=== PATIENT | female | born 1965 | race Caucasian/White ===

== ENCOUNTER 2017-07-09 09:57 | Emergency (ER) | payer OTHER, SELFPAY ==
[2017-07-09 10:35] VITALS: BP 149/95; PULSE 85; RESP 20; TEMP 37.2; O2SAT 95; BMI 38.4
--- NOTE | 2017-07-09 11:20 | HMH.EDUTC ---
[facility] [place] Disposition Clinical Impression: Dental caries Knee pain, left Qualifiers: Chronicity: acute Qualified Code(s): M25.562 - Pain in left knee Disposition: Home, Self-Care Condition on Discharge: Good Instructions: DI for Tooth Decay, Muscle Strain Additional Instructions: Tylenol or ibuprofen as needed for pain or fever Follow-up with dentist this week Antibiotics as ordered Follow up with PCP this week regarding knee Symptoms worsen or do not improve return or be seen in the ER Prescriptions: Amoxicillin [Amoxicillin 500mg Cap] 500 mg PO BID 10 Days #20 cap Referrals: Rakesh Broderick MD [Primary Care Provider] - Medical Decision Making Vital Signs: 07/09/17 10:35 Temperature 98.9 F Temperature Source Temporal Artery Scan Pulse Rate [Brachial] 85 Respiratory Rate 20 Blood Pressure [Right Arm] 149/95 Blood Pressure Mean [Right Arm] 113 Blood Pressure Source [Right Arm] Automatic Cuff Blood Pressure Position [Right Arm] Sitting 02 Sat by Pulse Oximetry 95 - Jerrell Inquiry Pt receiving controlled substance: No [facility] [place] HPI - General Chief complaint: Urgent Treatment Center Stated complaint: sore throat Time Seen by Provider: 07/09/17 11:21 Mode of Arrival: Ambulatory Source of Information: Patient Limitations: No Limitations Description of Symptoms (Recalled from Triage Doc. by RN): LEFT SIDED THROAT PAIN, NO FEVER HEENT Symptoms (Recalled from RN notes): Yes Resp Symptoms (Recalled from RN notes): No Skin Symptoms (Recalled from RN notes): No MS Symptoms (Recalled from RN notes): No Functional Status (Recalled from RN notes): NA - History of Present Illness Provider Complaint: 51 year female presents for left neck pain. Patient states she has 2 teeth in the lower jaw that she has been having worked up at the dentist but insurance will pay to have them pulled. She thinks pain is related to the teeth. Patient also complained of left knee pain states she has a meniscus tear but she is unable to have surgery at this time and stepped off the sidewalk and since then he has been bothering her a little. - Related Data Home Medications Medication Instructions Recorded Confirmed Glimepiride [Glimepiride] 1 mg PO DAILY 07/09/17 07/09/17 Lisinopril/Hydrochlorothiazide 1 mg PO DAILY 01/29/18 01/29/18 [Lisinopril-Hctz 20-12.5 mg Tab] Metformin HCl [Metformin 500mg 0 mg PO BID 07/09/17 07/09/17 Tablet] Verapamil HCl 120 mg PO DAILY 07/09/17 07/09/17 Previous Rx's Medication Instructions Recorded Amoxicillin [Amoxicillin 500mg 500 mg PO BID 10 Days #20 cap 07/09/17 Cap] Allergies Allergy/AdvReac Type Severity Reaction Status Date / Time propoxyphene [PROPOXYPHENE] Allergy Unknown Verified 07/09/17 10:38 - Worker's Comp Is this a Worker's Comp case?: No [facility] History I have reviewed the patient's past medical history: Yes Medical History: Reports:: Diabetes Mellitus Type 2 - *Social History Alcohol Intake: never - Psychiatric History Expresses thoughts of harming self/others: None Suicide Plan Description: No Plan ROS Obtained: Yes All systems reviewed & no additional complaints - Constitutional Constitutional: Reports system reviewed and no additional complaints, except as docu - Eyes Eyes: Reports system reviewed and no additional complaints, except as docu - ENT Ears, Nose, Mouth, and Throat: Reports system reviewed and no additional complaints, except as docu, Reports as per HPI, Reports neck pain, Reports other - Cardiovascular Cardiovascular: Reports system reviewed and no additional complaints, except as docu - Respiratory Respiratory: Yes system reviewed and no additional complaints, except as docu - Gastrointestinal Gastrointestingal: Reports: system reviewed and no additional complaints, except as docu - Musculoskeletal Musculoskeletal: Reports system reviewed and no additional complaints, except as docu, Reports as per HPI
--- NOTE | 2017-07-09 11:25 | ED_ITS ---
[facility] [place] Disposition Clinical Impression: Dental caries Knee pain, left Qualifiers: Chronicity: acute Qualified Code(s): M25.562 - Pain in left knee Disposition: Home, Self-Care Condition on Discharge: Good Instructions: DI for Tooth Decay, Muscle Strain Additional Instructions: Tylenol or ibuprofen as needed for pain or fever Follow-up with dentist this week Antibiotics as ordered Follow up with PCP this week regarding knee Symptoms worsen or do not improve return or be seen in the ER Prescriptions: Amoxicillin [Amoxicillin 500mg Cap] 500 mg PO BID 10 Days #20 cap Referrals: Rakesh Broderick MD [Primary Care Provider] - Medical Decision Making Vital Signs: 07/09/17 10:35 Temperature 98.9 F Temperature Source Temporal Artery Scan Pulse Rate [Brachial] 85 Respiratory Rate 20 Blood Pressure [Right Arm] 149/95 Blood Pressure Mean [Right Arm] 113 Blood Pressure Source [Right Arm] Automatic Cuff Blood Pressure Position [Right Arm] Sitting 02 Sat by Pulse Oximetry 95 - Jerrell Inquiry Pt receiving controlled substance: No [facility] [place] HPI - General Chief complaint: Urgent Treatment Center Stated complaint: sore throat Time Seen by Provider: 07/09/17 11:21 Mode of Arrival: Ambulatory Source of Information: Patient Limitations: No Limitations Description of Symptoms (Recalled from Triage Doc. by RN): LEFT SIDED THROAT PAIN, NO FEVER HEENT Symptoms (Recalled from RN notes): Yes Resp Symptoms (Recalled from RN notes): No Skin Symptoms (Recalled from RN notes): No MS Symptoms (Recalled from RN notes): No Functional Status (Recalled from RN notes): NA - History of Present Illness Provider Complaint: 51 year female presents for left neck pain. Patient states she has 2 teeth in the lower jaw that she has been having worked up at the dentist but insurance will pay to have them pulled. She thinks pain is related to the teeth. Patient also complained of left knee pain states she has a meniscus tear but she is unable to have surgery at this time and stepped off the sidewalk and since then he has been bothering her a little. - Related Data Home Medications Medication Instructions Recorded Confirmed Glimepiride [Glimepiride] 1 mg PO DAILY 07/09/17 07/09/17 Lisinopril/Hydrochlorothiazide 1 mg PO DAILY 01/29/18 01/29/18 [Lisinopril-Hctz 20-12.5 mg Tab] Metformin HCl [Metformin 500mg 0 mg PO BID 07/09/17 07/09/17 Tablet] Verapamil HCl 120 mg PO DAILY 07/09/17 07/09/17 Previous Rx's Medication Instructions Recorded Amoxicillin [Amoxicillin 500mg 500 mg PO BID 10 Days #20 cap 07/09/17 Cap] Allergies Allergy/AdvReac Type Severity Reaction Status Date / Time propoxyphene [PROPOXYPHENE] Allergy Unknown Verified 07/09/17 10:38 - Worker's Comp Is this a Worker's Comp case?: No [facility] History I have reviewed the patient's past medical history: Yes Medical History: Reports:: Diabetes Mellitus Type 2 - *Social History Alcohol Intake: never - Psychiatric History Expresses thoughts of harming self/others: None Suicide Plan Description: No Plan ROS Obtained: Yes All systems reviewed & no additional complaints - Constitutional Constitutional: Reports system reviewed and no additional complaints, except as docu - Eyes Eyes: Reports syste
== END 2017-07-09 11:33 | disposition home or self-care (01) ==
PROVIDERS: Emergency Provider Nurse Practitioner Family; Family Provider Pediatrics; PCP Family Medicine
DX: K02.9 Dental caries, unspecified (principal); M25.562 Pain in left knee; I10 Essential (primary) hypertension; Z79.84 Long term (current) use of oral hypoglycemic drugs; E11.9 Type 2 diabetes mellitus without complications
CPT/HCPCS: 99201

== ENCOUNTER → 2017-09-28 08:37 | Outpatient (CLI) | payer OTHER, SELFPAY ==
[2017-09-28 10:12] LABS: Hemoglobin A1C 11.7 % (0.0-7.0)
[2017-09-28 10:28] LABS: Alanine Aminotransferase 22 U/L (12-78); Albumin Level 3.7 gm/dL (3.4-5.0); Albumin/Globulin Ratio 1.1 (1.1-1.8); Alkaline Phosphatase 77 U/L (46-116); Anion Gap 12.5 mEq/L (5-15); Aspartate Amino Transferase 13 U/L (15-37); Bilirubin,Total 0.4 mg/dL (0.2-1.0); Blood Urea Nitrogen 11 mg/dL (7-18); Calcium 9.5 mg/dL (8.5-10.1); Carbon Dioxide 35 mmol/L (21.0-32.0); Chloride 95 mmol/L (98-107); Chol/HDL Ratio 3.9 (1-3.5); Cholesterol 174 mg/dL (140-200); Creatinine,Serum 0.49 mg/dL (0.55-1.02); Estimated Glomerular Filt Rate 134 ml/min (>60); GFR (African American) 162 ML/MIN (>60); Globulin 3.3 gm/dl (1.3-3.2); Glucose 293 mg/dL (74-106); HDL Cholesterol 45 mg/dL (29-89); LDL Cholesterol 92 mg/dL (0-130); Potassium 3.5 mmoL/L (3.5-5.1); Sodium 139 mmol/L (136-145); Triglycerides 185 mg/dL (30-200); VLDL Cholesterol 37 mg/dL (0-40)
== END ==
PROVIDERS: Visit Provider Family Medicine
DX: E11.9 Type 2 diabetes mellitus without complications (principal); I10 Essential (primary) hypertension; E78.5 Hyperlipidemia, unspecified
CPT/HCPCS: 36415; 80053; 80061; 83036

== ENCOUNTER 2017-12-29 10:50 | Observation (INO) ==
--- NOTE | 2017-12-29 11:04 | Emergency Department Note ---
ED Disposition Clinical Impression: Enteritis, Hypokalemia Disposition: Still a Patient Condition on Discharge: Fair - Critical Care Critical Care Time: No Attestation: On , the high probability of a clinically significant, sudden or life threatening deterioration of the following system(s) required my full and direct attention, intervention and personal management. The time I documented below is in addition to time spent performing reported procedures but includes the following listed in this critical care notation. Medical Decision Making - Jerrell Inquiry Pt receiving controlled substance: No Vital Signs: 12/29/17 10:54 12/29/17 11:34 12/29/17 12:46 Temperature 97.6 F Temperature Source Oral Pulse Rate [Right Brachial] 129 H 117 H 106 H Respiratory Rate 18 18 18 Blood Pressure [Right Arm] 125/94 151/90 141/83 Blood Pressure Mean [Right Arm] 104 110 102 Blood Pressure Source [Right Arm] Automatic Cuff Automatic Cuff Automatic Cuff Blood Pressure Position [Right Arm] Sitting Sitting Sitting 02 Sat by Pulse Oximetry 96 97 95 Oxygen Delivery Method Room Air Room Air Room Air 12/29/17 12:55 12/29/17 13:00 12/29/17 14:30 Temperature Temperature Source Pulse Rate [Right Brachial] 105 H 106 H 106 H Respiratory Rate 18 18 Blood Pressure [Right Arm] 135/85 135/85 154/99 Blood Pressure Mean [Right Arm] 101 101 117 Blood Pressure Source [Right Arm] Automatic Cuff Automatic Cuff Automatic Cuff Blood Pressure Position [Right Arm] Sitting Sitting Sitting 02 Sat by Pulse Oximetry 97 97 96 Oxygen Delivery Method Room Air Room Air Room Air - Lab Data Lab Results 12/29/17 11:05: WBC 19.3 H, RBC 5.34, Hgb 15.7, Hct 48.6 H, MCV 91.0, MCH 29.4, MCHC 32.4, RDW 12.9, Plt Count 559 H, MPV 7.4, Neut % (Auto) 76.2, Lymph % (Auto ) 15.6, [place] % (Auto) 7.0, Eos % (Auto) 0.9, Baso % (Auto) 0.3, Neut # (Auto) 14.7 H, Lymph # (Auto) 3.0, [place] # (Auto) 1.4 H, Eos # (Auto) 0.2, Baso # (Auto ) 0.1, Total Counted 100, Neutrophils % (Manual) 79 H, Band Neutrophils % 2.0, Lymphocytes % (Manual) 12, Atypical Lymphs % 2.0, Monocytes % (Manual) 5, Platelet Estimate Slight increase, RBC Morphology Normal 12/29/17 11:05: Sodium 140, Potassium 2.8 L*, Chloride 102, Carbon Dioxide 29, Anion Gap 11.8, BUN 14, Creatinine 0.71, Estimated Creat Clear 143, Estimated GFR 87, Est GFR ( Amer) 105, Glucose 221 H, Calcium 9.7, Total Bilirubin 0.5, AST 10 L, ALT 26, Alkaline Phosphatase 84, Total Protein 8.3 H, Albumin 4.0 , Globulin 4.3 H, Albumin/Globulin Ratio 0.9 L 12/29/17 11:05: Lipase 1932 H 12/29/17 11:35: Stl Aeromonas (PCR) Not detected, Stl C. cayetanensis PCR Not detected, Stool Rotavirus (PCR) Not detected, Stl Adenov F 40/41 PCR Not detected, Stool Astrovirus (PCR) Not detected, Stool Campylobacter PCR Not detected, Stl C.difficile Tox PCR Not detected, Stool Cryptosporidium PCR Not detected, Stl E.coli Shiga Tox PCR Not detected, Stool E coli O157 PCR Not detected, Stl Enterotoxigenic E PCR Not detected, Stool EPEC (PCR) Not detected , Stool EAEC (PCR) Not detected, Stl E. histolytica PCR Not detected, Stool Giardia Lamblia PCR Not detected, Stool Salmonella PCR Not detected, Stool Sapovirus (PCR) Not detected, Stl P. shigelloides PCR Not detected, Stl Shigella /EIEC PCR Not detected, St Y.enterocolitica PCR Not detected, Stool Vibrio (PCR ) Not detected, Stl Vibrio cholerae PCR Not detected, Stl Norovirus GI/GII PCR Not detected Result diagrams: 12/29/17 11:05 12/29/17 11:05 Orders (Tests/Meds): ED MEDICATIONS Generic Name Dose Route Start Last Admin Trade Name Freq PRN Reason Stop Dose Admin Famotidine 20 mg 12/30/17 09:00 Pepcid 20mg Tablet PO 01/29/18 08:59 DAILY SHARON Potassium Chloride/Sodium Chloride 1,000 mls @ 100 mls/hr 12/29/17 14:46 Kcl 40 Meq-Ns 1,000ml Iv Soln IV 01/28/18 14:45 .Q10H SHARON Insulin Human Lispro 0 unit 12/29/17 16:30 Humalog 100 Units/Ml 3ml Vial (Ssi) SQ 01/28/18 16:29 ACHS SHARON Protocol Morphine Sulfate 4 mg 12/29/17 14:46 Morphine 4mg/Ml Syringe IV 01/28/18 14:45 Q4HP PRN Moderate to Severe Pain Ondansetron HCl 4 mg 12/29/17 14:46 Zofran 4mg/2ml Vial IV 01/28/18 14:45 Q8HP PRN Nausea Sodium Chloride 10 ml 12/29/17 15:00 Saline Flush 10ml Syringe IV 01/28/18 14:59 NEEDED PRN Maintain IV Site Verapamil HCl 160 mg 12/29/17 21:00 Calan Ir 80mg Tablet PO 01/28/18 20:59 BID SHARON Discontinued Medications Generic Name Dose Route Start Last Admin Trade Name Freq PRN Reason Stop Dose Admin Sodium Chloride 1,000 mls @ 999 mls/hr 12/29/17 11:15 12/29/17 11:05 Sod Chlor 0.9% 1000ml Bag IV 12/29/17 12:15 999 mls/hr .Q1H1M SHARON Administration Potassium Chloride/Water 100 mls @ 50 mls/hr 12/29/17 11:54 12/29/17 12:55 Potassium Chloride 20meq/100ml Ivpb IV 12/29/17 13:53 50 mls/hr ONCE ONE Administration Iopamidol 75 ml 12/29/17 12:24 12/29/17 12:25 [id number]; 75ml Vial IV 12/29/17 12:25 75 ml ONCE ONE Administration Ondansetron HCl 4 mg 12/29/17 11:03 12/29/17 11:04 Zofran 4mg/2ml Vial IV 12/29/17 11:04 4 mg ONCE ONE Administration Potassium Chloride/Water 20 meq 12/29/17 11:39 Potassium Chloride 20meq/100ml Ivpb IV 12/29/17 11:40 ONCE ONE Sodium Chloride 10 ml 12/29/17 12:24 12/29/17 12:25 Rad-Saline Flush 10ml Syringe IV 12/29/17 12:25 10 ml ONCE ONE Administration ORDERS Category Date Time Status Basic Metabolic Panel [facility] Lab 12/30/17 06:00 Ordered Complete Blood Count Auto Diff AMLAB Lab 12/30/17 06:00 Ordered - CT Data CT Scan: Abdomen, Pelvis Time Received: 14:[address] Reviewed: Yes: I have viewed the radiologist's interpretation Findings Narrative: IMPRESSION: ...... 1. Findings suggest Acute Enteritis: Liquid stool with air-fluid levels throughout nondilated right and transverse colon. Increased fluid throughout generous generous caliber small bowel, with scattered small air-fluid levels.. Overall picture Likely reflect enteritis. 2. 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 But requires correlation This splenosis pattern basically stable since since [address] study . The Most evident collection of splenules at the splenic bed but with scattered peripheral nodular densities throughout abdomen and pelvis discussed in text. Stable since prior studies 3. Fairly stable left Periaortic Adenopathy... Generous Elongated collection of nodes here unchanged since 2004 CT 4. However there has been significant progression of now numerous Prominent Mesenteric Lymph Nodes most evident towards RLQ... Significant Increased number & size of these mesenteric lymph nodes since 2013. These mesenteric nodes or more prominent and extensive been I would anticipate merely from typical inflammatory enteritis The latter findings warrants follow-up & further investigation..With the combination mesenteric and left para-aortic adenopathy cannot exclude a rather indolent but underlying lymphoproliferative abnormality. 5. Enlarged left ovary measuring up to 4.7 cm and containing a 3.2 cm cyst Patient may benefit from follow-up pelvic ultrasound in context of other findings 6. No free fluid. No free air no focal inflammatory changes. 7. Stable benign nonfunctioning left adrenal adenoma Dictated By: Parveen Angeles Signed By: <Electronically signed by Parveen Angeles in OV> 12/29/17 1358 - Physician Consults Physician Consulted: Davie Time: 14:32 Reason -: Admission Comment/Response: Agrees to admit the patient to the hospital. We discussed the patient's clinical information, including history, exam, laboratory and radiology results and ED course. Per hospital procedure, I will write temporary bridge inpatient orders on the patient. Specific orders requested by the admitting physician: IVF with 40 mEq potassium per liter. No antibiotics. Recheck CBC and chemistry profile in the morning. - Reevaluation(s) Time: 14:19 Reevaluation #1: Improved. No further diarrhea since she provided the diarrhea sample. Nausea is improved. Pain is 3/10. General Adult HPI - General Chief complaint: Nausea/Vomiting/Diarrhea Stated complaint: Abd pain,diarrhea,vomiting Time Seen by Provider: 12/29/17 11:03 Mode of Arrival: Ambulatory Limitations: No Limitations Description of Symptoms (Recalled from ER Triage Doc. by RN): Pt reports diarrhea that began lastnight, pt reports vomitting x1 this morning. Pt c/o pain "all over" her abd that began lastnight. - History of Present Illness HPI narrative: Profuse diarrhea, watery, without blood, 12-15 episodes since last night. Vomiting 1 this morning. No fever noted. No recent travel, exposures, or antibiotics. 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 - Related Data Home Medications Medication Instructions Recorded Confirmed Glimepiride 1 mg PO BID 07/09/17 12/29/17 Metformin HCl [Metformin 500mg 500 mg PO BID 07/09/17 12/29/17 Tablet] Verapamil HCl 180 mg PO BID 07/09/17 12/29/17 Famotidine [Acid Controller] 20 mg PO DAILY 12/29/17 12/29/17 Allergies Allergy/AdvReac Type Severity Reaction Status Date / Time propoxyphene [PROPOXYPHENE] Allergy Unknown Verified 07/09/17 10:[address] [facility] History I have reviewed the patient's past medical history: Yes Medical History: Reports:: Diabetes Mellitus Type 2 - Social History Alcohol Intake: never - Psychiatric History Expresses thoughts of harming self/others: None Suicide Plan Description: No Plan ROS Obtained: Yes All systems reviewed & no additional complaints - Constitutional Constitutional: Denies fever(s) - Gastrointestinal Gastrointestingal: Reports: abdominal pain, diarrhea, nausea, vomiting Physical Exam - General General appearance: alert, in no apparent distress - Head Head exam: atraumatic, normocephalic, normal inspection - Eye Eye exam: Present: normal appearance, PERRL, EOMI - ENT ENT exam: Present: normal exam, normal oropharynx, mucous membranes moist, TM's normal bilaterally, normal external ear exam - Neck Neck exam: Present: normal inspection, full ROM, trachea midline. Absent: meningismus, lymphadenopathy - Chest Chest inspection: Present: normal inspection, symmetric chest wall rise. Absent : tenderness - Respiratory Respiratory exam: Present: normal lung sounds bilaterally. Absent: respiratory distress - Cardiovascular Cardiovascular exam: Present: normal rhythm, tachycardia. Absent: JVD - Abdominal Exam Abdominal exam: Present: soft, tenderness, normal bowel sounds. Absent: distention, guarding Abdominal tenderness: Present: diffuse - Extremities Exam Extremities exam: Present: normal inspection, full ROM, normal capillary refill. Absent: calf tenderness - Back Exam Back exam: Present: normal inspection. Absent: tenderness - Neurological Exam Neurological exam: Present: alert, oriented X3 - Psychiatric Psychiatric exam: Present: normal affect, normal mood - Skin Skin exam: Present: warm, dry, intact, normal color
[2017-12-29 11:25] LABS: Basophils # 0.1 K/mm3 (0-0.2); Basophils % 0.3 % (0.1-2.0); Eosinophils # 0.2 K/mm3 (0.0-0.4); Eosinophils % 0.9 % (0.1-12.0); Hematocrit 48.6 % (37.0-47.0); Hemoglobin 15.7 g/dL (12.2-16.2); Lymphocytes % 15.6 K/mm3 (10-50); Mean Corpuscular HGB Conc 32.4 g/dL (31.8-35.4); Mean Corpuscular Hemoglobin 29.4 pg (27.0-31.2); Mean Platelet Volume 7.4 fl (7.4-10.4); Monocytes # 1.4 K/mm3 (0.1-1.0); Neutrophils # 14.7 K/mm3 (1.8-7.8); Neutrophils % 76.2 % (37.0-80.0); Platelet Count 559 K/mm3 (142-424); Red Blood Count 5.34 M/mm3 (4.20-5.40); Red Cell Distribution Width 12.9 % (11.5-17.5); White Blood Count 19.3 K/mm3 (4.8-10.8)
[2017-12-29 11:34] LABS: Albumin/Globulin Ratio 0.9 (1.1-1.8); Anion Gap 11.8 mEq/L (5-15); Bilirubin,Total 0.5 mg/dL (0.2-1.0); Calcium 9.7 mg/dL (8.5-10.1); Globulin 4.3 gm/dl (1.3-3.2); Total Protein,Serum 8.3 gm/dL (6.4-8.2)
[2017-12-29 11:38] LABS: Potassium 2.8 mmoL/L (3.5-5.1)
[2017-12-29 11:44] LABS: Lymphocytes % 12 % (10-50); Monocytes % 5 % (2-9); Neutrophils % 79 % (42-76); Total Cells Counted 100
[2017-12-29 11:45] LABS: RBC Morphology Normal
[2017-12-30 06:49] LABS: Basophils % 0.4 % (0.1-2.0); Eosinophils # 0.2 K/mm3 (0.0-0.4); Eosinophils % 2.4 % (0.1-12.0); Hematocrit 38.2 % (37.0-47.0); Lymphocytes # 2.9 K/mm3 (0.7-4.5); Lymphocytes % 31.3 K/mm3 (10-50); Mean Corpuscular HGB Conc 32.7 g/dL (31.8-35.4); Mean Corpuscular Hemoglobin 29.9 pg (27.0-31.2); Mean Corpuscular Volume 91.7 fl (81-99); Mean Platelet Volume 7.4 fl (7.4-10.4); Monocytes # 0.7 K/mm3 (0.1-1.0); Monocytes % 7.3 % (1.7-9.3); Neutrophils # 5.3 K/mm3 (1.8-7.8); Neutrophils % 58.5 % (37.0-80.0); Platelet Count 476 K/mm3 (142-424); Red Blood Count 4.17 M/mm3 (4.20-5.40); Red Cell Distribution Width 13.1 % (11.5-17.5); White Blood Count 9.1 K/mm3 (4.8-10.8)
[2017-12-30 06:50] LABS: Hemoglobin 12.5 g/dL (12.2-16.2)
[2017-12-30 06:57] LABS: Anion Gap 12.9 mEq/L (5-15)
[2017-12-30 06:59] LABS: Calcium 7.9 mg/dL (8.5-10.1); Potassium 2.9 mmoL/L (3.5-5.1)
--- NOTE | 2017-12-30 08:20 | History & Physical Report ---
*Admission Date: 12/29/17 *Chief complaint: vomting and diarrhea *History of present illness: Hollie is a 52-year-old white female with a history of hypertension and diabetes who started with abdominal cramping and diarrhea late Sunday night. This persisted throughout the night and then yesterday morning she began having nausea and vomiting. She presented to the emergency room yesterday afternoon with these complaints. On evaluation in the emergency room she was found to have an elevated white count of 19,000 and an elevated lipase. CT scan of the abdomen showed nothing acute with the pancreas. She did have some lymphadenopathy which had been present on prior CAT scan several years ago but bit more prominent in the right lower quadrant with this scan. Also of note, her potassium was low at 2.8. A diarrhea panel was negative. She was admitted yesterday for treatment with IV fluids, GI rest, and replacement of her potassium She rested fairly well through the night. She has had no further vomiting or diarrhea since admission to the floor. Her abdominal pain has eased. She does not feel hungry. She is tolerating liquids. [facility] History Medical History: Reports:: Diabetes Mellitus Type 2, Hypertension Denies:: Cancer, MRSA Other Medical History: Reports: Arthritis, Other (Congenital hearing loss) Other Surgeries: Yes: Hysterectomy-Partial, Splenectomy, Other (Pilonidal cyst) Amputation: No Fractures: No - *Social History Educational Level: Attended College Smoking Status: Never smoker Alcohol Intake: never Occupational Status: employed Household Members: family - Psychiatric History Expresses thoughts of harming self/others: None Pschychiatric History:: Reports:: Depression *Family Hx:: Cancer, Coronary Artery Disease Review of Systems - Constitutional Denies fever(s) - Eyes Reports requires corrective lenses, Denies blurry vision, Denies double vision - ENT Reports dry mouth, Reports hearing loss, Denies pain with swallowing - *Cardiovascular Denies chest pain, Denies shortness of breath, Denies leg swelling, Denies fast heart rate - *Respiratory Denies chest congestion, Denies cough - *Gastrointestinal Reports abdominal pain, Reports bloating, Reports cramping, Reports loose stools , Reports nausea, Reports vomiting - *Genitourinary Reports absent period, Denies difficulty urinating, Denies vaginal discharge - *Musculoskeletal Reports joint pain, Denies muscle weakness - Integumentary/Breasts Denies itching, Denies rash - *Neurologic Reports abnormal hearing, Denies dizziness - Psychiatric Denies anxiety, Denies mood swings - Endocrine Denies excessive sweating, Denies rapid, pounding, or irregular heartbeat - Hematologic/Lymphatic Denies easy bleeding - Allergic/Immunologic Reports seasonal runny nose, Denies itchy eyes Meds Home Medications Medication Instructions Recorded Confirmed Type Glimepiride 1 tab PO BID 07/09/17 12/29/17 History Verapamil HCl 180 mg PO BID 07/09/17 12/29/17 History Benazepril/Hydrochlorothiazide 1 each PO BID 12/29/17 12/29/17 History [Benazepril-Hctz 20-25 mg Tab] Dapagliflozin Propanediol [Farxiga] 10 mg PO DAILY 12/29/17 12/29/17 History Famotidine [Acid Controller] 40 mg PO DAILY 12/29/17 12/29/17 History Sitagliptin Phos/Metformin HCl 1 each PO BID 12/29/17 12/29/17 History [Janumet Xr 50-1,000 mg Tablet] Allergies Allergy/AdvReac Type Severity Reaction Status Date / Time propoxyphene [PROPOXYPHENE] Allergy Unknown Verified 07/09/17 10:38 Exam Vital signs and Labs for Last 24 Hours: Temp Pulse Resp BP Pulse Ox 98.4 F 76 20 129/80 96 12/30/17 07:52 12/30/17 07:52 12/30/17 07:52 12/30/17 07:52 12/30/17 07:52 Laboratory Results - last 24 hr 12/29/17 11:05: WBC 19.3 H, RBC 5.34, Hgb 15.7, Hct 48.6 H, MCV 91.0, MCH 29.4, MCHC 32.4, RDW 12.9, Plt Count 559 H, MPV 7.4, Neut % (Auto) 76.2, Lymph % (Auto ) 15.6, [place] % (Auto) 7.0, Eos % (Auto) 0.9, Baso % (Auto) 0.3, Neut # (Auto) 14.7 H, Lymph # (Auto) 3.0, [place] # (Auto) 1.4 H, Eos # (Auto) 0.2, Baso # (Auto ) 0.1, Total Counted 100, Neutrophils % (Manual) 79 H, Band Neutrophils % 2.0, Lymphocytes % (Manual) 12, Atypical Lymphs % 2.0, Monocytes % (Manual) 5, Platelet Estimate Slight increase, RBC Morphology Normal 12/29/17 11:05: Sodium 140, Potassium 2.8 L*, Chloride 102, Carbon Dioxide 29, Anion Gap 11.8, BUN 14, Creatinine 0.71, Estimated Creat Clear 143, Estimated GFR 87, Est GFR ( Amer) 105, Glucose 221 H, Calcium 9.7, Total Bilirubin 0.5, AST 10 L, ALT 26, Alkaline Phosphatase 84, Total Protein 8.3 H, Albumin 4.0 , Globulin 4.3 H, Albumin/Globulin Ratio 0.9 L 12/29/17 11:05: Lipase 1932 H 12/29/17 11:35: Stl Aeromonas (PCR) Not detected, Stl C. cayetanensis PCR Not detected, Stool Rotavirus (PCR) Not detected, Stl Adenov F 40/41 PCR Not detected, Stool Astrovirus (PCR) Not detected, Stool Campylobacter PCR Not detected, Stl C.difficile Tox PCR Not detected, Stool Cryptosporidium PCR Not detected, Stl E.coli Shiga Tox PCR Not detected, Stool E coli O157 PCR Not detected, Stl Enterotoxigenic E PCR Not detected, Stool EPEC (PCR) Not detected , Stool EAEC (PCR) Not detected, Stl E. histolytica PCR Not detected, Stool Giardia Lamblia PCR Not detected, Stool Salmonella PCR Not detected, Stool Sapovirus (PCR) Not detected, Stl P. shigelloides PCR Not detected, Stl Shigella /EIEC PCR Not detected, St Y.enterocolitica PCR Not detected, Stool Vibrio (PCR ) Not detected, Stl Vibrio cholerae PCR Not detected, Stl Norovirus GI/GII PCR Not detected 12/29/17 15:55: POC Glucose 217 H 12/29/17 20:35: POC Glucose 161 H 12/30/17 06:14: WBC 9.1 D, RBC 4.17 L, Hgb 12.5 D, Hct 38.2, MCV 91.7, MCH 29.9, MCHC 32.7, RDW 13.1, Plt Count 476 H, MPV 7.4, Neut % (Auto) 58.5, Lymph % (Auto) 31.3, [place] % (Auto) 7.3, Eos % (Auto) 2.4, Baso % (Auto) 0.4, Neut # ( Auto) 5.3, Lymph # (Auto) 2.9, [place] # (Auto) 0.7, Eos # (Auto) 0.2, Baso # (Auto ) 0.0 12/30/17 06:14: Sodium 143, Potassium 2.9 L*, Chloride 105, Carbon Dioxide 28, Anion Gap 12.9, BUN 10 D, Creatinine 0.48 L D, Estimated Creat Clear 203, Estimated GFR 137, Est GFR ( Amer) 166 D, Glucose 174 H D, Calcium 7.9 L D, Amylase 130 H, Lipase 1340 H 12/30/17 06:31: POC Glucose 166 H I & O for Last 24 hours: Intake & Output 12/27/17 12/28/17 12/29/17 12/30/17 11:59 11:59 11:59 11:59 Intake Total 2885 / 2885 Balance 2885 / 2885 Weight 210 lb 202 lb 1 oz Narrative: She is lying comfortably in bed. She appears in no acute distress. She is hard of hearing. HEENT shows cranium to be atraumatic and normocephalic. Sclerae and conjunctive are clear. Nares patent. Oropharynx shows slightly dry mucous membranes otherwise unremarkable. Neck is supple with no adenopathy , thyromegaly, or bruits. Lungs are clear to auscultation. Heart is regular with no murmurs. Abdomen is soft and nondistended with no unusual masses. There is some mild diffuse tenderness. Bowel sounds are diminished. Lower extremities no edema. H&P: Result - Labs Labs: Short CBC 12/29/17 12/30/17 Range/Units 11:05 06:14 WBC 19.3 H 9.1 D (4.8-10.8) K/mm3 Hgb 15.7 12.5 D (12.2-16.2) g/dL Hct 48.6 H 38.2 (37.0-47.0) % Plt Count 559 H 476 H (142-424) K/mm3 BMP 12/29/17 12/30/17 11:05 06:14 Sodium 140 143 Potassium 2.8 L* 2.9 L* Chloride 102 105 Carbon Dioxide 29 28 BUN 14 10 D Creatinine 0.71 0.48 L D Glucose 221 H 174 H D Calcium 9.7 7.9 L D Liver Function 12/29/17 Range/Units 11:05 Total Bilirubin 0.5 (0.2-1.0) mg/dL AST 10 L (15-37) U/L ALT 26 (12-78) U/L Alkaline Phosphatase 84 (46-116) U/L Albumin 4.0 (3.4-5.0) gm/dL Assessment and Plan (1) AGE (acute gastroenteritis) Current visit: Yes Status: Acute Category: Medical Code(s): K52.9 - Noninfective gastroenteritis and colitis, unspecified (2) Hypokalemia Current visit: Yes Status: Acute Category: Medical Code(s): E87.6 - Hypokalemia (3) Leukocytosis Current visit: Yes Status: Acute Category: Medical Code(s): D72.829 - Elevated white blood cell count, unspecified (4) Type 2 diabetes mellitus Current visit: Yes Status: Acute Category: Medical Code(s): E11.9 - Type 2 diabetes mellitus without complications (5) HBP (high blood pressure) Current visit: Yes Status: Acute Category: Medical Code(s): I10 - Essential (primary) hypertension (6) Osteoarthritis Current visit: Yes Status: Acute Category: Medical Code(s): M19.90 - Unspecified osteoarthritis, unspecified site (7) Elevated lipase Current visit: Yes Status: Acute Category: Medical Code(s): R74.8 - Abnormal levels of other serum enzymes (8) Intra-abdominal lymphadenopathy Current visit: Yes Status: Acute Category: Medical Code(s): R59.0 - Localized enlarged lymph nodes - Assessment and plan all Dx Assessment and Plan for all problems:: Clinically, she is improved but still weak. Repeat potassium remains low. Her leukocytosis has resolved. Lipase is improved. Plan is to advance her diet today and continue to replace her potassium. If she is able to tolerate her diet, may consider discharge home later today. We will need to repeat her CT scan as an outpatient to follow-up on the lymphadenopathy.
--- NOTE | 2017-12-30 08:21 | Pharmacy Consult Notes ---
[facility] Pharmacy VTE Monitoring - Patient Demographics Admission date: 10/29/17 Report Date: 12/30/17 Time: 08:21 Allergies/Adverse Reactions: Patient Allergies propoxyphene [PROPOXYPHENE] Allergy (Unknown, Verified 07/09/17 10:38) Height: 1.57 m Weight: 91.654 kg Patient Problems: Current Active Problems Enteritis (Acute) Hypokalemia (Acute) - VTE Risk Labs: VTE Related Lab Results Hgb 12.5 g/dL (12.2-16.2) D 12/30/17 06:14 Hct 38.2 % (37.0-47.0) 12/30/17 06:14 Plt Count 476 K/mm3 (142-424) H 12/30/17 06:14 BUN 10 mg/dL (7-18) D 12/30/17 06:14 Creatinine 0.48 mg/dL (0.55-1.02) L D 12/30/17 06:14 Estimated Creat Clear 203 mL/min (0-300) 12/30/17 06:14 Was VTE Risk Assessment Performed: Yes VTE Score: 2 VTE Risk Level: Low Risk - Prophylaxis VTE Prophylaxis Ordered?: Yes Types of VTE Prophylaxis: TEDS Knee High Location of Applied Device: Bilateral Lower Extremeties
--- NOTE | 2017-12-30 12:25 | Progress Note ---
Internal Medicine - PN: Subj *Date: 12/30/17 *Time: 12:23 Interval history: No further nausea or vomiting. She had some trouble swallowing the potassium tablet which apparently briefly became lodged in her esophagus but is now resolved. She is feeling some discomfort when trying to eat now. No regurgitation. Exam Vital signs and Labs for Last 24 Hours: Temp Pulse Resp BP Pulse Ox 98.4 F 76 20 129/80 96 12/30/17 07:52 12/30/17 07:52 12/30/17 07:52 12/30/17 07:52 12/30/17 07:52 Laboratory Results - last 24 hr 12/29/17 11:35: Stl Aeromonas (PCR) Not detected, Stl C. cayetanensis PCR Not detected, Stool Rotavirus (PCR) Not detected, Stl Adenov F 40/41 PCR Not detected, Stool Astrovirus (PCR) Not detected, Stool Campylobacter PCR Not detected, Stl C.difficile Tox PCR Not detected, Stool Cryptosporidium PCR Not detected, Stl E.coli Shiga Tox PCR Not detected, Stool E coli O157 PCR Not detected, Stl Enterotoxigenic E PCR Not detected, Stool EPEC (PCR) Not detected , Stool EAEC (PCR) Not detected, Stl E. histolytica PCR Not detected, Stool Giardia Lamblia PCR Not detected, Stool Salmonella PCR Not detected, Stool Sapovirus (PCR) Not detected, Stl P. shigelloides PCR Not detected, Stl Shigella /EIEC PCR Not detected, St Y.enterocolitica PCR Not detected, Stool Vibrio (PCR ) Not detected, Stl Vibrio cholerae PCR Not detected, Stl Norovirus GI/GII PCR Not detected 12/29/17 15:55: POC Glucose 217 H 12/29/17 20:35: POC Glucose 161 H 12/30/17 06:14: WBC 9.1 D, RBC 4.17 L, Hgb 12.5 D, Hct 38.2, MCV 91.7, MCH 29.9, MCHC 32.7, RDW 13.1, Plt Count 476 H, MPV 7.4, Neut % (Auto) 58.5, Lymph % (Auto) 31.3, [place] % (Auto) 7.3, Eos % (Auto) 2.4, Baso % (Auto) 0.4, Neut # ( Auto) 5.3, Lymph # (Auto) 2.9, [place] # (Auto) 0.7, Eos # (Auto) 0.2, Baso # (Auto ) 0.0 12/30/17 06:14: Sodium 143, Potassium 2.9 L*, Chloride 105, Carbon Dioxide 28, Anion Gap 12.9, BUN 10 D, Creatinine 0.48 L D, Estimated Creat Clear 203, Estimated GFR 137, Est GFR ( Amer) 166 D, Glucose 174 H D, Calcium 7.9 L D, Amylase 130 H, Lipase 1340 H 12/30/17 06:31: POC Glucose 166 H 12/30/17 11:35: POC Glucose 163 H I & O for Last 24 hours: Intake & Output 12/28/17 12/29/17 12/30/17 12/31/17 11:59 11:59 11:59 11:59 Intake Total 2885 / 2885 Balance 2885 / 2885 Weight 210 lb 202 lb 1 oz Assessment and Plan (1) AGE (acute gastroenteritis) Current visit: Yes Status: Acute Category: Medical Code(s): K52.9 - Noninfective gastroenteritis and colitis, unspecified (2) Hypokalemia Current visit: Yes Status: Acute Category: Medical Code(s): E87.6 - Hypokalemia (3) Leukocytosis Current visit: Yes Status: Acute Category: Medical Code(s): D72.829 - Elevated white blood cell count, unspecified (4) Type 2 diabetes mellitus Current visit: Yes Status: Acute Category: Medical Code(s): E11.9 - Type 2 diabetes mellitus without complications (5) HBP (high blood pressure) Current visit: Yes Status: Acute Category: Medical Code(s): I10 - Essential (primary) hypertension (6) Osteoarthritis Current visit: Yes Status: Acute Category: Medical Code(s): M19.90 - Unspecified osteoarthritis, unspecified site (7) Elevated lipase Current visit: Yes Status: Acute Category: Medical Code(s): R74.8 - Abnormal levels of other serum enzymes (8) Intra-abdominal lymphadenopathy Current visit: Yes Status: Acute Category: Medical Code(s): R59.0 - Localized enlarged lymph nodes
--- NOTE | 2017-12-31 14:26 | Discharge Summary ---
General - General Admission date:: 12/29/17 <Rakesh Broderick - 01/10/18 14:00> 12/29/17 <Faiza Linton - 12/31/17 14:29> Discharge date: 12/30/17 <RoyerFaiza - 12/31/17 14:29> HPI HPI: Hollie is a 52-year-old white female with a history of hypertension and diabetes who started with abdominal cramping and diarrhea late Sunday night. This persisted throughout the night and she then began having nausea and vomiting. She presented to the emergency room with these complaints. On evaluation in the emergency room she was found to have an elevated white count of 19,000 and an elevated lipase. CT scan of the abdomen showed nothing acute with the pancreas. She did have some lymphadenopathy which had been present on prior CAT scan several years ago but was a bit more prominent in the right lower quadrant with this scan. Also of note, her potassium was low at 2.8. A diarrhea panel was negative. She was admitted for treatment with IV fluids, GI rest, and replacement of her potassium She had rested fairly well through the night after admission. She had no further vomiting or diarrhea since admission to the floor. Her abdominal pain did eased. She did not feel hungry. She was tolerating liquids. <RoyerFaiza - 12/31/17 14:29> Hospital Course Hospital Course: Patient was given additional p.o. and IV potassium after admission. She received morphine for pain and Zofran for her nausea. She was also placed on Pepcid and sliding scale insulin. Her diet was advanced which she tolerated well. She had no further nausea or vomiting. White count did decrease to 9.1. In the p.m. of 12/30/2017 gastroenteritis seem to have resolved and she was discharged to home. Patient discharged home in stable and satisfactory condition she was to follow- up in the office the week of discharge for recheck of electrolytes. Also she was noted to need a repeat CT scan in the next 2-3 weeks to evaluate lymphadenopathy. <LintonNicolFaiza - 12/31/17 14:33> Objective Vital signs: Temp Pulse Resp BP Pulse Ox 98.4 F 76 20 129/80 96 12/30/17 07:52 12/30/17 07:52 12/30/17 07:52 12/30/17 07:52 12/30/17 07:52 <Rakesh Broderick - 01/10/18 14:00> Temp Pulse Resp BP Pulse Ox 98.4 F 76 20 129/80 96 12/30/17 07:52 12/30/17 07:52 12/30/17 07:52 12/30/17 07:52 12/30/17 07:52 <Faiza Linton - 12/31/17 14:29> Narrative: She was lying comfortably in bed. She appeared in no acute distress. She was hard of hearing. HEENT showed cranium to be atraumatic and normocephalic. Sclerae and conjunctive were clear. Nares patent. Oropharynx showed slightly dry mucous membranes and otherwise unremarkable. Neck was supple with no adenopathy, thyromegaly, or bruits. Lungs were clear to auscultation. Heart was regular with no murmurs. Abdomen was soft and nondistended with no unusual masses. There was some mild diffuse tenderness. Bowel sounds were diminished. Lower extremities without edema. <RoyerFaiza - 12/31/17 14:37> Results Completed studies during hospitalization [Text1]: 12/29/2017 CT of abdomenpelvis IMPRESSION: ...... 1. Findings suggest Acute Enteritis: Liquid stool with air-fluid levels throughout nondilated right and transverse colon. Increased fluid throughout generous generous caliber small bowel, with scattered small air-fluid levels.. Overall picture Likely reflect enteritis. 2. 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 But requires correlation This splenosis pattern basically stable since since [address] . The Most evident collection of splenules at the splenic bed but with scattered peripheral nodular densities throughout abdomen and pelvis discussed in text. Stable since prior studies 3. Fairly stable left Periaortic Adenopathy... Generous Elongated collection of nodes here unchanged since 2004 CT 4. However there has been significant progression of now numerous Prominent Mesenteric Lymph Nodes most evident towards RLQ... Significant Increased number & size of these mesenteric lymph nodes since 2012. These mesenteric nodes or more prominent and extensive been I would anticipate merely from typical inflammatory enteritis The latter findings warrants follow-up & further investigation..With the combination mesenteric and left para-aortic adenopathy cannot exclude a rather indolent but underlying lymphoproliferative abnormality. 5. Enlarged left ovary measuring up to 4.7 cm and containing a 3.2 cm cyst Patient may benefit from follow-up pelvic ultrasound in context of other findings 6. No free fluid. No free air no focal inflammatory changes. 7. Stable benign nonfunctioning left adrenal adenoma <Faiza Linton - 12/31/17 14:37> Labs on day of discharge: 12/29/17 11:35: Stl Aeromonas (PCR) Not detected, Stl C. cayetanensis PCR Not detected, Stool Rotavirus (PCR) Not detected, Stl Adenov F 40/41 PCR Not detected, Stool Astrovirus (PCR) Not detected, Stool Campylobacter PCR Not detected, Stl C.difficile Tox PCR Not detected, Stool Cryptosporidium PCR Not detected, Stl E.coli Shiga Tox PCR Not detected, Stool E coli O157 PCR Not detected, Stl Enterotoxigenic E PCR Not detected, Stool EPEC (PCR) Not detected , Stool EAEC (PCR) Not detected, Stl E. histolytica PCR Not detected, Stool Giardia Lamblia PCR Not detected, Stool Salmonella PCR Not detected, Stool Sapovirus (PCR) Not detected, Stl P. shigelloides PCR Not detected, Stl Shigella /EIEC PCR Not detected, St Y.enterocolitica PCR Not detected, Stool Vibrio (PCR ) Not detected, Stl Vibrio cholerae PCR Not detected, Stl Norovirus GI/GII PCR Not detected 12/29/17 15:55: POC Glucose 217 H 12/29/17 20:35: POC Glucose 161 H 12/30/17 06:14: WBC 9.1 D, RBC 4.17 L, Hgb 12.5 D, Hct 38.2, MCV 91.7, MCH 29.9, MCHC 32.7, RDW 13.1, Plt Count 476 H, MPV 7.4, Neut % (Auto) 58.5, Lymph % (Auto) 31.3, [place] % (Auto) 7.3, Eos % (Auto) 2.4, Baso % (Auto) 0.4, Neut # ( Auto) 5.3, Lymph # (Auto) 2.9, [place] # (Auto) 0.7, Eos # (Auto) 0.2, Baso # (Auto ) 0.0 12/30/17 06:14: Sodium 143, Potassium 2.9 L*, Chloride 105, Carbon Dioxide 28, Anion Gap 12.9, BUN 10 D, Creatinine 0.48 L D, Estimated Creat Clear 203, Estimated GFR 137, Est GFR ( Amer) 166 D, Glucose 174 H D, Calcium 7.9 L D, Amylase 130 H, Lipase 1340 H 12/30/17 06:31: POC Glucose 166 H 12/30/17 11:35: POC Glucose 163 H <Faiza Linton - 12/31/17 14:38> DS: Diagnosis - Discharge Diagnosis (1) AGE (acute gastroenteritis) Status: Acute (2) Hypokalemia Status: Acute (3) Leukocytosis Status: Acute (4) Type 2 diabetes mellitus Status: Acute (5) HBP (high blood pressure) Status: Acute (6) Osteoarthritis Status: Acute (7) Elevated lipase Status: Acute (8) Intra-abdominal lymphadenopathy Status: Acute <Rakesh Broderick - 01/10/18 14:00> (1) AGE (acute gastroenteritis) Status: Acute (2) Hypokalemia Status: Acute (3) Leukocytosis Status: Acute (4) Type 2 diabetes mellitus Status: Acute (5) HBP (high blood pressure) Status: Acute (6) Osteoarthritis Status: Acute (7) Elevated lipase Status: Acute (8) Intra-abdominal lymphadenopathy Status: Acute <Faiza Linton 12/31/17 14:38> Discharge Plan - Patient Discharge Instructions ACTIVITY: Continue current activity, Other (She is to remain off work tonight) <Faiza Linton 12/31/17 14:29> DIET: diabetic diet <Faiza Linton 12/31/17 14:29> Patient Instructions: DI for Hypokalemia <Rakesh Broderick - 01/10/18 14:00> Forms: [facility] Work Release <Rakesh Broderick - 01/10/18 14:00> - Follow up Plan Follow up with: <Rakesh Broderick 01/10/18 14:00> Disposition: Home, Self-Care <Rakesh Broderick 01/10/18 14:00> Home Medications: Home Medications Medication Instructions Recorded Confirmed Type Glimepiride 4 mg PO BID 07/09/17 12/30/17 History Verapamil HCl 180 mg PO BID 07/09/17 12/29/17 History Benazepril/Hydrochlorothiazide 1 tab PO BID 12/29/17 12/30/17 History [Benazepril-Hctz 20-25 mg Tab] Dapagliflozin Propanediol [Farxiga] 10 mg PO DAILY 12/29/17 12/29/17 History Famotidine [Acid Controller] 40 mg PO HS 12/29/17 12/30/17 History Sitagliptin Phos/Metformin HCl 1 tab PO BID 12/29/17 12/30/17 History [Janumet Xr 50-1,000 mg Tablet] <Rakesh Broderick - 01/10/18 14:00> Prescriptions/Medication Reconciliation: New Ondansetron HCl [Zofran 4mg Tab] 4 mg PO Q6HP PRN #15 tab PRN Reason: Nausea Continue Verapamil HCl 180 mg PO BID Glimepiride 4 mg PO BID Sitagliptin Phos/Metformin HCl [Janumet Xr 50-1,000 mg Tablet] 1 tab PO BID Famotidine [Acid Controller] 40 mg PO HS Benazepril/Hydrochlorothiazide [Benazepril-Hctz 20-25 mg Tab] 1 tab PO BID Dapagliflozin Propanediol [Farxiga] 10 mg PO DAILY <Rakesh Broderick - 01/10/18 14:00> - Additional Information Additional Information: Concur with assessment and plan for discharge. <Rakesh Broderick - 01/10/18 14:00>
== END 2017-12-30 14:45 | disposition home or self-care (01) ==
LOC: 2ND 10:50 → ER 10:50 → OBSVTOIN 15:05 → INTOOBSV 15:05 → 2ND 15:08
PROVIDERS: ADMIT Family Medicine; ATTEND Family Medicine

== ENCOUNTER → 2019-05-07 17:01 | Outpatient (CLI) | payer OTHER, SELFPAY ==
[2019-05-07 17:22] LABS: Basophils % 0.6 % (0.1-2.0); Eosinophils # 0.2 K/mm3 (0.0-0.4); Eosinophils % 2.5 % (0.1-12.0); Hematocrit 47.5 % (37.0-47.0); Lymphocytes # 2.6 K/mm3 (0.7-4.5); Lymphocytes % 40.3 % (10-50); Mean Corpuscular HGB Conc 31.6 g/dL (31.8-35.4); Mean Corpuscular Hemoglobin 29.8 pg (27.0-31.2); Mean Corpuscular Volume 94.3 fl (81-99); Mean Platelet Volume 8.7 fl (7.4-10.4); Monocytes # 0.4 K/mm3 (0.1-1.0); Monocytes % 6.5 % (1.7-9.3); Neutrophils # 3.3 K/mm3 (1.8-7.8); Neutrophils % 50.2 % (37.0-80.0); Platelet Count 520 K/mm3 (142-424); Red Blood Count 5.04 M/mm3 (4.20-5.40); Red Cell Distribution Width 12.7 % (11.5-17.5); White Blood Count 6.5 K/mm3 (4.8-10.8)
[2019-05-07 19:51] LABS: Alanine Aminotransferase 17 U/L (12-78); Albumin Level 3.8 gm/dL (3.4-5.0); Albumin/Globulin Ratio 1.1 (1.1-1.8); Alkaline Phosphatase 105 U/L (46-116); Anion Gap 18.8 mEq/L (5-15); Aspartate Amino Transferase 13 U/L (15-37); Bilirubin,Total 0.3 mg/dL (0.2-1.0); Blood Urea Nitrogen 11 mg/dL (7-18); Calcium 9.9 mg/dL (8.5-10.1); Carbon Dioxide 30 mmol/L (21.0-32.0); Chloride 90 mmol/L (98-107); Chol/HDL Ratio 4.4 (1-3.5); Cholesterol 235 mg/dL (140-200); Creatinine,Serum 0.92 mg/dL (0.55-1.02); Estimated Glomerular Filt Rate 64 ml/min (>60); GFR (African American) 78 ML/MIN (>60); Globulin 3.6 gm/dl (1.3-3.2); HDL Cholesterol 54 mg/dL (29-89); LDL Cholesterol 116 mg/dL (0-130); Sodium 136 mmol/L (136-145); T4 (Thyroxine) 12.1 ug/dl (4.7-13.3); Thyroid Stimulating Hormone 1.05 uIU/ml (0.358-3.740); Total Protein,Serum 7.4 gm/dL (6.4-8.2); Triglycerides 323 mg/dL (30-200); VLDL Cholesterol 65 mg/dL (0-40)
[2019-05-07 20:23] LABS: Glucose 615 mg/dL (74-106); Potassium 2.8 mmoL/L (3.5-5.1)
[2019-05-10 07:02] LABS: Creatinine, Urine 12.2 mg/dL (Not Estab.); Microalbumin, Urine <3.0 ug/mL (Not Estab.)
[2019-05-10 19:24] LABS: Vitamin D 25 Hydroxy 32.2 ng/mL (30.0-100.0)
== END ==
PROVIDERS: Visit Provider Emergency Medicine
DX: E11.9 Type 2 diabetes mellitus without complications (principal); Z79.84 Long term (current) use of oral hypoglycemic drugs
CPT/HCPCS: 80053; 80061; 82043; 82570; 82652; 83036; 84436; 84443; 85025

== ENCOUNTER → 2019-07-18 09:04 | Outpatient (CLI) | payer OTHER, SELFPAY ==
--- NOTE | 2019-07-18 09:11 | MM_ITS ---
PROCEDURE: MM DIG SCREENING MAMM BI W/CAD CLINICAL INDICATION: screening There is no personal or family history of breast cancer. There has been a previous biopsy left breast for benign disease. COMPARISON: [facility] DIGITAL MAMM-SCREEN BILATERAL from 10/05/2011 [facility] DIG MAMM-DX UNILATERAL-RT from 03/28/2012 [facility] DIG MAMM-SCREEN GALI from 07/13/2015 TECHNIQUE: Standard CC and MLO images and 3D Tomosynthesis was obtained. R2 CAD reviewed. FINDINGS: There is a markedly dense and heterogenic parenchymal pattern bilaterally. In addition there is rather prominent skin thickening of both breasts which is uniform and symmetrical bilaterally. In retrospect there was some skin thickening seen on the previous mammograms but not as prominent on today's exam. Suggest clinical correlation for possible abnormalities such as congestive heart failure and/or generalized anasarca. Possibly dermatology evaluation should be considered unusual or rare causes of skin thickening. Alex images are most helpful in this type of dense breast parenchymal pattern there is no definite suspicious lesion in either breast. There are no suspicious microcalcifications. There are few borderline size nodes in both axilla. IMPRESSION: Basically stable heterogenic dense parenchymal pattern with no suspicious lesions seen. Prominent rather uniform skin thickening as described of unknown significance however recommend clinical correlation for conditions causing edema such as congestive failure and/or renal failure and possibly dermatology conditions. BI-RAD Category: 2 Benign Finding(s) FOLLOW-UP: 1YR 1 Year Follow-up (A letter has been sent to the patient regarding results of the study.) Dictated by: Dr. Beau Coronel MD 07/21/2019 19:[address] Beau Coronel MD in [place] 07/21/2019 19:12
== END ==
PROVIDERS: PCP Emergency Medicine; Visit Provider Emergency Medicine
DX: Z12.31 Encounter for screening mammogram for malignant neoplasm of breast (principal)
CPT/HCPCS: 77063; 77067

== ENCOUNTER → 2019-07-23 14:15 | Outpatient (CLI) | payer OTHER, SELFPAY ==
[2019-07-23 14:25] LABS: Basophils # 0.1 K/mm3 (0-0.2); Basophils % 0.9 % (0.1-2.0); Eosinophils # 0.2 K/mm3 (0.0-0.4); Hematocrit 46.4 % (37.0-47.0); Lymphocytes # 2.5 K/mm3 (0.7-4.5); Lymphocytes % 45.4 % (10-50); Mean Corpuscular HGB Conc 32.4 g/dL (31.8-35.4); Mean Corpuscular Hemoglobin 29.6 pg (27.0-31.2); Mean Corpuscular Volume 91.4 fl (81-99); Mean Platelet Volume 8.7 fl (7.4-10.4); Monocytes # 0.4 K/mm3 (0.1-1.0); Monocytes % 6.5 % (1.7-9.3); Neutrophils # 2.4 K/mm3 (1.8-7.8); Neutrophils % 43.3 % (37.0-80.0); Platelet Count 514 K/mm3 (142-424); Red Blood Count 5.07 M/mm3 (4.20-5.40); Red Cell Distribution Width 12.9 % (11.5-17.5); White Blood Count 5.5 K/mm3 (4.8-10.8)
[2019-07-23 14:56] LABS: Hemoglobin A1C 11.3 % (0.0-7.0)
[2019-07-23 15:17] LABS: Alanine Aminotransferase 18 U/L (9-52); Albumin Level 3.9 g/dL (3.4-5.0); Albumin/Globulin Ratio 1.2 (1.1-1.8); Alkaline Phosphatase 78 U/L (46-116); Anion Gap 11.5 mEq/L (5-15); Aspartate Amino Transferase 12 U/L (15-37); Bilirubin,Total 0.6 mg/dL (0.2-1.0); Blood Urea Nitrogen 10 mg/dL (7-18); Calcium 9.3 mg/dL (8.5-10.1); Carbon Dioxide 36 mmol/L (21.0-32.0); Chloride 98 mmol/L (98-107); Creatinine,Serum 0.58 mg/dL (0.55-1.02); Estimated Glomerular Filt Rate 110 ml/min (>60); GFR (African American) 133 ML/MIN (>60); Globulin 3.2 gm/dl (1.3-3.2); Glucose 386 mg/dL (74-106); Sodium 143 mmol/L (137-145); Total Protein,Serum 7.1 g/dL (6.4-8.2)
[2019-07-23 16:07] LABS: Potassium 2.5 mmoL/L (3.5-5.1)
[2019-07-25 11:01] LABS: Creatinine, Urine 39.2 mg/dL (Not Estab.); Microalbumin, Urine 18.7 ug/mL (Not Estab.)
== END ==
PROVIDERS: Visit Provider Emergency Medicine
DX: E11.9 Type 2 diabetes mellitus without complications (principal); Z79.84 Long term (current) use of oral hypoglycemic drugs
CPT/HCPCS: 80053; 82043; 82570; 83036; 85025

== ENCOUNTER → 2019-08-13 14:13 | Outpatient (CLI) | payer OTHER, SELFPAY ==
[2019-08-13 17:02] LABS: Chloride 91 mmol/L (98-107); Potassium 3.6 mmoL/L (3.5-5.1); Sodium 137 mmol/L (136-145)
[2019-08-13 17:05] LABS: Anion Gap 12.6 mEq/L (5-15); Blood Urea Nitrogen 13 mg/dl (7-17); Calcium 9.9 mg/dl (8.4-10.2); Carbon Dioxide 37 mmol/L (22.0-30.0); Estimated Glomerular Filt Rate 168 ml/min (>60); GFR (African American) 203 ML/MIN (>60); Glucose 303 mg/dl (74-100)
== END ==
PROVIDERS: Visit Provider Emergency Medicine
DX: E87.6 Hypokalemia (principal)
CPT/HCPCS: 36415; 80048

== ENCOUNTER → 2019-10-13 14:51 | Outpatient (CLI) | payer OTHER, SELFPAY ==
[2019-10-13 15:41] LABS: Chloride 93 mmol/L (98-107); Potassium 3.2 mmoL/L (3.5-5.1); Sodium 139 mmol/L (136-145)
[2019-10-13 15:44] LABS: Alanine Aminotransferase 32 U/L (12-78); Albumin Level 4.2 g/dl (3.5-5.0); Albumin/Globulin Ratio 1.8 (1.1-1.8); Alkaline Phosphatase 77 U/L (38-126); Anion Gap 18.2 mEq/L (5-15); Aspartate Amino Transferase 30 U/L (14-36); Bilirubin,Total 0.4 mg/dl (0.2-1.3); Blood Urea Nitrogen 11 mg/dl (7-17); Calcium 10.1 mg/dl (8.4-10.2); Carbon Dioxide 31 mmol/L (22.0-30.0); Estimated Glomerular Filt Rate 130 ml/min (>60); GFR (African American) 157 ML/MIN (>60); Globulin 2.4 g/dL (1.3-3.2); Total Protein,Serum 6.6 g/dl (6.3-8.2)
[2019-10-13 15:52] LABS: Basophils # 0.1 K/mm3 (0-0.2); Basophils % 0.9 % (0.1-2.0); Eosinophils # 0.4 K/mm3 (0.0-0.4); Hematocrit 45.3 % (37.0-47.0); Hemoglobin 14.8 g/dL (12.2-16.2); Lymphocytes # 2.3 K/mm3 (0.7-4.5); Lymphocytes % 29.5 % (10-50); Mean Corpuscular HGB Conc 32.7 g/dL (31.8-35.4); Mean Corpuscular Hemoglobin 29.7 pg (27.0-31.2); Mean Corpuscular Volume 90.8 fl (81-99); Mean Platelet Volume 8.7 fl (7.4-10.4); Monocytes # 0.6 K/mm3 (0.1-1.0); Monocytes % 7.5 % (1.7-9.3); Neutrophils # 4.4 K/mm3 (1.8-7.8); Platelet Count 453 K/mm3 (142-424); Red Blood Count 4.99 M/mm3 (4.20-5.40); White Blood Count 7.7 K/mm3 (4.8-10.8)
[2019-10-13 15:59] LABS: Glucose 401 mg/dl (74-100)
== END ==
PROVIDERS: Visit Provider Emergency Medicine
DX: E11.9 Type 2 diabetes mellitus without complications (principal); Z79.4 Long term (current) use of insulin
CPT/HCPCS: 80053; 83036; 85025

== ENCOUNTER → 2019-11-26 09:07 | Outpatient (CLI) | payer OTHER, SELFPAY ==
[2019-11-26 11:24] LABS: Coronavirus 19 IgG Antibody Negative (Negative); Coronavirus 19 IgM Antibody Negative (Negative)
== END ==
PROVIDERS: Visit Provider Surgery
DX: Z01.818 Encounter for other preprocedural examination (principal)
CPT/HCPCS: 36415; 86328

== ENCOUNTER 2019-11-27 07:24 | Day surgery (SDC) | payer OTHER, SELFPAY ==
--- NOTE | 2019-11-25 09:46 | SUR.PREOP ---
11/25/2019 @ 5958--PHONE CALL MADE TO PATIENT. PATIENT UNDERSTANDS THAT LAB WORK AND COVID TESTING NEEDS TO BE COMPLETED @ 0900 ON 11/26/2019. PATIENT UNDERSTANDS IF LAB WORK AND COVID-19 TESTS ARE NOT COMPLETED BY 12PM ON THAT DATE, THE SURGERY SCHEDULED WILL BE CANCELLED AND RESCHEDULED FOR ANOTHER TIME.
[2019-11-25 11:17] VITALS: BMI 32.9
[2019-11-27 07:39] VITALS: BP 156/86; PULSE 86; RESP 16; TEMP 36.9; O2SAT 98
[2019-11-27 07:53] LABS: POC Glucose,Bedside 178 (70-110)
--- NOTE | 2019-11-27 08:43 | HMH.ANESCL ---
[facility] Anesthesia Checklist - Patient Identification Patient Identification: Arm Band, Verbal (Name & ) - Structural Data Admitted From: Home Planned Operative Procedure/s: Colonoscopy Consent for Planned Operative Procedure(s) Verified: Yes Verified Documents: Surgical Consent, History and Physical - NPO Status Verified Time NPO: 00:00 - Chart Verification Results Verified: None - Additional verifications Fingerstick Blood Glucose: 168 Patient : No Anesthesia Reactions: No - Airway Assessment C-Spine Mobility Assessed: Yes TMJ Mobility Assessed: Yes Dentition: Poor Dentition (missing teeth) - Neurological Assessment Level of Consciousness: Awake, Alert, Appropriate, Follows Commands Hx Seizures: No Numbness or tingling in extremities: Yes - Anesthesia Plan Anesthesia Risk discussed: Yes Anesthesia Plan: Verified ASA Class: III Anesthesia Type: [facility] History I have reviewed the patient's past medical history: Yes Medical History: Reports:: Diabetes Mellitus Type 2, Gastroesophageal Reflux Disease(GERD), Heart Murmur, Hyperlipidemia, Hypertension Denies:: Cancer, Carotid Stenosis, Diabetes Mellitus Type 1, Internal Pacemaker, MRSA, Seizures *Have you ever received a pneumonia vaccine?: No *Have you received a flu vaccine this season?: No Other Medical History: Reports: Arthritis, Other Comment:: obesity, peripheral neuropathy, Anesthesia experience/problems:: None Laterality Cases: Left: Breast Biopsy, Bilateral: Carpal Tunnel Release Other Surgeries: Yes: Hysterectomy-Partial, Splenectomy, Other. No: Pacemaker Amputation: No Fractures: No - *Social History Educational Level: Attended College Smoking Status: Never smoker Alcohol Intake: never Substance Use Type: denies use *Occupational Status:: unemployed Housing: house Household Members: children *Travel in the last 8 weeks: None - Psychiatric History Pschychiatric History:: Reports:: Depression Family Hx:: Anemia, Cancer, Diabetes, Hyperlipidemia, Hypertension, Thyroid Disorder
[2019-11-27 09:03] VITALS: O2SAT 98
[2019-11-27 09:46] VITALS: BP 113/71; PULSE 85; RESP 18; TEMP 36.6; O2SAT 94
--- NOTE | 2019-11-27 09:48 | HMH.SCOPE ---
- Procedure: Date: 11/27/19 Procedure Performed:: Colonoscopy with polypectomy Indications:: Positive Cologuard Performing Provider:: Matthieu Jeffrey MD Referring Provider:: . Sedation:: Monitored anesthesia care Procedure:: After informed consent was obtained the patient was taken to the endoscopy suite. Sedation ensued after the patient was transferred to the left lateral decubitus position. Pulse, blood pressure, and oxygen saturation were monitored throughout the procedure. Digital rectal exam revealed no significant abnormality. The colonoscope was placed in position. The entire colon was evaluated. The colonoscope was carefully removed and the patient was transferred to recovery in stable condition. Please see findings and specimens below for detail. Findings:: Bowel preparation moderate to poor Circumferential hemorrhoidal tags Fairly severe lack of relaxation Polyps (see specimens) Specimens:: Periappendiceal polyp Lobulated sessile 8 mm polyp at 65 cm (snare) Large partially-pedunculated lobulated polyp at 30 cm (snare) Recommendations:: Barium enema in the relatively near future secondary to limitations in visualization and positive Cologuard study Timing of repeat colonoscopy is pending pathology and results of barium enema but will likely be around 1-2 years Complications:: No immediate Estimated blood obtained (mL): 1
[2019-11-27 09:56] VITALS: BP 121/67; PULSE 86; RESP 18; TEMP 36.6; O2SAT 94
[2019-11-27 10:06] VITALS: BP 148/61; PULSE 81; RESP 18; TEMP 36.6; O2SAT 96
[2019-11-27 10:20] VITALS: BP 145/75; PULSE 75; RESP 18; TEMP 36.6; O2SAT 96
== END 2019-11-27 10:20 | disposition home or self-care (01) ==
LOC: OUTP 07:25
PROVIDERS: PCP Emergency Medicine; Visit Provider Surgery
PROC: 0DJD8ZZ Inspection of Lower Intestinal Tract, Via Natural or Artificial Opening Endoscopic (ICD-10-PCS; CPT 45380; principal; 2019-11-27 08:30)
DX: K63.5 Polyp of colon (principal); Z91.19 Patient's noncompliance with other medical treatment and regimen; K64.9 Unspecified hemorrhoids; E78.5 Hyperlipidemia, unspecified; I10 Essential (primary) hypertension; Z79.899 Other long term (current) drug therapy; Z79.84 Long term (current) use of oral hypoglycemic drugs; Z79.4 Long term (current) use of insulin; K59.09 Other constipation; F32.9 Major depressive disorder, single episode, unspecified; M19.90 Unspecified osteoarthritis, unspecified site
CPT/HCPCS: 45380; 82962; J2704

== ENCOUNTER → 2019-12-02 10:32 | Outpatient (CLI) | payer OTHER, SELFPAY ==
[2019-12-02 10:34] LABS: Adenovirus F 40/41, stool Not Detected (NotDetected); Astrovirus Not Detected (NotDetected); Campylobacter Not Detected (NotDetected); Clostridium Difficile A/B, PCR Not Detected (NotDetected); Cryptosporidium Not Detected (NotDetected); Cyclospora Cayetanesis Not Detected (NotDetected); Entamoeba histolytica Not Detected (NotDetected); Enteroaggregative E coli Not Detected (NotDetected); Enteropathogenic E coli Not Detected (NotDetected); Enterotoxigenic E coli Not Detected (NotDetected); Giardia lamblia Not Detected (NotDetected); Norovirus Not Detected (NotDetected); Plesimonas Shigalloides, PCR Not Detected (NotDetected); Rotavirus A Not Detected (NotDetected); Salmonella, PCR Not Detected (NotDetected); Sapovirus Not Detected (NotDetected); Shiga-like toxin E coli Not Detected (NotDetected); Shigella Enterovasive E coli Not Detected (NotDetected); Vibrio Cholerae Not Detected (NotDetected); Vibrio, PCR Not Detected (NotDetected); Yersinia Entercolitica, PCR Not Detected (NotDetected)
== END ==
PROVIDERS: Visit Provider Surgery
DX: R19.7 Diarrhea, unspecified (principal)
CPT/HCPCS: 87506

== ENCOUNTER → 2020-01-02 13:41 | Outpatient (CLI) | payer OTHER, SELFPAY ==
[2020-01-02 20:05] LABS: Creatinine,Urine Random 39 mg/dL (Not Estab.); Microalbumin/Creatinine Ratio 137.6
[2020-01-02 21:00] LABS: Hemoglobin A1C 12.1 % (4.0-6.0)
== END ==
PROVIDERS: Visit Provider Emergency Medicine
DX: E11.8 Type 2 diabetes mellitus with unspecified complications (principal); Z79.4 Long term (current) use of insulin
CPT/HCPCS: 82043; 82570; 83036

== ENCOUNTER → 2020-01-12 09:04 | Outpatient (CLI) | payer OTHER, SELFPAY ==
[2020-01-12 09:11] LABS: Microscopic, Urine URINE MICROSCOPIC (MICROSCOPIC)
[2020-01-12 09:48] LABS: Basophils % 0.5 % (0.1-2.0); Eosinophils # 0.3 K/mm3 (0.0-0.4); Eosinophils % 3.8 % (0.1-12.0); Hematocrit 43.9 % (37.0-47.0); Hemoglobin 14.7 g/dL (12.2-16.2); Lymphocytes # 2.6 K/mm3 (0.7-4.5); Lymphocytes % 34.5 % (10-50); Mean Corpuscular HGB Conc 33.4 g/dL (31.8-35.4); Mean Corpuscular Hemoglobin 30.7 pg (27.0-31.2); Mean Corpuscular Volume 91.9 fl (81-99); Mean Platelet Volume 7.7 fl (7.4-10.4); Monocytes # 0.5 K/mm3 (0.1-1.0); Neutrophils # 4.1 K/mm3 (1.8-7.8); Neutrophils % 55.1 % (37.0-80.0); Platelet Count 465 K/mm3 (142-424); Red Blood Count 4.78 M/mm3 (4.20-5.40); Red Cell Distribution Width 13.3 % (11.5-17.5); White Blood Count 7.4 K/mm3 (4.8-10.8)
[2020-01-12 09:51] LABS: Appearance,Urine CLEAR (Clear); Bilirubin,Urine Negative (Negative); Blood, Urine Negative (Negative); Color,Urine YELLOW (Yellow); Glucose,Urine (UA) 3+ (Negative); Ketones,Urine Negative (Negative); Leukocyte Esterase,Urine Negative (Negative); Nitrate,Urine Negative (Negative); Protein,Urine Negative (Negative); Urobilinogen,Urine 0.2 EU/dl (0.2)
[2020-01-12 12:21] LABS: Albumin Level 4.1 g/dl (3.5-5.0); Anion Gap 14.5 mEq/L (5-15); Blood Urea Nitrogen 14 mg/dl (7-17); Carbon Dioxide 37 mmol/L (22.0-30.0); Chloride 91 mmol/L (98-107); Estimated Glomerular Filt Rate 234 ml/min (>60); GFR (African American) 283 ML/MIN (>60); Glucose 298 mg/dl (74-100); Phosphorous 4.1 mg/dl (2.5-4.5); Potassium 3.5 mmoL/L (3.5-5.1); Sodium 139 mmol/L (136-145)
[2020-01-12 12:32] LABS: Intact Parathyroid Hormone 36.3 pg/mL (7.5-53.5)
[2020-01-12 12:36] LABS: 25-OH Vitamin D, Total 25.3 ng/mL (30-100)
[2020-01-12 13:06] LABS: Creatinine,Urine Random 50 mg/dL (Not Estab.)
== END ==
PROVIDERS: Visit Provider Internal Medicine Nephrology
DX: R80.9 Proteinuria, unspecified (principal); E55.9 Vitamin D deficiency, unspecified
CPT/HCPCS: 36415; 80069; 81001; 82306; 82570; 83970; 84155; 85025

== ENCOUNTER → 2020-01-13 08:36 | Outpatient (CLI) | payer OTHER, SELFPAY ==
--- NOTE | 2020-01-13 09:36 | XR_ITS ---
PROCEDURE: XR KUB CLINICAL INDICATION: ABD PAIN..NOT CLEANED FOR BE.................COLON SPASMS COMPARISON: No exams were available for comparison FINDINGS: Patient was scheduled for barium enema however, there is a moderate amount of feces in the right colon precluding performance of a barium enema. Otherwise negative. Calcific density overlies the ilium on the right and in the lower ileal region on the right. IMPRESSION: Mild amount of feces in the right colon. Dictated b Yayo Pizarro MD 01/13/2020 15:50 Yayo Pizarro MD in [place] 01/13/2020 15:50
== END ==
PROVIDERS: PCP Emergency Medicine; Visit Provider Surgery
DX: R10.9 Unspecified abdominal pain (principal)
CPT/HCPCS: 74018

== ENCOUNTER → 2020-01-14 10:56 | Outpatient (CLI) | payer OTHER, SELFPAY ==
--- NOTE | 2020-01-14 10:56 | FL_ITS ---
PROCEDURE: FL BARIUM ENEMA CLINICAL INDICATION: colon spasms Polyps COMPARISON: No exams were available for comparison FINDINGS: Fluoroscopy time: 3 minutes and 7 seconds The colon was visualized from rectum to cecum. The appendix was filled with contrast. No annular constricting lesions or polypoid filling defects are apparent. No diverticula. IMPRESSION: Unremarkable air-contrast barium enema Dictated b Yayo Pizarro MD 01/14/2020 14:42 Yayo Pizarro MD in [place] 01/14/2020 14:42
== END ==
PROVIDERS: PCP Emergency Medicine; Visit Provider Surgery
DX: R10.9 Unspecified abdominal pain (principal)
CPT/HCPCS: 74270

== ENCOUNTER → 2020-04-21 08:19 | Outpatient (CLI) | payer OTHER, SELFPAY ==
--- NOTE | 2020-04-21 08:31 | XR_ITS ---
PROCEDURE: XR HIP RT 2-3V W/PELVIS CLINICAL INDICATION: right hip pain COMPARISON: No exams were available for comparison FINDINGS: There are mild osteoarthritic changes of the right hip with decrease in the joint space osteosclerosis and osteophyte formation. No fracture or dislocation. No lytic or blastic change. 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
== END ==
PROVIDERS: PCP Emergency Medicine; Visit Provider Orthopaedic Surgery
DX: M25.551 Pain in right hip (principal)
CPT/HCPCS: 73502

== ENCOUNTER → 2020-04-26 16:18 | Outpatient (CLI) | payer OTHER, SELFPAY ==
[2020-04-26 16:39] LABS: Basophils % 0.5 % (0.1-2.0); Eosinophils # 0.2 K/mm3 (0.0-0.4); Eosinophils % 2.9 % (0.1-12.0); Hematocrit 46.8 % (37.0-47.0); Hemoglobin 15.1 g/dL (12.2-16.2); Lymphocytes # 2.4 K/mm3 (0.7-4.5); Lymphocytes % 32.7 % (10-50); Mean Corpuscular HGB Conc 32.2 g/dL (31.8-35.4); Mean Corpuscular Hemoglobin 29.5 pg (27.0-31.2); Mean Corpuscular Volume 91.7 fl (81-99); Mean Platelet Volume 8.6 fl (7.4-10.4); Monocytes # 0.5 K/mm3 (0.1-1.0); Monocytes % 6.2 % (1.7-9.3); Neutrophils # 4.3 K/mm3 (1.8-7.8); Neutrophils % 57.6 % (37.0-80.0); Platelet Count 479 K/mm3 (142-424); Red Blood Count 5.11 M/mm3 (4.20-5.40); White Blood Count 7.4 K/mm3 (4.8-10.8)
[2020-04-26 16:56] LABS: Alanine Aminotransferase 16 U/L (12-78); Albumin Level 4.3 g/dl (3.5-5.0); Albumin/Globulin Ratio 1.7 (1.1-1.8); Alkaline Phosphatase 78 U/L (38-126); Anion Gap 12.6 mEq/L (5-15); Aspartate Amino Transferase 20 U/L (14-36); Bilirubin,Total 0.5 mg/dl (0.2-1.3); Blood Urea Nitrogen 16 mg/dl (7-17); Calcium 10.2 mg/dl (8.4-10.2); Carbon Dioxide 36 mmol/L (22.0-30.0); Chloride 94 mmol/L (98-107); Chol/HDL Ratio 1.9 (1-3.5); Cholesterol 127 mg/dl (140-200); Estimated Glomerular Filt Rate 130 ml/min (>60); GFR (African American) 157 ML/MIN (>60); Globulin 2.6 g/dL (1.3-3.2); Glucose 261 mg/dl (74-100); HDL Cholesterol 66 mg/dl (40-60); Potassium 3.6 mmoL/L (3.5-5.1); Sodium 139 mmol/L (136-145); Total Protein,Serum 6.9 g/dl (6.3-8.2); Triglycerides 69 mg/dl (30-150); VLDL Cholesterol 14 mg/dL (0-40)
[2020-04-26 17:13] LABS: Free T4 (Free Thyroxine) 1.67 ng/dl (0.78-2.19)
[2020-04-26 17:22] LABS: Hemoglobin A1C 11.7 % (4.0-6.0)
[2020-04-26 17:27] LABS: Thyroid Stimulating Hormone 1.58 uIU/mL (0.465-4.68)
== END ==
PROVIDERS: Visit Provider Emergency Medicine
DX: E11.40 Type 2 diabetes mellitus with diabetic neuropathy, unspecified (principal); E55.9 Vitamin D deficiency, unspecified; Z79.4 Long term (current) use of insulin
CPT/HCPCS: 80053; 80061; 82306; 83036; 84439; 84443; 85025

== ENCOUNTER → 2020-05-12 19:47 | Outpatient (CLI) | payer OTHER, SELFPAY ==
[2020-05-15 07:34] LABS: Anti-Cyclic Citrullinated Pept 4 units (0-19)
== END ==
PROVIDERS: Visit Provider Nurse Practitioner Family
DX: E11.40 Type 2 diabetes mellitus with diabetic neuropathy, unspecified (principal); Z79.4 Long term (current) use of insulin
CPT/HCPCS: 86200

== ENCOUNTER 2020-05-31 08:00 | Outpatient (RCR) | payer OTHER, SELFPAY ==
--- NOTE | 2020-05-04 08:35 | HMH.PTOPEV ---
PT Outpatient Evaluation Rehab PT Outpatient Evaluation Start: 05/04/20 08:25 Freq: Status: Active Protocol: Document 05/04/20 08:25 LUIS (Rec: 05/04/20 08:34 LUIS [id number]) Electronically Signed By Jacobo Garcia, PT 05/04/20 08:25 Outpatient Therapy Subjective History Subjective History Pt reports h/o chronic R hip pain for ~2 yrs. Pt reports exacerbation of R LE s/s over the last 2 months with pain from R lumbar region to R foot . Pt reports no weakness in RLE, however has experienced N &T, pain, and loss of function (prolonged standing/walking). Chief Complaint Pain,Stiff,Paresthesia Symptom Type Ache,Dull,Numbness,Tingling Symptoms Relieved By Rest/Positioning,Heat Symptoms Aggravated By Standing,Walking Prior Functional Limitations Lifting,Housework,Standing, Walking Current Functional Limitations Lifting,Housework,Standing, Walking Symptom Description Constant but Variable Level of pain today (0-10) 4 Pain scale - at its best (0-10) 3 Pain scale - at its worst (0-10) 8 Lumbopelvic Eval Posture Thoracic Spine Posture Standing Position Neutral Lumbar Spine Posture Standing Position Neutral Assistive device Assistive Devices None / NA Palapation tenderness right lumbar spinal tenderness Yes: 3/4 paraspinal tenderness Yes: 3/4 buttock tenderness Yes: 3/4 Lumbar/Sacral Palpation Findings Tenderness,Trigger Point, Muscle Guarding Accessory Movement L-spine Vertebrae Accessory Movements [facility] [employer] [place] that Elicit Symptoms L2 right L3 right L4 right L5 right Range of Motion Lumbar Spine Active Flexion Range of 0-80 Motion (degrees) Lumbar Spine Active Extension Range of 0-20 Motion (degrees) Left Lumbar Spine Lateral Flexion Active 0-30 Range of Motion (degrees) Right Lumbar Spine Lateral Flexion 0-20 Active Range of Motion (degrees) Lumbar Spine ROM Limitations Pain Manual Muscle Test Bilateral Knee Extension Strength Grade 5 Normal Knee Flexion Strength Grade 5 Normal Hip Flexion Strength Grade 4- Good- Hip Abduction Strength Grade 4 Good Hip Adduction Strength Grade 4- Good- Hip External Rotation Strength Grade 4 Good Hip Internal Rotation Strength Grade 4 Good Hip Extension Strength Grade 4 Good Extens
== END 2020-05-31 08:05 | disposition home or self-care (01) ==
LOC: PT 08:00
PROVIDERS: PCP Emergency Medicine; Visit Provider Orthopaedic Surgery
DX: M25.551 Pain in right hip (principal)
CPT/HCPCS: 97010; 97012; 97014; 97035; 97110; 97163; G0283

== ENCOUNTER → 2020-07-12 07:49 | Outpatient (CLI) | payer OTHER, SELFPAY ==
[2020-07-12 07:51] LABS: Microscopic, Urine URINE MICROSCOPIC (MICROSCOPIC)
[2020-07-12 08:07] LABS: Appearance,Urine CLEAR (Clear); Bilirubin,Urine Negative (Negative); Blood, Urine Negative (Negative); Color,Urine YELLOW (Yellow); Glucose,Urine (UA) Negative (Negative); Ketones,Urine Negative (Negative); Leukocyte Esterase,Urine Negative (Negative); Nitrate,Urine Negative (Negative); PH,Urine 6.5 (5.0-8.5); Protein,Urine Negative (Negative); Specific Gravity, Urine 1.015 (1.005-1.030); Urobilinogen,Urine 0.2 EU/dl (0.2)
[2020-07-12 08:09] LABS: Basophils # 0.1 K/mm3 (0-0.2); Basophils % 0.6 % (0.1-2.0); Eosinophils # 0.4 K/mm3 (0.0-0.4); Eosinophils % 4.5 % (0.1-12.0); Hemoglobin 14.9 g/dL (12.2-16.2); Lymphocytes # 3.1 K/mm3 (0.7-4.5); Lymphocytes % 37.3 % (10-50); Mean Corpuscular HGB Conc 33.2 g/dL (31.8-35.4); Mean Corpuscular Hemoglobin 30.7 pg (27.0-31.2); Mean Corpuscular Volume 92.4 fl (81-99); Monocytes # 0.5 K/mm3 (0.1-1.0); Monocytes % 6.2 % (1.7-9.3); Neutrophils # 4.2 K/mm3 (1.8-7.8); Neutrophils % 51.3 % (37.0-80.0); Platelet Count 462 K/mm3 (142-424); Red Blood Count 4.88 M/mm3 (4.20-5.40); Red Cell Distribution Width 13.5 % (11.5-17.5); White Blood Count 8.2 K/mm3 (4.8-10.8)
[2020-07-12 08:39] LABS: Creatinine,Urine Random 45 mg/dL (Not Estab.)
[2020-07-12 08:46] LABS: Albumin Level 4.1 g/dl (3.5-5.0); Blood Urea Nitrogen 16 mg/dl (7-17); Calcium 9.7 mg/dl (8.4-10.2); Chloride 93 mmol/L (98-107); Estimated Glomerular Filt Rate 130 ml/min (>60); GFR (African American) 157 ML/MIN (>60); Glucose 220 mg/dl (74-100); Phosphorous 4.7 mg/dl (2.5-4.5); Potassium 3.1 mmoL/L (3.5-5.1); Sodium 141 mmol/L (136-145)
[2020-07-12 08:53] LABS: Anion Gap 12.1 mEq/L (5-15); Carbon Dioxide 39 mmol/L (22.0-30.0)
== END ==
PROVIDERS: Visit Provider Internal Medicine Nephrology
DX: R80.9 Proteinuria, unspecified (principal)
CPT/HCPCS: 36415; 80069; 81001; 82570; 84155; 85025

== ENCOUNTER → 2020-07-13 09:37 | Outpatient (CLI) | payer OTHER, SELFPAY ==
--- NOTE | 2020-07-13 09:37 | MR_ITS ---
PROCEDURE: MR LUMBAR SPINE WO CON CLINICAL INDICATION: back pain Rt sided lbp when sitting or standing for long periods of time. Pt denies injury or trauma. COMPARISON: No exams were available for comparison TECHNIQUE: Standard multiplanar multiecho sequences are performed without contrast. 3-D MIP and myelographic images are also rendered and reviewed FINDINGS: There is normal alignment. Spinal cord ends at the L2 level. T11-T12: Facet hypertrophic changes present on the right causing right lateral recess narrowing. The spur from the facet is projecting medially toward the spinal cord but is not causing any cord impingement or displacement.. T12-L1: Mild facet hypertrophic change with mild bilateral lateral recess narrowing. L1-L2: Mild bulging disc along with facet and ligamentum hypertrophy with bilateral lateral recess narrowing. L2-L3: Mild facet ligamentum hypertrophy with mild right lateral recess narrowing. L3-L4: Facet and ligamentum hypertrophy with mild bilateral lateral recess narrowing. L 4 5: Moderate facet and ligamentum hypertrophy with [id number] bilateral lateral recess narrowing and moderate bilateral foraminal narrowing. Sagittal images suggest some impingement upon the exiting L4 nerve root on both sides greater on the left.. L5-S1: Facet hypertrophic change IMPRESSION: Multilevel facet and ligamentum hypertrophy with resultant foraminal and lateral recess narrowing. Please see above for detailed description at each level There is mild bulging disc at L1-L2 No extruded herniated disc is evident. Dictated by: Yayo Pizarro MD 07/14/2020 14:06 Yayo Pizarro MD in [place] 07/14/2020 14:06
== END ==
PROVIDERS: PCP Emergency Medicine; Visit Provider Emergency Medicine
DX: M54.5 Low back pain (principal); M54.9 Dorsalgia, unspecified
CPT/HCPCS: 72148; 76376

== ENCOUNTER → 2020-07-19 13:37 | Outpatient (POV) | payer OTHER, SELFPAY | PROVIDERS: Visit Provider Internal Medicine Nephrology | DX: Z00.00 Encounter for general adult medical examination without abnormal findings (principal) ==

== ENCOUNTER → 2020-07-28 13:59 | Outpatient (CLI) | payer OTHER, SELFPAY ==
[2020-07-28 14:26] LABS: Basophils % 0.6 % (0.1-2.0); Eosinophils # 0.4 K/mm3 (0.0-0.4); Eosinophils % 6.6 % (0.1-12.0); Hematocrit 44.7 % (37.0-47.0); Hemoglobin 14.2 g/dL (12.2-16.2); Lymphocytes # 2.3 K/mm3 (0.7-4.5); Lymphocytes % 34.4 % (10-50); Mean Corpuscular HGB Conc 31.8 g/dL (31.8-35.4); Mean Corpuscular Hemoglobin 29.6 pg (27.0-31.2); Mean Platelet Volume 8.2 fl (7.4-10.4); Monocytes # 0.4 K/mm3 (0.1-1.0); Monocytes % 6.2 % (1.7-9.3); Neutrophils # 3.5 K/mm3 (1.8-7.8); Neutrophils % 52.1 % (37.0-80.0); Platelet Count 462 K/mm3 (142-424); Red Cell Distribution Width 13.5 % (11.5-17.5); White Blood Count 6.7 K/mm3 (4.8-10.8)
[2020-07-28 14:39] LABS: Chloride 96 mmol/L (98-107)
[2020-07-28 14:40] LABS: Potassium 3.1 mmoL/L (3.5-5.1); Sodium 139 mmol/L (136-145)
[2020-07-28 14:42] LABS: Alanine Aminotransferase 21 U/L (12-78); Albumin Level 3.9 g/dl (3.5-5.0); Albumin/Globulin Ratio 1.4 (1.1-1.8); Alkaline Phosphatase 79 U/L (38-126); Anion Gap 10.1 mEq/L (5-15); Aspartate Amino Transferase 23 U/L (14-36); Bilirubin,Total 0.5 mg/dl (0.2-1.3); Blood Urea Nitrogen 14 mg/dl (7-17); Carbon Dioxide 36 mmol/L (22.0-30.0); Estimated Glomerular Filt Rate 129 ml/min (>60); GFR (African American) 156 ML/MIN (>60); Globulin 2.8 g/dL (1.3-3.2); Total Protein,Serum 6.7 g/dl (6.3-8.2); Triglycerides 123 mg/dl (30-150); VLDL Cholesterol 25 mg/dL (0-40)
[2020-07-28 14:43] LABS: Chol/HDL Ratio 2.2 (1-3.5); Cholesterol 126 mg/dl (140-200); Glucose 336 mg/dl (74-100); HDL Cholesterol 57 mg/dl (40-60)
[2020-07-28 14:54] LABS: Direct LDL Cholesterol 52.33 mg/dL (100-129)
[2020-07-28 15:02] LABS: T4 (Thyroxine) 13.7 ug/dl (5.53-11.0)
[2020-07-28 15:14] LABS: Thyroid Stimulating Hormone 1.26 uIU/mL (0.465-4.68)
[2020-07-28 15:53] LABS: 25-OH Vitamin D, Total 23.5 ng/mL (30-100)
[2020-07-28 16:07] LABS: Hemoglobin A1C 8.8 % (4.0-6.0)
== END ==
PROVIDERS: Visit Provider Nurse Practitioner Family
DX: E11.9 Type 2 diabetes mellitus without complications (principal); I10 Essential (primary) hypertension; E55.9 Vitamin D deficiency, unspecified; Z79.84 Long term (current) use of oral hypoglycemic drugs
CPT/HCPCS: 80053; 80061; 82306; 83036; 84436; 84443; 85025

== ENCOUNTER → 2020-08-09 09:37 | Outpatient (POV) | payer OTHER, SELFPAY ==
[2020-08-09 10:03] VITALS: BP 125/74; PULSE 75; RESP 18; O2SAT 98; BMI 37.5
--- NOTE | 2020-08-09 10:33 | HMH.PMCON ---
Assessment and Plan (1) Sacroiliitis Status: Chronic Category: Medical Code(s): M46.1 - Sacroiliitis, not elsewhere classified (2) Spinal stenosis Status: Chronic Category: Medical Code(s): M48.00 - Spinal stenosis, site unspecified (3) Ligamentum flavum hypertrophy Status: Chronic Category: Medical Code(s): M46.00 - Spinal enthesopathy, site unspecified - Assessment and plan all Dx Assessment and Plan for all problems:: I Do believe the patient's most acute pain at this time and most debilitating pain is her right SI joint pain. We will set her up for right SI joint injection. We will see if this is beneficial for her. If it is we will move forward with treating her for her spinal stenosis. She has been instructed to call the office if she has any issues prior to her next appointment. I will follow-up with her after her injection reassess her symptoms at that time. Dr. Adams has reviewed this note and agrees with this plan of care. This note was dictated using voice recognition software and may contain errors or omissions HPI - Data of Consult Consult date: 08/09/20 Requesting Physician: Grisel Prescott APRN Primary Care Provider: Rashid Aranda MD - Consult Narrative Reason for consult: Back pain History of present illness: Ms. Olson is a 55 year old female in today for chronic low back pain. Patient states that her pain is worse with activity. She rates her pain a 3 out of 10 right now. She states that she has low back pain with radiation into her bilateral lower extremities at times she also has pain across her lower back. Patient has pain with bending, lifting, walking. Her pain is decreased with rest, heat, ibuprofen. Patient has tried and completed physical therapy with no relief she is also tried anti-inflammatories and gabapentin with no relief. She is failed 6 months of conservative treatment recently. CC: Grisel Prescott APRN [facility] History I have reviewed the patient's past medical history: Yes Medical History: Reports:: Depression, Diabetes Mellitus Type 2, Gastroesophageal Reflux Disease(GERD), Heart Murmur, Hyperlipidemia, Hypertension Denies:: Cancer, Carotid Stenosis, Diabetes Mellitus Type 1, Internal Pacemaker, MRSA, Seizures *Have you ever received a pneumonia vaccine?: Yes *Have you received a flu vaccine this season?: Yes Other Medical History: Reports: Arthritis, Other Laterality Cases: Left: Breast Biopsy, Bilateral: Carpal Tunnel Release Other Surgeries: Yes: Colonoscopy, Hysterectomy-Partial, Splenectomy, Other. No: Pacemaker Amputation: No Fractures: No - *Social History Smoking Status: Never smoker Alcohol Intake: never Substance Use Type: denies use *Occupational Status:: disabled Housing: house Household Members: other *Travel in the last 8 weeks: None - Psychiatric History Pschychiatric History:: Reports:: Depression Family Hx:: Unable to obtain Review of Systems - Review of Systems ROS General: no recent weight change, no fever, no sleep disturbances Respiratory: no cough, no shortness of air, no recurring pulmonary infections Cardiovascular/Peripheral Vascular: No chest pain, No palpitations, no edema, no shortness of breath. Gastrointestinal: no new onset incontinence, normal bowel movements reported Genitourinary: no new onset incontinence Musculoskeletal: [Leg pain, SI joint pain Psychiatric: normal mood/ affect Neurological: [denies new onset weakness in extremities], [denies new onset balance issues] Meds Home Medications Medication Instructions Recorded Confirmed Type Pen Needle, Diabetic [Techlite Pen See Rx Instructions .ROUTE 11/25/19 07/28/20 History Needle] .MEDSUPPLY blood-glucose meter See Rx Instructions .ROUTE 03/31/20 07/28/20 Rx .MEDSUPPLY #1 each benazepril 20 See Rx Instructions .ROUTE 06/14/20 07/28/20 Rx mg-hydrochlorothiazide 25 mg tablet .COMPLEX #180 tab metformin 1,000 mg tablet See
--- NOTE | 2020-08-09 10:38 | XR_ITS ---
PROCEDURE: XR WRIST LT MIN 3V CLINICAL INDICATION: left wrist pain; CTS COMPARISON: No exams were available for comparison FINDINGS: No fracture or dislocation. No lytic or blastic change. There is normal mineralization. The joint spaces are well-preserved. No significant degenerative/arthritic changes. No erosive changes evident. Other findings:None. IMPRESSION: No acute findings. Dictated by: Yayo Pizarro MD 08/09/2020 13:02 Yayo Pizarro MD in [place] 08/09/2020 13:02
--- NOTE | 2020-08-09 10:38 | XR_ITS ---
PROCEDURE: XR WRIST RT MIN 3V CLINICAL INDICATION: rt wrist pain; CTS COMPARISON: No exams were available for comparison FINDINGS: No fracture or dislocation. No lytic or blastic change. There is normal mineralization. Mild osteoarthritic changes are present at the 1st metacarpal-carpal joint Other findings:None. IMPRESSION: Mild osteoarthritic change 1st metacarpal-carpal joint otherwise negative Dictated by: Yayo Pizarro MD 08/09/2020 13:03 Yayo Pizarro MD in [place] 08/09/2020 13:04
== END ==
PROVIDERS: PCP Emergency Medicine; Visit Provider Orthopaedic Surgery
DX: M46.1 Sacroiliitis, not elsewhere classified (principal); M48.00 Spinal stenosis, site unspecified; M46.00 Spinal enthesopathy, site unspecified; M79.642 Pain in left hand; M79.641 Pain in right hand
CPT/HCPCS: 73110; 99202; G0463

== ENCOUNTER → 2020-08-11 09:40 | Outpatient (CLI) | payer OTHER, SELFPAY ==
--- NOTE | 2020-08-11 09:45 | XR_ITS ---
PROCEDURE: XR HAND LT MIN 3V CLINICAL INDICATION: left hand pain COMPARISON: No exams were available for comparison FINDINGS: No fracture or dislocation. No lytic or blastic change. There is normal mineralization. Mild osteoarthritic changes are present at the 1st metacarpal-carpal joint and at the DIP of digits 234 and. Other findings:None. IMPRESSION: Osteoarthritic change, no acute finding Dictated by: Yayo Pizarro MD 08/11/2020 16:47 Yayo Pizarro MD in [place] 08/11/2020 16:47
--- NOTE | 2020-08-11 09:45 | XR_ITS ---
PROCEDURE: XR HAND RT MIN 3V CLINICAL INDICATION: right hand pain COMPARISON: No exams were available for comparison FINDINGS: No fracture or dislocation. No lytic or blastic change. There is normal mineralization. Osteoarthritic changes of the 2nd and 3rd DIP joint Other findings:None. IMPRESSION: Osteoarthritic change otherwise negative Dictated by: Yayo Pizarro MD 08/11/2020 16:47 Yayo Pizarro MD in [place] 08/11/2020 16:47
== END ==
PROVIDERS: PCP Emergency Medicine; Visit Provider Orthopaedic Surgery
DX: M79.641 Pain in right hand (principal); M79.642 Pain in left hand
CPT/HCPCS: 73130

== ENCOUNTER 2020-08-13 10:00 | Day surgery (SDC) | payer OTHER, SELFPAY ==
[2020-08-13 10:51] VITALS: BP 194/109; PULSE 92; RESP 20; TEMP 36.6; O2SAT 98; BMI 37.5
[2020-08-13 10:52] LABS: POC Glucose,Bedside 177 (70-110)
[2020-08-13 12:01] VITALS: BP 132/74; PULSE 74; RESP 18; O2SAT 98
[2020-08-13 12:02] VITALS: BP 125/74; PULSE 74; RESP 18; O2SAT 98
--- NOTE | 2020-08-13 12:07 | P.PCN_ITS ---
- Procedure Date: 08/13/20 Time: 12:07 Anesthesiologist:: Oh Adams MD Complications:: None Pre-procedure Diagnosis:: Sacroiliitis Post-procedure Diagnosis:: Same Indications for Procedure:: Patient is a pleasant 55-year-old white female who we are treating for right- sided hip pain. She is tender over her right SI joint. She does have a positive Brandt's test on the right side. She has a positive Gretchen test on the right side. She has positive SI joint compression test on the right side. She has a positive distraction test on the right side. We will do a right SI joint injection under fluoroscopy today to help with pain symptoms. Procedure Details:: Right SI joint injection under fluoroscopy Informed consent was obtained and the risks and benefits of the procedure was going to the patient. Patient was taken to the procedure room. Patient was placed prone on the procedure table. The right hip was prepped using ChloraPrep. The skin and subcutaneous tissues were anesthetized using lidocaine. I placed a 22-gauge spinal needle into the inferior aspect of the right SI joint. Needle placement was confirmed with dye. After this we inje cted 5 mL bupivacaine 0.25% and Depo-Medrol 40 mg into the right SI joint. The patient tolerated the procedure well with no complication. Plan and Disposition:: We will follow-up with her in 2 weeks. Will reevaluate symptoms at that time.
[2020-08-13 12:11] VITALS: BP 194/107; PULSE 92; RESP 20; TEMP 36.6; O2SAT 98
== END 2020-08-13 12:10 | disposition home or self-care (01) ==
LOC: SC.PAINP 10:01
PROVIDERS: PCP Emergency Medicine; Visit Provider Anesthesiology
DX: M46.1 Sacroiliitis, not elsewhere classified (principal); E78.5 Hyperlipidemia, unspecified; I10 Essential (primary) hypertension; E11.9 Type 2 diabetes mellitus without complications; K21.9 Gastro-esophageal reflux disease without esophagitis; R01.1 Cardiac murmur, unspecified; Z88.8 Allergy status to other drugs, medicaments and biological substances; I25.10 Atherosclerotic heart disease of native coronary artery without angina pectoris; F41.9 Anxiety disorder, unspecified; Z79.4 Long term (current) use of insulin; Z79.899 Other long term (current) drug therapy; Z79.84 Long term (current) use of oral hypoglycemic drugs
CPT/HCPCS: 27096; 82962; G0260; J1040; Q9966

== ENCOUNTER → 2020-09-02 10:02 | Outpatient (POV) | payer OTHER, SELFPAY ==
[2020-09-02 10:19] VITALS: BP 170/87; PULSE 86; RESP 20; TEMP 36.4; O2SAT 96; BMI 38.4
--- NOTE | 2020-09-02 10:57 | HMH.PAINSOAP ---
[facility] Pain Management SOAP Note Subjective:: Patient is a pleasant 55-year-old white female who presents today for follow-up after right SI joint injection. Patient got some relief initially however she is now having more pain. She rates her pain a 3 out of 10. We did discuss epidural steroid injections in the past I do believe given her symptomology it would be beneficial. Patient has low back pain radiating into her legs and hips. Patient does have degeneration in her lower back. Patient has difficulty with activities of daily living due to the pain. ROS General: no recent weight change, no fever, no sleep disturbances Respiratory: no cough, no shortness of air, no recurring pulmonary infections Cardiovascular/Peripheral Vascular: No chest pain, No palpitations, no edema, no shortness of breath. Gastrointestinal: no new onset incontinence, normal bowel movements reported Genitourinary: no new onset incontinence Musculoskeletal: Back pain, leg pain Psychiatric: normal mood/ affect Neurological: [denies new onset weakness in extremities], [denies new onset balance issues] Objective:: Physical Exam General: Alert and oriented x3, no acute distress, pleasant and cooperative, [on room air] Lungs: Resps E/U, Symmetrical chest expansion, Eyes: PERRL Musculoskeletal: Flexion and extension of lumbar spine somewhat guarded secondary to pain, deep tendon reflexes normal, strength in upper and lower extremities [5/5], [abnormal gait noted] Neurological: speech clear, 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 Given her symptomology I do believe this would benefit her. She is failed over 6 months of conservative therapy including medication management. I will follow-up with her after her injection reassess her symptoms at that time she is not on any anticoagulation therapy. Dr. Adams has reviewed this note and agrees with this plan of care. This note was dictated using voice recognition software and may contain errors or omissions [facility] History I have reviewed the patient's past medical history: Yes Medical History: Reports:: Cancer, Coronary Artery Disease, Depression, Diabetes Mellitus Type 2, Gastroesophageal Reflux Disease(GERD), Heart Murmur, Hyperlipidemia, Hypertension Denies:: Carotid Stenosis, Diabetes Mellitus Type 1, Internal Pacemaker, MRSA, Seizures *Have you ever received a pneumonia vaccine?: No *Have you received a flu vaccine this season?: Yes Other Medical History: Reports: Arthritis, Other. Denies: Blood Transfusion Reaction Laterality Cases: Left: Breast Biopsy, Bilateral: Carpal Tunnel Release Other Surgeries: Yes: Colonoscopy, Hysterectomy-Partial, Splenectomy, Other (CYST REMOVAL TAILBONE). No: Pacemaker Amputation: No Fractures: No - *Social History Smoking Status: Never smoker Alcohol Intake: never Substance Use Type: denies use *Occupational Status:: other Housing: house Household Members: other *Travel in the last 8 weeks: None - Psychiatric History Pschychiatric History:: Reports:: Depression Family Hx:: Unable to obtain
== END ==
PROVIDERS: PCP Emergency Medicine; Visit Provider Clinical Nurse Specialist Family Health
DX: M51.16 Intervertebral disc disorders with radiculopathy, lumbar region (principal)
CPT/HCPCS: 99212; G0463

== ENCOUNTER 2020-09-10 09:07 | Day surgery (SDC) | payer OTHER, SELFPAY ==
[2020-09-10 09:39] VITALS: BP 171/103; PULSE 96; RESP 18; TEMP 36.6; O2SAT 96; BMI 37.5
[2020-09-10 11:22] VITALS: BP 132/74; PULSE 65; RESP 18
[2020-09-10 11:23] VITALS: BP 133/79; PULSE 85; RESP 18; O2SAT 99
--- NOTE | 2020-09-10 11:29 | P.PCN_ITS ---
- Procedure Date: 09/10/20 Time: 11:29 Anesthesiologist:: Oh Adams MD Complications:: None Pre-procedure Diagnosis:: Degenerative disc disease of lumbar spine with lumbar radiculopathy symptoms Post-procedure Diagnosis:: Same Indications for Procedure:: The patient is a pleasant 55-year-old white female who we are treating for low back pain with lumbar radiculopathy symptoms. She did have a right SI joint injection which did not give her significant relief of her pain symptoms. She presents for a lumbar epidural steroid injection today to see if this will give her better pain relief. Procedure Details:: Lumbar epidural steroid injection under fluoroscopy Informed consent was obtained and the risk and benefits of the procedure was explained to the patient. The patient was taken to the procedure room. The patient was placed prone on the procedure table. The patient was prepped and draped in sterile fashion. C-arm fluoroscopy was used to view the lumbar spine. Skin and subcutaneous tissues were anesthetized using lidocaine. I placed an 18-gauge epidural needle and advanced into the L4-L5 interspace using fluoroscopic guidance and [id number] to air. After confirmation of needle placement in the epidural space with dye I injected 2 mL of lidocaine 1.5% with Depo-Medrol 80 mg. Patient tolerated the procedure well with no com plications. Plan and Disposition:: We will follow-up with her in 2 weeks. Will reevaluate symptoms at that time.
[2020-09-10 11:34] VITALS: BP 178/91; PULSE 95; RESP 20; O2SAT 96
== END 2020-09-10 11:34 | disposition home or self-care (01) ==
LOC: SC.PAINP 09:08
PROVIDERS: PCP Emergency Medicine; Visit Provider Anesthesiology
DX: M51.16 Intervertebral disc disorders with radiculopathy, lumbar region (principal); I25.10 Atherosclerotic heart disease of native coronary artery without angina pectoris; E11.9 Type 2 diabetes mellitus without complications; K21.9 Gastro-esophageal reflux disease without esophagitis; E78.5 Hyperlipidemia, unspecified; I10 Essential (primary) hypertension; Z82.49 Family history of ischemic heart disease and other diseases of the circulatory system; Z88.8 Allergy status to other drugs, medicaments and biological substances; Z85.038 Personal history of other malignant neoplasm of large intestine; Z90.81 Acquired absence of spleen; Z90.711 Acquired absence of uterus with remaining cervical stump
CPT/HCPCS: 62323; J1040; Q9966

== ENCOUNTER → 2020-10-04 10:02 | Outpatient (POV) | payer OTHER, SELFPAY ==
[2020-10-04 10:14] VITALS: BP 122/71; PULSE 68; RESP 18; O2SAT 98; BMI 37.5
--- NOTE | 2020-10-04 10:47 | P.CONS_ITS ---
[facility] Pain Management SOAP Note Subjective:: Patient is a pleasant 55-year-old white female who presents today for follow-up after lumbar epidural steroid injection. Patient got over 90% relief of her symptomology after her injection however pain is beginning to return. She rates her pain a 5 out of 10. Patient and I had a discussion in regards to ultimate goal of functionality versus fixing . Patient is not on any anticoagulation therapy. She would like to finish her epidural series given the efficacy of the last 1. I do believe it would benefit her. ROS General: no recent weight change, no fever, no sleep disturbances Respiratory: no cough, no shortness of air, no recurring pulmonary infections Cardiovascular/Peripheral Vascular: No chest pain, No palpitations, no edema, no shortness of breath. Gastrointestinal: no new onset incontinence, normal bowel movements reported Genitourinary: no new onset incontinence Musculoskeletal: Back pain, leg pain Psychiatric: normal mood/ affect Neurological: [denies new onset weakness in extremities], [denies new onset balance issues] Objective:: Physical Exam General: Alert and oriented x3, no acute distress, pleasant and cooperative, [on room air] Lungs: Resps E/U, Symmetrical chest expansion, Eyes: PERRL Musculoskeletal: Flexion and extension of lumbar spine somewhat guarded secondary to pain, deep tendon reflexes normal, strength in upper and lower extremities [5/5], antalgic gait noted Neurological: speech clear, social organization professor equal, no gross sensory deficits Assessment:: Degenerative disc disease lumbar spine lumbar radiculopathy, back pain Plan:: We will schedule the patient for repeat L4-L5 lumbar epidural steroid injection. Patient has been instructed to call the office if she has any issues prior to her next appointment. I will follow-up with her after her injection reassess her symptoms at that time. Dr. Adams has reviewed this note and agrees with this plan of care. This note was dictated using voice recognition software and may contain errors or omissions [facility] History I have reviewed the patient's past medical history: Yes Medical History: Reports:: Cancer (+ colon cancer sample), Coronary Artery Disease, Depression, Diabetes Mellitus Type 2, Gastroesophageal Reflux Disease(GERD), Heart Murmur, Hyperlipidemia, Hypertension Denies:: Carotid Stenosis, Diabetes Mellitus Type 1, Internal Pacemaker, MRSA, Seizures *Have you ever received a pneumonia vaccine?: Yes *Have you received a flu vaccine this season?: Yes Other Medical History: Reports: Arthritis, Other. Denies: Blood Transfusion Reaction Laterality Cases: Left: Breast Biopsy, Bilateral: Carpal Tunnel Release Other Surgeries: Yes: Colonoscopy, Hysterectomy-Partial, Splenectomy, Other (CYST REMOVAL TAILBONE). No: Pacemaker Amputation: No Fractures: No - *Social History Smoking Status: Never smoker Alcohol Intake: never Substance Use Type: denies use *Occupational Status:: other Housing: house Household Members: spouse *Travel in the last 8 weeks: None - Psychiatric History Pschychiatric History:: Reports:: Depression Family Hx:: Unable to obtain
== END ==
PROVIDERS: PCP Emergency Medicine; Visit Provider Clinical Nurse Specialist Family Health
DX: M51.16 Intervertebral disc disorders with radiculopathy, lumbar region (principal)
CPT/HCPCS: 99212; G0463

== ENCOUNTER 2020-10-15 10:32 | Day surgery (SDC) | payer OTHER, SELFPAY ==
[2020-10-15 10:46] VITALS: BP 156/93; PULSE 86; RESP 18; TEMP 36.6; O2SAT 98; BMI 38.4
--- NOTE | 2020-10-15 11:16 | HMH.PMPROC ---
- Procedure Date: 10/15/20 Time: 11:16 Anesthesiologist:: Oh Adams MD Complications:: None Pre-procedure Diagnosis:: Degenerative disc disease of lumbar spine with lumbar radiculopathy symptoms Post-procedure Diagnosis:: Same Indications for Procedure:: Patient is a pleasant 55-year-old white female who we are treating for low back pain with lumbar radiculopathy symptoms. She did well after her last lumbar epidural steroid injection she was over 90% better. His pain is starting to return now. We will do repeat lumbar epidural steroid injection under fluoroscopy today. Procedure Details:: Informed consent was obtained and the risk and benefits of the procedure was explained to the patient. The patient was taken to the procedure room. The patient was placed prone on the procedure table. The patient was prepped and draped in sterile fashion. C-arm fluoroscopy was used to view the lumbar spine. Skin and subcutaneous tissues were anesthetized using lidocaine. I placed an 18-gauge epidural needle and advanced into the L4-L5 interspace using fluoroscopic guidance and [id number] to air. After confirmation of needle placement in the epidural space with dye I injected 2 mL of lidocaine 1.5% with Depo-Medrol 80 mg. Patient tolerated the procedure well with no complications. Plan and Disposition:: We will follow-up with her in 2 weeks. Will reevaluate her symptoms at that time.
[2020-10-15 11:22] VITALS: BP 110/74; BP 111/87; PULSE 74; PULSE 85; RESP 18; O2SAT 98
[2020-10-15 11:40] VITALS: BP 148/82; PULSE 83; RESP 18; O2SAT 98
== END 2020-10-15 11:40 | disposition home or self-care (01) ==
LOC: SC.PAINP 10:33
PROVIDERS: PCP Emergency Medicine; Visit Provider Anesthesiology
DX: M51.16 Intervertebral disc disorders with radiculopathy, lumbar region (principal); I25.10 Atherosclerotic heart disease of native coronary artery without angina pectoris; I10 Essential (primary) hypertension; E78.5 Hyperlipidemia, unspecified; E11.9 Type 2 diabetes mellitus without complications; K21.9 Gastro-esophageal reflux disease without esophagitis; Z88.8 Allergy status to other drugs, medicaments and biological substances; F41.9 Anxiety disorder, unspecified
CPT/HCPCS: 62323; J1040; Q9966

== ENCOUNTER → 2020-11-04 10:34 | Outpatient (POV) | payer OTHER, SELFPAY ==
[2020-11-04 10:55] VITALS: BP 153/80; PULSE 95; O2SAT 98; BMI 38.4
--- NOTE | 2020-11-04 11:07 | HMH.PAINSOAP ---
[facility] Pain Management SOAP Note Subjective:: Is a 55-year-old white female who presents today for follow-up after a lumbar epidural steroid injection. She has been treated for degenerative disc disease lumbar spine with lumbar radiculopathy symptoms. Patient says that her pain is a 0 out of 10 today. She says that her last injection did give her some pain initially after the injection, however, she is doing much better since the injection. She was also given samples of Duexis while in the clinic at her last visit. She says this is given her excellent relief for her low back and neck pain. She would to begin taking Duexis daily to see if this helps with her consistent pain in her neck and low back. She does not want to proceed with further injective therapy at this time. Review of Systems General: No recent weight changes, no fever, no sleep disturbances Respiratory: No cough, no shortness of air, no recurring pulmonary infections Cardiovascular/peripheral vascular: No chest pain, no palpitations, no edema, no shortness of breath Gastrointestinal: No new onset incontinence, normal bowel movements reported Genitourinary: No new onset incontinence Musculoskeletal: Remittent low back pain, intermittent neck pain Psychiatric: Normal mood/affect Neurological: [Denies weakness in extremities], [denies balance issues] Objective:: Physical exam General: Alert and oriented x3, no acute distress, pleasant and cooperative, [on room air] Lungs: Respirations even and unlabored, symmetrical chest expansion Eyes: PERRL Musculoskeletal: Flexion and extension of cervical and lumbar spine somewhat guarded secondary to pain, deep tendon reflexes normal, strength in upper and lower extremities [5/5], [abnormal gait noted] Neurological: Speech clear, shopping inspector equal, no gross sensory deficit Assessment:: Degenerative disc disease lumbar spine with lumbar radiculopathy symptoms, neck pain Plan:: We will schedule the patient for a 1 month follow-up. We will give her Duexis for a month to see if this gives her relief. If her insurance does not approve Duexis, she is currently taking Pepcid and we can order her ibuprofen 800 mg 1 tablet p.o. 3 times daily as needed for pain. We will see her back in the clinic to see if the medication is continuing to give her relief. And benefits of the medication were explained to the patient and she would like to continue with medication at this time. Dr. Adams has reviewed this note and agrees with this plan of care. This note was dictated using voice recognition software and make contain errors or omissions. [facility] History I have reviewed the patient's past medical history: Yes Medical History: Reports:: Coronary Artery Disease, Depression, Diabetes Mellitus Type 1, Gastroesophageal Reflux Disease(GERD), Heart Murmur, Hyperlipidemia, Hypertension Denies:: Cancer, Carotid Stenosis, Diabetes Mellitus Type 2, Internal Pacemaker, MRSA, Seizures *Have you ever received a pneumonia vaccine?: Yes *Have you received a flu vaccine this season?: Yes Other Medical History: Reports: Arthritis, Other. Denies: Blood Transfusion Reaction Laterality Cases: Left: Breast Biopsy, Bilateral: Carpal Tunnel Release Other Surgeries: Yes: Colonoscopy, Hysterectomy-Partial, Splenectomy, Other (CYST REMOVAL TAILBONE). No: Pacemaker Amputation: No Fractures: No - *Social History Smoking Status: Never smoker Alcohol Intake: never Substance Use Type: denies use *Occupational Status:: unemployed Housing: house Household Members: spouse *Travel in the last 8 weeks: None - Psychiatric History Pschychiatric History:: Reports:: Depression Family Hx:: Unable to obtain
== END ==
PROVIDERS: PCP Emergency Medicine; Visit Provider Clinical Nurse Specialist Family Health
DX: M51.16 Intervertebral disc disorders with radiculopathy, lumbar region (principal); M54.2 Cervicalgia
CPT/HCPCS: 99212; G0463

== ENCOUNTER → 2020-11-10 14:51 | Outpatient (CLI) | payer OTHER, SELFPAY ==
[2020-11-10 15:40] LABS: Basophils % 0.4 % (0.1-2.0); Eosinophils # 0.4 K/mm3 (0.0-0.4); Eosinophils % 4.5 % (0.1-12.0); Hematocrit 41.1 % (37.0-47.0); Hemoglobin 13.5 g/dL (12.2-16.2); Lymphocytes # 2.4 K/mm3 (0.7-4.5); Lymphocytes % 26.5 % (10-50); Mean Corpuscular HGB Conc 32.9 g/dL (31.8-35.4); Mean Corpuscular Hemoglobin 29.3 pg (27.0-31.2); Mean Corpuscular Volume 88.9 fl (81-99); Mean Platelet Volume 8.3 fl (7.4-10.4); Monocytes # 0.5 K/mm3 (0.1-1.0); Monocytes % 6.1 % (1.7-9.3); Neutrophils # 5.6 K/mm3 (1.8-7.8); Neutrophils % 62.6 % (37.0-80.0); Platelet Count 513 K/mm3 (142-424); Red Blood Count 4.63 M/mm3 (4.20-5.40); Red Cell Distribution Width 13.8 % (11.5-17.5); White Blood Count 8.9 K/mm3 (4.8-10.8)
[2020-11-10 15:41] LABS: Alanine Aminotransferase 25 U/L (12-78); Albumin Level 3.5 g/dl (3.5-5.0); Albumin/Globulin Ratio 1.5 (1.1-1.8); Alkaline Phosphatase 71 U/L (38-126); Anion Gap 9.9 mEq/L (5-15); Aspartate Amino Transferase 27 U/L (14-36); Bilirubin,Total 0.3 mg/dl (0.2-1.3); Blood Urea Nitrogen 13 mg/dl (7-17); Calcium 9.3 mg/dl (8.4-10.2); Carbon Dioxide 33 mmol/L (22.0-30.0); Chloride 100 mmol/L (98-107); Chol/HDL Ratio 2.1 (1-3.5); Cholesterol 113 mg/dl (140-200); Estimated Glomerular Filt Rate 167 ml/min (>60); GFR (African American) 202 ML/MIN (>60); Globulin 2.4 g/dL (1.3-3.2); Glucose 196 mg/dl (74-100); HDL Cholesterol 53 mg/dl (40-60); Sodium 140 mmol/L (136-145); Total Protein,Serum 5.9 g/dl (6.3-8.2); Triglycerides 75 mg/dl (30-150); VLDL Cholesterol 15 mg/dL (0-40)
[2020-11-10 15:53] LABS: Direct LDL Cholesterol 48.38 mg/dL (100-129)
[2020-11-10 16:00] LABS: T4 (Thyroxine) 12.4 ug/dl (5.53-11.0)
[2020-11-10 16:01] LABS: 25-OH Vitamin D, Total 23.7 ng/mL (30-100)
[2020-11-10 16:13] LABS: Thyroid Stimulating Hormone 1.24 uIU/mL (0.465-4.68)
[2020-11-10 16:53] LABS: Hemoglobin A1C 7.9 % (4.0-6.0)
[2020-11-10 20:50] LABS: Potassium 2.9 mmoL/L (3.5-5.1)
== END ==
PROVIDERS: Visit Provider Nurse Practitioner Family
DX: E11.9 Type 2 diabetes mellitus without complications (principal); E66.9 Obesity, unspecified; I10 Essential (primary) hypertension; E55.9 Vitamin D deficiency, unspecified; Z79.4 Long term (current) use of insulin; Z68.38 Body mass index [BMI] 38.0-38.9, adult
CPT/HCPCS: 80053; 80061; 82306; 83036; 84436; 84443; 84681; 85025

== ENCOUNTER → 2020-11-15 15:26 | Outpatient (CLI) | payer OTHER, SELFPAY ==
[2020-11-15 17:21] LABS: Blood Urea Nitrogen 14 mg/dl (7-17); Calcium 9.2 mg/dl (8.4-10.2); Carbon Dioxide 35 mmol/L (22.0-30.0); Chloride 98 mmol/L (98-107); Estimated Glomerular Filt Rate 167 ml/min (>60); GFR (African American) 202 ML/MIN (>60); Glucose 113 mg/dl (74-100); Sodium 138 mmol/L (136-145)
== END ==
PROVIDERS: Visit Provider Nurse Practitioner Family
DX: E87.6 Hypokalemia (principal)
CPT/HCPCS: 80048

== ENCOUNTER → 2020-11-25 15:11 | Outpatient (CLI) | payer OTHER, SELFPAY ==
[2020-11-25 15:33] LABS: Blood Urea Nitrogen 14 mg/dl (7-17); Calcium 9.4 mg/dl (8.4-10.2); Carbon Dioxide 34 mmol/L (22.0-30.0); Chloride 99 mmol/L (98-107); Estimated Glomerular Filt Rate 129 ml/min (>60); GFR (African American) 156 ML/MIN (>60); Glucose 182 mg/dl (74-100); Sodium 141 mmol/L (136-145)
== END ==
PROVIDERS: Visit Provider Nurse Practitioner Family
DX: E87.6 Hypokalemia (principal)
CPT/HCPCS: 80048

== ENCOUNTER → 2020-11-30 09:11 | Outpatient (CLI) | payer OTHER, SELFPAY ==
[2020-11-30 10:23] LABS: Chloride 97 mmol/L (98-107); Potassium 3.3 mmoL/L (3.5-5.1); Sodium 140 mmol/L (136-145)
[2020-11-30 10:26] LABS: Anion Gap 12.3 mEq/L (5-15); Blood Urea Nitrogen 13 mg/dl (7-17); Calcium 9.1 mg/dl (8.4-10.2); Carbon Dioxide 34 mmol/L (22.0-30.0); Estimated Glomerular Filt Rate 167 ml/min (>60); GFR (African American) 202 ML/MIN (>60); Glucose 214 mg/dl (74-100)
== END ==
PROVIDERS: Visit Provider Nurse Practitioner Family
DX: E87.5 Hyperkalemia (principal)
CPT/HCPCS: 36415; 80048

== ENCOUNTER → 2020-11-30 09:26 | Outpatient (CLI) | payer OTHER, SELFPAY ==
--- NOTE | 2020-11-30 09:27 | MM_ITS ---
PROCEDURE INFORMATION: Exam: MG Screening 3D Mammography Exam date and time: 11/30/2020 9:27 AM Age: 55 years old Clinical indication: Encounter for screening mammogram for malignant neoplasm of breast TECHNIQUE: Imaging protocol: Screening tomosynthesis and 2D mammography including computer-aided detection (CAD) when performed. COMPARISON: 1. MG MM DIG SCREENING MAMM BI W/CAD 07/18/2019 9:24 AM 2. MG DMSB DIG MAMM-SCREEN GALI 07/13/2015 9:18 AM FINDINGS: MAMMOGRAPHY: Breast composition: The breast tissue is composed of scattered areas of fibroglandular density. Mass: None. Architectural distortion: None. Calcifications: No suspicious calcifications. Asymmetric density: None. Skin thickening: Marked and diffuse but without significant interval change. Axillary adenopathy: None. IMPRESSION: No mammographic evidence of malignancy. Annual screening is recommended unless otherwise clinically indicated. Stable diffuse marked skin thickening bilaterally. No axillary adenopathy. No stromal edema. Dermatologic consultation may prove useful. ASSESSMENT: BI-RADS Category 2: Benign
== END ==
PROVIDERS: PCP Nurse Practitioner Family; Visit Provider Nurse Practitioner Family
DX: Z12.31 Encounter for screening mammogram for malignant neoplasm of breast (principal)
CPT/HCPCS: 77063; 77067

== ENCOUNTER → 2020-12-09 09:29 | Outpatient (POV) | payer OTHER, SELFPAY ==
[2020-12-09 09:54] VITALS: BP 144/96; PULSE 100; RESP 18; O2SAT 97; BMI 38.5
--- NOTE | 2020-12-09 12:37 | HMH.PAINSOAP ---
[facility] Pain Management SOAP Note Subjective:: Patient is a 55-year-old white female who presents today for follow-up. The patient has had injective therapy in our clinic for chronic low back pain with lumbar radicular symptoms. Patient last injection was a lumbar epidural steroid injection for which she says she got approximately 90% relief, however, for only a short period of time. Her pain did return. She also takes Duexis which has not given her much relief. She continues to have pain in her neck and low back pain. She says that her pain is in her low back radiating into her left leg causing numbness and tingling into the left foot. The pain in her low back radiates across her back from side to side. Patient has not had a recent MRI. Her pain has changed since her last injection. She says that her pain did not radiate into the left foot prior to her last injection. She has not had any imaging since a change in her pain. She has undergone physical therapy for more than 6 weeks and continues with home stretching and oral medications. We will seek approval for an MRI of her lumbar spine to determine pathology of her pain since it has changed recently. Review of Systems General: No recent weight changes, no fever, no sleep disturbances Respiratory: No cough, no shortness of air, no recurring pulmonary infections Cardiovascular/peripheral vascular: No chest pain, no palpitations, no edema, no shortness of breath Gastrointestinal: No new onset incontinence, normal bowel movements reported Genitourinary: No new onset incontinence Musculoskeletal: Low back pain with radiation into left leg with numbness and tingling into left leg and foot Psychiatric: Normal mood/affect Neurological: Weakness lower extremity Objective:: Physical exam General: Alert and oriented x3, no acute distress, pleasant and cooperative, [on room air] Lungs: Respirations even and unlabored, symmetrical chest expansion Eyes: PERRL Musculoskeletal: Flexion and extension of lumbar spine somewhat guarded secondary to pain, deep tendon reflexes normal, strength in upper and lower extremities [5/5], [abnormal gait noted] Neurological: 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 Following the MRI, the patient would like a neurosurgical consult. She understands we cannot refer her to neurosurgery due to no recent updated imaging. Following her neurosurgical evaluation, if she is not considered a neurosurgical candidate. She and I did discuss possible spinal cord stimulation in the future for pain relief. Unfortunately, the patient has tried and failed conservative therapies of physical therapy for more than 6 weeks, home stretching, ice and heat therapies and anti-inflammatories. Nothing has given her long-term or significant relief. She has tried lumbar epidural steroid injections as well as medial branch blocks and facet injections in the past. We will plan to see the patient back after her imaging to discuss a further plan of care. At that time we will refer her to neurosurgery. She has been instructed to contact clinic if she has any concerns for next morning. Patient has been instructed to contact the clinic with any concerns before the next appointment. Dr. Adams has reviewed this note and agrees with this plan of care. This note was dictated using voice recognition software and make contain errors or omissions. [facility] History I have reviewed the patient's past medical history: Yes Medical History: Reports:: Coronary Artery Disease, Depression, Diabetes Mellitus Type 1, Gastroesophageal Reflux Disease(GERD), Heart Murmur, Hyperlipidemia, Hypertension Denies:: Cancer, Carotid Stenosis, Diabetes Mellitus Type 2, Internal Pacemaker, MRSA, Seizures *Have you ever received a pneumonia vaccine?
== END ==
PROVIDERS: PCP Emergency Medicine; Visit Provider Clinical Nurse Specialist Family Health
DX: M51.16 Intervertebral disc disorders with radiculopathy, lumbar region (principal); M45.2 Ankylosing spondylitis of cervical region
CPT/HCPCS: 99212; G0463

== ENCOUNTER → 2020-12-16 14:07 | Outpatient (CLI) | payer OTHER, SELFPAY ==
--- NOTE | 2020-12-16 14:10 | MR_ITS ---
PROCEDURE: MR LUMBAR SPINE WO CON CLINICAL INDICATION: BACK PAIN Bilateral LBP. Worse when standing or sitting for long periods. Bilateral leg numbness. Symptoms xyrs. No injury or trauma. Prior MR 07/13/20. COMPARISON: MR MR LUMBAR SPINE WO CON from 07/13/2020 TECHNIQUE: Standard multiplanar multiecho sequences are performed without contrast. 3-D MIP and myelographic images are also rendered and reviewed FINDINGS: There is normal alignment. The spinal cord ends at the L2 level. Axial images are obtained from L1-S1. At T11-T12 there is a small posterior osteophyte projecting medially from the facets. This is not imaged in the axial plane as before and not adequately assessed on this exam. Consider MRI of the T-spine for better evaluation if clinically desired. L1-L2: Minimal bulging disc with facet and ligamentum hypertrophic change with mild bilateral lateral recess narrowing. Unchanged. L2-L3: Mild facet ligamentum hypertrophy with mild bilateral lateral recess narrowing slightly greater on the right unchanged L3-L4: Facet and ligamentum hypertrophy with mild bulging of the discs at the foraminal region bilaterally and with mild bilateral lateral recess and foraminal narrowing unchanged L4-5: 2 mm anterolisthesis of L4 with mild concentric bulging disc with moderate to severe facet and ligamentum hypertrophic change and with moderate to severe bilateral lateral recess narrowing and mild bilateral foraminal narrowing. There is borderline canal stenosis. Not significantly changed. L5-S1: Facet hypertrophic change with mild left-sided foraminal narrowing not significantly changed. No extruded herniated disc evident. IMPRESSION: Multilevel lumbar spondylosis which is worse at the L4-5 level. Please see above for detailed description at each level. Overall not significantly changed. There is some minimal anterolisthesis of L4-5 present on today's study not present previously. The previously noted osteophyte from the facet on the right at T11-T12 is not imaged in the axial plane on today's exam and may be better evaluated with thoracic spine MRI if clinically desired. No extruded herniated disc. Dictated by: Yayo Pizarro MD 12/17/2020 06:04 Yayo Pizarro MD in [place] 12/17/2020 06:04
== END ==
PROVIDERS: PCP Emergency Medicine; Visit Provider Clinical Nurse Specialist Family Health
DX: M54.5 Low back pain (principal)
CPT/HCPCS: 72148; 76376

== ENCOUNTER → 2021-01-03 09:45 | Outpatient (POV) | payer OTHER, SELFPAY ==
[2021-01-03 09:57] VITALS: BP 144/94; PULSE 98; RESP 18; O2SAT 97; BMI 38.4
--- NOTE | 2021-01-03 11:15 | HMH.PAINSOAP ---
[facility] Pain Management SOAP Note Subjective:: Patient is a 55-year-old white female who presents today for follow-up. She recently had an MRI of her lumbar spine. She is being treated for low back pain with lumbar radiculopathy type symptoms as well as neck pain. Patient has had injective therapy in the clinic for chronic low back pain and for lumbar radicular symptoms. She is not getting long-term relief with the injections. She has taken Duexis as well as continued home stretching, and ice and heat therapies. She has not gotten any significant relief. Patient has pain in her neck with radiation into her left arm. She is also having low back pain with radiation into the left leg which is also causing numbness and tingling into the left foot. The pain does radiate across her back bilaterally. She is here to review her MRI today. She did undergo physical therapy for greater than 6 weeks with minimal relief. Patient rates her pain a 7 out of 10 today. Patient is diabetic and does have a Dexcom for diabetes management. Review of Systems General: No recent weight changes, no fever, no sleep disturbances Respiratory: No cough, [no shortness of air], no recurring pulmonary infections Cardiovascular/peripheral vascular: No chest pain, no palpitations, [no edema], no shortness of breath Gastrointestinal: No new onset incontinence, normal bowel movements reported Genitourinary: No new onset incontinence Musculoskeletal: [] Neck pain with radiation into left arm with occasional numbness, low back pain with radiation into lower extremities, worse to left leg with numbness and tingling into left foot Psychiatric: [Normal mood/affect] Neurological: [Denies weakness in extremities], [denies balance issues] Objective:: Physical exam General: Alert and oriented x3, no acute distress, pleasant and cooperative, [on room air] Lungs: Respirations even and unlabored, symmetrical chest expansion Eyes: PERRL Musculoskeletal: Flexion and extension of [] cervical and lumbar [spine] somewhat guarded secondary to pain, strength in upper and lower extremities [5/5], [antalgic gait noted] Neurological: Speech clear, [management professionals equal], no gross sensory deficit Assessment:: Degenerative disc disease lumbar spine with lumbar radiculopathy symptoms, neck pain Plan:: Patient's pain is worse when she is standing and walking and does not improve much with sitting. She has tried conservative therapies with minimal relief. She did have an MRI for which we did discuss today. Patient has requested a neurosurgical consult. We will refer her to neurosurgery. She is having continued neck pain with radiation into her left arm which is now causing numbness and tingling to her hand. She is having difficulty holding objects due to numbness and tingling. We will schedule the patient for an MRI of her cervical spine. She will discuss her symptoms of both her cervical and lumbar spine with neurosurgery. We will follow up with the patient after her consult to reevaluate her symptoms and discuss a further plan of care. If patient is not considered a neurosurgical candidate. She may be a candidate for possible spinal cord stimulation versus intrathecal therapy. We did discuss her options today and she was given educational information. Patient has been instructed to contact the clinic with any concerns before the next appointment. Dr. Adams has reviewed this note and agrees with this plan of care. This note was dictated using voice recognition software and make contain errors or omissions. [facility] History I have reviewed the patient's past medical history: Yes Medical History: Reports:: Coronary Artery Disease, Depression, Diabetes Mellitus Type 1, Gastroesophageal Reflux Disease(GERD), Heart Murmur, Hyperlipidemia, Hypertension Denies:: Cancer, Carotid Stenosis, Diabetes Mellitus Type 2, Internal Pacemaker, MRSA, Seizures *Have you ever received a pneumonia vaccine?: No
== END ==
PROVIDERS: PCP Emergency Medicine; Visit Provider Clinical Nurse Specialist Family Health
DX: M51.16 Intervertebral disc disorders with radiculopathy, lumbar region (principal); M45.2 Ankylosing spondylitis of cervical region
CPT/HCPCS: 99212; G0463

== ENCOUNTER → 2021-01-11 09:49 | Outpatient (CLI) | payer OTHER, SELFPAY ==
--- NOTE | 2021-01-11 09:52 | MR_ITS ---
PROCEDURE: MR CERVICAL SPINE WO CON CLINICAL INDICATION: NECK PAIN Bilateral shoulder pain COMPARISON: No exams were available for comparison TECHNIQUE: Standard multiplanar multiecho sequences are performed without contrast. 3-D MIP and myelographic images are also rendered and reviewed FINDINGS: The craniocervical junction has an unremarkable appearance. There is normal alignment. C2-C3: Unremarkable. C3-C4: There is congenital narrowing of the canal at 9 mm. C4-C5: Narrowing of the canal at 9 mm. C5-C6: Congenital narrowing of the canal. Mild facet hypertrophic change. Canal measures 9 mm. C6-C7: Degenerative disc disease with mild bulging disc, mild endplate hypertrophic change, and prominence of the posterior longitudinal ligament with moderate to severe narrowing of the canal at 7 mm with impingement upon the cord anteriorly with flattening of the cord. Anterior osteophytes are present C7-T1: There is prominence of the posterior longitudinal ligament extending from C7 to the T2 level causing canal stenosis at 8 mm at C7-T1 and 9 mm at T1-T2 without cord flattening. IMPRESSION: 1. 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 Please see above for detailed description 2. C6-C7: Degenerative disc disease with mild bulging disc, mild endplate hypertrophic change, and prominence of the posterior longitudinal ligament with moderate to severe narrowing of the canal at 7 mm with impingement upon the cord anteriorly with flattening of the cord. Anterior osteophytes are present 3. C7-T1: There is prominence of the posterior longitudinal ligament extending from C7 to the T2 level causing canal stenosis at 8 mm at C7-T1 and 9 mm at T1-T2 without cord flattening Dictated by: Yayo Pizarro MD 01/11/2021 18:27 Yayo Pizarro MD in [place] 01/11/2021 18:27
== END ==
PROVIDERS: PCP Emergency Medicine; Visit Provider Clinical Nurse Specialist Family Health
DX: M54.2 Cervicalgia (principal)
CPT/HCPCS: 72141; 76376

== ENCOUNTER → 2021-03-08 11:12 | Outpatient (POV) | payer OTHER, SELFPAY ==
[2021-03-08 11:21] VITALS: BP 171/98; PULSE 92; RESP 18; O2SAT 98; BMI 39.1
--- NOTE | 2021-03-08 11:35 | HMH.PAINSOAP ---
[facility] Pain Management SOAP Note Subjective:: She is a pleasant 55-year-old white female who presents today for follow-up. She is being treated in the clinic for degenerative disc disease cervical and lumbar spine with cervical and lumbar radicular symptoms. The patient did follow-up with neurosurgery. Though considered a surgical candidate, they have advised the patient that she should postpone surgical intervention for as long as possible. She is having bilateral low back pain all along with her neck pain with radiation into upper and lower extremities causing numbness and tingling. She has pain in the neck with radiation into left arm. The pain is present regardless of movement, but does worsen with movement. She is also having low back pain with radiation into left leg which is causing numbness and tingling into the leg. The pain does radiate across the patient's back bilaterally. She has had imaging of her cervical and lumbar spine which is significant. She did undergo physical therapy for more than 6 weeks and continues with home stretching. Patient is diabetic and does have a Dexcom device in place for diabetes management. 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 She does rate her pain a 2 out of 10 with sitting, however, patient says the pain is worse when walking stairs and with sitting. She does take gabapentin. She is currently on gabapentin 300 g 1 tablet p.o. 3 times daily. Review of Systems General: No recent weight changes, no fever, no sleep disturbances Respiratory: No cough, no shortness of air, no recurring pulmonary infections Cardiovascular/peripheral vascular: No chest pain, no palpitations, no edema, no shortness of breath Gastrointestinal: No new onset incontinence, normal bowel movements reported Genitourinary: No new onset incontinence Musculoskeletal: Neck pain with radiation into left arm with numbness and tingling, low back pain with radiation into left leg with numbness and tingling into left foot Psychiatric: [Normal mood/affect] Neurological: Weakness in left upper and left lower extremity Objective:: Physical exam General: Alert and oriented x3, no acute distress, pleasant and cooperative, [on room air] Lungs: Respirations even and unlabored, symmetrical chest expansion Eyes: PERRL Musculoskeletal: Flexion and extension of cervical and lumbar [spine] somewhat guarded secondary to pain, strength in upper and lower extremities [5/5], [antalgic gait noted] Neurological: Speech clear, [field reporter equal], no gross sensory deficit Assessment:: Degenerative disc disease cervical and lumbar spine with cervical and lumbar radiculopathy symptoms Plan:: Patient has tried injective therapy with epidural steroid injections with no significant relief. She has tried and failed conservative therapies of physical therapy for more than 6 weeks and continues with home stretching. The patient is diabetic with Dexcom device for diabetes management. She does have complications with blood glucose following injections due to to corticosteroids. Patient's MRI does report flattening of the cord, along with severe foraminal narrowing and bulging disks. Given the patient's symptoms and minimal relief with injective therapy, we did discuss intrathecal therapy as a long-term option for the patient for pain relief. She is not considered a neurosurgical candidate at this time. She is taking high doses of ibuprofen. We discussed a low-dose of tramadol until the patient can undergo the psychological evaluation. She understands she will need to be off tramadol for the intrathecal trial. She is in agreement. We will order her tramadol 50 mg 1 tablet p.o. 3 times daily. We will schedule her for psychological evaluation for intrathecal therapy. She will continue with home stretching. She has been advised to use caution with high doses of anti-inflammatories. She is interested in intrathecal therapy. We will see the patient back after her psychological e
== END ==
PROVIDERS: PCP Emergency Medicine; Visit Provider Clinical Nurse Specialist Family Health
DX: M51.16 Intervertebral disc disorders with radiculopathy, lumbar region (principal); M50.10 Cervical disc disorder with radiculopathy, unspecified cervical region
CPT/HCPCS: 99212; G0463

== ENCOUNTER → 2021-04-01 13:36 | Outpatient (CLI) | payer OTHER, SELFPAY ==
[2021-04-01 13:52] LABS: Basophils # 0.1 K/mm3 (0-0.2); Basophils % 0.9 % (0.1-2.0); Eosinophils # 0.4 K/mm3 (0.0-0.4); Eosinophils % 4.6 % (0.1-12.0); Hematocrit 42.5 % (37.0-47.0); Hemoglobin 13.2 g/dL (12.2-16.2); Lymphocytes # 3.1 K/mm3 (0.7-4.5); Lymphocytes % 39.2 % (10-50); Mean Corpuscular HGB Conc 31.1 g/dL (31.8-35.4); Mean Corpuscular Hemoglobin 29.2 pg (27.0-31.2); Mean Corpuscular Volume 93.9 fl (81-99); Mean Platelet Volume 8.7 fl (7.4-10.4); Monocytes # 0.5 K/mm3 (0.1-1.0); Monocytes % 6.6 % (1.7-9.3); Neutrophils # 3.8 K/mm3 (1.8-7.8); Neutrophils % 48.7 % (37.0-80.0); Platelet Count 517 K/mm3 (142-424); Red Blood Count 4.53 M/mm3 (4.20-5.40); Red Cell Distribution Width 13.9 % (11.5-17.5); White Blood Count 7.9 K/mm3 (4.8-10.8)
[2021-04-01 13:53] LABS: Alanine Aminotransferase 18 U/L (12-78); Albumin Level 3.7 g/dl (3.5-5.0); Albumin/Globulin Ratio 1.3 (1.1-1.8); Alkaline Phosphatase 80 U/L (38-126); Anion Gap 11.4 mEq/L (5-15); Aspartate Amino Transferase 26 U/L (14-36); Bilirubin,Total 0.3 mg/dl (0.2-1.3); Blood Urea Nitrogen 12 mg/dl (7-17); Calcium 9.7 mg/dl (8.4-10.2); Carbon Dioxide 38 mmol/L (22.0-30.0); Chloride 95 mmol/L (98-107); Chol/HDL Ratio 2.3 (1-3.5); Cholesterol 130 mg/dl (140-200); Estimated Glomerular Filt Rate 167 ml/min (>60); GFR (African American) 202 ML/MIN (>60); Globulin 2.9 g/dL (1.3-3.2); Glucose 186 mg/dl (74-100); HDL Cholesterol 56 mg/dl (40-60); Potassium 3.4 mmoL/L (3.5-5.1); Sodium 141 mmol/L (136-145); Total Protein,Serum 6.6 g/dl (6.3-8.2); Triglycerides 74 mg/dl (30-150); VLDL Cholesterol 15 mg/dL (0-40)
[2021-04-01 14:04] LABS: Direct LDL Cholesterol 58.13 mg/dL (100-129)
[2021-04-01 14:08] LABS: Hemoglobin A1C 8.5 % (4.0-6.0)
[2021-04-01 14:11] LABS: 25-OH Vitamin D, Total 35.6 ng/mL (30-100)
[2021-04-01 14:24] LABS: Thyroid Stimulating Hormone 0.86 uIU/mL (0.465-4.68)
[2021-04-02 13:13] LABS: C-Peptide 5.1 ng/mL (1.1-4.4)
== END ==
PROVIDERS: Visit Provider Nurse Practitioner Family
DX: E11.40 Type 2 diabetes mellitus with diabetic neuropathy, unspecified (principal); E66.3 Overweight; Z68.38 Body mass index [BMI] 38.0-38.9, adult; Z79.899 Other long term (current) drug therapy; Z79.4 Long term (current) use of insulin
CPT/HCPCS: 80053; 80061; 82043; 82306; 83036; 84436; 84443; 84681; 85025

== ENCOUNTER 2021-05-20 07:46 | Day surgery (SDC) | payer OTHER, SELFPAY ==
[2021-05-20] VITALS (9 sets, daily range): BP systolic 148–189; BP diastolic 79–106; PULSE 79–93; RESP 18–20; TEMP 37; O2SAT 94–98; BMI 49.4
--- NOTE | 2021-05-20 09:43 | P.PCN_ITS ---
- Procedure Date: 05/20/21 Time: 09:43 Anesthesiologist:: Oh Adams MD Complications:: None Pre-procedure Diagnosis:: Degenerative disc disease of lumbar spine with lumbar radiculopathy symptoms Post-procedure Diagnosis:: Same Indications for Procedure:: This patient is a pleasant 55-year-old white female who we are treating for low back pain with lumbar radiculopathy symptoms. She also has some neck pain with cervical radicular symptoms. She has failed all previous conservative therapy including injections, physical therapy and she was told by neurosurgeons to hold off on surgery as long as possible. So she is not a Surgical candidate at this time. She does have an insulin pump so she is limited on injections with steroid. She has had a successful psychological evaluation. She presents for intrathecal pump trial today. Procedure Details:: Pain pump trial Informed consent was obtained and the risk and benefits of the procedure was explained to the patient. The patient was taken to the procedure room and placed prone on the procedure table. Patient was prepped and draped in sterile fashion. C-arm fluoroscopy was used to view the lumbar spine. The skin and subcutaneous tissues were anesthetized using lidocaine. I placed a 18-gauge spinal needle into the L4-5 interspace and advanced until clear CSF was obtained. After this intrathecal catheter was inserted and advanced very easily to the L1 vertebral body. The needle was withdrawn. We were able to freely withdraw clear CSF through the catheter. We then injected intrathecal fentanyl single shot bolus of 25 mcg followed by saline and followed by the previous CSF that was withdrawn. The needle and catheter were then removed and a Band-Aid was placed. Patient tolerated the procedure well with no complications. We reevaluated the patient after 30 minutes to 1 hour. She was also reassessed by physical therapy. Patient was 80 to 90% better. She was much more functional and ambulatory with significant decrease in her pain symptoms. This was a successful intrathecal pump trial. She wants to proceed with permanent placement. We will plan on permanent placement with intrathecal morphine 5 mg/mL to start at 0.25 mg/day. Catheter tip will be at the L1 vertebral body. Plan and Disposition:: We will plan on permanent placement of intrathecal pain pump. Catheter tip will be at the L1 vertebral body. We will plan on intrathecal morphine 5 mg per ml to start at 0.25 mg/day. We will have her evaluated by Dr. Holloway for p ermanent pump placement.
[2021-05-20 10:49] LABS: POC Glucose,Bedside 157 (70-110)
--- NOTE | 2021-05-20 11:57 | PC.NURSE ---
0920-pt ambulated from procedure room accompanied by nursing staff. gait steady, no c/o pain. VSS, dressing to low back c/d/i. pt offered PO fluids and was agreeable. 0935-pt sitting in chair. VSS, no c/o pain. tolerating PO fluids. without needs or concerns at this time. 0950-pt sleeping in chair, wakes easily. VSS, no c/o pain. without needs or concerns at this time 0952-MD at bedside. 0957-Physical therapy at bedside for re-evaluation 1005-pt resting in chair with eyes closed. VSS, no c/o pain. 1008-pt vomited large amount of bile colored liquid. reported that nausea came on suddenly. states she feels hot and request blood glucose be checked. pt given cool washcloth. denied offer for sprite. 1011-FSBS 157. states she feels somewhat better. 1016-pt sitting up in chair. states nausea has resolved. 1020-pt sitting up in chair. VSS, no c/o pain. dressing to low back c/d/i 1025-pt states nausea has returned. denied offer for PRN antiemetic or sprite. VSS. 1046-pt reports feeling better. requests to be discharged.
== END 2021-05-20 10:46 | disposition home or self-care (01) ==
LOC: SC.PAINP 07:47
PROVIDERS: PCP Nurse Practitioner Family; Visit Provider Anesthesiology
DX: M51.16 Intervertebral disc disorders with radiculopathy, lumbar region (principal); I25.10 Atherosclerotic heart disease of native coronary artery without angina pectoris; E78.5 Hyperlipidemia, unspecified; I10 Essential (primary) hypertension; K21.9 Gastro-esophageal reflux disease without esophagitis; E11.9 Type 2 diabetes mellitus without complications; F32.A Depression, unspecified; Z88.5 Allergy status to narcotic agent; Z79.4 Long term (current) use of insulin; Z79.899 Other long term (current) drug therapy
CPT/HCPCS: 62323; 82962; 96365

== ENCOUNTER 2021-05-23 08:35 | Emergency (ER) | payer OTHER, SELFPAY ==
[2021-05-23] VITALS (14 sets, daily range): BP systolic 146–171; BP diastolic 89–104; PULSE 73–90; RESP 12–17; TEMP 36.9; O2SAT 95–98; BMI 38.4
--- NOTE | 2021-05-23 08:43 | ECG_ITS ---
APPROVED REPORT Exam: Resting ECG HR:88 bpm ECG Measurements Heart Rate 88 AXES AZ 170 P -10 QRSd 110 QRS -5 QT 388 T 74 QTc 469 Conclusion Normal sinus rhythm Normal ECG Electronically signed by : Geovanni Montes MD 05/23/2021 20:16:52
--- NOTE | 2021-05-23 08:52 | CT_ITS ---
PROCEDURE: CT HEAD/BRAIN WO CON CLINICAL INDICATION: left facial droop COMPARISON: No exams were available for comparison TECHNIQUE: Axial images obtained. All CT scans at the facility use one or more dose reduction, viz: automated exposure control, ma/kV adjustment per patient size (including targeted exams where dose is matched to indication, i.e. head), or iterative reconstruction technique. FINDINGS: No midline shift, mass effect, intracranial hemorrhage, hydrocephalus, or extra-axial fluid collection is evident. The calvarium has an unremarkable appearance. 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 Hyperostosis frontalis interna. 14 mm retention cyst in the right sphenoid sinus. There are 2 retention cyst in the left ethmoid sinus posteriorly 5 mm each. IMPRESSION: No acute intracranial finding Dictated by: Yayo Pizarro MD 05/23/2021 10:50 Yayo Pizarro MD in [facility] 05/23/2021 10:50
--- NOTE | 2021-05-23 08:55 | CT_ITS ---
Procedure: CT ANGIO NECK CT angio head CLINICAL HISTORY: left facial droop COMPARISON: CT CT ANGIO HEAD from 05/23/2021 TECHNIQUE: IV Contrast: 100ml Isovue 370 Axial images obtained with sagittal and coronal reformats. All CT scans at the facility use one or more dose reduction, viz: automated exposure control, ma/kV adjustment per patient size (including targeted exams where dose is matched to indication, i.e. head), or iterative reconstruction technique. FINDINGS: CTA neck: Unremarkable great vessels. Right common carotid has an unremarkable appearance. There is tortuosity of the right ICA but no significant stenosis Left common carotid and internal carotid artery have an unremarkable appearance. The vertebrals are somewhat obscured proximally by artifact from venous structures. The mid distal aspect of the vertebrals have an unremarkable appearance. CTA head: No aneurysm, AVM, or major intracranial occlusive process evident. There is a moderate amount of venous enhancement somewhat obscuring fine. There is persistent origin of the left posterior cerebral artery as a normal variant. There is some luminal irregularity of the M1 segment of the right middle cerebral artery. The thyroid gland is enlarged left lobe greater than right. There is prominent increased soft tissue density around the head of the clavicle on the right and to lesser degree on the left suggesting pannus formation. There are scattered small cervical lymph nodes. There is asymmetric soft tissue density noted in the right aspect the sella measuring approximately 12 by 11 mm. Pituitary macroadenoma is considered. Nonemergent MRI of the pituitary without and with gadolinium enhancement suggested. There are degenerative changes in the cervical spine and upper thoracic spine with prominent posterior longitudinal ligament calcification at C7 and T1 and T2 with canal stenosis. IMPRESSION: 1. No significant stenotic lesions apparent. No aneurysm or AVM. No dissection evident. Fine arterial detail is somewhat limited secondary to venous contamination. 2. Mild luminal irregularity of the right middle cerebral artery M1 segment which may be seen with atherosclerotic change. 3. 12 mm asymmetric density in the right aspect of the sella suggesting pituitary. Recommend nonemergent MRI with pituitary protocol for confirmation. Dictated by: Yayo Pizarro MD 05/23/2021 11:11 Yayo Pizarro MD in [facility] 05/23/2021 11:11
[2021-05-23 09:06] LABS: Basophils % 0.4 % (0.1-2.0); Eosinophils # 0.4 K/mm3 (0.0-0.4); Eosinophils % 5.3 % (0.1-12.0); Hematocrit 41.9 % (37.0-47.0); Lymphocytes # 2.9 K/mm3 (0.7-4.5); Lymphocytes % 36.7 % (10-50); Mean Corpuscular HGB Conc 33.5 g/dL (31.8-35.4); Mean Corpuscular Hemoglobin 30.2 pg (27.0-31.2); Mean Platelet Volume 7.6 fl (7.4-10.4); Monocytes # 0.5 K/mm3 (0.1-1.0); Neutrophils % 51.5 % (37.0-80.0); Platelet Count 470 K/mm3 (142-424); Red Blood Count 4.66 M/mm3 (4.20-5.40); Red Cell Distribution Width 13.4 % (11.5-17.5); White Blood Count 7.8 K/mm3 (4.8-10.8)
[2021-05-23 09:10] LABS: Chloride 97 mmol/L (98-107); Sodium 140 mmol/L (136-145)
--- NOTE | 2021-05-23 09:10 | HMH.EDGENADL ---
ED Disposition Clinical Impression: Michele's palsy, Hypokalemia Disposition: Home, Self-Care Condition on Discharge: Good Additional Instructions: Take prednisone as directed, take potassium supplements daily. Follow-up with your primary care physician within the next 1 to 3 days for repeat blood draw and evaluation. Tape left eye while sleeping, apply eye ointment nightly for lubrication. Return to ED with new, worsening, concerning symptoms. Prescriptions: predniSONE [Prednisone 20mg Tab] 60 mg PO DAILY 7 Days #21 tab Transmission Status: Pending to [id number] Referrals: Rashid Aranda MD [Primary Care Provider] - - Critical Care Critical Care Time: No Attestation: On 05/23/21, the high probability of a clinically significant, sudden or life threatening deterioration of the following system(s) required my full and direct attention, intervention and personal management. The time I documented below is in addition to time spent performing reported procedures but includes the following listed in this critical care notation. Medical Decision Making - Medical Records Medical records reviewed: Yes: I reviewed the patient's medical records. - Jerrell Inquiry Pt receiving controlled substance: No Vital Signs: 05/23/21 09:01 05/23/21 10:00 05/23/21 10:07 Temperature 98.5 F Temperature Source Oral Pulse Rate 78 77 Pulse Rate [Left Radial] 90 Respiratory Rate 16 17 13 Blood Pressure 156/96 H 162/96 H Blood Pressure [Left Arm] 171/104 H Blood Pressure Mean 107 110 Blood Pressure Mean [Left Arm] 126 Blood Pressure Source [Left Arm] Automatic Cuff Blood Pressure Position [Left Arm] Sitting 02 Sat by Pulse Oximetry 97 96 97 Oxygen Delivery Method Room Air 05/23/21 10:28 05/23/21 10:30 05/23/21 10:45 Temperature Temperature Source Pulse Rate 78 74 81 Pulse Rate [Left Radial] Respiratory Rate 15 15 16 Blood Pressure 146/89 H 155/91 H 161/94 H Blood Pressure [Left Arm] Blood Pressure Mean 113 118 112 Blood Pressure Mean [Left Arm] Blood Pressure Source [Left Arm] Blood Pressure Position [Left Arm] 02 Sat by Pulse Oximetry 98 96 95 Oxygen Delivery Method 05/23/21 11:00 05/23/21 11:15 05/23/21 11:30 Temperature Temperature Source Pulse Rate 75 73 76 Pulse Rate [Left Radial] Respiratory Rate 15 14 15 Blood Pressure 149/91 H 152/95 H 154/99 H Blood Pressure [Left Arm] Blood Pressure Mean 111 115 119 Blood Pressure Mean [Left Arm] Blood Pressure Source [Left Arm] Blood Pressure Position [Left Arm] 02 Sat by Pulse Oximetry 96 96 97 Oxygen Delivery Method 05/23/21 11:45 05/23/21 12:00 05/23/21 12:15 Temperature Temperature Source Pulse Rate 75 73 74 Pulse Rate [Left Radial] Respiratory Rate 16 15 12 Blood Pressure 151/95 H 161/96 H 166/93 H Blood Pressure [Left Arm] Blood Pressure Mean 122 129 117 Blood Pressure Mean [Left Arm] Blood Pressure Source [Left Arm] Blood Pressure Position [Left Arm] 02 Sat by Pulse Oximetry 96 95 97 Oxygen Delivery Method 05/23/21 12:30 Temperature Temperature Source Pulse Rate 73 Pulse Rate [Left Radial] Respiratory Rate 15 Blood Pressure 156/96 H Blood Pressure [Left Arm] Blood Pressure Mean 121 Blood Pressure Mean [Left Arm] Blood Pressure Source [Left Arm] Blood Pressure Position [Left Arm] 02 Sat by Pulse Oximetry 95 Oxygen Delivery Method - Lab Data Lab Results 05/23/21 08:56: WBC 7.8, RBC 4.66, Hgb 14.0, Hct 41.9, MCV 90.0, MCH 30.2, MCHC 33.5, RDW 13.4, Plt Count 470 H, MPV 7.6, Neut % (Auto) 51.5, Lymph % (Auto) 36.7, [place] % (Auto) 6.0, Eos % (Auto) 5.3, Baso % (Auto) 0.4, Neut # (Auto) 4.0, Lymph # (Auto) 2.9, [place] # (Auto) 0.5, Eos # (Auto) 0.4, Baso # (Auto) 0.0 05/23/21 08:56: PT 11.9, INR 1.06, APTT 24.8 05/23/21 08:56: Sodium 140, Potassium 2.8 L*, Chloride 97 L, Carbon Dioxide 37 H, Anion Gap 8.8, BUN 13, Creatinine 0.40 L,
[2021-05-23 09:13] LABS: Alanine Aminotransferase 19 U/L (12-78); Albumin Level 4.2 g/dl (3.5-5.0); Albumin/Globulin Ratio 1.6 (1.1-1.8); Alkaline Phosphatase 85 U/L (38-126); Anion Gap 8.8 mEq/L (5-15); Aspartate Amino Transferase 34 U/L (14-36); Bilirubin,Total 0.4 mg/dl (0.2-1.3); Blood Urea Nitrogen 13 mg/dl (7-17); Carbon Dioxide 37 mmol/L (22.0-30.0); Estimated Glomerular Filt Rate 167 ml/min (>60); GFR (African American) 202 ML/MIN (>60); Globulin 2.7 g/dL (1.3-3.2); Total Protein,Serum 6.9 g/dl (6.3-8.2)
[2021-05-23 09:14] LABS: Calcium 9.2 mg/dl (8.4-10.2); Glucose 182 mg/dl (74-100)
[2021-05-23 09:15] LABS: Potassium 2.8 mmoL/L (3.5-5.1)
--- NOTE | 2021-05-23 09:15 | PC.NURSE ---
Caryl from lab called with potassium of 2.8. Repeated and verified. Notified
[2021-05-23 09:17] LABS: Activated Partial Thrombo Time 24.8 seconds (22.8-30.6); INR 1.06 (0.9-1.1); Prothrombin Time 11.9 seconds (10.1-12.5)
[2021-05-23 09:46] LABS: Magnesium 0.9 mg/dl (1.6-2.3)
[2021-05-23 12:33] LABS: Potassium 3.1 mmoL/L (3.5-5.1)
== END 2021-05-23 13:24 | disposition home or self-care (01) ==
PROVIDERS: Emergency Provider Emergency Medicine; PCP Emergency Medicine
DX: G51.0 Bell's palsy (principal); E87.6 Hypokalemia; E11.65 Type 2 diabetes mellitus with hyperglycemia; F41.8 Other specified anxiety disorders; E78.5 Hyperlipidemia, unspecified; I10 Essential (primary) hypertension; R01.1 Cardiac murmur, unspecified; K21.9 Gastro-esophageal reflux disease without esophagitis; Z79.899 Other long term (current) drug therapy
CPT/HCPCS: 70450; 70496; 70498; 80053; 83735; 84132; 85025; 85610; 85730; 93005; 96365; 96366; 99283; Q9967

== ENCOUNTER → 2021-05-30 14:51 | Outpatient (CLI) | payer OTHER, SELFPAY ==
[2021-05-30 15:36] LABS: Basophils # 0.1 K/mm3 (0-0.2); Basophils % 0.6 % (0.1-2.0); Eosinophils # 0.3 K/mm3 (0.0-0.4); Eosinophils % 2.9 % (0.1-12.0); Hematocrit 40.5 % (37.0-47.0); Hemoglobin 13.3 g/dL (12.2-16.2); Lymphocytes # 5.1 K/mm3 (0.7-4.5); Lymphocytes % 48.1 % (10-50); Mean Corpuscular HGB Conc 32.9 g/dL (31.8-35.4); Mean Corpuscular Hemoglobin 29.7 pg (27.0-31.2); Mean Corpuscular Volume 90.1 fl (81-99); Mean Platelet Volume 7.6 fl (7.4-10.4); Monocytes # 0.7 K/mm3 (0.1-1.0); Monocytes % 6.3 % (1.7-9.3); Neutrophils # 4.5 K/mm3 (1.8-7.8); Neutrophils % 42.1 % (37.0-80.0); Platelet Count 504 K/mm3 (142-424); Red Cell Distribution Width 13.3 % (11.5-17.5); White Blood Count 10.6 K/mm3 (4.8-10.8)
[2021-05-30 16:05] LABS: Chloride 98 mmol/L (98-107); Potassium 3.9 mmoL/L (3.5-5.1); Sodium 139 mmol/L (136-145)
[2021-05-30 16:08] LABS: Anion Gap 11.9 mEq/L (5-15); Blood Urea Nitrogen 22 mg/dl (7-17); Calcium 9.5 mg/dl (8.4-10.2); Carbon Dioxide 33 mmol/L (22.0-30.0); Estimated Glomerular Filt Rate 75 ml/min (>60); GFR (African American) 91 ML/MIN (>60); Glucose 210 mg/dl (74-100)
== END ==
PROVIDERS: Visit Provider Nurse Practitioner Family
DX: E87.6 Hypokalemia (principal); G51.0 Bell's palsy
CPT/HCPCS: 36415; 80048; 85025

== ENCOUNTER → 2021-06-27 14:38 | Outpatient (CLI) | payer OTHER, SELFPAY ==
[2021-06-27 15:10] LABS: Basophils # 0.1 K/mm3 (0-0.2); Basophils % 1.5 % (0.1-2.0); Eosinophils # 0.3 K/mm3 (0.0-0.4); Eosinophils % 5.3 % (0.1-12.0); Hematocrit 40.5 % (37.0-47.0); Hemoglobin 12.9 g/dL (12.2-16.2); Lymphocytes # 2.8 K/mm3 (0.7-4.5); Lymphocytes % 42.9 % (10-50); Mean Corpuscular HGB Conc 31.9 g/dL (31.8-35.4); Mean Corpuscular Volume 93.9 fl (81-99); Mean Platelet Volume 8.6 fl (7.4-10.4); Monocytes # 0.4 K/mm3 (0.1-1.0); Monocytes % 6.8 % (1.7-9.3); Neutrophils # 2.8 K/mm3 (1.8-7.8); Neutrophils % 43.7 % (37.0-80.0); Platelet Count 526 K/mm3 (142-424); Red Blood Count 4.31 M/mm3 (4.20-5.40); Red Cell Distribution Width 13.6 % (11.5-17.5); White Blood Count 6.5 K/mm3 (4.8-10.8)
[2021-06-27 15:48] LABS: Chloride 97 mmol/L (98-107)
[2021-06-27 15:49] LABS: Potassium 3.2 mmoL/L (3.5-5.1); Sodium 140 mmol/L (136-145)
[2021-06-27 15:51] LABS: Blood Urea Nitrogen 20 mg/dl (7-17); Estimated Glomerular Filt Rate 105 ml/min (>60); GFR (African American) 127 ML/MIN (>60)
[2021-06-27 15:52] LABS: Anion Gap 10.2 mEq/L (5-15); Calcium 9.7 mg/dl (8.4-10.2); Carbon Dioxide 36 mmol/L (22.0-30.0); Glucose 204 mg/dl (74-100)
[2021-06-27 16:20] LABS: Amphetamine/Metha Screen,Urine Negative ng/ml (<1000); Benzodiazepines Screen,Urine Negative ng/ml (<200)
[2021-06-27 16:21] LABS: Barbiturates Screen,Urine Negative ng/ml (<200)
[2021-06-27 16:22] LABS: Cannabinoid Screen,Urine Negative ng/ml (<50)
[2021-06-27 16:23] LABS: Cocaine Screen,Urine Negative ng/ml (<300); Methadone Screen,Urine Negative ng/ml (<300)
[2021-06-27 16:24] LABS: Opiate Screen,Urine Negative ng/ml (<300); Phencyclidine Screen,Urine Negative ng/ml (<25)
== END ==
PROVIDERS: PCP Emergency Medicine; Visit Provider Anesthesiology
DX: Z01.812 Encounter for preprocedural laboratory examination (principal); Z11.52 Encounter for screening for COVID-19; M51.36 Other intervertebral disc degeneration, lumbar region
CPT/HCPCS: 36415; 80048; 80305; 85025; C9803; U0003; U0005

== ENCOUNTER 2021-06-29 07:54 | Day surgery (SDC) | payer OTHER, SELFPAY ==
[2021-06-23 09:52] VITALS: BMI 30.1
[2021-06-29 08:18] VITALS: BP 141/86; PULSE 89; RESP 18; TEMP 36.8; O2SAT 96
--- NOTE | 2021-06-29 08:43 | P.PN_ITS ---
[facility] Anesthesia Checklist - Patient Identification Patient Identification: Arm Band - Structural Data Admitted From: Home Planned Operative Procedure/s: Intrathecal Pain Pump Catheter and Generator Placement under Fluoroscopy Consent for Planned Operative Procedure(s) Verified: Yes Verified Documents: Surgical Consent, History and Physical - NPO Status Verified Time NPO: 00:00 - Additional verifications Anesthesia Reactions: No Hx Blood Transfusions: Yes Blood Transfusion Reaction: No - Airway Assessment C-Spine Mobility Assessed: Yes (mp2) TMJ Mobility Assessed: Yes Dentition: Good Dentition - Neurological Assessment Level of Consciousness: Awake, Alert - Anesthesia Plan Anesthesia Risk discussed: Yes Anesthesia Plan: Verified ASA Class: III Anesthesia Type: MAC [facility] History I have reviewed the patient's past medical history: Yes Medical History: Reports:: Anxiety, Coronary Artery Disease, Depression, Diabetes Mellitus Type 1, Diabetes Mellitus Type 2, Gastroesophageal Reflux Disease(GERD), Heart Murmur, Hyperlipidemia, Hypertension Denies:: Cancer, Carotid Stenosis, Internal Pacemaker, MRSA, Seizures *Have you ever received a pneumonia vaccine?: Yes *Have you received a flu vaccine this season?: Yes Other Medical History: Reports: Arthritis, Other. Denies: Blood Transfusion Reaction Anesthesia experience/problems:: nac Laterality Cases: Left: Breast Biopsy, Bilateral: Carpal Tunnel Release Other Surgeries: Yes: Colonoscopy, Hysterectomy-Partial, Splenectomy, Other (CYST REMOVAL TAILBONE). No: Pacemaker Amputation: No Fractures: No - *Social History Last grade of school completed: Some college Smoking Status: Never smoker Alcohol Intake: never Substance Use Type: denies use *Occupational Status:: retired Housing: house Household Members: spouse *Travel in the last 8 weeks: None - Psychiatric History Pschychiatric History:: Reports:: Anxiety, Depression Family Hx:: Unable to obtain
[2021-06-29 11:17] VITALS: BP 123/71; PULSE 94; RESP 18; TEMP 36.3; O2SAT 94
[2021-06-29 11:30] VITALS: BP 119/77; PULSE 75; RESP 18; O2SAT 95
--- NOTE | 2021-06-29 11:32 | P.OP_ITS ---
Date of procedure: 06/29/21 Pre-op Diagnosis:: Degenerative disc disease of lumbar spine with lumbar radiculopathy symptoms Post-op Diagnosis:: Same Procedure performed:: Intrathecal pump placement catheter and generator Surgeon:: Oh Adams MD CHIEF DOG LICENSE INSPECTOR:: Other Anesthesia: MAC Estimated blood loss (mL): 5 Clinical Note:: The patient is a pleasant 55-year-old white female who we are treating for low back pain with lumbar radiculopathy symptoms. She has low back pain with lumbar radiculopathy symptoms and some neck pain with cervical radicular symptoms. She has failed all previous conservative therapy including injections, oral medications and physical therapy. She is really not a surgical candidate at this time. She has had a successful psychological evaluation and a successful intrathecal pump trial. She presents for permanent placement of intrathecal pain pump today. Operative findings:: None Operative note:: Informed consent was obtained the risk and benefits of the procedure were explained to the patient. Patient was taken to the procedure room. The patient was prepped and draped in sterile fashion. On the right flank I anesthetized the skin and subcutaneous tissues and made an incision and dissected the pocket for the pump. C-arm fluoroscopy was then used to view the lumbar spine. The skin and subcutaneous tissues adjacent to the L4-5 interspace were anesthetized using lidocaine. I made another incision and dissected down to the lumbar paraspinous fascia. A 15-gauge needle was inserted and advanced into the L4-5 interspace until clear CSF was obtained. After this intrathecal catheter was inserted and advanced very easily to the T12 vertebral body. The stylette of the catheter and the needle withdrawn. The catheter was secured to the fascia with 2 anchoring devices and 2-0 Prolene. I then prepared the pump with 20 mls of intrathecal morphine 5 mg/mL. I tunneled catheter from the back to the pump pocket and attached the catheter to the pump. We were able to freely withdraw clear CSF through the side-port. Both incisions were irrigated with antibiotic solution. Both incisions were then closed with 2-0 Vicryl followed by 4-0 nylon. A wound VAC was placed over both incisions. The patient was placed in an abdominal binder taken recovery in stable condition. The patient tolerated the procedure well with no complications. Pump was interrogated and started at 0.25 mg/day of intrathecal morphine. Patient was discharged home neurologically intact with good relief of pain symptoms. Plan and disposition: We will follow-up with this patient in 1 week for wound check and reprogramming. We will follow-up in 2 weeks for suture removal. If patient has any problems or questions she is to call us back in the pain clinic. Condition: stable Disposition: PACU Complications:: None
[2021-06-29 11:45] VITALS: BP 128/76; PULSE 74; RESP 18; O2SAT 95
[2021-06-29 12:05] VITALS: BP 124/74; PULSE 74; RESP 18; O2SAT 94
[2022-03-09 10:56] LABS: POC Glucose,Bedside 207 (70-110)
== END 2021-06-29 12:05 | disposition home or self-care (01) ==
LOC: OR 07:55
PROVIDERS: PCP Emergency Medicine; Visit Provider Anesthesiology
PROC: (CPT 62350; principal; 2021-06-29 09:30)
DX: M51.16 Intervertebral disc disorders with radiculopathy, lumbar region (principal); F41.9 Anxiety disorder, unspecified; I25.10 Atherosclerotic heart disease of native coronary artery without angina pectoris; F32.A Depression, unspecified; E10.9 Type 1 diabetes mellitus without complications; E11.9 Type 2 diabetes mellitus without complications; K21.9 Gastro-esophageal reflux disease without esophagitis; E78.5 Hyperlipidemia, unspecified; I10 Essential (primary) hypertension; R01.1 Cardiac murmur, unspecified; M19.90 Unspecified osteoarthritis, unspecified site; Z90.49 Acquired absence of other specified parts of digestive tract
CPT/HCPCS: 62350; 62362; 82962; 96374; C1755; C1772; J3370

== ENCOUNTER → 2021-07-05 09:43 | Outpatient (POV) | payer OTHER, SELFPAY ==
[2021-07-05 10:02] VITALS: BP 157/92; PULSE 96; RESP 20; TEMP 36.7; O2SAT 98; BMI 38.4
--- NOTE | 2021-07-05 10:26 | HMH.PMPROC ---
- Procedure Date: 07/05/21 Time: 10:26 Anesthesiologist:: Hollie Menchaca APRN Complications:: None Pre-procedure Diagnosis:: Degenerative disc disease lumbar spine with lumbar radiculopathy symptoms Post-procedure Diagnosis:: Same Indications for Procedure:: Patient is a 55-year-old white female who presents today for intrathecal pain pump adjustment. She did have the implant on 05/20/2021. She is complaining of significant chronic since having the device implanted. She is also having right hip burning sensation. She did have a previous history of constipation prior to the device being implanted. She says that has not changed. She does have increased blood pressure today and says that this may be the reason for her current headache. She does feel that the abdominal binder has caused her pain to be more significant. Today, she rates her pain 4 out of 10. She is on morphine at 0.25 mg/day. Physical exam General: Alert and oriented x3, no acute distress, pleasant and cooperative Lungs: Respirations even and unlabored, symmetrical chest expansion Eyes: PERRL Musculoskeletal: Flexion and extension of lumbar [spine] somewhat guarded secondary to pain, [antalgic gait noted] Neurological: Speech clear, no gross sensory deficit Procedure Details:: Informed consent was obtained and the risk and benefits of the procedure were explained to the patient. Patient was taken to the procedure room where noninvasive monitoring was placed including noninvasive blood pressure cuff and pulse oximeter. Patient's pump was interrogated and was reprogrammed to continue to have morphine 0.25 mg/day, PTC started at 0.025 mg up to 4 times daily.. The patient tolerated the procedure well with no complications. Plan and Disposition:: Patient will discuss blood pressure with her PCP. If she continues to have headache with the medication, we may need to consider changing the medication. She is doing well overall with the device at this time. The incision is well approximated, no redness, no drainage, no edema to site. Sutures are intact. Wound VAC was removed today. She has been advised to continue wearing abdominal binder until further instruction. Back in 2 weeks for suture removal. Patient has been instructed to contact the clinic with any concerns before the next appointment. Dr. Adams has reviewed this note and agrees with this plan of care. This note was dictated using voice recognition software and make contain errors or omissions.
== END ==
PROVIDERS: Visit Provider Clinical Nurse Specialist Family Health
DX: M51.16 Intervertebral disc disorders with radiculopathy, lumbar region (principal); Z45.1 Encounter for adjustment and management of infusion pump
CPT/HCPCS: 62368; 99212; G0463

== ENCOUNTER 2021-07-06 14:12 | Emergency (ER) | payer OTHER, SELFPAY ==
[2021-07-06 14:28] VITALS: BP 161/93; PULSE 115; RESP 18; TEMP 36.8; O2SAT 98; BMI 38.4
--- NOTE | 2021-07-06 14:41 | HMH.EDGENADL ---
ED Disposition Clinical Impression: Other acute postprocedural pain Nausea and vomiting Qualifiers: Vomiting type: unspecified Qualified Code(s): R11.2 - Nausea with vomiting, unspecified Disposition: Home, Self-Care Condition on Discharge: Good Instructions: DI for Nausea -- Adult Additional Instructions: Zofran as needed for nausea. Call Dr. Adams's office tomorrow to arrange follow-up and further care. Prescriptions: Ondansetron [Zofran 4mg ODT] 4 mg PO TIDP PRN #10 tab PRN Reason: Nausea And Vomiting Transmission Status: Received by [id number] Referrals: Rashid Aranda MD [Primary Care Provider] - - Critical Care Critical Care Time: No Attestation: On 07/06/21, the high probability of a clinically significant, sudden or life threatening deterioration of the following system(s) required my full and direct attention, intervention and personal management. The time I documented below is in addition to time spent performing reported procedures but includes the following listed in this critical care notation. Medical Decision Making - Medical Records Medical records reviewed: Yes: I reviewed the patient's medical records. MR Comment: Reviewed pain clinic note from yesterday. Patient's pain pump was interrogated and no change was made to the dosage. No complications were suspected. - Jerrell Inquiry Pt receiving controlled substance: No Vital Signs: 07/06/21 14:28 07/06/21 16:24 Temperature 98.2 F 98.2 F Temperature Source Oral Pulse Rate 104 H Pulse Rate [Right Radial] 115 H Respiratory Rate 18 18 Blood Pressure 180/101 H Blood Pressure [Right Arm] 161/93 H Blood Pressure Mean [Right Arm] 115 Blood Pressure Source [Right Arm] Automatic Cuff Blood Pressure Position [Right Arm] Sitting 02 Sat by Pulse Oximetry 98 Oxygen Delivery Method Room Air Room Air - Lab Data Lab Results 07/06/21 15:15: WBC 10.1, RBC 4.60, Hgb 13.5, Hct 41.5, MCV 90.4, MCH 29.3, MCHC 32.4, RDW 12.8, Plt Count 547 H, MPV 7.6, Neut % (Auto) 77.0, Lymph % (Auto) 16.8, [place] % (Auto) 4.9, Eos % (Auto) 0.9, Baso % (Auto) 0.4, Neut # (Auto) 7.8, Lymph # (Auto) 1.7, [place] # (Auto) 0.5, Eos # (Auto) 0.1, Baso # (Auto) 0.1 07/06/21 15:15: Sodium 136, Potassium 3.7, Chloride 94 L, Carbon Dioxide 38 H, Anion Gap 7.7, BUN 12, Creatinine 0.40 L, Estimated Creat Clear 245, Estimated GFR 167, Est GFR ( Amer) 202, Glucose 173 H, Calcium 9.6, Total Bilirubin 0.4, AST 28, ALT 16, Alkaline Phosphatase 83, Total Protein 7.2, Albumin 4.3, Globulin 2.9, Albumin/Globulin Ratio 1.5 Result diagrams: 07/06/21 15:15 07/06/21 15:15 Orders (Tests/Meds): ED MEDICATIONS Discontinued Medications Generic Name Dose Route Start Last Admin Trade Name Freq PRN Reason Stop Dose Admin Ondansetron HCl 4 mg 07/06/21 15:08 07/06/21 15:22 Ondansetron 4mg/2ml Vial IV 07/06/21 15:09 4 mg ONCE ONE Administration Sodium Chloride 1,000 ml 07/06/21 15:08 07/06/21 15:22 Sodium Chloride 0.9% 1000ml Bag IV 07/06/21 15:09 1,000 ml BOLUS ONE Administration - Physician Consults Physician Consulted: Selene - branch office manager for Dr. Adams Time: 15:05 Comment/Response: States that they did not and cannot turn her pain pump off remotely. States that she was advised to follow-up with her primary care provider for her nausea and vomiting, which was her main complaint at the time of the call. She will call Dr. Adams and have him call us. Additional Consult: Bryan Time: 16:26 Comment/Response: He will follow up with patient on Sunday - Reevaluation(s) Time: 16:00 Reevaluation #1: Feels better, wants to go home. General Adult HPI - General Stated complaint: vomiting Time Seen by Provider: 07/06/21 14:41 - History of Present Illness HPI narrative: Patient states that she had a pain pump implanted 1 week ago. She says ever since then she has had pain at the site of insertion and headache. She says kraig
--- NOTE | 2021-07-06 15:05 | PC.NURSE ---
DR MATTSON SPEAKING WITH MICHI IN PAIN MANAGEMENT
[2021-07-06 15:34] LABS: Alanine Aminotransferase 16 U/L (12-78); Albumin Level 4.3 g/dl (3.5-5.0); Albumin/Globulin Ratio 1.5 (1.1-1.8); Alkaline Phosphatase 83 U/L (38-126); Anion Gap 7.7 mEq/L (5-15); Aspartate Amino Transferase 28 U/L (14-36); Bilirubin,Total 0.4 mg/dl (0.2-1.3); Blood Urea Nitrogen 12 mg/dl (7-17); Calcium 9.6 mg/dl (8.4-10.2); Carbon Dioxide 38 mmol/L (22.0-30.0); Chloride 94 mmol/L (98-107); Creatinine Clearance Estimated 245 mL/min (50-200); Estimated Glomerular Filt Rate 167 ml/min (>60); GFR (African American) 202 ML/MIN (>60); Globulin 2.9 g/dL (1.3-3.2); Glucose 173 mg/dl (74-100); Potassium 3.7 mmoL/L (3.5-5.1); Sodium 136 mmol/L (136-145); Total Protein,Serum 7.2 g/dl (6.3-8.2)
--- NOTE | 2021-07-06 15:41 | PC.NURSE ---
MICHI CAME FROM PAIN MANAGEMENT CHECKED HER PUMP SHE HAS NO PUMP ERRORS
[2021-07-06 15:43] LABS: Basophils # 0.1 K/mm3 (0-0.2); Basophils % 0.4 % (0.1-2.0); Eosinophils # 0.1 K/mm3 (0.0-0.4); Eosinophils % 0.9 % (0.1-12.0); Hematocrit 41.5 % (37.0-47.0); Hemoglobin 13.5 g/dL (12.2-16.2); Lymphocytes # 1.7 K/mm3 (0.7-4.5); Lymphocytes % 16.8 % (10-50); Mean Corpuscular HGB Conc 32.4 g/dL (31.8-35.4); Mean Corpuscular Hemoglobin 29.3 pg (27.0-31.2); Mean Corpuscular Volume 90.4 fl (81-99); Mean Platelet Volume 7.6 fl (7.4-10.4); Monocytes # 0.5 K/mm3 (0.1-1.0); Monocytes % 4.9 % (1.7-9.3); Neutrophils # 7.8 K/mm3 (1.8-7.8); Platelet Count 547 K/mm3 (142-424); Red Cell Distribution Width 12.8 % (11.5-17.5); White Blood Count 10.1 K/mm3 (4.8-10.8)
[2021-07-06 16:24] VITALS: BP 180/101; PULSE 104; RESP 18; TEMP 36.8; O2SAT 96
--- NOTE | 2021-07-06 16:25 | PC.NURSE ---
CATRACHITO WEBB speaking with Dr. Adams
== END 2021-07-06 16:24 | disposition home or self-care (01) ==
PROVIDERS: Emergency Provider Emergency Medicine; PCP Emergency Medicine
DX: G89.18 Other acute postprocedural pain (principal); E11.65 Type 2 diabetes mellitus with hyperglycemia; K21.9 Gastro-esophageal reflux disease without esophagitis; I10 Essential (primary) hypertension; E78.5 Hyperlipidemia, unspecified; I25.10 Atherosclerotic heart disease of native coronary artery without angina pectoris; F41.8 Other specified anxiety disorders
CPT/HCPCS: 80053; 85025; 96365; 99282; J2405

== ENCOUNTER → 2021-07-19 09:54 | Outpatient (POV) | payer OTHER, SELFPAY ==
--- NOTE | 2021-07-19 10:10 | HMH.PAINSOAP ---
[facility] Pain Management SOAP Note Subjective:: Patient is a 55-year-old white female who presents today for follow-up. She did have an intrathecal pain pump implanted on 05/20/2021. She is doing well today. She did go to the emergency room in the past due to nausea and vomiting. Overall, she says that she is having a great deal of relief since implant. Today, she rates her pain a 2 out of 10. She does continue to have numbness around her right hip since having the device implanted. She is currently on morphine at 0.25 mg/day. She is here today to have her sutures removed. Review of Systems General: No recent weight changes, no fever, no sleep disturbances Respiratory: No cough, no shortness of air, no recurring pulmonary infections Cardiovascular/peripheral vascular: No chest pain, no palpitations, no edema, no shortness of breath Gastrointestinal: No new onset incontinence, normal bowel movements reported Genitourinary: No new onset incontinence Musculoskeletal: Intermittent low back pain, right hip numbness Psychiatric: [Normal mood/affect] Neurological: [Denies weakness in extremities], [denies balance issues] Objective:: Physical exam General: Alert and oriented x3, no acute distress, pleasant and cooperative Lungs: Respirations even and unlabored, symmetrical chest expansion Eyes: PERRL Musculoskeletal: Flexion and extension of lumbar [spine] somewhat guarded secondary to pain, [antalgic gait noted] Neurological: Speech clear, no gross sensory deficit Incision: Incision well approximated, no redness, no drainage, no edema to site. Assessment:: Degenerative disc disease lumbar spine with lumbar radiculopathy symptoms Plan:: Patient is doing well overall with her intrathecal therapy. We will plan to follow-up with patient at her next refill. Sutures were removed today. She has been reminded to continue wearing her abdominal binder. We will follow up with her at next refill. Patient has been instructed to contact the clinic with any concerns before the next appointment. Dr. Adams has reviewed this note and agrees with this plan of care. This note was dictated using voice recognition software and make contain errors or omissions. [facility] History I have reviewed the patient's past medical history: Yes Medical History: Reports:: Anxiety, Coronary Artery Disease, Depression, Diabetes Mellitus Type 1, Diabetes Mellitus Type 2, Gastroesophageal Reflux Disease(GERD), Heart Murmur, Hyperlipidemia, Hypertension Denies:: Cancer, Carotid Stenosis, Internal Pacemaker, MRSA, Seizures *Have you ever received a pneumonia vaccine?: No *Have you received a flu vaccine this season?: Yes Other Medical History: Reports: Arthritis, Other. Denies: Blood Transfusion Reaction Laterality Cases: Left: Breast Biopsy, Bilateral: Carpal Tunnel Release Other Surgeries: Yes: Colonoscopy, Hysterectomy-Partial, Splenectomy, Other (CYST REMOVAL TAILBONE). No: Pacemaker Amputation: No Fractures: No - *Social History Smoking Status: Never smoker Alcohol Intake: never Substance Use Type: denies use *Occupational Status:: employed Housing: house Household Members: spouse *Travel in the last 8 weeks: None - Psychiatric History Pschychiatric History:: Reports:: Anxiety, Depression Family Hx:: Unable to obtain
[2021-07-19 10:31] VITALS: BP 170/98; PULSE 92; RESP 18; O2SAT 97; BMI 38.4
== END ==
PROVIDERS: Visit Provider Clinical Nurse Specialist Family Health
DX: M51.16 Intervertebral disc disorders with radiculopathy, lumbar region (principal)
CPT/HCPCS: 99212; G0463

== ENCOUNTER → 2021-08-03 12:04 | Outpatient (CLI) | payer OTHER, SELFPAY ==
[2021-08-03 12:38] LABS: Basophils # 0.1 K/mm3 (0-0.2); Basophils % 1.1 % (0.1-2.0); Eosinophils # 0.5 K/mm3 (0.0-0.4); Eosinophils % 8.1 % (0.1-12.0); Hematocrit 40.8 % (37.0-47.0); Hemoglobin 13.1 g/dL (12.2-16.2); Lymphocytes # 2.4 K/mm3 (0.7-4.5); Lymphocytes % 39.8 % (10-50); Mean Corpuscular Hemoglobin 29.5 pg (27.0-31.2); Mean Corpuscular Volume 92.3 fl (81-99); Mean Platelet Volume 8.5 fl (7.4-10.4); Monocytes # 0.5 K/mm3 (0.1-1.0); Monocytes % 8.8 % (1.7-9.3); Neutrophils # 2.6 K/mm3 (1.8-7.8); Neutrophils % 42.2 % (37.0-80.0); Platelet Count 489 K/mm3 (142-424); Red Blood Count 4.43 M/mm3 (4.20-5.40); Red Cell Distribution Width 13.5 % (11.5-17.5); White Blood Count 6.1 K/mm3 (4.8-10.8)
[2021-08-03 12:59] LABS: Chloride 94 mmol/L (98-107); Potassium 3.1 mmoL/L (3.5-5.1); Sodium 137 mmol/L (136-145)
[2021-08-03 13:01] LABS: Alanine Aminotransferase 19 U/L (12-78); Aspartate Amino Transferase 27 U/L (14-36); Blood Urea Nitrogen 9 mg/dl (7-17); Estimated Glomerular Filt Rate 129 ml/min (>60); GFR (African American) 156 ML/MIN (>60)
[2021-08-03 13:02] LABS: Albumin Level 3.8 g/dl (3.5-5.0); Albumin/Globulin Ratio 1.7 (1.1-1.8); Alkaline Phosphatase 64 U/L (38-126); Anion Gap 11.1 mEq/L (5-15); Bilirubin,Total 0.3 mg/dl (0.2-1.3); Calcium 8.8 mg/dl (8.4-10.2); Carbon Dioxide 35 mmol/L (22.0-30.0); Globulin 2.3 g/dL (1.3-3.2); Glucose 136 mg/dl (74-100); Total Protein,Serum 6.1 g/dl (6.3-8.2)
[2021-08-03 13:08] LABS: C-Reactive Protein 0.6 mg/L (0-4)
[2021-08-03 13:27] LABS: Erythrocyte Sedimentation Rate 13 mm/hr (0-30)
== END ==
PROVIDERS: Visit Provider Nurse Practitioner Family
DX: Z51.89 Encounter for other specified aftercare (principal); E11.8 Type 2 diabetes mellitus with unspecified complications; Z79.4 Long term (current) use of insulin
CPT/HCPCS: 36415; 80053; 83036; 85025; 85651; 86140

== ENCOUNTER → 2021-08-11 09:38 | Outpatient (POV) | payer OTHER, SELFPAY ==
[2021-08-11 11:02] VITALS: BP 172/98; PULSE 99; RESP 18; TEMP 36.8; O2SAT 97
--- NOTE | 2021-08-11 14:59 | HMH.PMPROC ---
- Procedure Date: 08/11/21 Time: 14:59 Anesthesiologist:: Lena Ewing MD Complications:: None Pre-procedure Diagnosis:: Degenerative disc disease of lumbar spine with lumbar radiculopathy Post-procedure Diagnosis:: Same Indications for Procedure:: Patient is a very pleasant 56-year-old white female who presents today for intrathecal pump adjustment. She is currently being treated for degenerative disc disease of lumbar spine with lumbar radiculopathy. She had an intrathecal pump implanted on May 20, 2021. She states that since she had the pump put in she has been having intermittent nausea and vomiting which has been debilitating for her. She rates her pain today is a 0 out of 10. Plan for today is for the patient to undergo intrathecal pain pump analysis and reprogram with a decrease in her constant flow rate by 20%. Procedure Details:: Analysis and reprogramming of intrathecal morphine pain pump Informed consent was obtained. The risk and benefits of the procedure were explained to the patient. Patient was taken to the procedure room. The pump was interrogated. Intrathecal [morphine infusion] was decreased by [20]% to [0.20] mg/day. Patient tolerated the procedure well with no complications. Plan and Disposition:: We will follow-up with this patient in 2 weeks. Will reevaluate pain symptoms at that time. Should the patient experience improvement in her nausea/vomiting symptoms we may further decrease if indicated; otherwise, the patient will have to go further evaluation for other causes of nausea vomiting and we can increase the pain pump settings should the pain remain uncontrolled. Jerrell and prior drug screens were reviewed and appropriate.
== END ==
PROVIDERS: Visit Provider Anesthesiology Pain Medicine
DX: M51.16 Intervertebral disc disorders with radiculopathy, lumbar region (principal); Z45.1 Encounter for adjustment and management of infusion pump
CPT/HCPCS: 62368; 99212; G0463

== ENCOUNTER → 2021-08-22 09:33 | Outpatient (POV) | payer OTHER, SELFPAY ==
[2021-08-22 09:54] VITALS: BP 138/79; PULSE 89; RESP 20; TEMP 36.7; O2SAT 99; BMI 39.3
--- NOTE | 2021-08-22 11:17 | HMH.PMPROC ---
- Procedure Date: 08/22/21 Time: 09:30 Anesthesiologist:: Eric Underwood CRNA Complications:: None Pre-procedure Diagnosis:: During of disc disease lumbar spine multiple levels. Post-procedure Diagnosis:: Same Indications for Procedure:: Patient is a pleasant 56-year-old white female who presents today to the clinic for intrathecal pain pump adjustment. She is currently being treated for degenerative disease lumbar spine multilevels. With radiculopathy. She has an intrathecal pain pump that was implanted May 2021. She had a decrease by 20% a month ago due to excess nausea vomiting. She is doing much better with the nausea and vomiting. That has essentially subsided. However, she complains of pain in the lumbar spine when standing at work. She describes pain as dull aching. She states pain is 7/10 when standing. Patient reports no pain when sitting. We will increase her pump by 10% today. Also, instructed the patient to use her bolus while working. Procedure Details:: Informed consent was obtained. Risk and benefits of the procedure explained to the patient. Patient was taken to procedure room. Pump was interrogated. Intrathecal morphine infusion was increased by 10% today. Patient tolerated procedure with no complications. Plan and Disposition:: She will follow up with us in 2 weeks for reevaluation.
== END ==
PROVIDERS: Visit Provider Nurse Anesthetist, Certified Registered
DX: M51.36 Other intervertebral disc degeneration, lumbar region (principal); Z45.1 Encounter for adjustment and management of infusion pump
CPT/HCPCS: 62368; 99212; G0463

== ENCOUNTER → 2021-09-05 08:11 | Outpatient (POV) | payer OTHER, SELFPAY ==
[2021-09-05 08:30] VITALS: BP 161/90; PULSE 82; RESP 18; TEMP 36.6; O2SAT 100; BMI 39.3
--- NOTE | 2021-09-05 08:39 | HMH.PAINSOAP ---
[facility] Pain Management SOAP Note Subjective:: Patient is a pleasant 56-year-old female who presents today for follow-up. Patient is currently being treated for degenerative disc disease of the lumbar spine with lumbar radiculopathy symptoms. Patient has an intrathecal pain pump that was placed in June 2021. Patient is currently being managed with intrathecal morphine 5 mg/mL at a rate of 0.22 mg/day with PTC boluses of 0.025mg up to 4 times a day. Patient states that this dose is working really well for her and rates her pain a 0 out of 10. She was having nausea and vomiting a month ago but this resolved after decreasing her by 20%. Today, she says that she is still having pain on bilateral hips especially when she is working. She also cannot get comfortable sitting and laying down in bed. Pain loss of bowel bladder functions. [facility] [place] #[id number] with an active morphine equivalent of 0. Review of Systems: General: No recent weight changes, no fever, no sleep disturbances Respiratory: No cough, no shortness of air, no recurring pulmonary infections Cardiovascular/peripheral vascular: No chest pain, no palpitations, no edema, no shortness of breath Gastrointestinal: No new onset incontinence, normal bowel movements reported Genitourinary: No new onset incontinence Musculoskeletal: Bilateral hip pain, improving low back pain Psychiatric: [Normal mood/affect] Neurological: [Denies weakness in extremities], [denies balance issues] Objective:: Physical Exam: General: Alert and oriented x3, no acute distress, pleasant and cooperative, [on room air] Lungs: Respirations even and unlabored, symmetrical chest expansion Eyes: PERRL Musculoskeletal: Flexion and extension of lumbar [spine] somewhat guarded secondary to pain, [antalgic gait noted]; bilateral hips/SI are positive for CHETAN, Julio's, [place]'s, Gaenslen's, compression, and distraction. Neurological: Speech clear, no gross sensory deficit Assessment:: Degenerative disc disease of the lumbar spine with lumbar radiculopathy symptoms Sacroiliitis Plan:: Patient is doing well overall with the intrathecal pain pump. She denies any side effects from the medication. Today, she has been complaining of worsening bilateral hip/SI pain. She cannot tolerate any prolonged activity such as sitting, standing, and walking. Her bilateral hips/SI are positive for CHETAN, Julio's, [place]'s, Ga[place]'s, compression, and distraction. I will schedule the patient for a bilateral SI injection. Risks and benefits of the procedure have been explained to the patient. Patient would like to proceed with the procedure. Patient has been instructed to contact the clinic with any concerns before the next appointment. Dr. Adams has reviewed this note and agrees with this plan of care. This note was dictated using voice recognition software and make contain errors or omissions. [facility] History Medical History: Reports:: Anxiety, Coronary Artery Disease, Depression, Diabetes Mellitus Type 1, Diabetes Mellitus Type 2, Gastroesophageal Reflux Disease(GERD), Heart Murmur, Hyperlipidemia, Hypertension Denies:: Cancer, Carotid Stenosis, Internal Pacemaker, MRSA, Seizures *Have you ever received a pneumonia vaccine?: No *Have you received a flu vaccine this season?: Yes Other Medical History: Reports: Arthritis, Other. Denies: Blood Transfusion Reaction Laterality Cases: Left: Breast Biopsy, Bilateral: Carpal Tunnel Release Other Surgeries: Yes: Colonoscopy, Hysterectomy-Partial, Splenectomy, Other (Pain pump inserted 2021). No: Pacemaker Amputation: No Fractures: No - *Social History Smoking Status: Never smoker Alcohol Intake: never Substance Use Type: denies use *Occupational Status:: employed Housing: house Household Members: spouse *Travel in the last 8 weeks: None - Psychiatric History Pschychiatric History:: Reports:: Anxiety, Depression Family Hx:: Unable to obtain
== END ==
PROVIDERS: Visit Provider Student in an Organized Health Care Education/Training Program
DX: M51.16 Intervertebral disc disorders with radiculopathy, lumbar region (principal); M46.1 Sacroiliitis, not elsewhere classified
CPT/HCPCS: 99212; G0463

== ENCOUNTER 2021-09-16 09:34 | Day surgery (SDC) | payer OTHER, SELFPAY ==
[2021-09-16 09:52] VITALS: BP 170/96; BP 188/98; PULSE 101; PULSE 104; RESP 20; TEMP 36.3; O2SAT 94; BMI 39.3
--- NOTE | 2021-09-16 10:00 | P.PCN_ITS ---
- Procedure Date: 09/16/21 Time: 10:00 Anesthesiologist:: Eric Underwood CRNA Complications:: None Pre-procedure Diagnosis:: Bilateral sacroiliitis Post-procedure Diagnosis:: Same Indications for Procedure:: Very pleasant 56-year-old white female who presents to our clinic today for bilateral SI joint injections. Patient has had injections in the past however not experience bilateral SI joint injections. She continues being managed by our clinic with intrathecal pain pump. This seems to be working well for her. She is having some increased pain over the SI joints. She complains of bilateral posterior pain in the hip area. She has extreme point tenderness over the SI joints. We will proceed with bilateral SI joint injections today. Procedure Details:: Procedure: Bilateral sacroiliac joint injections under fluoroscopy Informed consent was obtained and the risks and benefits of the procedure were explained to the patient.~ The patient was taken to the procedure room and noninvasive monitors were placed including a noninvasive blood pressure cuff and pulse oximeter.~ The patient was placed prone on the procedure table. Both hips were cleansed using Betadine as a cleansing solution. C-arm fluoroscopy was used to view the right sacroiliac joint.~ The skin and subcutaneous tissues were anesthetized using lidocaine 1.5% and a 25-gauge needle.~ After this, a 22-gauge spinal needle was inserted under fluoroscopic guidance into the inferior aspect of the right sacroiliac joint.~ Omnipaque dye was injected and good spread was seen throughout the joint.~ After this, approximately 5 mL of bupivacaine, 0.25% and Depo-Medrol, 40 mg was incrementally injected into the right sacroiliac joint. We then moved to the left sacroiliac joint.~ The skin and subcutaneous tissues were anesthetized using lidocaine 1.5% and a 25-gauge needle.~ After this, a 22- gauge spinal needle was inserted under fluoroscopic guidance into the inferior aspect of the left sacroiliac joint.~ Omnipaque dye was injected and good spread was seen throughout the joint. After this, approximately 5 mL of bupivacaine, 0.25% and Depo-Medrol, 40 mg was incrementally injected into the left sacroiliac joint.~ The patient tolerated the procedure well with no complications. The patient was observed in the Pain Clinic and then was discharged home neurologically intact. Plan and Disposition:: Patient was discharged home without incident. She will return to see us in the clinic for follow-up.
[2021-09-16 10:01] VITALS: BP 162/96; PULSE 99; RESP 18; O2SAT 97
== END 2021-09-16 10:02 | disposition home or self-care (01) ==
LOC: SC.PAINP 09:35
PROVIDERS: PCP Emergency Medicine; Visit Provider Nurse Anesthetist, Certified Registered
DX: M46.1 Sacroiliitis, not elsewhere classified (principal); F41.9 Anxiety disorder, unspecified; I25.10 Atherosclerotic heart disease of native coronary artery without angina pectoris; F32.A Depression, unspecified; E10.9 Type 1 diabetes mellitus without complications; E11.9 Type 2 diabetes mellitus without complications; K21.9 Gastro-esophageal reflux disease without esophagitis; E78.5 Hyperlipidemia, unspecified; I10 Essential (primary) hypertension; M19.90 Unspecified osteoarthritis, unspecified site
CPT/HCPCS: 27096; G0260; J1040

== ENCOUNTER → 2021-10-13 13:19 | Outpatient (POV) | payer OTHER, SELFPAY ==
--- NOTE | 2021-10-13 14:18 | HMH.PAINSOAP ---
[facility] Pain Management SOAP Note Subjective:: Patient is a pleasant 56-year-old female who presents today for follow-up after a bilateral SI injections on 09/16/2021. Patient is currently being treated for degenerative disc disease of lumbar spine with lumbar radiculopathy symptoms, bilateral sacroiliitis. After procedure, patient had significant relief that lasted for about a week. Denies any side effects from the procedure. Patient also has an intrathecal pain pump that was placed in June 2021. She is currently being managed with morphine 5 mg/mL at a rate of 0.22 mg/day. Denies any side effects from this medication. Patient is doing well significantly with intrathecal pain pump. Rates pain today 0 out of 10. Even though she did well with SI injections, patient is not interested in doing a repeat injection. [facility] #[id number] with an active morphine equivalent of 0. Review of Systems: General: No recent weight changes, no fever, no sleep disturbances Respiratory: No cough, no shortness of air, no recurring pulmonary infections Cardiovascular/peripheral vascular: No chest pain, no palpitations, no edema, no shortness of breath Gastrointestinal: No new onset incontinence, normal bowel movements reported Genitourinary: No new onset incontinence Musculoskeletal: Low back pain Psychiatric: [Normal mood/affect] Neurological: [Denies weakness in extremities], [denies balance issues] Objective:: Physical Exam: General: Alert and oriented x3, no acute distress, pleasant and cooperative Lungs: Respirations even and unlabored, symmetrical chest expansion Eyes: PERRL Musculoskeletal: Flexion and extension of lumbar [spine] somewhat guarded secondary to pain, [antalgic gait noted] Neurological: Speech clear, no gross sensory deficit Assessment:: Degenerative disc disease of lumbar spine with lumbar radiculopathy symptoms, bilateral sacroiliitis Plan:: Patient had 80 to 90% relief after the bilateral SI injections that lasted for about a week. Patient is now interested in doing any repeat injections at this time. We will follow-up with this patient at her next pain pump refill. Patient has been instructed to contact the clinic with any concerns before the next appointment. Dr. Adams has reviewed this note and agrees with this plan of care. This note was dictated using voice recognition software and make contain errors or omissions. [facility] History Medical History: Reports:: Anxiety, Coronary Artery Disease, Depression, Diabetes Mellitus Type 1, Diabetes Mellitus Type 2, Gastroesophageal Reflux Disease(GERD), Heart Murmur, Hyperlipidemia, Hypertension Denies:: Cancer, Carotid Stenosis, Internal Pacemaker, MRSA, Seizures *Have you ever received a pneumonia vaccine?: No *Have you received a flu vaccine this season?: Yes Other Medical History: Reports: Arthritis, Other. Denies: Blood Transfusion Reaction Laterality Cases: Left: Breast Biopsy, Bilateral: Carpal Tunnel Release Other Surgeries: Yes: Colonoscopy, Hysterectomy-Partial, Splenectomy, Other (Pain pump inserted 2021). No: Pacemaker Amputation: No Fractures: No - *Social History Smoking Status: Never smoker Alcohol Intake: never Substance Use Type: denies use *Occupational Status:: employed Housing: house Household Members: spouse *Travel in the last 8 weeks: Inside the [place] - Psychiatric History Pschychiatric History:: Reports:: Anxiety, Depression Family Hx:: Unable to obtain
[2021-10-13 14:28] VITALS: BP 170/102; PULSE 98; RESP 18; TEMP 36.3; O2SAT 98; BMI 39.3
== END ==
PROVIDERS: Visit Provider Student in an Organized Health Care Education/Training Program
DX: M51.16 Intervertebral disc disorders with radiculopathy, lumbar region (principal); M46.1 Sacroiliitis, not elsewhere classified
CPT/HCPCS: 99212; G0463

== ENCOUNTER 2021-10-24 13:55 | Day surgery (SDC) | payer OTHER, SELFPAY ==
[2021-10-24 14:06] VITALS: BP 159/93; PULSE 85; RESP 18; TEMP 36.8; O2SAT 94; BMI 39.3
[2021-10-24 14:17] VITALS: BP 164/93; PULSE 89; RESP 18; O2SAT 97
[2021-10-24 14:19] VITALS: BP 165/96; PULSE 85; RESP 18; O2SAT 98
--- NOTE | 2021-10-24 14:22 | HMH.PMPROC ---
- Procedure Date: 10/24/21 Time: 14:23 Anesthesiologist:: OLGA Cummings Complications:: None Pre-procedure Diagnosis:: Degenerative disc disease of lumbar spine with lumbar radiculopathy symptoms, sacroiliitis Post-procedure Diagnosis:: Same Indications for Procedure:: Patient is a pleasant 56-year-old female who presents today for intrathecal pain pump refill and reprogram. The patient is being treated for degenerative disc disease of lumbar spine with lumbar radiculopathy symptoms. Patient is currently being managed with morphine 5 mg/mL at a rate of 0.32 mg/day. Patient denies any side effects from this medication. Patient rates pain a 0 out of 10. Drug screen is appropriate. [facility] [id number] with an active morphine equivalent of 0 has been reviewed and is appropriate. Physical exam General: Alert and oriented x3, no acute distress, pleasant and cooperative Lungs: Respirations even and unlabored, symmetrical chest expansion Eyes: PERRL Musculoskeletal: Flexion and extension of lumbar [spine] somewhat guarded secondary to pain, [antalgic gait noted] Neurological: Speech clear, no gross sensory deficit Procedure Details:: Informed consent was obtained and the risk and benefits of the procedure were explained to the patient. The patient was taken to the procedure room where noninvasive monitoring was placed including noninvasive blood pressure cuff and pulse oximeter. Patient's pump was interrogated. The area over the pump was cleansed with chlorhexidine as a cleansing solution. [Fluoroscopy was used to access the pump]. In sterile fashion the pump was accessed with a 22-gauge needle. Approximately 14 mls of the pump solution was removed and discarded appropriately. The pump was then refilled with 20 mL's of morphine 5 mg/mL. The needle was withdrawn and a bandage was placed over the puncture site. The infusion rate was reprogrammed and continued at morphine 0.22 mg/day. The patient tolerated well with no complication. Plan and Disposition:: We will see the patient back in the clinic at the next intrathecal refill. Patient has been instructed to contact the clinic with any concerns before the next appointment. Dr. Adams has reviewed this note and agrees with this plan of care. This note was dictated using voice recognition software and make contain errors or omissions.
[2021-10-24 14:33] VITALS: BP 153/77; PULSE 50; RESP 20; O2SAT 94
== END 2021-10-24 14:34 | disposition home or self-care (01) ==
LOC: SC.PAINP 13:56
PROVIDERS: PCP Emergency Medicine; Visit Provider Student in an Organized Health Care Education/Training Program
DX: M51.16 Intervertebral disc disorders with radiculopathy, lumbar region (principal); M46.1 Sacroiliitis, not elsewhere classified; Z45.1 Encounter for adjustment and management of infusion pump; F41.9 Anxiety disorder, unspecified; I25.10 Atherosclerotic heart disease of native coronary artery without angina pectoris; F32.A Depression, unspecified; E11.9 Type 2 diabetes mellitus without complications; K21.9 Gastro-esophageal reflux disease without esophagitis; E78.5 Hyperlipidemia, unspecified; I10 Essential (primary) hypertension; R01.1 Cardiac murmur, unspecified; Z88.5 Allergy status to narcotic agent
CPT/HCPCS: 95991

== ENCOUNTER → 2021-10-31 12:53 | Outpatient (CLI) | payer OTHER, SELFPAY ==
[2021-10-31 15:18] LABS: Hemoglobin A1C 7.7 % (4.0-6.0)
== END ==
PROVIDERS: PCP Nurse Practitioner Family; Visit Provider Nurse Practitioner Family
DX: E11.9 Type 2 diabetes mellitus without complications (principal); Z79.4 Long term (current) use of insulin
CPT/HCPCS: 83036

== ENCOUNTER → 2021-11-09 09:30 | Outpatient (CLI) | payer OTHER, SELFPAY ==
--- NOTE | 2021-11-09 09:31 | CA_ITS ---
APPROVED REPORT EXAM: Comprehensive 2D, Doppler, and color-flow Echocardiogram Vice President Of Software Engineering: Josefina Hoover, [place], RVS Ht: 5 ft 2 in Wt: 217lbs BSA: 1.98 BP: 150/88 mmHg Indications: PEDAL EDEMA, DM, HTN, MURMUR 2D Dimensions IVSd 1.59 cm LA Volume 108.70 mL PWd 1.28 cm LA Volume Index 54.857515 mL/m2 (M/F) 16-34 Aortic Root 2.79 cm Left Atrium 3.78 cm LVOT 1.80 cm (M/F) 1.5-2.5 M-Mode Dimensions RVDd 2.94 cm (0.9-2.6) LA Diam 4.44 cm (1.9-4.0) LVDd 5.15 cm (3.5-5.7) Ao Diam 3.11 cm (2.0-3.7) LVDs 3.06 cm (3.5-5.7) IVSd 1.37 cm (0.6-1.1) PWd 1.21 cm (0.6-1.1) EF (Teich) 71.00% EPSs 0.40 cm FS 40.60% EDV (Teich) 126.60 mL TAPSE 3.41 (<1.7) ESV (Teich) 36.70 mL LV Diastology E Decel Time 273.00 (160-240 msec) E/A Ratio 0.97 MED E' 6.00 (< 7 cm/sec) MED A' 12.30 cm/s E'/MED E' Ratio 21.80 (>14) LAT E' 8.90 (<10 cm/sec) LAT A' 16.30 cm/s E/LAT E' Ratio 14.70 (>14) Aortic Valve LVOT Max 154.00 (70-110 cm/s) LVOT VTI 32.10 cm AoV Peak Angel. 216.00 (50-130 cm/s) AO Peak GR. 18.70 mmHg AO Mean GR. 9.30 (<5 mmHg) AO VTI 43.66 (18-25 cm) JACK (VTI) 1.87 (2.5-4.5 cm2) Mitral Valve MV A Velocity 134.00 (40-130 cm/s) E/A Ratio 0.97 MV Decel. Time 273.00 (160-240 ms) MV Mean Gr. 4.00 (<2mmHg) Pulmonary Valve PV Peak Velocity 91.00 (50-150 cm/s) Tricuspid Valve TR P. Velocity 199.00 cm/s RAP Estimate 10.00 mmHg RVSP 25.90 mmHg Left Ventricle Left atrium is mildly enlarged, left ventricle is normal size, mild concentric left ventricular hypertrophy, estimated ejection fraction 55% with no regional wall motion abnormality, grade 1 diastolic dysfunction seen with tissue Doppler evidence of raise left atrial pressure. Right Ventricle Right atrium and right ventricle are mildly enlarged with normal contractility. Aortic Valve Aortic valve is minimally thickened and fibrosed, without significant aortic stenosis or aortic insufficiency. Mitral Valve Mitral valve has mitral calcification, leaflets are minimally thickened, the mitral inflow velocity is not indicated for significant mitral stenosis, there is mild mitral regurgitation. Tricuspid Valve Tricuspid valve grossly normal, there is mild tricuspid regurgitation, tricuspid regurgitation jet velocity is inadequate for calculation of the right ventricular systolic pressure. Pulmonic Valve Pulmonic valve is poorly visualized. Great Vessels Aortic root is normal size. Inferior vena cava is dilated without significant inspiratory collapse. Pericardium No significant pericardial effusion noted. Conclusion 1. Mildly enlarged left atrium, normal left ventricular size, mild concentric left ventricular hypertrophy, estimated ejection fraction 55% with no regional wall motion abnormality, grade 1 diastolic dysfunction seen with tissue Doppler evidence of raise left atrial pressure. 2. Thickened and calcified aortic valve without significant aortic stenosis aortic insufficiency. 3. Mild mitral and tricuspid regurgitation. 4. No significant pericardial effusion noted. 5. Inferior vena cava is mildly dilated without significant inspiratory collapse. Electronically signed by : Michael Shannon MD 11/09/2021 18:16:47
--- NOTE | 2021-11-09 10:12 | XR_ITS ---
FINAL REPORT CLINICAL HISTORY: foot pain FINDINGS: RIGHT FOOT Three views of the right foot demonstrate no acute fracture or dislocation. There are mild degenerative changes. There are calcaneal spurs. There is soft tissue swelling. IMPRESSION: Swelling with no acute bony abnormality. Reviewed, Interpreted and Dictated by Hebert Cruz III, MD Transcribed by Heather Reagan Authenticated by Hebert Cruz III, MD on 11/09/2021 12:45:48 PM [facility]
== END ==
PROVIDERS: PCP Nurse Practitioner Family; Visit Provider Nurse Practitioner Family
DX: R60.0 Localized edema (principal); M79.671 Pain in right foot
CPT/HCPCS: 73630; 93306

== ENCOUNTER → 2021-11-15 08:58 | Outpatient (CLI) | payer OTHER, SELFPAY ==
--- NOTE | 2021-11-15 09:04 | XR_ITS ---
FINAL REPORT CLINICAL HISTORY: dyspnea FINDINGS: Two views of the chest were obtained. The heart size and pulmonary vascularity are within normal limits. The mediastinum is normal. No acute pulmonary abnormality is identified. There is no pneumothorax. The bony thorax is intact. IMPRESSION: No active cardiopulmonary disease. Reviewed, Interpreted and Dictated by Hebert Cruz III, MD Transcribed by Heather Reagan Authenticated and [facility]
== END ==
PROVIDERS: PCP Emergency Medicine; Visit Provider Internal Medicine
DX: R06.00 Dyspnea, unspecified (principal); R60.0 Localized edema; R94.31 Abnormal electrocardiogram [ECG] [EKG]; I51.89 Other ill-defined heart diseases; R06.83 Snoring; R40.0 Somnolence
CPT/HCPCS: 71046

== ENCOUNTER → 2021-11-24 05:35 | Outpatient (CLI) | payer OTHER, SELFPAY ==
--- NOTE | 2021-11-24 | CA_ITS ---
APPROVED REPORT Exam: Exercise Treadmill Technologist: Riana Herrera, Ht: 5 ft 2 in Wt: 221 lbs BSA: 1.99 m2 HR: 86 bpm BP: 132/83 mmHg Rhythm: NSR, inferior ST-T abns, cannot R/O old septal or anteroseptal CT Medical History Medical History: HTN, Diabetes Medications: Potassium Chloride,,,,, Verapamil,,,,, Metformin,,,,, Gabapentin,,,,, INSULIN,,,,, Famotidine,,,,, MoRPHINE,,,,, AtorvaASTATIN,,,,, Benazep/HCTZ,,,,, Sitagliptin,,,,, Lancets,,,,, GlimepERIDE,,,,, Cardiac Risk Factors: HTN Stress Test Details Test: Nayely HR Resting HR: 88 bpm Max Heart Rate (APMHR): 166.459721 bpm Max HR Achieved: 149 bpm Target HR (85% APMHR): 141.561220 bpm % of APMHR: 89.76 Recovery HR: 122 bpm BP Resting BP: 143/90 mmHg Max BP: 220/90 mmHg Recovery BP: 194.0/97.0 mmHg ECG Resting ECG: NSR, inferior ST-T abns, cannot R/O old septal or anteroseptal CT Clinical Exercise duration: 07:16 min Highest Stage Achieved: Exercise capacity: 10.1 METs Stress ECG Conclusion During nayely protocol pt exercised total of 7:16 into stage 3. No CP noted. No arrhythmias noted. Exaggeration of baseline abns in lead 3. Probably normal GXT. Myoview images reported separately. Test Summary REST . . . . . . . Sitting REST . . . . . . . Standing REST 05:25 0.0 0.0 88 . 143/ 90 . . Stage 1 01:00 10.0 1.7 98 . . . . Stage 1 02:00 10.0 1.7 108 . . . . Stage 1 03:00 10.0 1.7 116 . 194/ 88 . . Stage 2 01:00 12.0 2.5 121 . . . . Stage 2 02:00 12.0 2.5 127 . . . . Stage 2 03:00 12.0 2.5 129 . 220/ 90 . . Stage 3 01:00 14.0 3.4 140 . . . . Stage 3 01:16 14.0 3.4 146 . . . Stop exercise at 07:16 RECOVERY 01:00 0.0 0.0 138 . . . . RECOVERY 02:00 0.0 0.0 124 . 194/ 97 . . RECOVERY 03:00 0.0 0.0 111 . 194/ 97 . . RECOVERY 04:00 0.0 0.0 104 . 164/ 88 . . RECOVERY 05:00 0.0 0.0 101 . 150/ 84 . . RECOVERY 05:44 0.0 0.0 99 . 144/ 83 . . Electronically signed by : Michael Shannon MD 11/25/2021 13:33:05
--- NOTE | 2021-11-24 05:50 | NM_ITS ---
APPROVED REPORT Exam: Nuclear Stress Test Indication: fatigue..short of breath..abnormal EKG Patient Location: Outpatient Stress Tech: Riana MARES Tech:Ciara Rodgers RUDOLPH RT(R)(N) Ht: 5 ft 2 in Wt: 221 lbs Bra Size: 38c HR: 88 bpm BP: 143/90 mmHg BSA: 1.99 m2 TID: 1.06 BMI: 40.4 History: fatigue..short of breath..abnormal EKG Procedure: Patient exercised on Luis Carlos protocol 7.16 minutes and sec, resting heart rate 88 bpm, resting blood pressure 143/90 mmHg, with exercise maximum heart rate achived was 149 bpm which is 90 % of the maximum predicted heart rate and blood pressure was 220/90 mmHg. Patient denied any complaint of chest pain. Patient has Good exercise capacity, achieved 10.1 METs of workload on treadmill, the blood pressure response to exercise was Hypertensive. Electrocardiogram Resting electrocardiogram shows sinus rhythm, with exercise there is less than 1.[address] segment depression noted from the baseline EKG. The EKG portion of the exercise Myoview is negative for ischemia. Cardiac Stress and Resting SPECT Images: Cardiac Stress and Resting SPECT images were obtained using technetium 99m Myoview 29.0 mCi stress and 10.94 mCi at rest. Gated SPECT analysis of segmental wall motion and calculation of the ejection fraction also done. Cardiac stress and rest SPECT images show uniform myocardial activity without segmental perfusion abnormality, computer derived ejection fraction 55% with no regional wall motion abnormality, right ventricle is normal size and contractility. Conclusion: 1. The EKG portion of the exercise Myoview is negative for ischemia, patient is good exercise capacity achieved 10.1 METs of workload on treadmill, the blood pressure response to exercise hypertensive, there was no exercise-induced chest discomfort. 2. No scintigraphic evidence of reversible ischemia seen, computer derived ejection fraction 55% with no regional wall motion abnormality, right ventricle is normal size and contractility. 3. Normal exercise Myoview study except for hypertensive blood pressure response. Electronically signed by : Michael Shannon MD 11/25/2021 13:35:50
[2021-11-24 11:15] LABS: Blood Urea Nitrogen 18 mg/dl (7-17); Calcium 9.9 mg/dl (8.4-10.2); Carbon Dioxide 31 mmol/L (22.0-30.0); Chloride 98 mmol/L (98-107); Estimated Glomerular Filt Rate 129 ml/min (>60); GFR (African American) 156 ML/MIN (>60); Glucose 159 mg/dl (74-100); Sodium 135 mmol/L (136-145)
[2021-11-24 11:29] LABS: NT Pro Brain Natriuretic Pep. < 11.1 pg/mL (0-125)
== END ==
PROVIDERS: Internal Medicine; PCP Emergency Medicine; Visit Provider Physician Assistant
DX: R06.00 Dyspnea, unspecified (principal); I51.89 Other ill-defined heart diseases; R60.0 Localized edema; R94.31 Abnormal electrocardiogram [ECG] [EKG]; R06.83 Snoring; R40.0 Somnolence
CPT/HCPCS: 36415; 78452; 80048; 83880; 93017; A9502

== ENCOUNTER → 2021-12-14 13:17 | Outpatient (CLI) | payer OTHER, SELFPAY ==
--- NOTE | 2021-12-20 14:55 | PC.NURSE ---
HST - [id number] 11/23/21- 01/08/22
== END ==
PROVIDERS: PCP Emergency Medicine; Visit Provider Physician Assistant
DX: G47.33 Obstructive sleep apnea (adult) (pediatric) (principal); R06.83 Snoring; R40.0 Somnolence; R94.31 Abnormal electrocardiogram [ECG] [EKG]; R06.00 Dyspnea, unspecified
CPT/HCPCS: 95806

== ENCOUNTER 2021-12-16 13:39 | Emergency (ER) | payer OTHER, SELFPAY ==
[2021-12-16 13:45] VITALS: BP 141/99; PULSE 91; RESP 19; TEMP 36.8; O2SAT 98; BMI 41.8
--- NOTE | 2021-12-16 14:17 | HMH.EDUTC ---
[facility] [place] Disposition Clinical Impression: Encounter for laboratory testing for COVID-19 virus Disposition: Home, Self-Care Condition on Discharge: Good Instructions: DI for COVID-19 (Suspected or Confirmed ), Preventing the Spread of Coronavirus Discharge Instructions Additional Instructions: *Monitor Temp, Over the counter Motrin or Tylenol as directed/as needed Tylenol every 4 hours and Motrin every 6 hours (as long as your family doctor has told you that you can take it) for fever or pain. and straight to ER if unable to lower temp less than 101.0 after medication given *Warm salt water gargles may help to soothe the throat *Throat Lozenges *Warm fluids like tea with honey may help to soothe the throat *Sleep elevated *Humidifier/Vaporizer Follow up IMMEDIATELY for new or worsening symptoms or no Noticeable improvement over the next 48-72 hours. 911 for difficulty breathing or swallowing You were tested for today for COVID19 your test result should be back in the next 24-48 hours, you may check your results on the [facility] My Health Portal Make sure to take your Vitamins Vit. C Vit D and Zinc if you can take them Referrals: Rashid Aranda MD [Primary Care Provider] - As needed Forms: Work/School Release Medical Decision Making - Jerrell Inquiry Pt receiving controlled substance: No Jerrell was queried for this patient: No Vital Signs: 12/16/21 13:45 Temperature 98.3 F Temperature Source Oral Pulse Rate [Left Brachial] 91 H Respiratory Rate 19 Blood Pressure [Left Arm] 141/99 H Blood Pressure Mean [Left Arm] 113 Blood Pressure Source [Left Arm] Automatic Cuff Blood Pressure Position [Left Arm] Sitting 02 Sat by Pulse Oximetry 98 Oxygen Delivery Method Room Air Orders (Tests/Meds): ORDERS Category Date Time Status Covid-19 Nasal PCR ([facility]) Routine Lab 12/16/21 13:55 Received [facility] [place] HPI - General Stated complaint: covid Time Seen by Provider: 12/16/21 14:17 Mode of Arrival: Ambulatory Source of Information: Patient Limitations: No Limitations Description of Symptoms (Recalled from Triage Doc. by RN): PATIENT STATES SHE TESTED POSITIVE FOR COVID 2 WEEKS AGO. STILL HAS RUNNY NOSE AND SORE THROAT AND WOULD LIKE RE-TESTED HEENT Symptoms (Recalled from RN notes): No Resp Symptoms (Recalled from RN notes): No Skin Symptoms (Recalled from RN notes): No MS Symptoms (Recalled from RN notes): No Functional Status (Recalled from RN notes): WNL - History of Present Illness Provider Complaint: Patient states that she tested positive at work two weeks ago for COVID then they tested her again at work and told her that she is negative States that she is still having runny nose and wanted to get tested again to see what it shows - Related Data Home Medications Medication Instructions Recorded Confirmed Pen Needle, Diabetic [Techlite Pen See Rx Instructions .ROUTE 11/25/19 11/15/21 Needle] .MEDSUPPLY Blood Sugar Diagnostic [Advanced See Rx Instructions .ROUTE 08/13/20 11/15/21 Gluc Meter Test Strip] .MEDSUPPLY Blood-Glucose Meter [Blood Glucose See Rx Instructions .ROUTE 08/13/20 11/15/21 Meter] .MEDSUPPLY Lancets [Pip Lancet] See Rx Instructions .ROUTE 08/13/20 11/15/21 .MEDSUPPLY Lancets [Unilet Lancet] See Rx Instructions .ROUTE .COMPLEX 05/20/21 11/15/21 Syringe and Needle,Insulin,1Ml See Rx Instructions .ROUTE .COMPLEX 05/20/21 11/15/21 [Insulin Syringe] insulin pump cart,cont inf,BT See Rx Instructions .ROUTE 08/03/21 11/15/21 .MEDSUPPLY #5 each Subcutaneous Insulin Pump [Omnipod See Rx Instructions .ROUTE DAILY 08/11/21 11/15/21 Insulin Management] Morphine Sulfate [Morphine 4mg/mL 0.22 mg IT CONT 09/05/21 11/15/21 syringe] Atorvastatin Calcium [Lipitor 10mg See Rx Instructions .ROUTE .COMPLEX 10/13/21 11/15/21 Tab] Glimepiride See Rx Instructions .ROUTE .COMPLEX 10/13/21 11/15/21 famotidine 20 mg tablet 20 mg PO DAILY tab 11/15/21 11/15/21 Previous Rx's Medicatio
[2021-12-16 14:23] VITALS: BP 141/99; PULSE 91; RESP 19; TEMP 36.8; O2SAT 98
== END 2021-12-16 14:27 | disposition home or self-care (01) ==
PROVIDERS: Emergency Provider Nurse Practitioner; PCP Emergency Medicine
DX: U07.1 COVID-19 (principal); J02.9 Acute pharyngitis, unspecified; I10 Essential (primary) hypertension; R01.1 Cardiac murmur, unspecified; K21.9 Gastro-esophageal reflux disease without esophagitis; E78.5 Hyperlipidemia, unspecified; E11.40 Type 2 diabetes mellitus with diabetic neuropathy, unspecified; M19.90 Unspecified osteoarthritis, unspecified site; E66.9 Obesity, unspecified; F32.A Depression, unspecified; F41.9 Anxiety disorder, unspecified; Z79.4 Long term (current) use of insulin; Z79.84 Long term (current) use of oral hypoglycemic drugs; Z79.899 Other long term (current) drug therapy; Z88.8 Allergy status to other drugs, medicaments and biological substances; Z68.41 Body mass index [BMI] 40.0-44.9, adult; Z82.49 Family history of ischemic heart disease and other diseases of the circulatory system; Z83.3 Family history of diabetes mellitus
CPT/HCPCS: 99213; C9803; G0463; U0003; U0005

== ENCOUNTER 2022-02-07 10:59 | Day surgery (SDC) | payer OTHER, SELFPAY ==
[2022-02-07 11:04] VITALS: BP 143/96; PULSE 89; O2SAT 98
[2022-02-07 11:12] VITALS: BP 133/89; PULSE 91; RESP 20; TEMP 36.8; O2SAT 98; BMI 40.2
[2022-02-07 11:41] VITALS: BP 182/98; PULSE 99; RESP 18
[2022-02-07 11:43] VITALS: BP 182/98; PULSE 104; RESP 18; O2SAT 98
--- NOTE | 2022-02-07 11:49 | EXP.PAIN.PRO ---
Procedure Date: 02/07/22 Time: 11:40 Anesthesiologist:: Eric Underwood CRNA Complications:: None Pre-procedure Diagnosis:: Degenerative disc disease of lumbar spine with lumbar radiculopathy symptoms, sacroiliitis Post-procedure Diagnosis:: Same Indications for Procedure:: Patient is a pleasant 56-year-old female who presents today for intrathecal pain pump refill and reprogram. We are currently treating the patient for degenerative disc disease of lumbar spine with lumbar radiculopathy symptoms. We are currently managing the patient with morphine 5 mg/mL at a rate of 0.22 mg/day. Patient denies any side effects from this medication. She states this medication is adequately managing her pain. She is also taking gabapentin 400 mg 3 times a day prescribed by Salvador Osorio today she rates her pain a 0 out of 10. Her Jerrell is [phone]. It has been reviewed and appropriate. Physical exam General: Alert and oriented x3, no acute distress, pleasant and cooperative on room air Lungs: Respirations even and unlabored, symmetrical chest expansion Eyes: PERRL musculoskeletal: Flexion and extension of lumbar spine somewhat guarded secondary to pain, antalgic gait noted neurologic: Speech clear, no gross sensory deficit Procedure Details:: Informed consent was obtained and risk and benefits of the procedure were explained to the patient. The patient was taken to the procedure room where noninvasive monitoring was placed including a noninvasive blood pressure cuff and a pulse oximeter. The patient's pump was then interrogated. The area over the pump was cleansed with a chlorhexidine as a cleansing solution. In a sterile fashion the pump was accessed with a 22-gauge needle. From interrogation of the system 14.471 mL was expected. Approximately 14.2 mL of pump solution was removed and discarded appropriately. The pump was then refilled with 20 mL of morphine 5 mg/mL with a daily dose of 0.22 mg/day. The needle was withdrawn and a bandage was placed over the puncture site. The infusion rate was continued at 0.22 mg/day of morphine. The patient tolerated the procedure well with no complication. Plan and Disposition:: We will see the patient back in the clinic at the next intrathecal refill. Patient has been instructed to contact the clinic with any concerns before the next appointment. Dr. Adams has reviewed this note and agrees with this plan of care. The note was dictated using voice recognition software and may contain errors or omissions.
== END 2022-02-07 11:50 | disposition home or self-care (01) ==
PROVIDERS: PCP Physician Assistant; Visit Provider Nurse Anesthetist, Certified Registered
DX: M51.16 Intervertebral disc disorders with radiculopathy, lumbar region (principal); M46.1 Sacroiliitis, not elsewhere classified
CPT/HCPCS: 95991

== ENCOUNTER → 2022-05-24 10:43 | Outpatient (CLI) | payer OTHER, SELFPAY ==
--- NOTE | 2022-05-24 10:47 | MM_ITS ---
PROCEDURE INFORMATION: Exam: MG Bilateral Screening 3D Mammography Exam date and time: 05/24/2022 10:42 AM Age: 56 years old Clinical indication: Screening. No family history of breast cancer. Left benign needle biopsy. TECHNIQUE: Imaging protocol: Bilateral Screening tomosynthesis and 2D mammography including computer-aided detection (CAD) when performed. COMPARISON: 1. MG MM DIG SCREENING MAMM BI W/CAD 11/30/2020 9:49 AM 2. MG MM DIG SCREENING MAMM BI W/CAD 07/18/2019 9:24 AM 3. MG DMSB DIG MAMM-SCREEN GALI 07/13/2015 9:18 AM 4. MG DMDXUR DIG MAMM-DX UNILATERAL-RT 03/28/2012 9:44 AM FINDINGS: MAMMOGRAPHY: Breast composition: The breasts are heterogeneously dense, which may obscure small masses. Mass: None. Architectural distortion: None. Calcifications: No suspicious calcifications. Asymmetric density: None. Skin thickening: None. Axillary adenopathy: Lucent 3.4 cm, approximately mass suggested in the left axilla which may be a partly imaged lipoma. IMPRESSION: See comment Possible partly imaged lipoma in the left axilla, correlate clinically and consider adding cross-sectional imaging such as CT for example. No mammographic evidence of malignancy. Annual screening is recommended unless otherwise clinically indicated. ASSESSMENT: BI-RADS Category 2: Benign
[2022-05-24 11:42] LABS: Creatinine,Urine Random 118 mg/dL (Not Estab.)
[2022-05-24 11:46] LABS: Microalbumin/Creatinine Ratio 5.8
== END ==
PROVIDERS: PCP Physician Assistant; Visit Provider Physician Assistant
DX: Z12.31 Encounter for screening mammogram for malignant neoplasm of breast (principal); E11.9 Type 2 diabetes mellitus without complications; Z79.4 Long term (current) use of insulin
CPT/HCPCS: 77063; 77067; 82043; 82570

== ENCOUNTER 2022-05-30 09:29 | Day surgery (SDC) | payer OTHER, SELFPAY ==
[2022-05-30 09:38] VITALS: BP 150/79; PULSE 89; RESP 18; TEMP 36.6; O2SAT 98; BMI 38.4
[2022-05-30 10:02] VITALS: BP 164/92; PULSE 90; RESP 18; O2SAT 97
[2022-05-30 10:03] VITALS: BP 164/92; PULSE 90; RESP 18; O2SAT 97
[2022-05-30 10:15] VITALS: BP 129/76; PULSE 87; RESP 18; O2SAT 98
--- NOTE | 2022-05-30 10:23 | EXP.PAIN.PRO ---
Procedure Date: 05/30/22 Time: 10:00 Anesthesiologist:: Eric Underwood CRNA Complications:: None Pre-procedure Diagnosis:: Degenerative disc disease lumbar spine multilevels. Lumbar radiculopathy. Left sacroiliitis Post-procedure Diagnosis:: Same. Indications for Procedure:: This patient is a pleasant 56-year-old female who comes our clinic today for intrathecal pain pump refill. Patient is being managed very effectively with morphine sulfate 5 mg/mL at 0.22 mg/day. Patient complains today of some left lumbar pain with radicular component in the anterior thigh. She has extreme point tenderness over the left sacroiliac joint. I recommend a left sacroiliac joint injection. Patient has positive left side Brandt's test. Positive left sacroiliac joint compression test. Patient having difficulty transitioning from sitting to standing. Pain intensifies when ambulating or sitting for any length of time. Procedure Details:: Details of the procedure explained to the patient. The patient taken to procedure room placed in the sitting position. The area over the pump was cleansed using chlorhexidine as a cleansing solution. The pump was accessed with ease using a 22-gauge needle. 14 mL of solution was removed and discarded appropriately. The pump was then filled with 20 cc of morphine sulfate 5 mg/mL. Patient tolerated procedure without difficulty. There are no complications. Plan and Disposition:: Patient was discharged without incident. We will schedule her for left sacroiliac joint injection.
== END 2022-05-30 10:15 | disposition home or self-care (01) ==
PROVIDERS: PCP Emergency Medicine; Visit Provider Nurse Anesthetist, Certified Registered
DX: M51.16 Intervertebral disc disorders with radiculopathy, lumbar region (principal); M46.1 Sacroiliitis, not elsewhere classified
CPT/HCPCS: 95991

== ENCOUNTER → 2022-06-05 14:29 | Outpatient (CLI) | payer OTHER, SELFPAY ==
--- NOTE | 2022-06-05 14:32 | CT_ITS ---
FINAL REPORT TECHNIQUE: Axial CT images were performed from the lung apices through the upper abdomen. Coronal reformats were submitted. This study was performed with techniques to keep radiation doses as low as reasonably achievable (ALARA). Individualized dose reduction techniques using automated exposure control or adjustment of mA and/or kV according to the patient's size were employed. CLINICAL HISTORY: mass in left axill noted on mammogram FINDINGS: There are multiple small and borderline size axillary nodes bilaterally, favor reactive. There is a fat attenuation mass in the inferior left axilla measuring 3.5 cm consistent with a lipoma. Finding is best seen on axial image number 35 There is no hilar or mediastinal mass or adenopathy. Heart size is normal. There is no pericardial or pleural effusion. No suspicious infiltrate or nodule is identified on lung window images. There is mild lingular atelectasis or scar. Limited images of the upper abdomen demonstrate presumed splenectomy with multiple splenules versus splenosis. 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 Reviewed, Interpreted and Dictated by Hebert Cruz III, MD Transcribed by Faiza Pretty Authenticated and [facility]
== END ==
PROVIDERS: PCP Physician Assistant; Visit Provider Physician Assistant
DX: R22.30 Localized swelling, mass and lump, unspecified upper limb (principal)
CPT/HCPCS: 71250

== ENCOUNTER → 2022-06-19 08:22 | Outpatient (CLI) | payer OTHER, SELFPAY ==
--- NOTE | 2022-06-19 08:32 | US_ITS ---
FINAL REPORT CLINICAL HISTORY: Enlarged lymph nodes, splenosis noted on CT FINDINGS: Transvaginal and transabdominal sonographic images of the pelvis were obtained. The uterus is absent. Left ovary is not visualized. Right ovary measures 2.9 cm in length. There is no free fluid. IMPRESSION: Unremarkable exam. Reviewed, Interpreted and Dictated by Hebert Cruz III, MD Transcribed by Tamiko Hamlin Authenticated and [facility]
--- NOTE | 2022-06-19 08:32 | CT_ITS ---
FINAL REPORT CLINICAL HISTORY: Splenosis COMPARISON: December 2017 FINDINGS: CT OF THE ABDOMEN AND PELVIS WITH CONTRAST Axial CT images of the abdomen and pelvis were obtained after the administration of intravenous contrast. Coronal reformatted images were also obtained and reviewed.This study was performed with techniques to keep radiation doses as low as reasonably achievable (ALARA). Individualized dose reduction techniques using automated exposure control or adjustment of mA and/or kV according to the patient's size were employed. Abdomen: There is mild atelectasis or scarring in the lingula.. The heart is normal in size. There is fatty infiltration of the liver. There is no biliary duct dilatation. There is mild nonspecific gallbladder wall thickening. There is a history of splenectomy. There are multiple left upper quadrant nodules consistent with splenosis. Small bilateral adrenal nodules likely represent adenomas. The pancreas has an unremarkable appearance. The kidneys are normal, without evidence of mass or hydronephrosis. The aorta is normal in caliber. There is no free fluid or adenopathy. There are multiple nodules in the omentum of the abdomen and pelvis measuring up to 2.9 cm in the midline upper pelvis. There are several nodules in the right lateral abdomen. Pelvis: The appendix is normal. There has been hysterectomy. The urinary bladder is unremarkable. No inflammatory process is seen. There is no evidence of mass or adenopathy. There is no evidence of bowel obstruction. An intra spinous catheter is noted. There is a large amount of retained stool. IMPRESSION: Prior splenectomy. Multiple soft tissue nodules as described consistent with splenosis, stable from prior. Fatty liver. Mild nonspecific gallbladder wall thickening. Reviewed, Interpreted and Dictated by Hebert Cruz III, MD Transcribed by Anil Matthews Authenticated and [facility]
[2022-06-19 08:53] LABS: Blood Urea Nitrogen 24 mg/dl (7-17); Estimated Glomerular Filt Rate 75 ml/min (>60); GFR (African American) 90 ML/MIN (>60)
== END ==
PROVIDERS: PCP Emergency Medicine; Visit Provider Physician Assistant
DX: R59.9 Enlarged lymph nodes, unspecified (principal); D73.89 Other diseases of spleen
CPT/HCPCS: 36415; 74177; 76830; 82565; 84520; Q9967

== ENCOUNTER → 2022-06-20 09:00 | Outpatient (CLI) | payer OTHER, SELFPAY ==
[2022-06-20 15:15] LABS: Basophils # 0.1 K/mm3 (0-0.2); Basophils % 1.1 % (0.1-2.0); Eosinophils # 0.5 K/mm3 (0.0-0.4); Eosinophils % 7.4 % (0.1-12.0); Hematocrit 37.1 % (37.0-47.0); Hemoglobin 11.6 g/dL (12.2-16.2); Lymphocytes # 2.5 K/mm3 (0.7-4.5); Lymphocytes % 38.3 % (10-50); Mean Corpuscular HGB Conc 31.3 g/dL (31.8-35.4); Mean Corpuscular Hemoglobin 29.5 pg (27.0-31.2); Mean Corpuscular Volume 94.3 fl (81-99); Mean Platelet Volume 8.8 fl (7.4-10.4); Monocytes # 0.4 K/mm3 (0.1-1.0); Monocytes % 6.7 % (1.7-9.3); Neutrophils % 46.6 % (37.0-80.0); Platelet Count 578 K/mm3 (142-424); Red Blood Count 3.93 M/mm3 (4.20-5.40); White Blood Count 6.5 K/mm3 (4.8-10.8)
[2022-06-20 15:21] LABS: Alanine Aminotransferase 20 U/L (12-78); Albumin/Globulin Ratio 1.5 (1.1-1.8); Alkaline Phosphatase 137 U/L (38-126); Anion Gap 14.5 mEq/L (5-15); Aspartate Amino Transferase 25 U/L (14-36); Bilirubin,Total 0.2 mg/dl (0.2-1.3); Blood Urea Nitrogen 23 mg/dl (7-17); Calcium 9.3 mg/dl (8.4-10.2); Carbon Dioxide 26 mmol/L (22.0-30.0); Chloride 104 mmol/L (98-107); Chol/HDL Ratio 2.2 (1-3.5); Cholesterol 96 mg/dl (140-200); Estimated Glomerular Filt Rate 75 ml/min (>60); GFR (African American) 90 ML/MIN (>60); Globulin 2.6 g/dL (1.3-3.2); Glucose 197 mg/dl (74-100); HDL Cholesterol 43 mg/dl (40-60); Potassium 5.5 mmoL/L (3.5-5.1); Sodium 139 mmol/L (136-145); Total Protein,Serum 6.6 g/dl (6.3-8.2); Triglycerides 83 mg/dl (30-150); VLDL Cholesterol 17 mg/dL (0-40)
[2022-06-20 15:32] LABS: Direct LDL Cholesterol 38.68 mg/dL (100-129)
[2022-06-20 15:38] LABS: 25-OH Vitamin D, Total 28.7 ng/mL (30-100)
[2022-06-20 15:52] LABS: Thyroid Stimulating Hormone 1.76 uIU/mL (0.465-4.68)
[2022-06-20 16:59] LABS: Hemoglobin A1C 8.6 % (4.0-6.0)
== END ==
PROVIDERS: PCP Physician Assistant; Visit Provider Physician Assistant
DX: E11.9 Type 2 diabetes mellitus without complications (principal); E55.9 Vitamin D deficiency, unspecified; Z79.4 Long term (current) use of insulin
CPT/HCPCS: 80053; 80061; 82306; 83036; 84443; 85025

== ENCOUNTER 2022-06-20 09:11 | Day surgery (SDC) | payer OTHER, SELFPAY ==
[2022-06-20 09:25] VITALS: BP 134/73; PULSE 90; RESP 18; TEMP 36.8; O2SAT 98; BMI 40.2
--- NOTE | 2022-06-20 09:28 | PC.NURSE ---
blood sugar 164 per pt dexcom
[2022-06-20 09:38] VITALS: BP 141/92; PULSE 93; RESP 18; O2SAT 98
[2022-06-20 09:39] VITALS: BP 141/92; PULSE 93; RESP 18; O2SAT 98
--- NOTE | 2022-06-20 09:42 | P.PCN_ITS ---
Procedure Date: 06/20/22 Time: 09:35 Anesthesiologist:: Eric Underwood CRNA Complications:: None Pre-procedure Diagnosis:: Degenerative disc disease lumbar spine multilevels. Lumbar radiculopathy. Left sacroiliitis. Post-procedure Diagnosis:: Same. Indications for Procedure:: Patient is a pleasant 56-year-old female that comes our clinic today for left sacroiliac joint injection. Upon examination she has extreme point tenderness over the left sacroiliac joint. We manage the patient with intrathecal morphine sulfate 5 mg/mL at 0.22 mg/day. Overall, the pump is doing very well managing her pain. However, she has left low lumbar and buttock pain that she describes as constant, dull, sharp and stabbing at times. She has difficulty transitioning from sitting to standing. Procedure Details:: Procedure: Left sacroiliac injection under fluoroscopy Informed consent was obtained and the risk and benefits of the procedure were explained to the patient.~ The patient was taken to the procedure room and noninvasive monitors were placed including noninvasive blood pressure cuff and pulse oximeter.~ The patient was placed prone on the procedure table.~ The~ left hip was cleansed using Betadine as a cleansing solution.~ C-arm fluorosocpy was used to view the left SI joint.~ The skin and subcutaneous tissues were anesthetized using Lidocaine 1.5% and a 25-gauge needle.~ After this, a 22-gauge spinal needle was inserted under fluoroscopic guidance into the inferior aspect of the left SI joint.~ Omnipaque dye was injected and a good spread was seen throughout the joint.~ After this, approximately 5 mL of bupivacaine 0.25% and D epo-Medrol 40 mg was incrementally injected into the sacroiliac joint.~ The patient tolerated the procedure well with no complications.~ The patient was observed in the Pain Clinic for a period of 30-45 minutes, then discharged home neurologically intact.~ Plan and Disposition:: Patient was discharged without incident
[2022-06-20 09:43] VITALS: BP 112/72; PULSE 83; RESP 18; O2SAT 98
== END 2022-06-20 09:43 | disposition home or self-care (01) ==
PROVIDERS: PCP Emergency Medicine; Visit Provider Nurse Anesthetist, Certified Registered
DX: M51.16 Intervertebral disc disorders with radiculopathy, lumbar region (principal); M46.1 Sacroiliitis, not elsewhere classified
CPT/HCPCS: 27096; G0260; J1040

== ENCOUNTER → 2022-07-03 07:58 | Outpatient (POV) | payer OTHER, SELFPAY ==
[2022-07-03 08:31] VITALS: BP 152/89; PULSE 91; RESP 18; O2SAT 98; BMI 41.5
--- NOTE | 2022-07-03 08:58 | EXP.PAIN.SOA ---
[facility] Pain Management SOAP Note Subjective:: Patient is a pleasant 56-year-old female who presents today for follow-up of left SI injection on 06/20/2022. We are currently treating the patient for degenerative disc disease of lumbar spine multilevels with lumbar radiculopathy symptoms, left-sided sacroiliitis. Today the patient states she has had at least 90% improvement following her SI injection and feels like it is continuing to provide additional relief. Patient rates her pain a 0 out of 10. Patient denies any new trauma or injury. Patient denies any change location or type of pain she experiences. Patient is currently managed with gabapentin 400 mg 3 times a day. Patient also has a intrathecal pain pump of morphine 5 mg/mL with a daily dose of 0.22 mg/day. Patient denies any side effects from this medication. Patient states this medication does adequately manage her pain symptoms. Her Jerrell is [id number]. Its been reviewed and appropriate. Review of Systems: General: No recent weight changes, no fever, no sleep disturbances Respiratory: No cough, no shortness of air, no recurring pulmonary infections Cardiovascular/peripheral vascular: No chest pain, no palpitations, no edema, no shortness of breath Gastrointestinal: No new onset incontinence, normal bowel movements reported Genitourinary: No new onset incontinence Musculoskeletal: Low back pain Psychiatric: [Normal mood/affect] Neurological: [Denies weakness in extremities], [denies balance issues] Objective:: Physical Exam: General: Alert and oriented x3, no acute distress, pleasant and cooperative Lungs: Respirations even and unlabored, symmetrical chest expansion Eyes: PERRL Musculoskeletal: Flexion and extension of lumbar [spine] somewhat guarded secondary to pain, [antalgic gait noted] Neurological: Speech clear, no gross sensory deficit ORT score updated with low risk Assessment:: Degenerative disc disease of lumbar spine multilevels with lumbar radiculopathy symptoms, left-sided sacroiliitis Plan:: Patient has had significant improvement of her pain symptoms following her left SI injection and does not require any additional injective therapy at this time. Patient will return to clinic in 1 month for reevaluation of symptoms and follow-up. Patient has been instructed to contact the clinic with any concerns before the next appointment. Dr. Adams has reviewed this note and agrees with this plan of care. This note was dictated using voice recognition software and make contain errors or omissions. -- It Is medically necessary for this patient to continue to have their intrathecal pump refilled at regular intervals. This patient had an intrathecal pain pump implanted after meeting criteria of chronic intractable pain for greater than 3 months and failing conservative treatments. Patient has committed and been compliant to the treatment plan and all planned follow up care. Since implantation of the intrathecal pain pump, the patient has had decreased pain and been more functional. Oral medications have been reduced including intake of oral opioids. Patient continues to do well with intrathecal therapy with decrease in pain symptoms and increase in functional status. Stopping intrathecal medications can lead to life threatening withdrawal, seizures, cardiac arrest, severe pain, and possible . Pumps that are not refilled at regular intervals can be damages and cause and need for replacement. We continually titrate dose and concentration to optimize pain relief and function. We are limited in concentration for certain drugs to safely deliver medications through the pump and stay within the recommendations from the Polyanalgesic Consensus Committee Guidelines. Depending on dose and concentration these pumps may need to be refilled sooner than 3 months as we titrate. [facility] Disclaimer: The information contained in this section may have been updated after the patient was seen, as this inform
== END ==
PROVIDERS: PCP Emergency Medicine; Visit Provider Nurse Practitioner Family
DX: M51.16 Intervertebral disc disorders with radiculopathy, lumbar region (principal); M46.1 Sacroiliitis, not elsewhere classified
CPT/HCPCS: 99212; G0463

== ENCOUNTER 2022-08-02 23:32 | Observation (INO) | payer OTHER, SELFPAY ==
[2022-08-02 23:33] VITALS: BP 137/84; PULSE 127; RESP 22; TEMP 37.1; O2SAT 99; BMI 40.2
[2022-08-02 23:42] VITALS: BP 137/84; PULSE 126; RESP 17; O2SAT 99
--- NOTE | 2022-08-02 23:52 | HMH.EDGENADL ---
Discharge Plan Disposition Patient Disposition: Admitted As Inpatient Chief Complaint: Abdominal Pain Prescriptions Prescriptions: No Action (DME) insulin pump cartridge Cartridge See Rx Instructions .ROUTE .MEDSUPPLY Qty: 10 0RF Rx Instructions: As directed (DME) Dexcom G6 Transmitter Device See Rx Instructions MISCELLANEOUS Qty: 3 3RF Rx Instructions: USE DIRECTED TO TEST BLOOD GLUCOSE LEVEL (DME) Dexcom G6 Sensor Device See Rx Instructions MISCELLANEOUS Qty: 3 3RF Rx Instructions: USE DIRECTED TO TEST BLOOD GLUCOSE LEVEL insulin lispro 100 unit/mL solution See Rx Instructions .ROUTE .COMPLEX Qty: 10 3RF Rx Instructions: INJECT 100 UNITS SUBCUTANEOUSLY DIRECTED PER omnipod: Total Daily DOSE of 36 units gabapentin 400 mg capsule 400 mg PO TID Qty: 90 2RF sitagliptin phosphate 100 mg tablet 100 mg PO DAILY Qty: 30 3RF Rx Instructions: Take 1 tablet by mouth once daily (DME) Omnipod Dash Pods (Gen 4) Cartridge See Rx Instructions .ROUTE .COMPLEX Qty: 25 0RF Dose Instruction: USE DIRECTED FOR DIABETES Rx Instructions: USE DIRECTED FOR DIABETES (DME) pen needle, diabetic 1 EACH needle See Rx Instructions .Route .MEDSUPPLY Rx Instructions: As directed (DME) insulin syringe-needle U-100 1 EACH syringe See Rx Instructions .Route .COMPLEX Rx Instructions: USE 1 SYRINGE THREE TIMES DAILY (DME) lancets 1 EACH misc See Rx Instructions .Route .COMPLEX Rx Instructions: USE 1 TO CHECK GLUCOSE TWICE DAILY (DME) subcutaneous insulin pump 1 EACH misc See Rx Instructions .Route DAILY Rx Instructions: As directed atorvastatin 10 mg tablet 10 mg PO DAILY Rx Instructions: TAKE 1 TABLET BY MOUTH ONCE DAILY FOR CHOLESTEROL glimepiride 4 mg tablet 4 mg PO BID Rx Instructions: Take 1 tablet by mouth twice daily spironolactone [Aldactone] 50 mg tablet 50 mg PO DAILY montelukast [Singulair] 10 mg tablet 10 mg PO HS (DME) Omnipod Dash Pods (Gen 4) Cartridge See Rx Instructions .ROUTE .COMPLEX Rx Instructions: USE DIRECTED FOR DIABETES benazepril-hydrochlorothiazide 20-25 mg tablet 1 tab PO BID Rx Instructions: TAKE 1 TABLET BY MOUTH TWICE DAILY FOR BLOOD PRESSURE potassium chloride 20 mEq tablet,ER particles/crystals 20 meq PO DAILY Rx Instructions: TAKE 1 TABLET BY MOUTH ONCE DAILY FOR SUPPLEMENT famotidine 20 mg tablet 20 mg PO DAILY Rx Instructions: Take 2 tablets by mouth once daily metformin 1,000 mg tablet 1,000 mg PO BID Rx Instructions: Take 1 tablet by mouth twice daily verapamil 120 mg tablet 180 mg PO BID Rx Instructions: TAKE 1 & 1/2 (ONE & ONE-HALF) TABLETS BY MOUTH TWICE DAILY FOR HIGH BLOOD PRESSURE (DME) blood sugar diagnostic 1 EACH strip See Rx Instructions .Route .MEDSUPPLY Rx Instructions: Test sugar three daily (DME) lancets 1 EACH misc See Rx Instructions .Route .MEDSUPPLY Rx Instructions: Test sugar three daily morphine 4 MG/ML syringe 0.22 mg IT CONT Rx Instructions: MEDICATION DELIVERED VIA INTRATHECAL PAIN PUMP. ACTUAL CONCENTRATION OF MEDICATION IS 5MG/ML. TOTAL VOLUME OF PAIN IS 20ML. Referrals Follow up/Referrals: Rashid Aranda MD [Primary Care Provider] - See instructions Clinical Impressions Clinical Impression: Leukocytosis, H/O splenectomy Instructions Patient Instructions: DI for Acute Abdominal Pain Discharge ED Provider: Alin Meraz General Adult HPI General Chief complaint: Abdominal Pain Stated complaint: vomiting, stomach pain Time Seen by Provider: 08/02/22 23:40 History of Present Illness HPI narrative: 57-year-old female with history of diabetes and obesity presents with epigastric abdominal pain and vomiting for the last few days. She denies d
[2022-08-03] VITALS (13 sets, daily range): BP systolic 111–155; BP diastolic 50–100; PULSE 98–125; RESP 16–22; TEMP 36.9–37.3; O2SAT 91–98; BMI 40.1
--- NOTE | 2022-08-03 | CT_ITS ---
PROCEDURE INFORMATION: Exam: CT Abdomen And Pelvis With Contrast Exam date and time: 08/03/2022 12:33 AM Age: 57 years old Clinical indication: Nausea and vomiting; Abdominal pain; Additional info: Epigastric pain TECHNIQUE: Imaging protocol: Computed tomography of the abdomen and pelvis with contrast. Radiation optimization: All CT scans at this facility use at least one of these dose optimization techniques: automated exposure control; mA and/or kV adjustment per patient size (includes targeted exams where dose is matched to clinical indication); or iterative reconstruction. Contrast material: ISOVUE; Contrast volume: 75 ml; Contrast route: IV; REPORTING DATA: Count of CT and Cardiac NM exams in prior 12 months: This patient has received 2 known CTs and 0 known cardiac nuclear medicine studies in the 12 months prior to the current study. COMPARISON: CT ABDOMEN PELVIS W CON 06/19/2022 9:44 AM FINDINGS: Tubes, catheters and devices: There is a neurostimulator device in the superficial soft tissues overlying the right paraspinous region with intact lead extending into the lumbar spinal canal at L4-L5 extending cephalad with tip at T12-L1 level. Lungs: The lung bases are clear. No pleural effusion. Diaphragm: Small hiatus hernia. Liver: Diffuse low-attenuation of the liver consistent with fatty infiltration. No discrete mass. Gallbladder and bile ducts: Unremarkable. No calcified stones. No ductal dilation. Pancreas: Unremarkable. Spleen: A normal spleen is absent. There are multiple nodules within the left upper quadrant measuring up to 3.5 cm consistent with splenosis. There are multiple similar circumscribed enhancing nodules of the right mid abdomen, left anterior abdomen and left lower quadrant consistent with splenosis. Adrenal glands: There is a stable 13 mm left adrenal nodule. Kidneys and ureters: No renal mass or hydronephrosis. No urinary tract stone identified. Stomach and bowel: Small and large bowel caliber is normal. No wall thickening or obstruction no significant colonic diverticulosis or CT evidence of diverticulitis. Appendix: No evidence of appendicitis. Intraperitoneal space: No free air. No significant fluid collection. Retroperitoneal space: Shotty retroperitoneal lymph nodes are stable. Vasculature: Unremarkable. No abdominal aortic aneurysm. Lymph nodes: Unremarkable. No enlarged lymph nodes. Urinary bladder: The urinary bladder is decompressed. Reproductive: The uterus is absent. Bones/joints: No acute osseous abnormality. Soft tissues: Unremarkable. IMPRESSION: 1. Hepatic steatosis. 2. Status post splenectomy with evidence of splenosis, stable. 3. Small hiatus hernia. 4. Stable left adrenal nodule. 5. Status post hysterectomy. 6. Neurostimulator device with lead extending into the lumbar spine.
--- NOTE | 2022-08-03 00:15 | PC.NURSE ---
pt vomited shortly after administration of medications. notified.
[2022-08-03 00:24] LABS: Alanine Aminotransferase 22 U/L (12-78); Albumin Level 4.7 g/dl (3.5-5.0); Albumin/Globulin Ratio 1.3 (1.1-1.8); Alkaline Phosphatase 166 U/L (38-126); Anion Gap 11.9 mEq/L (5-15); Aspartate Amino Transferase 28 U/L (14-36); Bilirubin,Total 0.7 mg/dl (0.2-1.3); Blood Urea Nitrogen 29 mg/dl (7-17); Calcium 9.7 mg/dl (8.4-10.2); Carbon Dioxide 26 mmol/L (22.0-30.0); Chloride 105 mmol/L (98-107); Creatinine Clearance Estimated 111 mL/min (50-200); Estimated Glomerular Filt Rate 65 ml/min (>60); GFR (African American) 79 ML/MIN (>60); Globulin 3.5 g/dL (1.3-3.2); Glucose 244 mg/dl (74-100); Lipase 203 U/L (23-300); Potassium 4.9 mmoL/L (3.5-5.1); Sodium 138 mmol/L (136-145); Total Protein,Serum 8.2 g/dl (6.3-8.2)
[2022-08-03 00:33] LABS: Basophils # 0.1 K/mm3 (0-0.2); Basophils % 0.3 % (0.1-2.0); Eosinophils # 0.2 K/mm3 (0.0-0.4); Eosinophils % 0.9 % (0.1-12.0); Hematocrit 40.2 % (37.0-47.0); Hemoglobin 12.6 g/dL (12.2-16.2); Lymphocytes # 0.9 K/mm3 (0.7-4.5); Lymphocytes % 4.3 % (10-50); Mean Corpuscular HGB Conc 31.4 g/dL (31.8-35.4); Mean Corpuscular Hemoglobin 28.7 pg (27.0-31.2); Mean Corpuscular Volume 91.4 fl (81-99); Mean Platelet Volume 7.9 fl (7.4-10.4); Monocytes # 0.7 K/mm3 (0.1-1.0); Monocytes % 3.1 % (1.7-9.3); Neutrophils # 19.2 K/mm3 (1.8-7.8); Neutrophils % 91.5 % (37.0-80.0); Platelet Count 682 K/mm3 (142-424); Red Blood Count 4.39 M/mm3 (4.20-5.40); Red Cell Distribution Width 13.1 % (11.5-17.5)
[2022-08-03 00:45] LABS: MANUAL DIFFERENTIAL MANUAL DIFFERENTIAL (MANUAL DIFF)
--- NOTE | 2022-08-03 01:01 | PC.NURSE ---
rounded on pt at this time, warm blankets provided and updated on POC
--- NOTE | 2022-08-03 01:19 | XR_ITS ---
PROCEDURE INFORMATION: Exam: XR Chest Exam date and time: 08/03/2022 1:38 AM Age: 57 years old Clinical indication: Shortness of breath; Additional info: SOA TECHNIQUE: Imaging protocol: Radiologic exam of the chest. Views: 1 view. COMPARISON: CT CHEST WO CON 06/05/2022 2:44 PM FINDINGS: Lungs: No focal consolidation or mass. Pleural spaces: No pleural effusion or pneumothorax. Heart/Mediastinum: Normal heart size. Bones/joints: No acute osseous abnormality. IMPRESSION: No acute intrathoracic abnormality.
[2022-08-03 01:23] LABS: Microscopic, Urine URINE MICROSCOPIC (MICROSCOPIC)
[2022-08-03 01:24] LABS: Appearance,Urine CLEAR (Clear); Bilirubin,Urine Negative (Negative); Blood, Urine Negative (Negative); Color,Urine YELLOW (Yellow); Glucose,Urine (UA) Negative (Negative); Ketones,Urine 1+ (Negative); Leukocyte Esterase,Urine TRACE (Negative); Nitrate,Urine Negative (Negative); PH,Urine 5.5 (5.0-8.5); Protein,Urine Negative (Negative); Specific Gravity, Urine >= 1.030 (1.005-1.030); Urobilinogen,Urine 0.2 EU/dl (0.2)
[2022-08-03 01:28] LABS: Lactic Acid 1.3 mmol/L (0.7-2.1)
[2022-08-03 02:00] LABS: Bacteria,Urine 1+ /lpf; Mucus,Urine 1+ /lpf; WBC,Urine Occasional #/hpf (0-3)
[2022-08-03 02:03] LABS: Eosinophils % 3 % (0-3); Lymphocytes % 4 % (10-50); Monocytes % 2 % (2-9); Neutrophils % 91 % (42-76); Platelet Estimate Normal; RBC Morphology Normal; Total Cells Counted 100
--- NOTE | 2022-08-03 02:28 | PC.NURSE ---
Shiv at bedside Notified house of admission
[2022-08-03 02:33] LABS: Coronavirus 19, PCR Not Detected (NotDetected); Influenza A, PCR Not Detected (NotDetected); Influenza B, PCR Not Detected (NotDetected)
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
[2022-08-03 03:56] LABS: POC Glucose,Bedside 190 (70-110)
[2022-08-03 07:52] LABS: Basophils % 0.1 % (0.1-2.0); Eosinophils % 0.8 % (0.1-12.0); Lymphocytes # 0.8 K/mm3 (0.7-4.5); Mean Corpuscular Volume 92.9 fl (81-99); Monocytes # 0.5 K/mm3 (0.1-1.0)
--- NOTE | 2022-08-03 07:52 | HMH.PHAINT1 ---
Pharmacy Intervention Comments: Medication reconciliation completed using external fill history and list from PCP office
[2022-08-03 07:56] LABS: Chloride 108 mmol/L (98-107); Potassium 4.4 mmoL/L (3.5-5.1); Sodium 139 mmol/L (136-145)
[2022-08-03 07:57] LABS: Eosinophils # 0.1 K/mm3 (0.0-0.4); Hematocrit 35.8 % (37.0-47.0); Lymphocytes % 4.1 % (10-50); Mean Corpuscular HGB Conc 31.3 g/dL (31.8-35.4); Mean Corpuscular Hemoglobin 29.1 pg (27.0-31.2); Mean Platelet Volume 7.6 fl (7.4-10.4); Monocytes % 2.8 % (1.7-9.3); Neutrophils # 16.8 K/mm3 (1.8-7.8); Neutrophils % 92.1 % (37.0-80.0); Platelet Count 584 K/mm3 (142-424); Red Blood Count 3.85 M/mm3 (4.20-5.40); Red Cell Distribution Width 13.3 % (11.5-17.5); White Blood Count 18.2 K/mm3 (4.8-10.8)
[2022-08-03 07:58] LABS: Alanine Aminotransferase 17 U/L (12-78); Aspartate Amino Transferase 22 U/L (14-36); Blood Urea Nitrogen 26 mg/dl (7-17); Creatinine Clearance Estimated 124 mL/min (50-200); Estimated Glomerular Filt Rate 74 ml/min (>60); GFR (African American) 90 ML/MIN (>60)
[2022-08-03 07:59] LABS: Albumin Level 3.6 g/dl (3.5-5.0); Albumin/Globulin Ratio 1.3 (1.1-1.8); Alkaline Phosphatase 127 U/L (38-126); Anion Gap 9.4 mEq/L (5-15); Bilirubin,Total 0.3 mg/dl (0.2-1.3); Calcium 8.5 mg/dl (8.4-10.2); Carbon Dioxide 26 mmol/L (22.0-30.0); Globulin 2.8 g/dL (1.3-3.2); Glucose 214 mg/dl (74-100); Total Protein,Serum 6.4 g/dl (6.3-8.2)
--- NOTE | 2022-08-03 08:00 | US_ITS ---
FINAL REPORT CLINICAL HISTORY: nausea, vomiting, right upper quadrant abd pain FINDINGS: Sonographic images of the right upper quadrant were obtained. The pancreas is partially obscured.The liver has an unremarkable appearance. There is a questionable small polyp or nonshadowing stone in the gallbladder. The common duct is borderline enlarged at 6 mm. There is a small cyst in the right kidney measuring 13 mm. IMPRESSION: Questionable small polyp or nonshadowing stone in the gallbladder. Follow-up ultrasound may be helpful. Borderline ductal dilatation. Right renal cyst. Reviewed, Interpreted and Dictated by Hebert Cruz III, MD Transcribed by Faiza Pretty Authenticated and [facility]
--- NOTE | 2022-08-03 08:02 | EXP.PHA.CONS ---
Pharmacy Consult Date: 08/03/22 Time: 08:02 Referring provider: DR. BEGUM Reason for Consult:: VANCOMCYIN DOSING Allergies Allergy/AdvReac Type Severity Reaction Status Date / Time propoxyphene [PROPOXYPHENE] Allergy Unknown Verified 06/20/22 09:26 Home Medications Medication Instructions Recorded Confirmed Type pen needle, diabetic 29 gauge x 11/25/19 08/03/22 History 1/2 blood sugar diagnostic 08/13/20 08/03/22 History lancets 30 gauge 08/13/20 08/03/22 History insulin syringe-needle U-100 1 mL 05/20/21 08/03/22 History 31 gauge x 15/64 lancets 33 gauge 05/20/21 08/03/22 History insulin pump cartridge #10 ea 08/08/21 08/03/22 Rx subcutaneous insulin pump 08/11/21 08/03/22 History morphine 4 mg/mL intravenous 0.22 mg intrathecal CONT chronic 09/05/21 08/03/22 History syringe pain, pain pump sitagliptin phosphate 100 mg tablet 100 mg PO DAILY Diabetes #30 tabs 12/05/21 08/03/22 Rx atorvastatin 10 mg tablet 10 mg PO DAILY High cholesterol 02/07/22 08/03/22 History glimepiride 4 mg tablet 4 mg PO BID Diabetes 02/07/22 08/03/22 History spironolactone 50 mg tablet 50 mg PO DAILY Fluid 02/07/22 08/03/22 History (Aldactone) blood-glucose sensor (Dexcom G6 #3 ea 04/25/22 08/03/22 Rx Sensor device) blood-glucose transmitter (Dexcom #3 ea 04/25/22 08/03/22 Rx G6 Transmitter device) insulin lispro 100 unit/mL See Rx Instructions .Route 04/25/22 08/03/22 Rx subcutaneous solution .COMPLEX Diabetes #10 mL insulin pump cart,cont inf,BT 05/30/22 08/03/22 History (Omnipod Dash Pods (Gen 4) subcutaneous cartridge) montelukast 10 mg tablet 10 mg PO HS Allergy symptoms 05/30/22 08/03/22 History (Singulair) benazepril 20 1 tab PO BID High blood pressure 06/20/22 08/03/22 History mg-hydrochlorothiazide 25 mg tablet famotidine 20 mg tablet 40 mg PO DAILY GERD 06/20/22 08/03/22 History gabapentin 400 mg capsule 400 mg PO TID Pain #90 caps 06/20/22 08/03/22 Rx metformin 1,000 mg tablet 1,000 mg PO BID Diabetes 06/20/22 08/03/22 History potassium chloride 20 mEq 20 meq PO DAILY Supplement 06/20/22 08/03/22 History tablet,extended release(part/cryst) insulin pump cart,cont inf,BT #25 ea 07/17/22 08/03/22 Rx (Omnipod Dash Pods (Gen 4) subcutaneous cartridge) verapamil 120 mg tablet 180 mg PO BID High blood pressure 08/03/22 08/03/22 History New Prescriptions to Start Prescriptions: Height: 1.57 m Weight: 98.792 kg Laboratory Results:: Laboratory Results - last 24 hr 08/03/22 00:05: WBC 21.0 H*, RBC 4.39, Hgb 12.6, Hct 40.2, MCV 91.4, MCH 28.7, MCHC 31.4 L, RDW 13.1, Plt Count 682 H, MPV 7.9, Neut % (Auto) 91.5 H, Lymph % (Auto) 4.3 L, [place] % (Auto) 3.1, Eos % (Auto) 0.9, Baso % (Auto) 0.3, Neut # (Auto) 19.2 H, Lymph # (Auto) 0.9, [place] # (Auto) 0.7, Eos # (Auto) 0.2, Baso # (Auto) 0.1, Total Counted 100, Neutrophils % (Manual) 91 H, Lymphocytes % (Manual) 4 L, Monocytes % (Manual) 2, Eosinophils % (Manual) 3, Platelet Estimate Normal, RBC Morphology Normal 08/03/22 00:05: Sodium 138, Potassium 4.9, Chloride 105, Carbon Dioxide 26, Anion Gap 11.9, BUN 29 H, Creatinine 0.90, Estimated Creat Clear 111, Estimated GFR 65, Est GFR ( Amer) 79, Glucose 244 H, Calcium 9.7, Total Bilirubin 0.7, AST 28, ALT 22, Alkaline Phosphatase 166 H, Total Protein 8.2, Albumin 4.7, Globulin 3.5 H, Albumin/Globulin Ratio 1.3, Lipase 203 08/03/22 00:05: Urine Color Yellow, Urine Appearance Clear, Urine pH 5.5, Ur Specific Dows >= 1.030, Urine Protein Negative, Urine Glucose (UA) Negative, Urine Ketones 1+, Urine Blood Negative, Urine Nitrate Negative, Urine Bilirubin Negative, Urine Urobilinogen 0.2, Ur Leukocyte Esterase Trace, Urine WBC Occasional, Urine Bacteria 1+, Urine Mucus 1+ 08/03/22 00:05: Lactate 1.3 08/03/22 02:26: SARS-CoV-2 (PCR) Not detected, Influenza A Untype (PCR) Not detected, Influenza Type B (PCR) Not detected 08/03/22 03:34: POC Glucose 190 H 08/03/22 07:45: Sodium 139, Potassium 4.4, Chlo
[2022-08-03 08:03] LABS: Hemoglobin 11.2 g/dL (12.2-16.2)
--- NOTE | 2022-08-03 09:30 | PC.NURSE ---
PT TO RAD
--- NOTE | 2022-08-03 10:37 | PC.NURSE ---
HALF A BAG OF VANC LEFT IN PTS ROOM, PER KEL AND BRODERICK GO AHEAD AND GIVE REMAINING DOSE.
[2022-08-03 11:34] LABS: POC Glucose,Bedside 234 (70-110)
--- NOTE | 2022-08-03 16:57 | PC.NURSE ---
pt pleasant, done well this shift. alert x4, lungs clear, active bowl sounds. no edema or skin issues noted. no c/o n/v, diarrhea. diarrhea panal needed, hat in pts br, pt knows to call out to collect stool. pt stated this morning her abd was not hurting, just her back side was sore. per nidhi stop pts fluids at this time as pt is tolerating clear liquids well. diabetic diet ordered. cb within reach, family at bedside, no concerns at this time.
[2022-08-03 16:58] LABS: POC Glucose,Bedside 111 (70-110)
[2022-08-03 20:30] LABS: POC Glucose,Bedside 159 (70-110)
[2022-08-04 04:00] VITALS: BP 108/63; PULSE 79; RESP 18; TEMP 36.9; O2SAT 99; BMI 41.3
--- NOTE | 2022-08-04 04:47 | PC.NURSE ---
pt rested well through the night, vss, no acute distress, pt without bm this shift, pt denies pain, nausea or vomiting this shift, no other issues or concerns at this time.
[2022-08-04 06:19] LABS: POC Glucose,Bedside 116 (70-110)
[2022-08-04 06:29] LABS: Basophils % 0.7 % (0.1-2.0); Eosinophils # 0.5 K/mm3 (0.0-0.4); Hematocrit 32.5 % (37.0-47.0); Hemoglobin 10.4 g/dL (12.2-16.2); Lymphocytes # 1.7 K/mm3 (0.7-4.5); Lymphocytes % 25.3 % (10-50); Mean Corpuscular HGB Conc 31.9 g/dL (31.8-35.4); Mean Corpuscular Hemoglobin 29.5 pg (27.0-31.2); Mean Corpuscular Volume 92.4 fl (81-99); Mean Platelet Volume 7.7 fl (7.4-10.4); Monocytes # 0.5 K/mm3 (0.1-1.0); Monocytes % 7.2 % (1.7-9.3); Neutrophils # 3.9 K/mm3 (1.8-7.8); Neutrophils % 59.9 % (37.0-80.0); Platelet Count 521 K/mm3 (142-424); Red Blood Count 3.52 M/mm3 (4.20-5.40); Red Cell Distribution Width 13.5 % (11.5-17.5); White Blood Count 6.6 K/mm3 (4.8-10.8)
[2022-08-04 06:31] LABS: Chloride 106 mmol/L (98-107); Potassium 4.4 mmoL/L (3.5-5.1); Sodium 137 mmol/L (136-145)
[2022-08-04 06:33] LABS: Alanine Aminotransferase 15 U/L (12-78); Aspartate Amino Transferase 21 U/L (14-36); Blood Urea Nitrogen 24 mg/dl (7-17); Creatinine Clearance Estimated 60 mL/min (50-200); Estimated Glomerular Filt Rate 74 ml/min (>60); GFR (African American) 90 ML/MIN (>60)
[2022-08-04 06:34] LABS: Albumin Level 3.4 g/dl (3.5-5.0); Albumin/Globulin Ratio 1.3 (1.1-1.8); Alkaline Phosphatase 115 U/L (38-126); Anion Gap 7.4 mEq/L (5-15); Calcium 8.6 mg/dl (8.4-10.2); Carbon Dioxide 28 mmol/L (22.0-30.0); Globulin 2.6 g/dL (1.3-3.2); Glucose 142 mg/dl (74-100); Magnesium 1.4 mg/dl (1.6-2.3)
[2022-08-04 06:47] LABS: Bilirubin,Total 0.1 mg/dl (0.2-1.3)
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
[2022-08-04 08:00] VITALS: BP 133/76; PULSE 86; RESP 18; TEMP 36.9; O2SAT 98
[2022-08-05 02:08] LABS: MRSA DNA PCR Negative
--- NOTE | 2022-08-07 13:32 | CARE MANAGER ---
Attempted post-discharge phone interview, no answer.
--- NOTE | 2022-08-08 11:51 | CARE MANAGER ---
Called and spoke with patient to discuss recent discharge. Patient aware of medication change (hold spironalactone), as well as scheduled f/u appts.
== END 2022-08-04 10:56 | disposition home or self-care (01) ==
LOC: ER 08-03 02:19 → 2ND 08-03 04:03
PROVIDERS: Nurse Practitioner Family; Admitting Provider Internal Medicine Adolescent Medicine; Emergency Provider Emergency Medicine; PCP Emergency Medicine; Visit Provider Internal Medicine Adolescent Medicine
DX: R10.9 Unspecified abdominal pain (principal); Z79.899 Other long term (current) drug therapy; R11.2 Nausea with vomiting, unspecified; E11.9 Type 2 diabetes mellitus without complications; I10 Essential (primary) hypertension; G89.29 Other chronic pain; Z79.4 Long term (current) use of insulin
CPT/HCPCS: 36415; 71045; 74177; 76705; 80053; 81001; 82962; 83605; 83690; 83735; 85007; 85025; 87040; 87077; 87186; 87641; 99285; C9803; G0378; J2405; J3370; J3475; Q9967; U0003; U0005

== ENCOUNTER → 2022-08-07 08:08 | Outpatient (POV) | payer OTHER, SELFPAY ==
--- NOTE | 2022-08-07 08:30 | EXP.PAIN.SOA ---
[facility] Pain Management SOAP Note Subjective:: Patient is a pleasant 57-year-old female who presents today for follow-up. We are currently treating the patient for degenerative disc disease of lumbar spine with lumbar radiculopathy symptoms, left-sided sacroiliitis. Patient rates her pain a 0 out of 10. Patient denies any new trauma or injury. Patient denies any change location or type of pain she experiences. Patient did have a left SI injection on 06/20/2022 that provided at least 90% improvement and she states that it is still continuing to provide relief. Patient states she did recently get hospitalized for 1 day due to an infection. Patient states that she is scheduled to see a specialist coming up for her gallbladder and possible removal in the future. Patient is currently managed with gabapentin 400 mg 3 times a day from her primary care doctor and intrathecal morphine 5 mg/mL with a daily dose of 0.22 mg/day. Patient denies any side effects from these medications. She states these medicines do help. Her Jerrell is [phone]. Its been reviewed and appropriate. Review of Systems: General: No recent weight changes, no fever, no sleep disturbances Respiratory: No cough, no shortness of air, no recurring pulmonary infections Cardiovascular/peripheral vascular: No chest pain, no palpitations, no edema, no shortness of breath Gastrointestinal: No new onset incontinence, normal bowel movements reported Genitourinary: No new onset incontinence Musculoskeletal: Low back pain Psychiatric: [Normal mood/affect] Neurological: [Denies weakness in extremities], [denies balance issues] Objective:: Physical Exam: General: Alert and oriented x3, no acute distress, pleasant and cooperative Lungs: Respirations even and unlabored, symmetrical chest expansion Eyes: PERRL Musculoskeletal: Flexion and extension of lumbar [spine] somewhat guarded secondary to pain, [antalgic gait noted] Neurological: Speech clear, no gross sensory deficit Assessment:: Degenerative disc disease of lumbar spine multilevel with lumbar radiculopathy symptoms, left-sided sacroiliitis Plan:: Patient continues to have significant relief following her last SI injection and does not require any additional injective therapy. Patient is doing well with her intrathecal pain pump. Patient will return to clinic in 3 months for reevaluation of symptoms and follow-up. Patient has been instructed to contact the clinic with any concerns before the next appointment. Dr. Adams has reviewed this note and agrees with this plan of care. This note was dictated using voice recognition software and make contain errors or omissions. -- It Is medically necessary for this patient to continue to have their intrathecal pump refilled at regular intervals. This patient had an intrathecal pain pump implanted after meeting criteria of chronic intractable pain for greater than 3 months and failing conservative treatments. Patient has committed and been compliant to the treatment plan and all planned follow up care. Since implantation of the intrathecal pain pump, the patient has had decreased pain and been more functional. Oral medications have been reduced including intake of oral opioids. Patient continues to do well with intrathecal therapy with decrease in pain symptoms and increase in functional status. Stopping intrathecal medications can lead to life threatening withdrawal, seizures, cardiac arrest, severe pain, and possible . Pumps that are not refilled at regular intervals can be damages and cause and need for replacement. We continually titrate dose and concentration to optimize pain relief and function. We are limited in concentration for certain drugs to safely deliver medications through the pump and stay within the recommendations from the Polyanalgesic Consensus Committee Guidelines. Depending on dose and concentration these pumps may need to be refilled sooner than 3 months as we titrate. PFSH PFS Min
[2022-08-07 08:38] VITALS: BP 119/74; PULSE 86; RESP 18; O2SAT 97; BMI 40.2
== END ==
PROVIDERS: PCP Emergency Medicine; Visit Provider Nurse Practitioner Family
DX: M51.16 Intervertebral disc disorders with radiculopathy, lumbar region (principal); M46.1 Sacroiliitis, not elsewhere classified
CPT/HCPCS: 99212; G0463

== ENCOUNTER 2022-08-29 09:27 | Day surgery (SDC) | payer OTHER, SELFPAY ==
[2022-08-29 09:45] VITALS: BP 150/80; PULSE 81; RESP 18; TEMP 36.2; O2SAT 97; BMI 40.2
[2022-08-29 09:47] VITALS: BP 156/100; BP 156/101; PULSE 89; RESP 18; O2SAT 97
[2022-08-29 10:15] VITALS: BP 134/82; PULSE 80; RESP 18; O2SAT 97
--- NOTE | 2022-08-29 10:32 | P.PCN_ITS ---
Procedure Date: 08/29/22 Time: 10:00 Anesthesiologist:: Eric Underwood CRNA Complications:: None Pre-procedure Diagnosis:: Degenerative disc disease lumbar spine multilevels. Lumbar radiculopathy Post-procedure Diagnosis:: Same. Indications for Procedure:: Patient is a very pleasant 57-year-old female comes our clinic today for intrathecal pain pump refill interrogation. Patient currently being managed with morphine sulfate 5 mg/mL at a rate of 0.22 mg/day. Patient doing very well on her current settings. She is not requesting any increase or decrease. She does not report any side effects from the intrathecal pain pump management. Procedure Details:: Details of the procedure explained to the patient. The patient was taken the procedure room placed in the sitting position. The area over the pump was cleansed using chlorhexidine as a cleansing solution. The pump was interrogated. The pump was accessed with ease and a 22-gauge inch and a half needle. 15 mL of solution was expected and withdrawn. This was discarded appro priately. The pump was then filled incrementally with 20 cc of morphine sulfate 5 mg/mL. The rate will continue at 0.22 mg today. Patient tolerated procedure without difficulty. There are no complications Plan and Disposition:: Patient was discharged without incident.
== END 2022-08-29 10:15 | disposition home or self-care (01) ==
LOC: SC.PAINP 09:28
PROVIDERS: PCP Emergency Medicine; Visit Provider Nurse Anesthetist, Certified Registered
DX: Z45.1 Encounter for adjustment and management of infusion pump (principal); M51.16 Intervertebral disc disorders with radiculopathy, lumbar region
CPT/HCPCS: 95991

== ENCOUNTER 2022-09-19 08:58 | Day surgery (SDC) | payer OTHER, SELFPAY ==
[2022-09-19 09:42] VITALS: BP 169/80; PULSE 88; RESP 18; TEMP 36.3; O2SAT 98; BMI 40.2
--- NOTE | 2022-09-19 09:48 | HMH.SCOPE ---
Procedure: Date: 09/19/22 Patient Date of :: 1965 Procedure Performed:: Esophagogastroduodenoscopy with biopsy Colonoscopy Indications:: Gastroesophageal reflux History of colon polyps Performing Provider:: Matthieu Jeffrey MD Referring Provider:: . Sedation:: Monitored anesthesia care Procedure:: After informed consent was obtained the patient was taken to the endoscopy suite. Sedation ensued after the patient was transferred to the left lateral decubitus position. Pulse, blood pressure, and oxygen saturation were monitored throughout the procedure. The endoscope was advanced beyond the duodenal bulb. Retroflexion within the gastric lumen was accomplished. The gastroscope was carefully removed. Digital rectal exam revealed no significant abnormality. The colonoscope was placed in position. The entire colon was evaluated. The colonoscope was carefully removed and the patient was transferred to recovery in stable condition. Please see findings and specimens below for detail. Findings:: Moderate to severe patchy gastritis Hemorrhoidal cushions/tags Bowel preparation moderate to poor Fairly severe lack of relaxation/spasticity Moderate tortuosity Recommendations:: Follow-up pathology Likely repeat colonoscopy in 2-3 years with extended/alternate bowel preparation Note: The patient is to be scheduled for follow-up status post endoscopy and to discuss possible gallbladder surgery Complications:: No immediate Estimated blood obtained (mL): 0
[2022-09-19 09:52] LABS: POC Glucose,Bedside 108 (70-110)
[2022-09-19 09:59] VITALS: O2SAT 98
[2022-09-19 10:41] VITALS: BP 97/50; PULSE 95; RESP 12; TEMP 36.9; O2SAT 98
[2022-09-19 10:51] VITALS: BP 112/77; PULSE 104; RESP 16; O2SAT 95
[2022-09-19 11:01] VITALS: BP 132/73; PULSE 92; RESP 16; O2SAT 98
== END 2022-09-19 11:21 | disposition home or self-care (01) ==
PROVIDERS: PCP Emergency Medicine; Visit Provider Surgery
PROC: 0DJ08ZZ Inspection of Upper Intestinal Tract, Via Natural or Artificial Opening Endoscopic (ICD-10-PCS; CPT 43235; principal; 2022-09-19 10:30)
DX: K21.9 Gastro-esophageal reflux disease without esophagitis (principal); Z12.11 Encounter for screening for malignant neoplasm of colon; Z86.010 Personal history of colon polyps; K29.70 Gastritis, unspecified, without bleeding; E11.9 Type 2 diabetes mellitus without complications
CPT/HCPCS: 45378; 43239; 82962; J2704

== ENCOUNTER → 2022-11-22 14:07 | Outpatient (CLI) | payer OTHER, SELFPAY ==
[2022-11-25 12:10] LABS: H. pylori Stool Ag, EIA Negative (Negative)
== END ==
LOC: LAB 14:08 → LAB.DROPOF 14:09
PROVIDERS: PCP Emergency Medicine; Visit Provider Surgery
DX: A04.8 Other specified bacterial intestinal infections (principal); R93.2 Abnormal findings on diagnostic imaging of liver and biliary tract
CPT/HCPCS: 87338

== ENCOUNTER → 2022-12-04 08:03 | Outpatient (POV) | payer OTHER, SELFPAY ==
[2022-12-04 08:24] VITALS: BP 150/84; PULSE 86; RESP 18; O2SAT 98; BMI 40.4
--- NOTE | 2022-12-04 08:48 | EXP.PAIN.PRO ---
Procedure Date: 12/04/22 Time: 08:49 Anesthesiologist:: Angela Krause APRN Complications:: None Pre-procedure Diagnosis:: Degenerative disc disease of lumbar spine with lumbar radiculopathy symptoms, left-sided sacroiliitis Post-procedure Diagnosis:: Degenerative disc disease of lumbar spine with lumbar radiculopathy symptoms, left-sided sacroiliitis, left hip pain Indications for Procedure:: Patient is a pleasant 57-year-old female who presents today for follow-up and intrathecal adjustment and reprogram. We are currently treating the patient for degenerative disc disease of lumbar spine with lumbar radiculopathy symptoms, left-sided sacroiliitis. Today she rates her pain a 0 out of 10 while sitting. She does state that she is experiencing worsening left hip pain that does radiate into her left lower extremity. Patient does describe this as an aching sensation that is worse with increased activity. She does state that she frequently has to lean onto objects in order to relieve pressure off her hip. Patient states that she continues to use her PTM device and doing boluses 1 in the morning and 1 at night along with Tylenol and ibuprofen. Patient denies any new trauma or injury. She is currently managed with morphine 5 mg/mL with a daily dose of 0.22 mg/day. Patient denies any side effects from this medication. She is also managed with gabapentin 400 mg 3 times a day from her primary care doctor. Her Jerrell is [phone]. Its been reviewed and appropriate. Physical Exam: General: Alert and oriented x3, no acute distress, pleasant and cooperative Lungs: Respirations even and unlabored, symmetrical chest expansion Eyes: PERRL Musculoskeletal: Flexion and extension of left hip pain [spine] somewhat guarded secondary to pain, [antalgic gait noted] Neurological: Speech clear, no gross sensory deficit Procedure Details:: Informed consent was obtained and the risk and benefits of the procedure were explained to the patient. Patient was taken to the procedure room where noninvasive monitoring was placed including noninvasive blood pressure cuff and pulse oximeter. Patient's pump was interrogated and was reprogrammed to morphine 0.231 mg/day. The patient tolerated the procedure well with no complications. Plan and Disposition:: Patient is experiencing more pain along her left hip with limited range of motion. I will order x-ray imaging as well as CT without contrast of her left hip. Patient does have a intrathecal pain pump in place and cannot do an MRI without removing her pump medication. Patient tolerated her intrathecal increase with no complications and was discharged neurologically intact. Patient will return to clinic after her left hip imaging. I have discussed with the patient that in the future she may benefit from a left hip intra-articular injection. Patient has been instructed to contact the clinic with any concerns before the next appointment. Dr. Adams has reviewed this note and agrees with this plan of care. This note was dictated using voice recognition software and make contain errors or omissions. -- It Is medically necessary for this patient to continue to have their intrathecal pump refilled at regular intervals. This patient had an intrathecal pain pump implanted after meeting criteria of chronic intractable pain for greater than 3 months and failing conservative treatments. Patient has committed and been compliant to the treatment plan and all planned follow up care. Since implantation of the intrathecal pain pump, the patient has had decreased pain and been more functional. Oral medications have been reduced including intake of oral opioids. Patient continues to do well with intrathecal therapy with decrease in pain symptoms and increase in functional status. Stopping intrathecal medications can lead to life threatening withdrawal, seizures, cardiac arrest, severe pain, and possible . Pumps that are not refilled at regul
== END | disposition home or self-care (01) ==
PROVIDERS: PCP Emergency Medicine; Visit Provider Nurse Practitioner Family
DX: M51.16 Intervertebral disc disorders with radiculopathy, lumbar region (principal); M46.1 Sacroiliitis, not elsewhere classified; M25.552 Pain in left hip
CPT/HCPCS: 62368; 99212; 99213; G0463

== ENCOUNTER → 2022-12-04 08:50 | Outpatient (CLI) | payer OTHER, SELFPAY ==
--- NOTE | 2022-12-04 09:17 | XR_ITS ---
FINAL REPORT CLINICAL HISTORY: LT HIP PAIN COMPARISON: None FINDINGS: LEFT HIP: Two views of the left hip demonstrate no acute fracture or dislocation. There is moderate degenerative change present in both hips as well as the lower lumbar spine. The visualized bony structures are well aligned. No soft tissue abnormality is seen. IMPRESSION: No acute bony abnormality. Moderate degenerative change present in both hips and the lower lumbar spine. Reviewed, Interpreted and Dictated by Hebert Cruz III, MD Transcribed by Saniya Munoz Authenticated and [facility]
--- NOTE | 2022-12-04 10:34 | XR_ITS ---
FINAL REPORT CLINICAL HISTORY: foot pain FINDINGS: LEFT FOOT Three views of the left foot demonstrate no acute fracture or dislocation. There are mild and moderate degenerative changes, worst in the midfoot. Calcaneal spurs are noted. Soft tissues are unremarkable. IMPRESSION: No acute bony abnormality. Reviewed, Interpreted and Dictated by Hebert Cruz III, MD Transcribed by Tamiko Hamlin Authenticated and [facility]
--- NOTE | 2022-12-04 10:34 | XR_ITS ---
FINAL REPORT CLINICAL HISTORY: foot pain COMPARISON: 11/09/2021 FINDINGS: RIGHT FOOT 3 views of the right foot were obtained. There is no acute fracture or dislocation.. There are mild and moderate degenerative changes which have progressed from prior exam. Findings are worse in the midfoot. Calcaneal spurs are noted. Soft tissues are unremarkable. IMPRESSION: No acute bony abnormality. Worsening degenerative changes as above. Reviewed, Interpreted and Dictated by Hebert Cruz III, MD Transcribed by Tamiko Hamlin Authenticated and [facility]
== END ==
PROVIDERS: PCP Emergency Medicine; Visit Provider Nurse Practitioner Family
DX: M25.552 Pain in left hip (principal); M79.672 Pain in left foot; M79.671 Pain in right foot
CPT/HCPCS: 73502; 73630

== ENCOUNTER 2022-12-19 08:16 | Day surgery (SDC) | payer OTHER, SELFPAY ==
[2022-12-19 08:40] VITALS: BP 152/83; PULSE 70; RESP 18; TEMP 36.9; O2SAT 95; BMI 40.2
[2022-12-19 09:10] VITALS: BP 182/78; PULSE 90; RESP 18; O2SAT 97
--- NOTE | 2022-12-19 09:15 | P.PCN_ITS ---
Procedure Date: 12/19/22 Time: 09:15 Anesthesiologist:: Eric Underwood CRNA Complications:: None Pre-procedure Diagnosis:: Degenerative disc disease lumbar spine multilevels. Lumbar radiculopathy. Post-procedure Diagnosis:: Same. Indications for Procedure:: Patient is a very pleasant 57-year-old female that presents to our clinic today for intrathecal pain pump refill and interrogation. Patient currently being managed with morphine sulfate 5 mg/mL 0.2310 mg/day. Patient had a recent i ncrease on 07/17/2022 which she describes has helped to some degree however she still having some posterior left hip pain as well as left leg radicular symptoms in the anterior thigh to the knee. Upon examination she has extreme point tenderness over the left sacroiliac joint. She has positive Brandt's test positive Gaenslen's test. Positive left sacroiliac joint compression test. Patient reports having a left sacroiliac joint injection June 2022. She reports 1 day of significant to complete relief following injection. However, injection did not last. I recommend a repeat injection of the left sacroiliac joint. She wishes to proceed. Procedure Details:: Details of the procedure were explained to the patient. The patient taken to p rocedure room placed in the sitting position. The area over the pump was cleansed using chlorhexidine as a cleansing solution. The pump was interrogated. The pump was accessed with ease using a 22-gauge inch and half needle. 13.2 mL of solution was withdrawn and discarded appropriately. The pump was then refilled with 20 cc of morphine sulfate 5 mg/mL. The pump rate will continue at 0.2310 mg/day. Plan and Disposition:: Patient will be scheduled today for a left sacroiliac joint injection. Patient was discharged without incident.
[2022-12-19 09:17] VITALS: BP 182/78; PULSE 68; RESP 17; O2SAT 98
[2022-12-19 09:19] VITALS: BP 149/85; PULSE 64; RESP 18; O2SAT 95
[2022-12-19 14:33] LABS: Amphetamine/Metha Screen,Urine Negative ng/ml (<1000); Barbiturates Screen,Urine Negative ng/ml (<200)
[2022-12-19 14:34] LABS: Benzodiazepines Screen,Urine Negative ng/ml (<200)
[2022-12-19 14:35] LABS: Cannabinoid Screen,Urine Negative ng/ml (<50); Cocaine Screen,Urine Negative ng/ml (<300)
[2022-12-19 14:36] LABS: Opiate Screen,Urine Negative ng/ml (<300)
[2022-12-19 14:37] LABS: Phencyclidine Screen,Urine Negative ng/ml (<25)
[2022-12-19 17:40] LABS: Methadone Screen,Urine Negative ng/ml (<300)
[2022-12-22 12:13] LABS: Opiates Negative (Cutoff=100)
== END 2022-12-19 09:19 | disposition home or self-care (01) ==
PROVIDERS: Nurse Practitioner Family; PCP Emergency Medicine; Visit Provider Nurse Anesthetist, Certified Registered
DX: M51.16 Intervertebral disc disorders with radiculopathy, lumbar region (principal)
CPT/HCPCS: 80305; 80361; 80365; 95991; G0480

== ENCOUNTER → 2022-12-20 12:46 | Outpatient (CLI) | payer OTHER, SELFPAY ==
[2022-12-20 12:31] LABS: Basophils % 0.5 % (0.1-2.0); Eosinophils # 0.4 K/mm3 (0.0-0.4); Eosinophils % 6.3 % (0.1-12.0); Hematocrit 38.4 % (37.0-47.0); Hemoglobin 11.8 g/dL (12.2-16.2); Lymphocytes # 2.3 K/mm3 (0.7-4.5); Lymphocytes % 36.5 % (10-50); Mean Corpuscular HGB Conc 30.7 g/dL (31.8-35.4); Mean Corpuscular Volume 91.4 fl (81-99); Mean Platelet Volume 8.9 fl (7.4-10.4); Monocytes # 0.6 K/mm3 (0.1-1.0); Monocytes % 8.8 % (1.7-9.3); Neutrophils % 47.9 % (37.0-80.0); Platelet Count 432 K/mm3 (142-424); Red Blood Count 4.21 M/mm3 (4.20-5.40); Red Cell Distribution Width 13.7 % (11.5-17.5); White Blood Count 6.4 K/mm3 (4.8-10.8)
[2022-12-20 12:35] LABS: Alanine Aminotransferase 22 U/L (12-78); Albumin Level 3.8 g/dl (3.5-5.0); Albumin/Globulin Ratio 1.4 (1.1-1.8); Alkaline Phosphatase 128 U/L (38-126); Anion Gap 9.7 mEq/L (5-15); Aspartate Amino Transferase 26 U/L (14-36); Bilirubin,Total 0.2 mg/dl (0.2-1.3); Blood Urea Nitrogen 21 mg/dl (7-17); Calcium 9.2 mg/dl (8.4-10.2); Carbon Dioxide 33 mmol/L (22.0-30.0); Chloride 102 mmol/L (98-107); Chol/HDL Ratio 2.1 (1-3.5); Cholesterol 102 mg/dl (140-200); Estimated Glomerular Filt Rate 104 ml/min (>60); GFR (African American) 126 ML/MIN (>60); Globulin 2.7 g/dL (1.3-3.2); Glucose 150 mg/dl (74-100); HDL Cholesterol 49 mg/dl (40-60); Potassium 3.7 mmoL/L (3.5-5.1); Sodium 141 mmol/L (136-145); Total Protein,Serum 6.5 g/dl (6.3-8.2); Triglycerides 65 mg/dl (30-150); VLDL Cholesterol 13 mg/dL (0-40)
[2022-12-20 12:47] LABS: Direct LDL Cholesterol 46.69 mg/dL (100-129)
[2022-12-20 13:06] LABS: Thyroid Stimulating Hormone 1.18 uIU/mL (0.465-4.68)
[2022-12-20 13:53] LABS: Hemoglobin A1C 8.5 % (4.0-6.0)
[2022-12-20 20:00] LABS: Microalbumin < 6.000 mg/L (0-16.7)
[2022-12-20 20:25] LABS: Creatinine,Urine Random 44 mg/dL (Not Estab.); Microalbumin/Creatinine Ratio 13.6
== END ==
PROVIDERS: PCP Physician Assistant; Visit Provider Physician Assistant
DX: E11.9 Type 2 diabetes mellitus without complications (principal); E66.9 Obesity, unspecified; Z68.41 Body mass index [BMI] 40.0-44.9, adult; Z79.4 Long term (current) use of insulin; Z79.899 Other long term (current) drug therapy
CPT/HCPCS: 80053; 80061; 82043; 82306; 82570; 83036; 84443; 85025

== ENCOUNTER → 2022-12-25 08:04 | Outpatient (CLI) | payer OTHER, SELFPAY ==
--- NOTE | 2022-12-25 08:08 | XR_ITS ---
FINAL REPORT CLINICAL HISTORY: Left hip pain COMPARISON: 12/04/2022 FINDINGS: AP and frog leg views of the left hip were obtained. There is no acute fracture or dislocation. Degenerative joint disease is unchanged. No acute soft tissue abnormality. IMPRESSION: No acute osseous abnormality of the left hip. Reviewed, Interpreted and Dictated by Meggan Espinoza MD Transcribed by Bethanie Vivas Authenticated and . [facility]
--- NOTE | 2022-12-25 08:09 | CT_ITS ---
FINAL REPORT TECHNIQUE: Thin section axial images were obtained through the left hip without contrast. Reconstruction images were obtained from the axial data. Exam was performed using dose reduction technique. CLINICAL HISTORY: HIP PAIN COMPARISON: None FINDINGS: There is no acute fracture or dislocation. No acute osseous abnormality is identified. There is degenerative change in both the left hip and the sacroiliac joint. There is no CT evidence of avascular necrosis. No acute soft tissue abnormality is identified. IMPRESSION: No acute osseous abnormality of the left hip. There is degenerative change in both the left hip and the left SI joint. No acute soft tissue abnormality. Reviewed, Interpreted and Dictated by Meggan Espinoza MD Transcribed by Saniya Munoz Authenticated and [facility]
== END ==
PROVIDERS: PCP Physician Assistant; Visit Provider Nurse Practitioner Family
DX: M25.552 Pain in left hip (principal); I10 Essential (primary) hypertension; E78.2 Mixed hyperlipidemia; E11.69 Type 2 diabetes mellitus with other specified complication; Z79.4 Long term (current) use of insulin
CPT/HCPCS: 73502; 73700; 93306

== ENCOUNTER → 2023-01-01 10:44 | Outpatient (POV) | payer OTHER, SELFPAY ==
--- NOTE | 2023-01-01 10:48 | EXP.PAIN.SOA ---
[facility] Pain Management SOAP Note Subjective:: Patient is a pleasant 57-year-old female who presents today for follow-up of CT of left hip and left SI joint. We are currently treating the patient for degenerative disc disease of lumbar spine with lumbar radiculopathy symptoms, left hip pain, left sacroiliitis. Today she rates her pain a 4 out of 10. Patient denies any new trauma or injury. Patient denies any change location or type of pain she experiences. Patient states she continues to have pain in her low back and left hip. She is scheduled for a left SI injection she believes 09 January. Patient is currently managed with intrathecal morphine 5 mg/mL with a daily rate of 0.231 mg/day. Patient denies any side effects from this medication. She is also prescribed gabapentin 400 mg 3 times a day from her primary care doctor's office. Patient denies any side effects from this medication. Her Jerrell is [phone]. Its was reviewed and appropriate. Review of Systems: General: No recent weight changes, no fever, no sleep disturbances Respiratory: No cough, no shortness of air, no recurring pulmonary infections Cardiovascular/peripheral vascular: No chest pain, no palpitations, no edema, no shortness of breath Gastrointestinal: No new onset incontinence, normal bowel movements reported Genitourinary: No new onset incontinence Musculoskeletal: Low back pain, left hip pain Psychiatric: [Normal mood/affect] Neurological: [Denies weakness in extremities], [denies balance issues] Objective:: Physical Exam: General: Alert and oriented x3, no acute distress, pleasant and cooperative Lungs: Respirations even and unlabored, symmetrical chest expansion Eyes: PERRL Musculoskeletal: Flexion and extension of lumbar [spine] somewhat guarded secondary to pain, [antalgic gait noted] Neurological: Speech clear, no gross sensory deficit FINAL REPORT TECHNIQUE: Thin section axial images were obtained through the left hip without contrast. Reconstruction images were obtained from the axial data. Exam was performed using dose reduction technique. CLINICAL HISTORY: HIP PAIN COMPARISON: None FINDINGS: There is no acute fracture or dislocation. No acute osseous abnormality is identified. There is degenerative change in both the left hip and the sacroiliac joint. There is no CT evidence of avascular necrosis. No acute soft tissue abnormality is identified. IMPRESSION: No acute osseous abnormality of the left hip. There is degenerative change in both the left hip and the left SI joint. No acute soft tissue abnormality. Reviewed, Interpreted and Dictated by Meggan Espinoza MD Transcribed by Saniya Munoz Authenticated and [facility][1] Assessment:: Degenerative disc disease of lumbar spine with lumbar radiculopathy symptoms, left hip pain, left sacroiliitis Plan:: Patient is experiencing continued pain in her low back and left hip with limited range of motion. Patient is already scheduled for a left SI injection coming up in the next week. I will send in a prescription for methocarbamol 500 mg twice daily and tizanidine 4 mg at bedtime and provide a 2-week supply of these medications. I have counseled the patient to let us know at her upcoming visit whether she had significant improvement with this medication and if she would like additional refills. Patient has been instructed to contact the clinic with any concerns before the next appointment. Dr. Adams has reviewed this note and agrees with this plan of care. This note was dictated using voice recognition software and make contain errors or omissions. [facility] Disclaimer: The information contained in this section may have been updated after the patient was seen, as this information can be updated by other users. Medical History Allergic rhinitis Anxiety Michele's palsy Carpal
[2023-01-01 10:51] VITALS: BP 119/89; PULSE 75; RESP 20; BMI 42.2
== END | disposition home or self-care (01) ==
PROVIDERS: PCP Emergency Medicine; Visit Provider Nurse Practitioner Family
DX: M51.16 Intervertebral disc disorders with radiculopathy, lumbar region (principal); M25.552 Pain in left hip; M46.1 Sacroiliitis, not elsewhere classified
CPT/HCPCS: 62368; 99212; G0463

== ENCOUNTER 2023-01-09 07:54 | Day surgery (SDC) | payer OTHER, SELFPAY ==
[2023-01-09 08:16] VITALS: BP 146/83; PULSE 69; RESP 18; TEMP 36.7; O2SAT 98; BMI 42.0
--- NOTE | 2023-01-09 08:39 | EXP.PAIN.PRO ---
Procedure Date: 01/09/23 Time: 08:20 Anesthesiologist:: Eric Underwood CRNA Complications:: None Pre-procedure Diagnosis:: Left sacroiliitis Post-procedure Diagnosis:: Same Indications for Procedure:: Patient is a pleasant 57-year-old female that comes our clinic today for left sacroiliac joint injection. Patient also is our patient secondary to intrathecal pain pump management. She currently being managed with morphine sulfate 5 mg/mL daily rate of 0.231 mg/day. She continues to have point tenderness over the left sacroiliac joint. Procedure Details:: Procedure: Left sacroiliac injection under fluoroscopy Informed consent was obtained and the risk and benefits of the procedure were explained to the patient.~ The patient was taken to the procedure room and noninvasive monitors were placed including noninvasive blood pressure cuff and pulse oximeter.~ The patient was placed prone on the procedure table.~ The~ left hip was cleansed using Betadine as a cleansing solution.~ C-arm fluorosocpy was used to view the left SI joint.~ The skin and subcutaneous tissues were anesthetized using Lidocaine 1.5% and a 25-gauge needle.~ After this, a 22-gauge spinal needle was inserted under fluoroscopic guidance into the inferior aspect of the left SI joint.~ Omnipaque dye was injected and a good spread was seen throughout the joint.~ After this, approximately 5 mL of bupivacaine 0.25% and Depo-Medrol 40 mg was incrementally injected into the sacroiliac joint.~ The patient tolerated the procedure well with no complications.~ The patient was observed in the Pain Clinic for a period of 30-45 minutes, then discharged home neurologically intact.~ Plan and Disposition:: Patient was discharged without incident.
[2023-01-09 08:40] VITALS: BP 157/85; PULSE 70; RESP 18; O2SAT 98
[2023-01-09 08:44] VITALS: BP 174/94; PULSE 65; RESP 18; O2SAT 97
[2023-01-09 08:50] VITALS: BP 174/94; PULSE 65; RESP 18; O2SAT 97
== END 2023-01-09 08:40 | disposition home or self-care (01) ==
PROVIDERS: PCP Emergency Medicine; Visit Provider Nurse Anesthetist, Certified Registered
DX: M46.1 Sacroiliitis, not elsewhere classified (principal)
CPT/HCPCS: 27096; G0260; J1040

== ENCOUNTER → 2023-01-24 08:05 | Outpatient (POV) | payer OTHER, SELFPAY ==
[2023-01-24 08:33] VITALS: BP 134/75; PULSE 66; RESP 18; O2SAT 98; BMI 41.7
--- NOTE | 2023-01-24 08:40 | EXP.PAIN.SOA ---
[facility] Pain Management SOAP Note Subjective:: Patient is a pleasant 57-year-old female who presents today for injection follow-up of left SI on 01/09/2023. We are currently treating the patient for degenerative disc disease of lumbar spine with lumbar radiculopathy symptoms, sacroiliitis, left hip pain. Today she states she has had at least 30% improvement following this injection however she is starting to experience more pain into her left lower buttocks. Patient denies any new injury or trauma. She states that area that has pain she does not feel anything underneath of it however she cannot tolerate any pressure up against this area. She does also state that in the past she has had 2 cyst removed from her buttocks area and questions whether or not if this could be involved causing some of her pain. Patient states she did have this cyst removed 2 different times. Patient is currently managed with intrathecal morphine 5 mg/mL with a daily dose of 0.231 mg/day. She denies any side effects from this medication. She is also prescribed gabapentin 400 mg 3 times a day from her primary care doctor. Her Jerrell is [phone]. Its been reviewed and appropriate. Review of Systems: General: No recent weight changes, no fever, no sleep disturbances Respiratory: No cough, no shortness of air, no recurring pulmonary infections Cardiovascular/peripheral vascular: No chest pain, no palpitations, no edema, no shortness of breath Gastrointestinal: No new onset incontinence, normal bowel movements reported Genitourinary: No new onset incontinence Musculoskeletal: Buttocks pain left-sided Psychiatric: [Normal mood/affect] Neurological: [Denies weakness in extremities], [denies balance issues] Objective:: Physical Exam: General: Alert and oriented x3, no acute distress, pleasant and cooperative Lungs: Respirations even and unlabored, symmetrical chest expansion Eyes: PERRL Musculoskeletal: Flexion and extension of lumbar [spine] somewhat guarded secondary to pain, [antalgic gait noted] Neurological: Speech clear, no gross sensory deficit Assessment:: Degenerative disc disease of lumbar spine with lumbar radiculopathy symptoms, sacroiliitis, left hip pain Plan:: Patient is experiencing more pain in her left lower buttocks with tenderness with palpation. I have discussed with the patient that we could possibly do trigger point injections at this area. I will first order a compounding cream and see how she does with this before proceeding forward. Patient will return to clinic in 1 month for reevaluation of symptoms and plan of care. Patient has been instructed to contact the clinic with any concerns before the next appointment. Dr. Adams has reviewed this note and agrees with this plan of care. This note was dictated using voice recognition software and make contain errors or omissions. -- It Is medically necessary for this patient to continue to have their intrathecal pump refilled at regular intervals. This patient had an intrathecal pain pump implanted after meeting criteria of chronic intractable pain for greater than 3 months and failing conservative treatments. Patient has committed and been compliant to the treatment plan and all planned follow up care. Since implantation of the intrathecal pain pump, the patient has had decreased pain and been more functional. Oral medications have been reduced including intake of oral opioids. Patient continues to do well with intrathecal therapy with decrease in pain symptoms and increase in functional status. Stopping intrathecal medications can lead to life threatening withdrawal, seizures, cardiac arrest, severe pain, and possible . Pumps that are not refilled at regular intervals can be damages and cause and need for replacement. We continually titrate dose and concentration to optimize pain relief and function. We are limited in concentration for certain drugs to safely deliver medications through the pump and stay within the rec
== END ==
PROVIDERS: Visit Provider Nurse Practitioner Family
DX: M51.16 Intervertebral disc disorders with radiculopathy, lumbar region (principal); M46.1 Sacroiliitis, not elsewhere classified; M25.552 Pain in left hip
CPT/HCPCS: 99212; G0463

== ENCOUNTER → 2023-02-21 08:07 | Outpatient (POV) | payer OTHER, SELFPAY ==
--- NOTE | 2023-02-21 08:38 | EXP.PAIN.SOA ---
[facility] Pain Management SOAP Note Subjective:: Patient is a pleasant 57-year-old female who presents today for follow-up. We are currently treating the patient for degenerative disc disease of lumbar spine with lumbar radiculopathy symptoms, sacroiliitis, left hip pain. Today she rates her pain a 0 out of 10. Patient denies any new trauma or injury. She states she continues to do well following her SI injection from 09 January. She states between it and her pump and ibuprofen along with her gabapentin she does well. Patient is currently managed with morphine 5 mg/mL with a daily dose of 0.231 mg/day patient denies any side effects from this medication. Patient is also managed with compounding cream from our office and gabapentin 400 mg 3 times a day from her primary care provider. Her Jerrell is [phone]. Its been reviewed and appropriate. Review of Systems: General: No recent weight changes, no fever, no sleep disturbances Respiratory: No cough, no shortness of air, no recurring pulmonary infections Cardiovascular/peripheral vascular: No chest pain, no palpitations, no edema, no shortness of breath Gastrointestinal: No new onset incontinence, normal bowel movements reported Genitourinary: No new onset incontinence Musculoskeletal: Low back pain Psychiatric: [Normal mood/affect] Neurological: [Denies weakness in extremities], [denies balance issues] Objective:: Physical Exam: General: Alert and oriented x3, no acute distress, pleasant and cooperative Lungs: Respirations even and unlabored, symmetrical chest expansion Eyes: PERRL Musculoskeletal: Flexion and extension of lumbar [spine] somewhat guarded secondary to pain, [antalgic gait noted] Neurological: Speech clear, no gross sensory deficit Assessment:: Degenerative disc disease of lumbar spine with lumbar radiculopathy symptoms, sacroiliitis, left hip pain Plan:: Patient is doing well currently with her intrathecal pump medication as well as still getting relief from her last SI injection. Patient will return to clinic in 2 months for reevaluation of symptoms and plan of care. Patient has been instructed to contact the clinic with any concerns before the next appointment. Dr. Adams has reviewed this note and agrees with this plan of care. This note was dictated using voice recognition software and make contain errors or omissions. -- It Is medically necessary for this patient to continue to have their intrathecal pump refilled at regular intervals. This patient had an intrathecal pain pump implanted after meeting criteria of chronic intractable pain for greater than 3 months and failing conservative treatments. Patient has committed and been compliant to the treatment plan and all planned follow up care. Since implantation of the intrathecal pain pump, the patient has had decreased pain and been more functional. Oral medications have been reduced including intake of oral opioids. Patient continues to do well with intrathecal therapy with decrease in pain symptoms and increase in functional status. Stopping intrathecal medications can lead to life threatening withdrawal, seizures, cardiac arrest, severe pain, and possible . Pumps that are not refilled at regular intervals can be damages and cause and need for replacement. We continually titrate dose and concentration to optimize pain relief and function. We are limited in concentration for certain drugs to safely deliver medications through the pump and stay within the recommendations from the Polyanalgesic Consensus Committee Guidelines. Depending on dose and concentration these pumps may need to be refilled sooner than 3 months as we titrate. [facility] Disclaimer: The information contained in this section may have been updated after the patient was seen, as this information can be updated by other users. Medical History (Updated 01/15/23 @ 15:36 by OLGA Salazar) Allergic rhinitis Anxiety Michele's palsy Carpal tunnel syndrome, bi
[2023-02-21 08:45] VITALS: RESP 18; BMI 40.4
== END ==
PROVIDERS: PCP Emergency Medicine; Visit Provider Nurse Practitioner Family
DX: M51.16 Intervertebral disc disorders with radiculopathy, lumbar region (principal); M46.1 Sacroiliitis, not elsewhere classified; M25.552 Pain in left hip; Z97.8 Presence of other specified devices
CPT/HCPCS: 99212; G0463

== ENCOUNTER 2023-05-08 09:06 | Day surgery (SDC) | payer OTHER, SELFPAY ==
[2023-05-08 09:28] VITALS: BP 126/82; PULSE 75; RESP 16; TEMP 36.8; O2SAT 97; BMI 42.0
[2023-05-08 09:43] VITALS: BP 167/64; PULSE 75; RESP 18; O2SAT 98
[2023-05-08 09:44] VITALS: BP 167/64; PULSE 77; RESP 18; O2SAT 98
[2023-05-08 09:54] VITALS: BP 135/81; PULSE 69; RESP 18; O2SAT 97
--- NOTE | 2023-05-08 10:11 | P.PCN_ITS ---
Procedure Date: 05/08/23 Time: 09:40 Anesthesiologist:: Eric Underwood CRNA Complications:: None Pre-procedure Diagnosis:: Degenerative disc lumbar spine multilevels. Lumbar radiculopathy. Post-procedure Diagnosis:: Same Indications for Procedure:: Patient is a very pleasant 57-year-old female comes our clinic today for intrathecal pain pump interrogation refill. She is currently being managed with morphine sulfate 5 mg/mL at a rate of 0.2310 mg/day. Patient doing very well with her current settings. She does not report any side effects or complications. Procedure Details:: Details of procedure explained to the patient. The patient taken the procedure room placed in the sitting position. The area over the pump was cleansed using chlorhexidine's cleansing solution. The pump was accessed easily using a 22- gauge inch and half needle. 12 mL of solution was withdrawn discarded appropriately. The pump was then filled with 20 cc of solution containing morphine sulfate 5 mg/mL. Rate will continue at 0.2310 mg/day. Patient to lerated procedure without difficulty. There are no complications. Plan and Disposition:: Patient was discharged without incident.
== END 2023-05-08 09:54 | disposition home or self-care (01) ==
PROVIDERS: PCP Emergency Medicine; Visit Provider Nurse Anesthetist, Certified Registered
DX: M51.16 Intervertebral disc disorders with radiculopathy, lumbar region (principal); Z97.8 Presence of other specified devices
CPT/HCPCS: 95991

== ENCOUNTER → 2023-05-15 15:15 | Outpatient (CLI) | payer OTHER, SELFPAY ==
--- NOTE | 2023-05-15 15:19 | CT_ITS ---
FINAL REPORT CLINICAL HISTORY: NECK PAIN, no injury COMPARISON: None FINDINGS: Axial CT images of the cervical spine were obtained without contrast. Sagittal and coronal reformatted images were also obtained. This study was performed with techniques to keep radiation doses as low as reasonably achievable (ALARA). Individualized dose reduction techniques using automated exposure control or adjustment of mA and/or kV according to the patient's size were employed. There is no evidence of fracture or dislocation. The bony alignment is normal. There is moderate degenerative disc disease along with multiple calcifications involving the posterior longitudinal ligament most prominent in the lower cervical and upper thoracic region. There is a 10 mm chronic appearing calcification just anterior to the dens. C2-3: Calcification of the posterior longitudinal ligament at the C2 level. C3-4: Disc osteophyte complex is present with right facet osteoarthropathy. No canal or neural foraminal narrowing is present at this level. C4-5: Disc osteophyte complex is present along with bilateral facet osteoarthropathy and mild right neural foraminal narrowing. C5-6: Disc osteophyte complex is present without evidence of canal or neural foraminal narrowing. C6-7: Disc osteophyte complex with mild bilateral neural foraminal narrowing. There is a left paracentral protrusion which produces cord contouring, and there is moderate canal stenosis with an AP canal diameter of 6 mm. C7-T1: Disc osteophyte complex with calcification of the posterior longitudinal ligament. There is mild canal stenosis with an AP canal diameter of 8 mm, as well as mild right neural foraminal narrowing. There is thyromegaly, with the right lobe larger than the left, of uncertain significance but may represent a multinodular goiter. There is also a retention cyst or polyp in the right sphenoid sinus with mild mucosal thickening throughout the paranasal sinuses. IMPRESSION: Multilevel degenerative changes present with multiple areas of calcification of the posterior longitudinal ligament, most prominent in the lower cervical and upper thoracic spine. There is moderate canal stenosis at the C6-7 level, with mild canal stenosis at the C7-T1 level. Thyromegaly is present with the right lobe larger than the left, which may represent multinodular goiter. Reviewed, Interpreted and Dictated by Hebert Cruz III, MD Transcribed by Saniya Munoz Authenticated and [facility]
== END ==
PROVIDERS: PCP Emergency Medicine; Visit Provider Nurse Practitioner Family
DX: M54.2 Cervicalgia (principal)
CPT/HCPCS: 72125

== ENCOUNTER → 2023-05-31 11:13 | Outpatient (POV) | payer OTHER, SELFPAY ==
[2023-05-31 11:39] VITALS: BP 136/78; PULSE 74; RESP 18; O2SAT 97; BMI 40.4
--- NOTE | 2023-05-31 12:44 | EXP.PAIN.SOA ---
[facility] Pain Management SOAP Note Subjective:: Patient is a pleasant 57-year-old female who presents today for follow-up of cervical CT imaging. We are currently treating the patient for degenerative disc disease of lumbar spine with lumbar radiculopathy symptoms, sacroiliitis, left hip pain, neck pain. Today she rates her pain a 0 out of 10. Patient states currently she is doing okay however she has not been up moving around just yet today and that it does typically worsen as the day goes on. She does states she has a lot of overall stiffness throughout her body and believes possibly arthritis. Patient does state that she has been experiencing more pain while she is working and that she is required to do lifting which causes mid to low back pain that radiates down her legs. Patient denies any recent imaging of her thoracic spine. Patient does have a intrathecal pain pump in place with morphine 5 mg/mL with a daily dose of 0.231 mg/day. She denies any side effects from this medication. Her Jerrell has been reviewed and is appropriate. Review of Systems: General: No recent weight changes, no fever, no sleep disturbances Respiratory: No cough, no shortness of air, no recurring pulmonary infections Cardiovascular/peripheral vascular: No chest pain, no palpitations, no edema, no shortness of breath Gastrointestinal: No new onset incontinence, normal bowel movements reported Genitourinary: No new onset incontinence Musculoskeletal: Neck pain, mid back pain, low back pain, leg pain Psychiatric: [Normal mood/affect] Neurological: [Denies weakness in extremities], [denies balance issues] Objective:: Physical Exam: General: Alert and oriented x3, no acute distress, pleasant and cooperative Lungs: Respirations even and unlabored, symmetrical chest expansion Eyes: PERRL Musculoskeletal: Flexion and extension of lumbar [spine] somewhat guarded secondary to pain, [antalgic gait noted] Neurological: Speech clear, no gross sensory deficit CLINICAL HISTORY: NECK PAIN, no injury COMPARISON: None FINDINGS: Axial CT images of the cervical spine were obtained without contrast. Sagittal and coronal reformatted images were also obtained. This study was performed with techniques to keep radiation doses as low as reasonably achievable (ALARA). Individualized dose reduction techniques using automated exposure control or adjustment of mA and/or kV according to the patient's size were employed. There is no evidence of fracture or dislocation. The bony alignment is normal. There is moderate degenerative disc disease along with multiple calcifications involving the posterior longitudinal ligament most prominent in the lower cervical and upper thoracic region. There is a 10 mm chronic appearing calcification just anterior to the dens. C2-3: Calcification of the posterior longitudinal ligament at the C2 level. C3-4: Disc osteophyte complex is present with right facet osteoarthropathy. No canal or neural foraminal narrowing is present at this level. C4-5: Disc osteophyte complex is present along with bilateral facet osteoarthropathy and mild right neural foraminal narrowing. C5-6: Disc osteophyte complex is present without evidence of canal or neural foraminal narrowing. C6-7: Disc osteophyte complex with mild bilateral neural foraminal narrowing. There is a left paracentral protrusion which produces cord contouring, and there is moderate canal stenosis with an AP canal diameter of 6 mm. C7-T1: Disc osteophyte complex with calcification of the posterior longitudinal ligament. There is mild canal stenosis with an AP canal diameter of 8 mm, as well as mild right neural foraminal narrowing. There is thyromegaly, with the right lobe larger than the left, of uncertain significance but may represent a multinodular goiter. There is also a retention cyst or polyp in the right sphenoid sinus with mild mucosal thickening throughout the paranasal sinuses. IMPRESSION: Multil
== END | disposition home or self-care (01) ==
PROVIDERS: PCP Physician Assistant; Visit Provider Nurse Practitioner Family
DX: M50.10 Cervical disc disorder with radiculopathy, unspecified cervical region (principal); M51.16 Intervertebral disc disorders with radiculopathy, lumbar region; M25.552 Pain in left hip; M46.1 Sacroiliitis, not elsewhere classified; M54.2 Cervicalgia
CPT/HCPCS: 99212; G0463

== ENCOUNTER 2023-06-20 13:20 | Outpatient (CLI) | payer OTHER, SELFPAY ==
[2023-06-20 14:37] LABS: Free T4 (Free Thyroxine) 1.23 ng/dl (0.78-2.19)
[2023-06-20 14:53] LABS: Thyroid Stimulating Hormone 1.15 uIU/mL (0.465-4.68)
== END 2023-06-20 23:59 ==
LOC: LAB 13:20
PROVIDERS: PCP Physician Assistant; Visit Provider Nurse Practitioner
DX: E04.2 Nontoxic multinodular goiter (principal)
CPT/HCPCS: 84439; 84443

== ENCOUNTER 2023-06-25 12:58 | Outpatient (CLI) | payer OTHER, SELFPAY ==
[2023-06-25 13:24] LABS: Basophils # 0.1 K/mm3 (0-0.2); Basophils % 0.7 % (0.1-2.0); Eosinophils # 0.4 K/mm3 (0.0-0.4); Lymphocytes # 2.8 K/mm3 (0.7-4.5); Lymphocytes % 39.6 % (10-50); Mean Corpuscular HGB Conc 32.5 g/dL (31.8-35.4); Mean Corpuscular Hemoglobin 30.4 pg (27.0-31.2); Mean Corpuscular Volume 93.6 fl (81-99); Mean Platelet Volume 8.6 fl (7.4-10.4); Monocytes # 0.4 K/mm3 (0.1-1.0); Monocytes % 5.5 % (1.7-9.3); Neutrophils # 3.4 K/mm3 (1.8-7.8); Neutrophils % 48.3 % (37.0-80.0); Platelet Count 416 K/mm3 (142-424); Red Blood Count 4.28 M/mm3 (4.20-5.40); Red Cell Distribution Width 13.2 % (11.5-17.5)
[2023-06-25 13:25] LABS: Chloride 99 mmol/L (98-107); Sodium 139 mmol/L (136-145)
[2023-06-25 13:26] LABS: Potassium 4.5 mmoL/L (3.5-5.1)
[2023-06-25 13:28] LABS: Alanine Aminotransferase 24 U/L (12-78); Albumin/Globulin Ratio 1.4 (1.1-1.8); Alkaline Phosphatase 128 U/L (38-126); Anion Gap 13.5 mEq/L (5-15); Aspartate Amino Transferase 27 U/L (14-36); Bilirubin,Total 0.4 mg/dl (0.2-1.3); Blood Urea Nitrogen 27 mg/dl (7-17); Carbon Dioxide 31 mmol/L (22.0-30.0); Cholesterol 122 mg/dl (140-200); Estimated Glomerular Filt Rate 74 ml/min (>60); GFR (African American) 90 ML/MIN (>60); Globulin 2.8 g/dL (1.3-3.2); Total Protein,Serum 6.8 g/dl (6.3-8.2); Triglycerides 97 mg/dl (30-150); VLDL Cholesterol 19 mg/dL (0-40)
[2023-06-25 13:29] LABS: Calcium 9.2 mg/dl (8.4-10.2); Glucose 185 mg/dl (74-100); HDL Cholesterol 41 mg/dl (40-60)
[2023-06-25 13:39] LABS: Direct LDL Cholesterol 61.03 mg/dL (100-129)
[2023-06-25 13:58] LABS: Thyroid Stimulating Hormone 1.26 uIU/mL (0.465-4.68)
[2023-06-25 14:02] LABS: Hemoglobin A1C 7.6 % (4.0-6.0)
[2023-06-25 14:33] LABS: Benzodiazepines Screen,Urine Negative ng/ml (<200)
[2023-06-25 14:35] LABS: Opiate Screen,Urine Negative ng/ml (<300)
[2023-06-25 14:36] LABS: Phencyclidine Screen,Urine Negative ng/ml (<25)
[2023-06-25 14:51] LABS: Cannabinoid Screen,Urine Negative ng/ml (<50)
[2023-06-25 14:56] LABS: Cocaine Screen,Urine Negative ng/ml (<300)
[2023-06-25 14:57] LABS: Methadone Screen,Urine Negative ng/ml (<300)
[2023-06-25 15:29] LABS: Amphetamine/Metha Screen,Urine Negative ng/ml (<1000)
[2023-06-25 15:30] LABS: Barbiturates Screen,Urine Negative ng/ml (<200)
[2023-06-25 15:45] LABS: 25-OH Vitamin D, Total 45.8 ng/mL (30-100)
== END 2023-06-25 23:59 ==
LOC: LAB.DROPOF 12:58
PROVIDERS: PCP Physician Assistant; Visit Provider Physician Assistant
DX: E66.9 Obesity, unspecified; Z79.4 Long term (current) use of insulin; Z68.41 Body mass index [BMI] 40.0-44.9, adult; Z79.899 Other long term (current) drug therapy; E11.42 Type 2 diabetes mellitus with diabetic polyneuropathy
CPT/HCPCS: 80053; 80061; 80307; 82306; 83036; 84443; 85025

== ENCOUNTER 2023-06-25 14:05 | Outpatient (CLI) | payer OTHER, SELFPAY ==
--- NOTE | 2023-06-25 14:07 | CT_ITS ---
FINAL REPORT TECHNIQUE: Thin section axial CT images of the facial bones and sinuses were obtained without contrast. Coronal reformatted images were also obtained.This study was performed with techniques to keep radiation doses as low as reasonably achievable, (ALARA). Individualized dose reduction techniques using automated exposure control or adjustment of mA and/or kV according to the patient''''s size were employed. CLINICAL HISTORY: sinus cyst found on CT COMPARISON: CT C-spine 05/15/2023 FINDINGS: Again noted is a 14 mm retention cyst/polyp in the anterior right sphenoid sinus. There is mild mucosal thickening of the maxillary sinuses. No fluid levels are identified. The ostiomeatal units have an unremarkable appearance. Bilateral darrian bullosa are noted. There is leftward nasal septal deviation with a left-sided nasal septal spur. No fracture or acute bony abnormality is identified. IMPRESSION: 14 mm right sphenoid retention cyst/polyp. Reviewed, Interpreted and Dictated by Hebert Cruz III, MD Transcribed by Bethanie Vivas Authenticated and [facility]
--- NOTE | 2023-06-25 14:07 | US_ITS ---
FINAL REPORT TECHNIQUE: Ultrasound images of the thyroid were obtained. CLINICAL HISTORY: goiter on CT FINDINGS: The right lobe of the thyroid measures 5.2 x 2.8 x 2.4 cm. It is normal in echogenicity. The left lobe of the thyroid measures 4.1 x 2.0 x 2.7 cm. It is normal in echogenicity. A nodule is seen posterior to the left lobe of the thyroid which may represent parathyroid gland. IMPRESSION: Diffusely enlarged thyroid which may represent thyroiditis or goiter. Reviewed, Interpreted and Dictated by Hebert Cruz III, MD Transcribed by Tamiko Hamlin Authenticated and [facility]
--- NOTE | 2023-06-25 14:09 | XR_ITS ---
FINAL REPORT CLINICAL HISTORY: MID BACK PAIN, CLUTCHING SENSATION COMPARISON: None FINDINGS: 4 views of the thoracic spine were obtained. There is no fracture present. There is no malalignment. There is moderate anterior osteophyte formation in the mid thoracic spine. The disc spaces are preserved. Vertebrae are normal in height. IMPRESSION: No acute process. Moderate anterior osteophyte formation. Reviewed, Interpreted and Dictated by Lexa Keith MD Transcribed by Bethanie Vivas Authenticated and [facility]
--- NOTE | 2023-06-25 14:33 | CT_ITS ---
FINAL REPORT CLINICAL HISTORY: BACK PAIN COMPARISON: None FINDINGS: Axial CT images of the thoracic spine were obtained without contrast. Sagittal and coronal reformatted images were also obtained. This study was performed with techniques to keep radiation doses as low as reasonably achievable (ALARA). Individualized dose reduction techniques using automated exposure control or adjustment of mA and/or kV according to the patient''s size were employed. There is no evidence of fracture. The vertebral alignment is normal. There is moderate and severe degenerative change with multilevel osteophytes. On the axial images there are multilevel bulges and osteophytes. There are multilevel neuroforaminal narrowing. There is calcification of the posterior longitudinal ligament at T1 and T2 with resultant mild central canal stenosis measuring 7 mm. There are presumed multiple splenules in the left upper quadrant. IMPRESSION: No fracture or acute bony abnormality. Moderate and severe degenerative changes. Mild central canal stenosis T1-2. Reviewed, Interpreted and Dictated by Hebert Cruz III, MD Transcribed by Bethanie Vivas Authenticated and [facility]
== END 2023-06-25 23:59 ==
LOC: RAD 14:06
PROVIDERS: PCP Physician Assistant; Visit Provider Nurse Practitioner Family
DX: J34.1 Cyst and mucocele of nose and nasal sinus (principal); E04.9 Nontoxic goiter, unspecified; M54.6 Pain in thoracic spine
CPT/HCPCS: 70486; 72128; 76536

== ENCOUNTER → 2023-06-27 08:12 | Outpatient (POV) | payer OTHER, SELFPAY ==
[2023-06-27 08:34] VITALS: BP 120/77; PULSE 73; RESP 18; O2SAT 94; BMI 44.0
--- NOTE | 2023-06-27 08:52 | EXP.PAIN.PRO ---
Procedure Date: 06/27/23 Time: 08:52 Anesthesiologist:: Angela Krause APRN Complications:: None Pre-procedure Diagnosis:: Degenerative disc disease of cervical thoracic and lumbar spine with cervical, thoracic and lumbar radiculopathy symptoms, sacroiliitis, left hip pain Post-procedure Diagnosis:: Same Indications for Procedure:: Patient is a pleasant 57-year-old female who presents today for follow-up of thoracic CT findings and intrathecal adjustment and reprogram. We are currently treating the patient for degenerative disc disease of cervical, thoracic and lumbar spine with cervical, thoracic, lumbar radiculopathy symptoms. Today she rates her pain a 0 out of 10 however she states that her pain will get worse as the day goes on. Patient denies any new trauma or injury. She states she continues to have a catching sensation in and around her mid to low back and has been experiencing more numbness in her back over the last 2 weeks. Patient was given a 2-week supply of meloxicam 15 mg at her last visit however she states she did not like how she responded to it. Patient states that she noticed more headaches and discontinued it. Patient is requesting if there is something else we could send in. Patient denies any heart or kidney issues. Patient is managed with intrathecal morphine 5 mg/mL with a daily dose of 0.231 mg/day. She denies any side effects from this medication. Her Jerrell has been reviewed and is appropriate. Physical Exam: General: Alert and oriented x3, no acute distress, pleasant and cooperative Lungs: Respirations even and unlabored, symmetrical chest expansion Eyes: PERRL Musculoskeletal: Flexion and extension of lumbar [spine] somewhat guarded secondary to pain, [antalgic gait noted] Neurological: Speech clear, no gross sensory deficit Procedure Details:: Informed consent was obtained and the risk and benefits of the procedure were explained to the patient. Patient was taken to the procedure room where noninvasive monitoring was placed including noninvasive blood pressure cuff and pulse oximeter. Patient's pump was interrogated and was reprogrammed to morphine 0.243 mg/day. The patient tolerated the procedure well with no complications. Plan and Disposition:: Patient tolerated her intrathecal increase with no complications and was discharged neurologically intact. I did review over her thoracic imaging findings of moderate to severe degenerative changes, bone spurs and bulging disc multilevel with mild stenosis at T1-T2. I have discussed with the patient that I will send in a 2-week dose of Celebrex 100 mg. Patient will return to clinic in 2 weeks for evaluation of symptoms and plan of care. Patient has been instructed to contact the clinic with any concerns before the next appointment. Dr. Adams has reviewed this note and agrees with this plan of care. This note was dictated using voice recognition software and make contain errors or omissions. -- It Is medically necessary for this patient to continue to have their intrathecal pump refilled at regular intervals. This patient had an intrathecal pain pump implanted after meeting criteria of chronic intractable pain for greater than 3 months and failing conservative treatments. Patient has committed and been compliant to the treatment plan and all planned follow up care. Since implantation of the intrathecal pain pump, the patient has had decreased pain and been more functional. Oral medications have been reduced including intake of oral opioids. Patient continues to do well with intrathecal therapy with decrease in pain symptoms and increase in functional status. Stopping intrathecal medications can lead to life threatening withdrawal, seizures, cardiac arrest, severe pain, and possible . Pumps that are not refilled at regular intervals can be damages and cause and need for replacement. We continually titrate dose and concentration to optimize pain relief and function. We are limited in concentration for certain drugs to safely deliver medications through the pump and stay within the recommendations from the Polyanal[employer] Consensus Committee Guidelines. Depending on dose and concentration these pumps may need to be refilled sooner than 3 months as we titrate.
== END | disposition home or self-care (01) ==
PROVIDERS: Visit Provider Nurse Practitioner Family
DX: M50.10 Cervical disc disorder with radiculopathy, unspecified cervical region (principal); M51.14 Intervertebral disc disorders with radiculopathy, thoracic region; M51.16 Intervertebral disc disorders with radiculopathy, lumbar region; M46.1 Sacroiliitis, not elsewhere classified; M25.552 Pain in left hip; Z97.8 Presence of other specified devices; Z45.1 Encounter for adjustment and management of infusion pump
CPT/HCPCS: 62368; 99213; G0463

== ENCOUNTER → 2023-07-11 08:15 | Outpatient (POV) | payer OTHER, SELFPAY ==
[2023-07-11 08:56] VITALS: BP 150/96; PULSE 82; RESP 18; O2SAT 98; BMI 42.2
--- NOTE | 2023-07-11 09:15 | EXP.PAIN.PRO ---
Procedure Date: 07/11/23 Time: 09:16 Anesthesiologist:: Angela Krause APRN Complications:: None Pre-procedure Diagnosis:: Degenerative disc disease cervical and lumbar spine with cervical and lumbar radiculopathy symptoms, sacroiliitis, chronic pain syndrome Post-procedure Diagnosis:: Same Indications for Procedure:: Patient is a pleasant 57-year-old female who presents today for intrathecal adjustment and reprogram as well as follow-up. We are currently treating the patient for degenerative disc disease of cervical and lumbar spine with cervical and lumbar, sacroiliitis, chronic pain syndrome. Patient does better today pain 5 out of 10. Patient denies any new trauma or injury. At her last visit the patient was prescribed Celebrex 50 mg twice daily with a 2-week supply and she does state that this medication did seem to help with some of her symptoms. Patient does state that she continues to have pain in her neck with radiating symptoms to her shoulders and some numbness and tingling to her hands. Patient does describe this as a constant aching, throbbing sensation with limited range of motion and does affect her ability perform activities of daily living such as cooking and cleaning. Patient states that it is affecting her sleeping and that she frequently cannot really turn her head [id number] for bending down without having significant pain. Patient did not have significant findings on her last imaging of her cervical spine. Patient also states that she did follow-up with the ENT specialist that we have referred her to for her thyromegaly. Patient states that they did do an additional ultrasound and CT and that currently they are just watching and doing routine follow-ups. Patient does have an intrathecal pump with morphine 5 mg/mL with a daily dose of 0.243 mg/day. She denies any side effects from this medication. She does state that she has been continuing to use her boluses however she frequently feels like she is hurting on a regular basis. Patient states she cannot stand or sit for prolonged periods of time without having increased pain. She also states she has been having charley horses in lower extremities. She is also prescribed gabapentin 400 mg 3 times a day from her PCP. Her Jerrell has been reviewed and is appropriate. Physical Exam: General: Alert and oriented x3, no acute distress, pleasant and cooperative Lungs: Respirations even and unlabored, symmetrical chest expansion Eyes: PERRL Musculoskeletal: Flexion and extension of cervical [spine] somewhat guarded secondary to pain, [antalgic gait noted] Neurological: Speech clear, no gross sensory deficit Procedure Details:: Informed consent was obtained and the risk and benefits of the procedure were explained to the patient. Patient was taken to the procedure room where noninvasive monitoring was placed including noninvasive blood pressure cuff and pulse oximeter. Patient's pump was interrogated and was reprogrammed to morphine 0.26 mg/day. The patient tolerated the procedure well with no complications. Plan and Disposition:: Patient tolerated her intrathecal increase with no complications. I have discussed with the patient due to her continued pain in her neck with radiating symptoms to her upper extremities and limited range of motion of her cervical spine that I do recommend cervical epidural. Risk and benefits were discussed with the patient and she would like to proceed forward with this plan of care. Patient is not on any blood thinners. I will refill the patient's Celebrex 50 mg twice daily and provide a 1 month supply of this medication. Patient will be scheduled for a ALKA C6-C7 under fluoroscopy. At her next visit we will discuss if she still continuing to get charley horses/spasms in her legs we may look at trying ropinirole 0.25 mg at bedtime. Patient has been instructed to contact the clinic with any concerns before the next appointment. Dr. Adams has reviewed this note and agrees with this plan of care. This note was dictated using voice recognition software and make contain errors or omissions. -- It Is medically necessary for this patient to continue to have their intrathecal pump refilled at regular intervals. This patient had an intrathecal pain pump implanted after meeting criteria of chronic intractable pain for greater than 3 months and failing conservative treatments. Patient has committed and been compliant to the treatment plan and all planned follow up care. Since implantation of the intrathecal pain pump, the patient has had decreased pain and been more functional. Oral medications have been reduced including intake of oral opioids. Patient continues to do well with intrathecal therapy with decrease in pain symptoms and increase in functional status. Stopping intrathecal medications can lead to life threatening withdrawal, seizures, cardiac arrest, severe pain, and possible . Pumps that are not refilled at regular intervals can be damages and cause and need for replacement. We continually titrate dose and concentration to optimize pain relief and function. We are limited in concentration for certain drugs to safely deliver medications through the pump and stay within the recommendations from the Polyanalges[employer] Consensus Committee Guidelines. Depending on dose and concentration these pumps may need to be refilled sooner than 3 months as we titrate.
== END | disposition home or self-care (01) ==
PROVIDERS: PCP Physician Assistant; Visit Provider Nurse Practitioner Family
DX: M50.123 Cervical disc disorder at C6-C7 level with radiculopathy (principal); M51.16 Intervertebral disc disorders with radiculopathy, lumbar region; M46.1 Sacroiliitis, not elsewhere classified; G89.4 Chronic pain syndrome; Z97.8 Presence of other specified devices; Z45.1 Encounter for adjustment and management of infusion pump
CPT/HCPCS: 62368; 99213; G0463

== ENCOUNTER 2023-07-11 09:06 | Outpatient (CLI) | payer OTHER, SELFPAY | END 2023-07-11 23:59 | LOC: RT 09:06 | PROVIDERS: PCP Physician Assistant; Visit Provider Physician Assistant | DX: R00.2 Palpitations (principal) | CPT/HCPCS: 93270 ==

== ENCOUNTER 2023-07-24 07:45 | Day surgery (SDC) | payer OTHER, SELFPAY ==
[2023-07-24 08:24] VITALS: BP 127/78; PULSE 77; RESP 18; TEMP 36.7; O2SAT 100; BMI 42.0
[2023-07-24] MEDS: methylPREDNISolone ACETATE 80MG/ML VIAL 80 MG (08:58)
[2023-07-24 08:59] VITALS: BP 177/91; PULSE 77; RESP 18; O2SAT 94
[2023-07-24 09:00] VITALS: BP 177/91; PULSE 79; RESP 18; O2SAT 95
--- NOTE | 2023-07-24 09:02 | P.PCN_ITS ---
Procedure Date: 07/24/23 Time: 08:45 Anesthesiologist:: Eric Underwood CRNA Complications:: None Pre-procedure Diagnosis:: Degenerative disc cervical spine multilevels. Cervical radiculopathy. Post-procedure Diagnosis:: Same Indications for Procedure:: Patient is a very pleasant 57-year-old female comes our clinic today for cervical epidural steroid injection. Patient reports posterior cervical neck pain as well as bilateral arm radicular symptoms. She rates her pain 7/10. Procedure Details:: Procedure:Cervical epidural steroid injection Informed consent was obtained and the risks and benefits of the procedure were explained to the patient. The patient was taken to the procedure room and noninvasive monitors placed, including noninvasive blood pressure cuff and pulse oximeter. The neck was prepped using Chloraprep as a cleansing solution. The C6- C7 interspace was viewed using fluroscopy. The skin and subcutaneous tissues were anesthetized using lidocaine 1.5% and a 25-gauge needle. After this an 18- gauge Touhy epidural needle was placed into the C6-C7 interspace under fluroscopy guidance and advanced using loss of resistance to air until the epidural space was encountered. After confirmation of needle placement in the e pidural space using contrast dye, a solution containing normal saline, 2 mL and Depo-Medrol 80 mg was incrementally injected into the cervical epidural space.~ The patient tolerated the procedure well with no complications. The patient was observed in the Pain Clinic and then discharged home neurologically intact. Plan and Disposition:: Patient was discharged without incident.
[2023-07-24 09:10] VITALS: BP 152/95; PULSE 73; RESP 18; O2SAT 100
[2023-07-24] MEDS: IOPAMIDOL-200 (41%);10ML VIAL 10 ML IV (09:20)
== END 2023-07-24 09:10 | disposition home or self-care (01) ==
PROVIDERS: PCP Physician Assistant; Visit Provider Nurse Anesthetist, Certified Registered
DX: M50.123 Cervical disc disorder at C6-C7 level with radiculopathy (principal)
CPT/HCPCS: 62321; J1040; Q9966

== ENCOUNTER 2023-08-08 08:14 | Outpatient (POV) | payer OTHER, SELFPAY ==
[2023-08-08 08:35] VITALS: BP 123/89; PULSE 80; RESP 18; O2SAT 96; BMI 42.7
--- NOTE | 2023-08-08 09:28 | P.PCN_ITS ---
Procedure Date: 08/08/23 Time: 09:14 Anesthesiologist:: Angela Krause APRN Complications:: None Pre-procedure Diagnosis:: Degenerative disc disease of cervical spine with cervical radiculopathy symptoms Post-procedure Diagnosis:: Same Indications for Procedure:: Patient is a pleasant 58-year-old female who presents today for follow-up of cervical epidural steroid injection C6-C7 on 07/24/2023. We are currently treating the patient for degenerative disc disease of cervical and lumbar spine with cervical and lumbar, sacroiliitis, chronic pain syndrome. Patient denies any new trauma or injury. She rates her pain patient a 0 out of 10. She states she has had at least 50% improvement following this injection. She states that she did experience a warm sensation with this 1 and short shocking sensation but other than that it did do well. She states that she has noticed some improv ement and relief taken more of the edge off. She states she has been able to increase her activity. Patient states she has been having to work some longer days here recently and by the end of the day her low back is killing her for she has to stop and take a break. Does have an intrathecal pump with morphine 5 mg/mL with a daily dose of 0.26 mg/day. She denies any side effects from this medication. She is prescribed Celebrex 50 mg twice a day from our office and gabapentin 400 mg 3 times a day from her PCP. Her Jerrell has been reviewed and is appropriate. Physical Exam: General: Alert and oriented x3, no acute distress, pleasant and cooperative Lungs: Respirations even and unlabored, symmetrical chest expansion Eyes: PERRL Musculoskeletal: Flexion and extension of lumbar [spine] somewhat guarded secondary to pain, [antalgic gait noted] Neurological: Speech clear, no gross sensory deficit Procedure Details:: Informed consent was obtained and the risk and benefits of the procedure were explained to the patient. Patient was taken to the procedure room where noninvasive monitoring was placed including noninvasive blood pressure cuff and pulse oximeter. Patient's pump was interrogated and was reprogrammed to morphine 0.273 mg/day. The patient tolerated the procedure well with no complications. Plan and Disposition:: Patient tolerated her intrathecal increase with no complications and was discharged neurologically intact. I will refill the patient's Celebrex and provide a 3-month supply of this medication. Patient will return to clinic for her next intrathecal refill and reprogram. We will see the patient back in the clinic at the next intrathecal refill. Patient has been instructed to contact the clinic with any concerns before the next appointment. Dr. Adams has reviewed this note and agrees with this plan of care. This note was dictated using voice recognition software and make contain errors or omissions. -- It Is medically necessary for this patient to continue to have their intrathecal pump refilled at regular intervals. This patient had an intrathecal pain pump implanted after meeting criteria of chronic intractable pain for greater than 3 months and failing conservative treatments. Patient has committed and been compliant to the treatment plan and all planned follow up care. Since implantation of the intrathecal pain pump, the patient has had decreased pain and been more functional. Oral medications have been reduced including intake of oral opioids. Patient continues to do well with intrathecal therapy with decrease in pain symptoms and increase in functional status. Stopping intrathecal medications can lead to life threatening withdrawal, seizures, cardiac arrest, severe pain, and possible . Pumps that are not refilled at regular intervals can be damages and cause and need for replacement. We continually titrate dose and concentration to optimize pain relief and function. We are limited in concentration for certain drugs to safely deliver medications through the pump and stay within the recommendations from the Polyanalgesic Consensus Committee Guidelines. Depending on dose and concentration these pumps may need to be refilled sooner than 3 months as we titrate.
== END 2023-08-08 23:59 | disposition home or self-care (01) ==
PROVIDERS: PCP Physician Assistant; Visit Provider Nurse Practitioner Family
DX: M50.123 Cervical disc disorder at C6-C7 level with radiculopathy (principal); Z97.8 Presence of other specified devices; Z45.1 Encounter for adjustment and management of infusion pump
CPT/HCPCS: 62368; 99212; 99213; G0463

== ENCOUNTER 2023-08-14 08:51 | Day surgery (SDC) | payer OTHER, SELFPAY ==
[2023-08-14 09:40] VITALS: BP 127/66; PULSE 88; RESP 16; TEMP 36.4; O2SAT 97; BMI 42.7
[2023-08-14 10:15] VITALS: BP 117/87; PULSE 82; RESP 18; O2SAT 97
--- NOTE | 2023-08-14 10:15 | EXP.PAIN.PRO ---
Procedure Date: 08/14/23 Time: 10:00 Anesthesiologist:: Eric Underwood CRNA Complications:: None Pre-procedure Diagnosis:: Degenerative disc lumbar spine multilevels. Lumbar radiculopathy. Lumbar postlaminectomy syndrome. Post-procedure Diagnosis:: Same. Indications for Procedure:: Patient is a very pleasant 58-year-old female comes our clinic today for intrathecal pain pump interrogation refill. Patient currently being managed with morphine sulfate 5 mg/mL rated 0.2730 mg/day. Patient tolerating the pump very well. She is not reporting any side effects or complications. She rates her pain today 2/10. Procedure Details:: Details of the procedure explained to the patient. The patient taken procedure and placed in sitting position. The area of the pumps cleansed using chlorhexidine's cleansing solution. The pump was interrogated. The pump was accessed with ease using a 22-gauge inch and half needle. 13.8 mL of solution was withdrawn discarded appropriate. The pump was then filled with 20 cc of solution containing morphine sulfate 5 mg/mL. The rate will continue at 0.2730 mg today. Patient tolerated procedure without difficulty. There are no complications. Plan and Disposition:: Patient was discharged without incident.
== END 2023-08-14 10:15 | disposition home or self-care (01) ==
PROVIDERS: PCP Physician Assistant; Visit Provider Nurse Anesthetist, Certified Registered
DX: M51.16 Intervertebral disc disorders with radiculopathy, lumbar region (principal); M96.1 Postlaminectomy syndrome, not elsewhere classified; Z97.8 Presence of other specified devices; Z45.1 Encounter for adjustment and management of infusion pump
CPT/HCPCS: 95991

== ENCOUNTER 2023-09-17 22:46 | Outpatient (CLI) | payer OTHER, SELFPAY ==
[2023-09-17 18:15] LABS: Basophils # 0.1 K/mm3 (0-0.2); Eosinophils # 0.4 K/mm3 (0.0-0.4); Eosinophils % 6.6 % (0.1-12.0); Hematocrit 38.2 % (37.0-47.0); Lymphocytes # 2.6 K/mm3 (0.7-4.5); Lymphocytes % 42.8 % (10-50); Mean Corpuscular HGB Conc 31.4 g/dL (31.8-35.4); Mean Corpuscular Hemoglobin 30.2 pg (27.0-31.2); Mean Corpuscular Volume 96.3 fl (81-99); Mean Platelet Volume 9.5 fl (7.4-10.4); Monocytes # 0.6 K/mm3 (0.1-1.0); Monocytes % 8.9 % (1.7-9.3); Neutrophils # 2.5 K/mm3 (1.8-7.8); Neutrophils % 40.7 % (37.0-80.0); Platelet Count 431 K/mm3 (142-424); Red Blood Count 3.97 M/mm3 (4.20-5.40); Red Cell Distribution Width 13.4 % (11.5-17.5); White Blood Count 6.1 K/mm3 (4.8-10.8)
[2023-09-17 18:19] LABS: Alanine Aminotransferase 20 U/L (12-78); Albumin Level 3.9 g/dl (3.5-5.0); Albumin/Globulin Ratio 1.6 (1.1-1.8); Alkaline Phosphatase 129 U/L (38-126); Anion Gap 10.7 mEq/L (5-15); Aspartate Amino Transferase 32 U/L (14-36); Bilirubin,Total 0.4 mg/dl (0.2-1.3); Blood Urea Nitrogen 26 mg/dl (7-17); Carbon Dioxide 25 mmol/L (22.0-30.0); Chloride 107 mmol/L (98-107); Chol/HDL Ratio 2.8 (1-3.5); Cholesterol 119 mg/dl (140-200); Estimated Glomerular Filt Rate 87 ml/min (>60); GFR (African American) 105 ML/MIN (>60); Globulin 2.5 g/dL (1.3-3.2); Glucose 130 mg/dl (74-100); HDL Cholesterol 43 mg/dl (40-60); Potassium 4.7 mmoL/L (3.5-5.1); Sodium 138 mmol/L (136-145); Total Protein,Serum 6.4 g/dl (6.3-8.2); Triglycerides 92 mg/dl (30-150); VLDL Cholesterol 18 mg/dL (0-40)
[2023-09-17 18:25] LABS: Hemoglobin A1C 8.1 % (4.0-6.0)
[2023-09-17 18:30] LABS: Direct LDL Cholesterol 58.59 mg/dL (100-129)
[2023-09-17 18:35] LABS: 25-OH Vitamin D, Total 37.2 ng/mL (30-100)
[2023-09-17 18:49] LABS: Thyroid Stimulating Hormone 1.43 uIU/mL (0.465-4.68)
== END 2023-09-17 23:59 | disposition home or self-care (01) ==
LOC: LAB.DROPOF 22:46
PROVIDERS: PCP Physician Assistant; Visit Provider Physician Assistant
DX: E11.69 Type 2 diabetes mellitus with other specified complication (principal); E66.9 Obesity, unspecified; Z68.41 Body mass index [BMI] 40.0-44.9, adult; Z79.4 Long term (current) use of insulin; Z79.899 Other long term (current) drug therapy
CPT/HCPCS: 80053; 80061; 82306; 83036; 84443; 85025

== ENCOUNTER 2023-09-18 07:32 | Emergency (ER) | payer OTHER, SELFPAY ==
[2023-09-18 07:38] VITALS: BP 149/90; PULSE 85; O2SAT 100
[2023-09-18 07:42] VITALS: BP 149/90; PULSE 88; RESP 18; TEMP 36.8; O2SAT 100; BMI 42.7
--- NOTE | 2023-09-18 07:51 | XR_ITS ---
FINAL REPORT CLINICAL HISTORY: fall, LBP, pain pump concerns COMPARISON: None FINDINGS: 3 views of the lumbar spine were obtained. There is no evidence of fracture or dislocation. There is 6 mm of anterolisthesis of L4 on L5. There is mild and moderate degenerative change. Facet arthropathy is noted in the lower lumbar spine. There is mild rightward curvature of the lumbar spine. An intrathecal catheter is present. No paraspinous soft tissue abnormalities identified. IMPRESSION: No acute bony abnormality. Reviewed, Interpreted and Dictated by Hebert Cruz III, MD Transcribed by Bethanie Vivas Authenticated and [facility]
--- NOTE | 2023-09-18 07:51 | XR_ITS ---
FINAL REPORT CLINICAL HISTORY: fall, R hip Pain COMPARISON: 04/21/2020 FINDINGS: RIGHT HIP Two views of the right hip and an AP view of the pelvis demonstrate no acute fracture or dislocation. There is mild degenerative change of both hips, stable compared to prior. The visualized bony structures are well aligned. No soft tissue abnormality is seen. IMPRESSION: No acute bony abnormality. Stable degenerative changes. Reviewed, Interpreted and Dictated by Hebert Cruz III, MD Transcribed by Bethanie Vivas Authenticated and [facility]
[2023-09-18] MEDS: ACETAMINOPHEN 500MG TAB 1000 MG PO (08:00)
--- NOTE | 2023-09-18 08:02 | PC.NURSE ---
Pt gone to RAD
--- NOTE | 2023-09-18 08:13 | ED_ITS ---
Discharge Plan Disposition Patient Disposition: Home, Self-Care Chief Complaint: Fall Prescriptions Prescriptions: No Action (DME) insulin pump cartridge Cartridge See Rx Instructions .ROUTE .MEDSUPPLY Qty: 10 0RF Rx Instructions: As directed (DME) Omnipod Dash Pods (Gen 4) Cartridge See Rx Instructions .ROUTE .COMPLEX Qty: 90 0RF Rx Instructions: USE DIRECTED FOR DIABETES change every 3 days (DME) Dexcom G6 Sensor Device See Rx Instructions .ROUTE .MEDSUPPLY Qty: 1 Patient Comments: USE DIRECTED TO TEST BLOOD SUGAR LEVEL Rx Instructions: As directed atorvastatin 10 mg tablet See Rx Instructions .ROUTE .COMPLEX Qty: 90 3RF Dose Instruction: TAKE 1 TABLET BY MOUTH ONCE DAILY FOR CHOLESTEROL Rx Instructions: TAKE 1 TABLET BY MOUTH ONCE DAILY FOR CHOLESTEROL glimepiride 4 mg tablet See Rx Instructions .ROUTE .COMPLEX Qty: 180 3RF Dose Instruction: Take 1 tablet by mouth twice daily Rx Instructions: Take 1 tablet by mouth twice daily famotidine 20 mg tablet 40 mg PO DAILY Qty: 180 3RF gabapentin 400 mg capsule See Rx Instructions .ROUTE .COMPLEX Qty: 90 2RF Dose Instruction: TAKE 1 CAPSULE BY MOUTH THREE TIMES DAILY FOR PAIN Rx Instructions: TAKE 1 CAPSULE BY MOUTH THREE TIMES DAILY FOR PAIN metformin 1,000 mg tablet See Rx Instructions .ROUTE .COMPLEX Qty: 180 3RF Rx Instructions: Take 1 tablet by mouth twice daily bisoprolol fumarate 10 mg tablet See Rx Instructions .ROUTE .COMPLEX Qty: 90 1RF Dose Instruction: Take 1 tablet by mouth once daily Rx Instructions: Take 1 tablet by mouth once daily spironolactone 50 mg tablet See Rx Instructions .ROUTE .COMPLEX Qty: 90 0RF Hold Instructions: Until follow-up with PCP. Dose Instruction: TAKE 1 TABLET BY MOUTH ONCE DAILY FOR FLUID Rx Instructions: TAKE 1 TABLET BY MOUTH ONCE DAILY FOR FLUID insulin lispro 100 unit/mL solution See Rx Instructions .ROUTE .COMPLEX Qty: 10 12RF Rx Instructions: INJECT 100 UNITS SUBCUTANEOUSLEY DIRECTED PER OMNIPOD, MAX DAILY DOSE OF 36 UNITS benazepril-hydrochlorothiazide 20-25 mg tablet See Rx Instructions .ROUTE .COMPLEX Qty: 180 0RF Dose Instruction: TAKE 1 TABLET BY MOUTH TWICE DAILY FOR BLOOD PRESSURE Rx Instructions: TAKE 1 TABLET BY MOUTH TWICE DAILY FOR BLOOD PRESSURE potassium chloride 20 mEq tablet,ER particles/crystals See Rx Instructions .ROUTE .COMPLEX Qty: 90 0RF Dose Instruction: TAKE 1 BY MOUTH ONCE DAILY Rx Instructions: TAKE 1 BY MOUTH ONCE DAILY Ozempic 0.25 mg or 0.5 mg (2 mg/3 mL) pen injector See Rx Instructions .ROUTE .COMPLEX Qty: 3 0RF Dose Instruction: INJECT 0.5MG SUBCUTANEOUSLY ONCE WEEKLY FOR 4 WEEKS Rx Instructions: INJECT 0.5MG SUBCUTANEOUSLY ONCE WEEKLY FOR 4 WEEKS (DME) pen needle, diabetic 1 EACH needle See Rx Instructions .Route .MEDSUPPLY Rx Instructions: As directed (DME) insulin syringe-needle U-100 1 EACH syringe See Rx Instructions .Route .COMPLEX Rx Instructions: USE 1 SYRINGE THREE TIMES DAILY (DME) lancets 1 EACH misc See Rx Instructions .Route .COMPLEX Rx Instructions: USE 1 TO CHECK GLUCOSE TWICE DAILY (DME) subcutaneous insulin pump 1 EACH misc See Rx Instructions .Route DAILY Rx Instructions: As directed (DME) Dexcom G6 Health Promotion Specialist Misc See Rx Instructions .ROUTE .COMPLEX Rx Instructions: USE DIRECTED TO TEST BLOOD GLUCOSE LEVEL (DME) Dexcom G6 Transmitter Device See Rx Instructions .ROUTE .COMPLEX Rx Instructions: USE DIRECTED TO TEST BLOOD GLUCOSE LEVEL celecoxib 50 mg capsule 50 mg PO BID Qty: 60 2RF (DME) blood sugar diagnostic 1 EACH strip See Rx Instructions .Route .MEDSUPPLY Rx Instructions: Test sugar three daily (DME) lancets 1 EACH misc See Rx Instructions .Route .MEDSUPPLY Rx Instructions: Test sugar three daily morphine 4 MG/ML syringe 0.22 mg IT CONT Rx Instructions: MEDICATION DELIVERED VIA INTRATHECAL PAIN PUMP. ACTUAL CONCENTRATION OF MEDICATION IS 5MG/ML. TOTAL VOLUME OF PAIN IS 20ML. lansoprazole 30 mg capsule,delayed release(DR/EC) 30 mg PO DAILY Referrals Follow up/Referrals: Ifrah Cifuentes PA [Primary Care Provider] - See instructions Clinical Impressions Clinical Impression: Acute pain of right lower extremity, Fall Discharge ED Provider: Shree Tanner General Adult HPI General Chief complaint: Fall Stated complaint: AO4/9@home, pain in Rt foot, Rt side Time Seen by Provider: 09/18/23 07:43 Mode of Arrival: Ambulatory Source of Information: Patient Limitations: No Limitations Description of Symptoms (Recalled from ER Triage Doc. by RN): pt to ed c/o right sided pain after a fall. pt states she was walking to work and slipped on wet grass. pt reports hearing a pop but is unsure what from. pt denies hitting her head, -LOC. History of Present Illness HPI narrative: 58-year-old female history of deafness hypertension, hyperlipidemia, diabetes with neuropathy, chronic back pain with pump in place presenting with fall. Patient states that just prior to arrival, she was walking up a ramp to her worksite when she slipped, landed on her right buttock. No loss of conscious, did not hit her head. Is most concerned that there may be something wrong with her pain pump. Patient states that she has pain going from the site of her pain pump in her lower back around into her right groin. Ambulated to her car, ambulated into the emergency department. Pain is mild, radiating, as stated, made better with rest. No bowel or bladder dysfunction, saddle anesthesia, weakness, or any other complaints. Please note that above description of symptoms, in this electronic medical record under categorization of recalled from ER triage doctor by RN are reflective of an initial nursing assessment, however, is not reflective of my full history and physical exam that was personally taken and clarified. Consequentially, this preceding description of symptoms, which may include the patient's categorized chief complaint in the EMR, do not reflect my personal clinical impression, and the ultimate description of history of present illness and patient stated complaints should be deferred to this section of the note. Unless stated otherwise or congruent with this section of the note, additional signs, symptoms, or incongruence should be interpreted as inaccurate with my clinical impression. Related Data Home Medications Medication Instructions Recorded Confirmed pen needle, diabetic 29 gauge x 11/25/19 09/17/23 1/2 blood sugar diagnostic 08/13/20 09/17/23 lancets 30 gauge 08/13/20 09/17/23 insulin syringe-needle U-100 1 mL 05/20/21 09/17/23 31 gauge x 15/64 lancets 33 gauge 05/20/21 09/17/23 subcutaneous insulin pump 08/11/21 09/17/23 morphine 4 mg/mL intravenous 0.22 mg intrathecal CONT chronic 09/05/21 09/17/23 syringe pain, pain pump blood-glucose meter,continuous 12/04/22 09/17/23 (Dex100Plus G6 Health Promotion Specialist) blood-glucose transmitter (Dexcom 12/04/22 09/17/23 G6 Transmitter device) lansoprazole 30 mg capsule,delayed 30 mg PO DAILY . 12/19/22 09/17/23 release blood-glucose sensor (Dexcom G6 #1 ea 09/17/23 09/17/23 Sensor device) Previous Rx's Medication Instructions Recorded insulin pump cartridge #10 ea 08/08/21 metformin 1,000 mg tablet See Rx Instructions .Route 12/08/22 .COMPLEX Diabetes #180 tabs bisoprolol fumarate 10 mg tablet See Rx Instructions .Route 03/07/23 .COMPLEX #90 tabs insulin pump cart,cont inf,BT #90 ea 03/26/23 (Omnipod Dash Pods (Gen 4) subcutaneous cartridge) spironolactone 50 mg tablet See Rx Instructions .Route 05/15/23 .COMPLEX #90 tabs insulin lispro 100 unit/mL See Rx Instructions .Route 07/30/23 subcutaneous solution .COMPLEX . #10 mL celecoxib 50 mg capsule 50 mg PO BID #60 caps 08/08/23 benazepril 20 See Rx Instructions .Route 09/03/23 mg-hydrochlorothiazide 25 mg tablet .COMPLEX #180 tabs potassium chloride 20 mEq See Rx Instructions .Route 09/03/23 tablet,extended release(part/cryst) .COMPLEX #90 tabs semaglutide 0.25 mg or 0.5 mg (2 See Rx Instructions .Route 09/13/23 mg/3 mL) subcutaneous pen injector .COMPLEX #3 mL (Ozempic) atorvastatin 10 mg tablet See Rx Instructions .Route 09/17/23 .COMPLEX #90 tabs famotidine 20 mg tablet 40 mg (2 x 20 mg) PO DAILY . #180 09/17/23 tabs gabapentin 400 mg capsule See Rx Instructions .Route 09/17/23 .COMPLEX #90 caps glimepiride 4 mg tablet See Rx Instructions .Route 09/17/23 .COMPLEX #180 tabs Allergies Allergy/AdvReac Type Severity Reaction Status Date / Time propoxyphene [PROPOXYPHENE] Allergy Unknown Verified 09/17/23 09:18 [facility] Disclaimer: The information contained in this section may have been updated after the patient was seen, as this information can be updated by other users. Medical History Palpitations Retention cyst of nasal cavity Multinodular goiter Goiter H. pylori infection Anxiety Diabetic retinopathy Edema GALI FEET Urinary tract infection History of COVID-19 History of gastroesophageal reflux (GERD) Hemorrhoid Hypertension Hyperlipidemia Heart murmur Edema History of anemia Carpal tunnel syndrome, bilateral Hypertension Diabetes Allergic rhinitis Diastolic dysfunction Michele's palsy Positive colorectal cancer screening using Cologuard test Intra-abdominal lymphadenopathy Elevated lipase Leukocytosis Surgical History History of colonoscopy History of esophagogastroduodenoscopy (EGD) H/O splenectomy History of carpal tunnel surgery Hx of removal of cyst History of partial hysterectomy Family History Sister Thyroid disorder Social History Smoking Status: Never smoker second hand exposure: Yes alcohol intake: never substance use type: denies use current occupational status: employed Travel in the last 8 weeks: None housing: house number of children: 2 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 current occupational exposures/hazards: No caffeine: Yes ROS Obtained: Yes All systems reviewed & no additional complaints except as documented Physical Exam General General appearance: alert and in no apparent distress Head Head exam: atraumatic and normocephalic Eye Eye exam: Present normal appearance, PERRL and EOMI ENT ENT exam: Present mucous membranes moist Neck Neck exam: Present normal inspection, full ROM and trachea midline Respiratory Respiratory exam: Absent respiratory distress, wheezes, stridor, accessory muscle use or prolonged expiratory phase Cardiovascular Cardiovascular exam: Present normal rhythm Abdominal Exam Abdominal exam: Present soft; Absent distention, tenderness, guarding, rebound or rigidity Extremities Exam Extremities exam: Absent edema Neurological Exam Neurological exam: Present alert, oriented X3, CN II-XII intact and normal gait; Absent motor sensory deficit Skin Skin exam: Present warm and dry; Absent diaphoresis or erythema Medical Decision Making Medical Records Medical records reviewed: Yes I reviewed the patient's medical records. Jerrell Inquiry Pt receiving controlled substance: No Jerrell was queried for this patient: No Vital Signs: 09/18/23 07:42 Temperature 98.2 F Temperature Source Oral Pulse Rate [Left Radial] 88 Respiratory Rate 18 Blood Pressure [Right Arm] 149/90 H Blood Pressure Mean [Right Arm] 109 02 Sat by Pulse Oximetry 100 Oxygen Delivery Method Room Air Orders (Tests/Meds): ED MEDICATIONS Discontinued Medications Generic Name Dose Route Start Last Admin Trade Name Renzo PRN Reason Stop Dose Admin Acetaminophen 1,000 mg 09/18/23 07:51 09/18/23 08:00 Acetaminophen 500mg Tab PO 09/18/23 07:52 1,000 mg ONCE ONE Administration Ibuprofen 600 mg 09/18/23 07:51 09/18/23 08:11 Ibuprofen 600 Mg Tablet PO 09/18/23 07:52 Not Given ONCE ONE ORDERS Category Date Time Status Hip XR right minimum 2 views [XR hip RT 2-3V w/pelvis] Exams 09/18/23 07:51 Taken Stat Lumbar spine XR 2-3 views [XR lumbar spine 2-3V] Stat Exams 09/18/23 07:51 Taken Medical Decision Narrative: 58-year-old female history of deafness hypertension, hyperlipidemia, diabetes with neuropathy, chronic back pain with pump in place presenting with fall. Patient states that just prior to arrival, she was walking up a ramp to her worksite when she slipped, landed on her right buttock. No loss of conscious, did not hit her head. Is most concerned that there may be something wrong with her pain pump. Patient states that she has pain going from the site of her pain pump in her lower back around into her right groin. Ambulated to her car, ambulated into the emergency department. Pain is mild, radiating, as stated, made better with rest. No bowel or bladder dysfunction, saddle anesthesia, weakness, or any other complaints. History was obtained via conversation with patient. On arrival, patient hemodynamically stable, alert, oriented x4, appropriate, GCS 15, moving all extremities spontaneously, pupils equal and reactive to light. Full physical exam performed and significant for well- appearing woman in no acute distress. No midline spinal tenderness, some right flank tenderness. Right lower extremity nontender on examination, but patient states having tenderness lateral aspect of right thigh, medial aspect of right calf, right great toe. Neurovascular intact and ambulatory. Range of motion intact. No outward signs of injury. differential includes sprain, strain, fracture, dislocation, minor MSK injury, among others. Patient was given Tylenol Motrin p.o. for symptomatic management and correction of underlying abnormalities. Workup independently interpreted and significant for no fracture or bony abnormality pelvis or right lower extremity films. Pain pump intact. See radiology read for full review of final results. Given patient presentation, workup, history, this most likely represents minor MSK injury in the setting of fall. Because patient at baseline without signs or symptoms of clinical decompensation, deemed appropriate for discharge. Results were relayed to patient who voiced understanding and were agreeable to outpatient management and follow up. I discussed my clinical impression with patient and answered all questions. At this time, the evidence for any other entities in the differential is insufficient to warrant any further testing or ED observation. This was explained as well. Advisory was given that persistent or worsening symptoms require further evaluation. I confirmed the understanding of this discussion. Critical Care Critical Care Time Critical Care Time: No
--- NOTE | 2023-09-18 08:15 | PC.NURSE ---
Pt returned to room from RAD
[2023-09-18 08:44] VITALS: BP 140/92; PULSE 82; O2SAT 97
--- NOTE | 2023-09-18 08:51 | PC.NURSE ---
Rounded on pt. No needs voiced at this time. Call light remains within reach.
[2023-09-18 09:00] VITALS: BP 160/99; PULSE 85; O2SAT 97
--- NOTE | 2023-09-18 09:00 | PC.NURSE ---
rounded on pt. pt. stated she didnt need anything at this time.
[2023-09-18 09:26] VITALS: BP 168/98; PULSE 79; RESP 20; TEMP 36.9; O2SAT 99
== END 2023-09-18 09:29 | disposition home or self-care (01) ==
PROVIDERS: Emergency Provider Emergency Medicine; PCP Physician Assistant
DX: M79.604 Pain in right leg (principal); I10 Essential (primary) hypertension; E78.5 Hyperlipidemia, unspecified; E11.40 Type 2 diabetes mellitus with diabetic neuropathy, unspecified; Z79.4 Long term (current) use of insulin; W19.XXXA Unspecified fall, initial encounter
CPT/HCPCS: 72100; 73502; 99283

== ENCOUNTER 2023-09-24 08:03 | Outpatient (POV) | payer OTHER, SELFPAY ==
[2023-09-24 08:29] VITALS: BP 122/76; PULSE 78; RESP 18; TEMP 36.7; O2SAT 99; BMI 42.7
--- NOTE | 2023-09-24 09:20 | P.PCN_ITS ---
Procedure Date: 09/24/23 Time: 09:21 Anesthesiologist:: Angela Krause APRN Complications:: None Pre-procedure Diagnosis:: Degenerative disc disease of lumbar spine with lumbar radiculopathy symptoms, lumbar postlaminectomy syndrome, left leg pain Post-procedure Diagnosis:: Same Indications for Procedure:: Patient is a pleasant 58-year-old female who presents today for intrathecal adjustment and reprogram. Today she rates her pain a 0 out of 10 however she states that her pain will go up to a 10 out of 10 with symptoms into her low back and radiating down her entire left extremity. Patient describes this as a aching, throbbing sensation with numbness and tingling. She does state this pain interferes with her ability perform activities of daily living such as cooking and cleaning. Patient did recently have x-ray imaging and is here to review over those findings as well. Patient states that she frequently has to change positions multiple times due to the pain. Patient has tried Tylenol along with her Celebrex and heat and ice and her compounded cream with minimal relief. Patient does continue to do at home exercising and stretching for longer than 6 weeks with minimal improvement. Patient is prescribed gabapentin from her PCP. Patient does have a intrathecal pain pump of morphine 5 mg/mL with a daily dose of 0.273 mg/day. Patient denies any side effects from this medication. Her Jerrell has been reviewed and is appropriate. Physical Exam: General: Alert and oriented x3, no acute distress, pleasant and cooperative Lungs: Respirations even and unlabored, symmetrical chest expansion Eyes: PERRL Musculoskeletal: Flexion and extension of [] [spine] somewhat guarded secondary to pain, [antalgic gait noted] Neurological: Speech clear, no gross sensory deficit FINAL REPORT CLINICAL HISTORY: fall, LBP, pain pump concerns COMPARISON: None FINDINGS: 3 views of the lumbar spine were obtained. There is no evidence of fracture or dislocation. There is 6 mm of anterolisthesis of L4 on L5. There is mild and moderate degenerative change. Facet arthropathy is noted in the lower lumbar spine. There is mild rightward curvature of the lumbar spine. An intrathecal catheter is present. No paraspinous soft tissue abnormalities identified. IMPRESSION: No acute bony abnormality. Reviewed, Interpreted and Dictated by Hebert Cruz III, MD Transcribed by Bethanie Vivas Authenticated and [facility] Procedure Details:: Informed consent was obtained and the risk and benefits of the procedure were explained to the patient. Patient was taken to the procedure room where noninvasive monitoring was placed including noninvasive blood pressure cuff and pulse oximeter. Patient's pump was interrogated and was reprogrammed to morphine 0.3 mg/day. The patient tolerated the procedure well with no complications. Plan and Disposition:: Patient tolerated her intrathecal increase with no complications and was discharged neurologically intact. I have discussed with patient due to her continued pain in her low back with radiating symptoms down her entire left extremity that she may benefit from a left transforaminal epidural steroid injection. Risk and benefits were discussed with the patient and she would like to proceed forward with this plan of care. Patient is not on any blood thinners. I will also order an MRI without contrast of her lumbar spine. Her x-ray imaging was reviewed during today's visit. Patient will be scheduled for a left transforaminal epidural steroid injection L4-L5 and L5-S1 under fluoroscopy. Patient has been instructed to contact the clinic with any concerns before the next appointment. Dr. Adams has reviewed this note and agrees with this plan of care. This note was dictated using voice recognition software and make contain errors or omissions. -- It Is medically necessary for this patient to continue to have their intrathecal pump refilled at regular intervals. This patient had an intrathecal pain pump implanted after meeting criteria of chronic intractable pain for greater than 3 months and failing conservative treatments. Patient has committed and been compliant to the treatment plan and all planned follow up care. Since implantation of the intrathecal pain pump, the patient has had decreased pain and been more functional. Oral medications have been reduced including intake of oral opioids. Patient continues to do well with intrathecal therapy with decrease in pain symptoms and increase in functional status. Stopping intrathecal medications can lead to life threatening withdrawal, seizures, cardiac arrest, severe pain, and possible . Pumps that are not refilled at regular intervals can be damages and cause and need for replacement. We continually titrate dose and concentration to optimize pain relief and function. We are limited in concentration for certain drugs to safely deliver medications through the pump and stay within the recommendations from the Polyanalgesic Consensus Committee Guidelines. Depending on dose and concentration these pumps may need to be refilled sooner than 3 months as we titrate.
== END 2023-09-24 23:59 | disposition home or self-care (01) ==
PROVIDERS: PCP Physician Assistant; Visit Provider Nurse Practitioner Family
DX: M51.16 Intervertebral disc disorders with radiculopathy, lumbar region (principal); M96.1 Postlaminectomy syndrome, not elsewhere classified; M79.605 Pain in left leg; Z97.8 Presence of other specified devices; Z45.1 Encounter for adjustment and management of infusion pump
CPT/HCPCS: 62368; 99212; G0463

== ENCOUNTER 2023-10-09 08:34 | Day surgery (SDC) | payer OTHER, SELFPAY ==
[2023-10-09 08:36] VITALS: BP 149/93; PULSE 80; RESP 18; O2SAT 98; BMI 42.7
--- NOTE | 2023-10-09 09:21 | EXP.PAIN.PRO ---
Procedure Date: 10/09/23 Time: 09:22 Anesthesiologist:: Eric Underwood CRNA Complications:: None Pre-procedure Diagnosis:: Degenerative disc lumbar spine multilevels. Lumbar radiculopathy. Lumbar disc bulge L4-5, L5-S1. Multilevel lumbar spondylosis. Left L5-S1 foraminal stenosis. Post-procedure Diagnosis:: Same Indications for Procedure:: Patient is a very pleasant 58-year-old female comes our clinic today for a left transforaminal epidural steroid injection at the L4-5, L5-S1 level. Patient reports left hip and leg pain to the foot. She also reports low back pain. Patient reports pain increases in the left leg with ambulation. She rates her pain 8/10. MRI from 2020 one of the lumbar spine shows multilevel degenerative disc with foraminal stenosis at the L5-S1 level. Procedure Details:: Details of the procedure were explained to the patient. The patient was taken the procedure room placed in the prone position. The area of the lumbar spine was cleansed using chlorhexidine as a cleansing solution. At this time using fluoroscopy guidance markers were placed on the left lateral border of the L4 and L5 vertebral body. The skin and subcutaneous tissue was anesthetized using 1% lidocaine and 25-gauge needle. At this time using a 22-gauge 3-1/2 inch spinal needle the left upper one third of the L4-5 foramen was accessed. The same was done at the left L5-S1 foramen. Needle positions were confirmed and a lateral view using fluoroscopy and contrast dye. At this time 1 cc of 1% lidocaine +20 mg of Depo-Medrol was injected at each level after negative aspiration. [place] were removed. Band-Aid applied. Patient tolerated the procedure without difficulty. There are no complications. Plan and Disposition:: Patient was discharged without incident.
[2023-10-09 09:22] VITALS: BP 162/90; PULSE 85; RESP 18; O2SAT 97
[2023-10-09] MEDS: LIDOCAINE 1% 5ML PF VIAL 5 ML (09:22)
[2023-10-09 09:25] VITALS: BP 162/90; PULSE 82; RESP 18; O2SAT 97
[2023-10-09 09:28] VITALS: BP 139/90; PULSE 82; RESP 18; O2SAT 98
[2023-10-09] MEDS: IOPAMIDOL-200 (41%);10ML VIAL 10 ML IV (09:28)
== END 2023-10-09 09:28 | disposition home or self-care (01) ==
PROVIDERS: PCP Physician Assistant; Visit Provider Nurse Anesthetist, Certified Registered
DX: M51.16 Intervertebral disc disorders with radiculopathy, lumbar region (principal); M51.26 Other intervertebral disc displacement, lumbar region; M47.26 Other spondylosis with radiculopathy, lumbar region; M48.061 Spinal stenosis, lumbar region without neurogenic claudication
CPT/HCPCS: 64483; 64484; J1010; Q9966

== ENCOUNTER 2023-10-23 08:23 | Day surgery (SDC) | payer OTHER, SELFPAY ==
[2023-10-23 08:34] VITALS: BP 130/79; PULSE 84; RESP 18; TEMP 36.7; O2SAT 95; BMI 42.7
[2023-10-23 08:43] VITALS: BP 151/83; PULSE 79; RESP 20; O2SAT 99
[2023-10-23 08:50] VITALS: BP 151/83; PULSE 81; RESP 20; O2SAT 99
[2023-10-23 10:59] VITALS: BP 136/85; PULSE 86; RESP 18; O2SAT 97
[2023-10-23 11:06] VITALS: BP 120/80; PULSE 81; RESP 18; O2SAT 95
[2023-10-23 13:04] LABS: Amphetamine/Metha Screen,Urine Negative ng/ml (<1000); Barbiturates Screen,Urine Negative ng/ml (<200)
[2023-10-23 13:05] LABS: Benzodiazepines Screen,Urine Negative ng/ml (<200)
[2023-10-23 13:06] LABS: Cannabinoid Screen,Urine Negative ng/ml (<50); Cocaine Screen,Urine Negative ng/ml (<300)
[2023-10-23 13:07] LABS: Methadone Screen,Urine Negative ng/ml (<300); Opiate Screen,Urine Negative ng/ml (<300)
[2023-10-23 13:08] LABS: Phencyclidine Screen,Urine Negative ng/ml (<25)
--- NOTE | 2023-10-23 14:52 | EXP.PAIN.PRO ---
Procedure Date: 10/23/23 Time: 14:10 Anesthesiologist:: Eric Underwood CRNA Complications:: None Pre-procedure Diagnosis:: Preop MRI. Post-procedure Diagnosis:: Same. Indications for Procedure:: Patient is a pleasant 58-year-old female comes our clinic today for intrathecal pain pump emptying. Patient will have lumbar MRI and will return to the pain clinic for refill of the intrathecal pain pump. Procedure Details:: Details of the procedure explained to the patient. The patient taken procedure room placed in sitting position. The area over the pump was cleaned using chlorhexidine's cleansing solution. The area over the pump was cleaned using chlorhexidine's cleansing solution. 60 mL of solution was withdrawn from the pump. Patient will return following MRI for intrathecal pain pump medication replacement. Patient returned from MRI. Intrathecal pain pump was accessed with ease using 22-gauge inch and half needle. 60 mL of solution that was previously withdrawn from the pump was replaced. Patient tolerated procedure without difficulty. There are no complications. Plan and Disposition:: Patient was discharged without incident.
[2023-10-30 11:25] LABS: Opiates Negative (Cutoff=100)
== END 2023-10-23 11:06 | disposition home or self-care (01) ==
PROVIDERS: Anesthesiology; PCP Physician Assistant; Visit Provider Nurse Anesthetist, Certified Registered
DX: Z45.1 Encounter for adjustment and management of infusion pump (principal)
CPT/HCPCS: 80307; 80361; 80365; 95991; G0480

== ENCOUNTER 2023-11-01 08:18 | Outpatient (POV) | payer OTHER, SELFPAY ==
[2023-11-01 08:36] VITALS: BP 123/71; PULSE 74; RESP 16; O2SAT 100; BMI 42.7
--- NOTE | 2023-11-01 08:57 | EXP.PAIN.PRO ---
Procedure Date: 11/01/23 Time: 08:58 Anesthesiologist:: Angela Krause APRN Complications:: None Pre-procedure Diagnosis:: Degenerative disc disease of lumbar spine with lumbar radiculopathy symptoms, chronic pain syndrome Post-procedure Diagnosis:: Same Indications for Procedure:: Patient is a pleasant 58-year-old female who presents today for intrathecal adjustment and reprogram. Today she rates her pain a 4 out of 10. She denies any new trauma or injury however states that she continues to have worsening pain the longer she is on her feet. She states that she is only working about 3 days but works about 8 hours and by the end of the day she is in misery with her back and leg symptoms. Patient does also state that even walking her dog she can have pain by the end of that. Patient did try and go for her MRI however they were unable to obtain this imaging due to too much artifact with her intrathecal pump. Patient describes her pain as a aching, throbbing sensation with numbness and tingling. She does state this pain interferes with her ability perform activities of daily living such as cooking and cleaning. Patient has tried Tylenol along with her Celebrex and heat and ice and her compounded cream with minimal relief. Patient does continue to do at home exercising and stretching for longer than 6 weeks with minimal improvement. She does also state that she has been having more stiff neck and believes it is related to how she is sleeping. Patient states that she is elevated up on at least 2 pillows every night. Patient states that she does this because she feels like in the more supine position she cannot breathe. Patient was tried for a CPAP however it did not work well. Patient is prescribed gabapentin from her PCP. Patient does have a intrathecal pain pump of morphine 5 mg/mL with a daily dose of 0.3 mg/day. Patient denies any side effects from this medication. Her Jerrell has been reviewed and is appropriate. Physical Exam: General: Alert and oriented x3, no acute distress, pleasant and cooperative Lungs: Respirations even and unlabored, symmetrical chest expansion Eyes: PERRL Musculoskeletal: Flexion and extension of lumbar [spine] somewhat guarded secondary to pain, [antalgic gait noted] Neurological: Speech clear, no gross sensory deficit Procedure Details:: Informed consent was obtained and the risk and benefits of the procedure were explained to the patient. Patient was taken to the procedure room where noninvasive monitoring was placed including noninvasive blood pressure cuff and pulse oximeter. Patient's pump was interrogated and was reprogrammed to morphine 0.345 mg/day. The patient tolerated the procedure well with no complications. Plan and Disposition:: Patient tolerated her intrathecal increase with no complications and was discharged neurologically intact. I did student financial services counselor the patient that we may be able to still order the MRI but she may have to go to [place] where they might have better results with manipulating the intrathecal pump. At this time we will however wait. I will refill the patient's compounded cream. I have also discussed with the patient in future it may be worthwhile to try a lumbar epidural. Patient did get significant relief with her last transforaminal injection on 10/08 50% however it only lasted about 3 days. We will follow-up with this in future visits. Patient will return to clinic in 2 weeks for reevaluation of symptoms and plan of care. Patient has been instructed to contact the clinic with any concerns before the next appointment. Dr. Adams has reviewed this note and agrees with this plan of care. This note was dictated using voice recognition software and make contain errors or omissions. -- It Is medically necessary for this patient to continue to have their intrathecal pump refilled at regular intervals. This patient had an intrathecal pain pump implanted after meeting criteria of chronic intractable pain for greater than 3 months and failing conservative treatments. Patient has committed and been compliant to the treatment plan and all planned follow up care. Since implantation of the intrathecal pain pump, the patient has had decreased pain and been more functional. Oral medications have been reduced including intake of oral opioids. Patient continues to do well with intrathecal therapy with decrease in pain symptoms and increase in functional status. Stopping intrathecal medications can lead to life threatening withdrawal, seizures, cardiac arrest, severe pain, and possible . Pumps that are not refilled at regular intervals can be damages and cause and need for replacement. We continually titrate dose and concentration to optimize pain relief and function. We are limited in concentration for certain drugs to safely deliver medications through the pump and stay within the recommendations from the Polyanalgesic Consensus Committee Guidelines. Depending on dose and concentration these pumps may need to be refilled sooner than 3 months as we titrate.
== END 2023-11-01 23:59 | disposition home or self-care (01) ==
PROVIDERS: PCP Physician Assistant; Visit Provider Nurse Practitioner Family
DX: M51.16 Intervertebral disc disorders with radiculopathy, lumbar region (principal); G89.4 Chronic pain syndrome; Z97.8 Presence of other specified devices; Z45.1 Encounter for adjustment and management of infusion pump
CPT/HCPCS: 62368; 99212; 99213; G0463

== ENCOUNTER 2023-11-19 08:23 | Outpatient (POV) | payer OTHER, SELFPAY ==
[2023-11-19 08:35] VITALS: BP 113/79; PULSE 76; RESP 18; O2SAT 98; BMI 42.0
--- NOTE | 2023-11-19 09:03 | P.PCN_ITS ---
Procedure Date: 11/19/23 Time: 09:03 Anesthesiologist:: Angela Krause APRN Complications:: None Pre-procedure Diagnosis:: Degenerative disc disease of lumbar spine with lumbar radiculopathy symptoms, chronic pain syndrome Post-procedure Diagnosis:: Same Indications for Procedure:: Patient is a pleasant 58-year-old who presents today for intrathecal adjustment and reprogram. Today she rates her pain a 5 out of 10. Patient denies any new trauma or injury. She does state that she is starting to experience more pain along the right side of her pump. She states that the pain can be very random and it is not tender to touch. Patient states when it does come on it feels like she is being cut in half. Patient is currently managed with morphine 5 mg/mL with a daily dose of 0.345 mg/day. She denies any side effects from this medication. Her Jerrell has been reviewed and is appropriate. Patient is prescribed gabapentin from her PCP. Her Jerrell has been reviewed and is appropriate. Physical Exam: General: Alert and oriented x3, no acute distress, pleasant and cooperative Lungs: Respirations even and unlabored, symmetrical chest expansion Eyes: PERRL Musculoskeletal: Flexion and extension of lumbar [spine] somewhat guarded secondary to pain, [antalgic gait noted] Neurological: Speech clear, no gross sensory deficit Procedure Details:: Informed consent was obtained and the risk and benefits of the procedure were explained to the patient. Patient was taken to the procedure room where noninvasive monitoring was placed including noninvasive blood pressure cuff and pulse oximeter. Patient's pump was interrogated and was reprogrammed to morphine 0.396 mg/day. The patient tolerated the procedure well with no complications. Plan and Disposition:: I did discuss at length with the patient regarding the pain she feels around her pump site. Patient was not tender to touch with palpation during today's exam. I have recommended that she try her compounded cream on this area and in future we may look at doing possible injections. Patient does state this is only been going on for 2 weeks. We will continue to monitor this. Patient will return to clinic in 1 month for reevaluation of symptoms and plan of care. Patient has been instructed to contact the clinic with any concerns before the next appointment. Dr. Adams has reviewed this note and agrees with this plan of care. This note was dictated using voice recognition software and make contain errors or omissions. -- It Is medically necessary for this patient to continue to have their intrathecal pump refilled at regular intervals. This patient had an intrathecal pain pump implanted after meeting criteria of chronic intractable pain for greater than 3 months and failing conservative treatments. Patient has committed and been compliant to the treatment plan and all planned follow up care. Since implantation of the intrathecal pain pump, the patient has had decreased pain and been more functional. Oral medications have been reduced including intake of oral opioids. Patient continues to do well with intrathecal therapy with decrease in pain symptoms and increase in functional status. Stopping intr athecal medications can lead to life threatening withdrawal, seizures, cardiac arrest, severe pain, and possible . Pumps that are not refilled at regular intervals can be damages and cause and need for replacement. We continually titrate dose and concentration to optimize pain relief and function. We are limited in concentration for certain drugs to safely deliver medications through the pump and stay within the recommendations from the Polyanalgesic Consensus Committee Guidelines. Depending on dose and concentration these pumps may need to be refilled sooner than 3 months as we titrate.
== END 2023-11-19 23:59 | disposition home or self-care (01) ==
PROVIDERS: PCP Physician Assistant; Visit Provider Nurse Practitioner Family
DX: M51.16 Intervertebral disc disorders with radiculopathy, lumbar region (principal); G89.4 Chronic pain syndrome; Z97.8 Presence of other specified devices; Z45.1 Encounter for adjustment and management of infusion pump
CPT/HCPCS: 62368; 99212; 99213; G0463

== ENCOUNTER 2023-11-26 08:30 | Emergency (ER) | payer OTHER, SELFPAY ==
[2023-11-26 08:55] VITALS: BP 169/86; PULSE 81; RESP 20; TEMP 36.9; O2SAT 97; BMI 42.0
[2023-11-26 09:38] LABS: Basophils # 0.1 K/mm3 (0-0.2); Basophils % 0.5 % (0.1-2.0); Eosinophils # 0.3 K/mm3 (0.0-0.4); Hematocrit 35.7 % (37.0-47.0); Hemoglobin 11.5 g/dL (12.2-16.2); Lymphocytes % 23.2 % (10-50); Mean Corpuscular HGB Conc 32.3 g/dL (31.8-35.4); Mean Corpuscular Hemoglobin 30.6 pg (27.0-31.2); Mean Corpuscular Volume 94.8 fl (81-99); Mean Platelet Volume 8.2 fl (7.4-10.4); Monocytes # 0.6 K/mm3 (0.1-1.0); Monocytes % 6.7 % (1.7-9.3); Neutrophils # 5.6 K/mm3 (1.8-7.8); Neutrophils % 66.6 % (37.0-80.0); Platelet Count 443 K/mm3 (142-424); Red Blood Count 3.77 M/mm3 (4.20-5.40); Red Cell Distribution Width 13.8 % (11.5-17.5); White Blood Count 8.4 K/mm3 (4.8-10.8)
--- NOTE | 2023-11-26 09:44 | ED_ITS ---
Discharge Plan Disposition Patient Disposition: Home, Self-Care Condition: Good Prescriptions Prescriptions: No Action (DME) insulin pump cartridge Cartridge See Rx Instructions .ROUTE .MEDSUPPLY Qty: 10 0RF Rx Instructions: As directed (DME) Omnipod Dash Pods (Gen 4) Cartridge See Rx Instructions .ROUTE .COMPLEX Qty: 90 0RF Rx Instructions: USE DIRECTED FOR DIABETES change every 3 days (DME) Dexcom G6 Sensor Device See Rx Instructions .ROUTE .COMPLEX Qty: 3 2RF Dose Instruction: USE DIRECTED TO TEST BLOOD SUGAR LEVEL Rx Instructions: USE DIRECTED TO TEST BLOOD SUGAR LEVEL (DME) Dexcom G6 Transmitter Device See Rx Instructions .ROUTE .COMPLEX Qty: 1 1RF Dose Instruction: USE DIRECTED TO TEST BLOOD GLUCOSE LEVEL Rx Instructions: USE DIRECTED TO TEST BLOOD GLUCOSE LEVEL (DME) pen needle, diabetic 1 EACH needle See Rx Instructions .Route .MEDSUPPLY Rx Instructions: As directed (DME) insulin syringe-needle U-100 1 EACH syringe See Rx Instructions .Route .COMPLEX Rx Instructions: USE 1 SYRINGE THREE TIMES DAILY (DME) lancets 1 EACH misc See Rx Instructions .Route .COMPLEX Rx Instructions: USE 1 TO CHECK GLUCOSE TWICE DAILY (DME) subcutaneous insulin pump 1 EACH misc See Rx Instructions .Route DAILY Rx Instructions: As directed (DME) Dexcom G6 Project Associate Misc See Rx Instructions .ROUTE .COMPLEX Rx Instructions: USE DIRECTED TO TEST BLOOD GLUCOSE LEVEL (DME) blood sugar diagnostic 1 EACH strip See Rx Instructions .Route .MEDSUPPLY Rx Instructions: Test sugar three daily (DME) lancets 1 EACH misc See Rx Instructions .Route .MEDSUPPLY Rx Instructions: Test sugar three daily amantadine HCl 100 mg tablet 100 mg PO DAILY gabapentin 400 mg capsule 400 mg PO TID Patient Comments: TAKE 1 CAPSULE BY MOUTH THREE TIMES DAILY FOR PAIN bisoprolol fumarate 10 mg tablet 10 mg PO DAILY Patient Comments: TAKE 1 TABLET BY MOUTH ONCE DAILY famotidine 20 mg tablet 40 mg PO DAILY Patient Comments: TAKE 2 TABLETS BY MOUTH ONCE DAILY metformin 1,000 mg tablet 1,000 mg PO DAILY glimepiride 4 mg tablet 4 mg PO DAILY Patient Comments: TAKE 1 TABLET BY MOUTH TWICE DAILY lansoprazole 30 mg capsule,delayed release(DR/EC) 30 mg PO DAILY Patient Comments: TAKE 1 CAPSULE BY MOUTH ONCE DAILY insulin lispro 100 unit/mL solution 100 unit SQ DAILY Patient Comments: INJECT 100 UNITS SUBCUTANEOUSL DIRECTED PER OMNIPOD, MAX DAILY DOSE OF 36 UNITS spironolactone 50 mg tablet 50 mg PO DAILY Patient Comments: TAKE 1 TABLET BY MOUTH ONCE DAILY FOR FLUID celecoxib 50 mg capsule 50 mg PO DAILY Ozempic 1 mg/dose (4 mg/3 mL) pen injector 1 mg SQ WEEKLY Patient Comments: INJECT 1 MG SUBCUTANEOUSLY ONCE A WEEK Referrals Follow up/Referrals: Ifrah Cifuentes PA [Primary Care Provider] - See instructions Activity Restrictions/Add. Instructions Additional Instructions/Restrictions: Avoid taking Magnesium Citrate unless advised to do so by your doctor. Increase fluids. If symptoms persist or worsen, follow up with PCP. Clinical Impressions Clinical Impression: Muscle cramping Instructions Patient Instructions: Nocturnal Leg Cramps Discharge ED Provider: Yoli Brewer [facility] General Stated complaint: stomach pain Mode of Arrival: Ambulatory Source of Information: Patient Limitations: No Limitations Time Seen by Provider: 11/26/23 09:22 Description of Symptoms (Recalled from Triage Doc. by RN): PATIENT C/O STOMACH PAIN, NAUSEA, AND SPASMS IN LEGS THAT RADIATE TO GROIN SINCE LAST NIGHT HEENT Symptoms (Recalled from RN notes): No Resp Symptoms (Recalled from RN notes): No Skin Symptoms (Recalled from RN notes): No MS Symptoms (Recalled from RN notes): Yes Functional Status (Recalled from RN notes): WNL History of Present Illness Provider Complaint: Pt reports that over the weekend she drank a bottle of Mag Citrate to have a bowel movement. She reports that she started last night to have muscle spasms in her leg that went to her groin area. She state that she has had some stomach pain and nausea as well. Related Data Home Medications Medication Instructions Recorded Confirmed pen needle, diabetic 29 gauge x 11/25/19 11/19/23 1/2 blood sugar diagnostic 08/13/20 11/19/23 lancets 30 gauge 08/13/20 11/19/23 insulin syringe-needle U-100 1 mL 05/20/21 11/19/23 31 gauge x 15/64 lancets 33 gauge 05/20/21 11/19/23 subcutaneous insulin pump 08/11/21 11/19/23 blood-glucose meter,continuous 12/04/22 11/19/23 (Dexcom G6 Project Associate) amantadine HCl 100 mg tablet 100 mg PO DAILY 11/26/23 11/26/23 bisoprolol fumarate 10 mg tablet 10 mg PO DAILY 11/26/23 11/26/23 celecoxib 50 mg capsule 50 mg PO DAILY 11/26/23 11/26/23 famotidine 20 mg tablet 40 mg PO DAILY 11/26/23 11/26/23 gabapentin 400 mg capsule 400 mg PO TID 11/26/23 11/26/23 glimepiride 4 mg tablet 4 mg PO DAILY 11/26/23 11/26/23 insulin lispro 100 unit/mL 100 unit SQ DAILY 11/26/23 11/26/23 subcutaneous solution lansoprazole 30 mg capsule,delayed 30 mg PO DAILY 11/26/23 11/26/23 release metformin 1,000 mg tablet 1,000 mg PO DAILY 11/26/23 11/26/23 semaglutide 1 mg/dose (4 mg/3 mL) 1 mg SQ WEEKLY 11/26/23 11/26/23 subcutaneous pen injector (Ozempic) spironolactone 50 mg tablet 50 mg PO DAILY 11/26/23 11/26/23 Previous Rx's Medication Instructions Recorded insulin pump cartridge #10 ea 08/08/21 insulin pump cart,cont inf,BT #90 ea 03/26/23 (Omnipod Dash Pods (Gen 4) subcutaneous cartridge) blood-glucose sensor (Dexcom G6 #3 ea 10/08/23 Sensor device) blood-glucose transmitter (Dexcom #1 ea 11/13/23 G6 Transmitter device) Allergies Allergy/AdvReac Type Severity Reaction Status Date / Time propoxyphene [PROPOXYPHENE] Allergy Unknown Verified 11/01/23 14:40 Worker's Comp Is this a Worker's Comp case?: No [facility] Disclaimer: The information contained in this section may have been updated after the patient was seen, as this information can be updated by other users. Medical History (Updated 11/26/23 @ 10:31 by Yoli Brewer APRN) Palpitations Retention cyst of nasal cavity Multinodular goiter Goiter H. pylori infection Anxiety Diabetic retinopathy Edema Urinary tract infection History of COVID-19 History of gastroesophageal reflux (GERD) Hemorrhoid Hypertension Hyperlipidemia Heart murmur Edema History of anemia Carpal tunnel syndrome, bilateral Hypertension Diabetes Allergic rhinitis Diastolic dysfunction Michele's palsy Positive colorectal cancer screening using Cologuard test Intra-abdominal lymphadenopathy Elevated lipase Leukocytosis Surgical History History of colonoscopy History of esophagogastroduodenoscopy (EGD) H/O splenectomy History of carpal tunnel surgery Hx of removal of cyst History of partial hysterectomy Family History Sister Thyroid disorder Social History Smoking Status: Never smoker second hand exposure: Yes alcohol intake: never substance use type: denies use current occupational status: employed Travel in the last 8 weeks: None housing: house number of children: 2 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 current occupational exposures/hazards: No caffeine: Yes ROS Obtained: Yes All systems reviewed & no additional complaints except as documented Constitutional Constitutional: Reports system reviewed and no additional complaints, except as documented Eyes Eyes: Reports system reviewed and no additional complaints, except as documented ENT Ears, Nose, Mouth, and Throat: Reports system reviewed and no additional complaints, except as documented Cardiovascular Cardiovascular: Reports system reviewed and no additional complaints, except as documented Respiratory Respiratory: Reports system reviewed and no additional complaints, except as documented Gastrointestinal Gastrointestingal: Reports abdominal pain, constipation, cramping, diarrhea and nausea Genitourinary Female Genitourinary: Reports system reviewed and no additional complaints, except as documented Musculoskeletal Musculoskeletal: Reports system reviewed and no additional complaints, except as documented and Reports muscle cramps Integumentary/Breasts Skin/Breast: Reports system reviewed and no additional complaints, except as documented Neurologic Neurologic: Reports system reviewed and no additional complaints, except as documented Endocrine Endocrine: Reports system reviewed and no additional complaints, except as documented Hematologic/Lymphatic Henatologic/Lymphatic: Reports system reviewed and no additional complaints, except as documented Allergic/Immunologic Allergic/Immunologic: Reports system reviewed and no additional complaints, except as documented Physical Exam General General appearance: alert and in no apparent distress Head Head exam: atraumatic and normocephalic Eye Eye exam: Present normal appearance ENT ENT exam: Present normal exam and normal oropharynx Neck Neck exam: Present normal inspection Chest Chest inspection: Present normal inspection and symmetric chest wall rise Respiratory Respiratory exam: Present normal lung sounds bilaterally Cardiovascular Cardiovascular exam: Present regular rate and normal rhythm Abdominal Exam Abdominal exam: Present soft, tenderness and normal bowel sounds Abdominal tenderness: Present diffuse and mild Extremities Exam Extremities exam: Present normal inspection, full ROM and normal capillary refill; Absent edema or joint swelling Back Exam Back exam: Present normal inspection Neurological Exam Neurological exam: Present alert and oriented X3 Psychiatric Psychiatric exam: Present normal affect and normal mood Skin Skin exam: Present warm and dry Lymphatic Lymphatic Findings: no adenopathy Medical Decision Making Jerrell Inquiry Pt receiving controlled substance: No Jerrell was queried for this patient: No Vital Signs: 11/26/23 08:55 Temperature 98.4 F Temperature Source Oral Pulse Rate [Left Brachial] 81 Respiratory Rate 20 Blood Pressure [Left Arm] 169/86 H Blood Pressure Mean [Left Arm] 113 Blood Pressure Source [Left Arm] Automatic Cuff Blood Pressure Position [Left Arm] Sitting 02 Sat by Pulse Oximetry 97 Oxygen Delivery Method Room Air Lab Data Lab Results 11/26/23 09:30: WBC 8.4, RBC 3.77 L, Hgb 11.5 L, Hct 35.7 L, MCV 94.8, MCH 30.6, MCHC 32.3, RDW 13.8, Plt Count 443 H, MPV 8.2, Neut % (Auto) 66.6, Lymph % (Auto) 23.2, [place] % (Auto) 6.7, Eos % (Auto) 3.0, Baso % (Auto) 0.5, Neut # (Auto) 5.6, Lymph # (Auto) 2.0, [place] # (Auto) 0.6, Eos # (Auto) 0.3, Baso # (Auto) 0.1 11/26/23 09:30 11/26/23 09:30 Orders (Tests/Meds): ORDERS Category Date Time Status CBC w/Auto Diff [Complete Blood Count Auto Diff] Stat Lab 11/26/23 09:30 Completed Comprehensive Metabolic Panel Stat Lab 11/26/23 09:30 Received
[2023-11-26 09:51] LABS: Chloride 104 mmol/L (98-107); Potassium 4.8 mmoL/L (3.5-5.1); Sodium 140 mmol/L (136-145)
[2023-11-26 09:54] LABS: Alanine Aminotransferase 21 U/L (12-78); Albumin/Globulin Ratio 1.3 (1.1-1.8); Alkaline Phosphatase 132 U/L (38-126); Anion Gap 12.8 mEq/L (5-15); Aspartate Amino Transferase 31 U/L (14-36); Bilirubin,Total 0.3 mg/dl (0.2-1.3); Blood Urea Nitrogen 25 mg/dl (7-17); Carbon Dioxide 28 mmol/L (22.0-30.0); Creatinine Clearance Estimated 41 mL/min (50-200); Estimated Glomerular Filt Rate 46 ml/min (>60); GFR (African American) 56 ML/MIN (>60); Glucose 153 mg/dl (74-100)
[2023-11-26 09:55] LABS: Calcium 9.7 mg/dl (8.4-10.2)
[2023-11-26 10:48] VITALS: BP 169/86; PULSE 81; RESP 20; TEMP 36.9; O2SAT 97
== END 2023-11-26 10:52 | disposition home or self-care (01) ==
PROVIDERS: Emergency Provider Nurse Practitioner Family; PCP Physician Assistant
DX: M62.831 Muscle spasm of calf (principal); R10.9 Unspecified abdominal pain; R11.0 Nausea
CPT/HCPCS: 80053; 85025; 99212; 99213; G0463

== ENCOUNTER 2023-11-26 15:29 | Outpatient (CLI) | payer OTHER, SELFPAY ==
--- NOTE | 2023-11-26 15:34 | XR_ITS ---
FINAL REPORT CLINICAL HISTORY: abdominal pain COMPARISON: None FINDINGS: The lungs are grossly clear. There is no evidence of effusion, pneumothorax or other significant pleural disease. The mediastinum is unremarkable. The heart size is normal. The abdomen exam demonstrates the visualized intestinal gas pattern to be nonspecific. There is no free intraperitoneal air. Mild fecal impaction is present. There is a spinal pain pump present which overlies the right central abdomen. IMPRESSION: Nonspecific bowel gas pattern with mild fecal impaction. Reviewed, Interpreted and Dictated by Ledy Jin MD Transcribed by Saniya Munoz Authenticated and [facility]
== END 2023-11-26 23:59 | disposition home or self-care (01) ==
LOC: RAD 15:29
PROVIDERS: PCP Physician Assistant; Visit Provider Physician Assistant
DX: K56.41 Fecal impaction (principal); R10.9 Unspecified abdominal pain; R14.0 Abdominal distension (gaseous)
CPT/HCPCS: 74021

== ENCOUNTER 2023-11-27 01:54 | Emergency (ER) | payer OTHER, SELFPAY ==
[2023-11-27] VITALS (7 sets, daily range): BP systolic 141–162; BP diastolic 87–110; PULSE 84–91; RESP 16–20; TEMP 36.6–36.8; O2SAT 93–97; BMI 40.9
--- NOTE | 2023-11-27 02:17 | HMH.EDGENADL ---
Discharge Plan Disposition Patient Disposition: Home, Self-Care Prescriptions Prescriptions: New cyclobenzaprine 5 mg tablet 5 mg PO TID PRN (Reason: muscle spasm) Qty: 30 0RF No Action (DME) insulin pump cartridge Cartridge See Rx Instructions .ROUTE .MEDSUPPLY Qty: 10 0RF Rx Instructions: As directed (DME) Omnipod Dash Pods (Gen 4) Cartridge See Rx Instructions .ROUTE .COMPLEX Qty: 90 0RF Rx Instructions: USE DIRECTED FOR DIABETES change every 3 days (DME) Dexcom G6 Sensor Device See Rx Instructions .ROUTE .COMPLEX Qty: 3 2RF Dose Instruction: USE DIRECTED TO TEST BLOOD SUGAR LEVEL Rx Instructions: USE DIRECTED TO TEST BLOOD SUGAR LEVEL (DME) Dexcom G6 Transmitter Device See Rx Instructions .ROUTE .COMPLEX Qty: 1 1RF Dose Instruction: USE DIRECTED TO TEST BLOOD GLUCOSE LEVEL Rx Instructions: USE DIRECTED TO TEST BLOOD GLUCOSE LEVEL ondansetron 8 mg tablet,disintegrating 8 mg PO Q8H PRN (Reason: nausea and vomiting) Qty: 20 0RF (DME) pen needle, diabetic 1 EACH needle See Rx Instructions .Route .MEDSUPPLY Rx Instructions: As directed (DME) insulin syringe-needle U-100 1 EACH syringe See Rx Instructions .Route .COMPLEX Rx Instructions: USE 1 SYRINGE THREE TIMES DAILY (DME) lancets 1 EACH misc See Rx Instructions .Route .COMPLEX Rx Instructions: USE 1 TO CHECK GLUCOSE TWICE DAILY (DME) subcutaneous insulin pump 1 EACH misc See Rx Instructions .Route DAILY Rx Instructions: As directed (DME) Dexcom G6 Supervisor Phosphatic Fertilizer Misc See Rx Instructions .ROUTE .COMPLEX Rx Instructions: USE DIRECTED TO TEST BLOOD GLUCOSE LEVEL (DME) blood sugar diagnostic 1 EACH strip See Rx Instructions .Route .MEDSUPPLY Rx Instructions: Test sugar three daily (DME) lancets 1 EACH misc See Rx Instructions .Route .MEDSUPPLY Rx Instructions: Test sugar three daily amantadine HCl 100 mg tablet 100 mg PO DAILY gabapentin 400 mg capsule 400 mg PO TID Patient Comments: TAKE 1 CAPSULE BY MOUTH THREE TIMES DAILY FOR PAIN bisoprolol fumarate 10 mg tablet 10 mg PO DAILY Patient Comments: TAKE 1 TABLET BY MOUTH ONCE DAILY famotidine 20 mg tablet 40 mg PO DAILY Patient Comments: TAKE 2 TABLETS BY MOUTH ONCE DAILY metformin 1,000 mg tablet 1,000 mg PO DAILY glimepiride 4 mg tablet 4 mg PO DAILY Patient Comments: TAKE 1 TABLET BY MOUTH TWICE DAILY lansoprazole 30 mg capsule,delayed release(DR/EC) 30 mg PO DAILY Patient Comments: TAKE 1 CAPSULE BY MOUTH ONCE DAILY insulin lispro 100 unit/mL solution 100 unit SQ DAILY Patient Comments: INJECT 100 UNITS SUBCUTANEOUSL DIRECTED PER OMNIPOD, MAX DAILY DOSE OF 36 UNITS spironolactone 50 mg tablet 50 mg PO DAILY Patient Comments: TAKE 1 TABLET BY MOUTH ONCE DAILY FOR FLUID celecoxib 50 mg capsule 50 mg PO DAILY Ozempic 1 mg/dose (4 mg/3 mL) pen injector 1 mg SQ WEEKLY Patient Comments: INJECT 1 MG SUBCUTANEOUSLY ONCE A WEEK Referrals Follow up/Referrals: Ifrah Cifuentes PA [Primary Care Provider] - See instructions Activity Restrictions/Add. Instructions Additional Instructions/Restrictions: Try to remain hydrated. Please follow-up with your primary care provider. Please return to the emergency department if you develop any new or worsening symptoms or become concerned for your health. Clinical Impressions Clinical Impression: Hypomagnesemic tetany Instructions Patient Instructions: DI for Acute Abdominal Pain Discharge ED Provider: Olivier Rollins Adult HPI General Chief complaint: Abdominal Pain Stated complaint: back pain Time Seen by Provider: 11/27/23 02:07 Mode of Arrival: Ambulatory Source of Information: Patient Limitations: No Limitations Description of Symptoms (Recalled from ER Triage Doc. by RN): Pt states she was seen in [facility] yesterday for abdominal pain d/t constipation. Was told to drink Gatorade and continue using Mag Citrate. Pt states she drank 1 bottle on Sunday and since then had muscle spasms in her legs to the point she feels like she is having an orgasm. History of Present Illness HPI narrative: 58-year-old female with extensive past medical history as documented elsewhere presents with left leg muscle spasms. She reports they are intermittent in nature and have been ongoing for the last couple of days. She reports they are fairly severe and caused her leg to lock up . She denies any significant pain except when she is having spasms. She reports that she has been constipated recently but had a normal bowel movement a couple of days ago. She reports that she has had some ear pain as well. She was recently prescribed Zofran by her PCP and was also seen in urgent care recently. She denies any significant abdominal pain. Reports that when she has flank spasm, her low back hurts a little bit. She denies any perineal paresthesias, reports that she is peeing normally, denies any urinary symptoms. She reports no weakness in the legs. She reports that she has a pain pump in her back for her right side, but the new symptoms in her left side are not at all similar to the issues she had on the right. Related Data Home Medications Medication Instructions Recorded Confirmed pen needle, diabetic 29 gauge x 11/25/19 11/19/23 1/2 blood sugar diagnostic 08/13/20 11/19/23 lancets 30 gauge 08/13/20 11/19/23 insulin syringe-needle U-100 1 mL 05/20/21 11/19/23 31 gauge x 15/64 lancets 33 gauge 05/20/21 11/19/23 subcutaneous insulin pump 08/11/21 11/19/23 blood-glucose meter,continuous 12/04/22 11/19/23 (Dexcom G6 Supervisor Phosphatic Fertilizer) amantadine HCl 100 mg tablet 100 mg PO DAILY 11/26/23 11/26/23 bisoprolol fumarate 10 mg tablet 10 mg PO DAILY 11/26/23 11/26/23 celecoxib 50 mg capsule 50 mg PO DAILY 11/26/23 11/26/23 famotidine 20 mg tablet 40 mg PO DAILY 11/26/23 11/26/23 gabapentin 400 mg capsule 400 mg PO TID 11/26/23 11/26/23 glimepiride 4 mg tablet 4 mg PO DAILY 11/26/23 11/26/23 insulin lispro 100 unit/mL 100 unit SQ DAILY 11/26/23 11/26/23 subcutaneous solution lansoprazole 30 mg capsule,delayed 30 mg PO DAILY 11/26/23 11/26/23 release metformin 1,000 mg tablet 1,000 mg PO DAILY 11/26/23 11/26/23 semaglutide 1 mg/dose (4 mg/3 mL) 1 mg SQ WEEKLY 11/26/23 11/26/23 subcutaneous pen injector (Ozempic) spironolactone 50 mg tablet 50 mg PO DAILY 11/26/23 11/26/23 Previous Rx's Medication Instructions Recorded insulin pump cartridge #10 ea 08/08/21 insulin pump cart,cont inf,BT #90 ea 03/26/23 (Omnipod Dash Pods (Gen 4) subcutaneous cartridge) blood-glucose sensor (Dexcom G6 #3 ea 10/08/23 Sensor device) blood-glucose transmitter (Dexcom #1 ea 11/13/23 G6 Transmitter device) ondansetron 8 mg disintegrating 8 mg PO Q8H PRN nausea and 11/26/23 tablet vomiting #20 tabs cyclobenzaprine 5 mg tablet 5 mg PO TID PRN muscle spasm #30 11/27/23 tabs Allergies Allergy/AdvReac Type Severity Reaction Status Date / Time propoxyphene [PROPOXYPHENE] Allergy Unknown Verified 11/01/23 14:40 [facility] Disclaimer: The information contained in this section may have been updated after the patient was seen, as this information can be updated by other users. Medical History (Updated 11/27/23 @ 05:15 by Olivier Rollins MD) Palpitations Retention cyst of nasal cavity Multinodular goiter Goiter H. pylori infection Anxiety Diabetic retinopathy Edema Urinary tract infection History of COVID-19 History of gastroesophageal reflux (GERD) Hemorrhoid Hypertension Hyperlipidemia Heart murmur Edema History of anemia Carpal tunnel syndrome, bilateral Hypertension Diabetes Allergic rhinitis Diastolic dysfunction Michele's palsy Positive colorectal cancer screening using Cologuard test Intra-abdominal lymphadenopathy Elevated lipase Leukocytosis Surgical History History of colonoscopy History of esophagogastroduodenoscopy (EGD) H/O splenectomy History of carpal tunnel surgery Hx of removal of cyst History of partial hysterectomy Family History Sister Thyroid disorder Social History Smoking Status: Never smoker second hand exposure: Yes alcohol intake: never substance use type: denies use current occupational status: employed Travel in the last 8 weeks: None housing: house number of children: 2 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 current occupational exposures/hazards: No caffeine: Yes ROS Obtained: Yes All systems reviewed & no additional complaints except as documented Physical Exam General General appearance: alert and in no apparent distress Head Head exam: atraumatic and normocephalic Eye Eye exam: Present normal appearance, PERRL and EOMI ENT ENT exam: Present normal oropharynx, TM's normal bilaterally and normal external ear exam Neck Neck exam: Present normal inspection and full ROM Chest Chest inspection: Present normal inspection and symmetric chest wall rise; Absent tenderness Respiratory Respiratory exam: Present normal lung sounds bilaterally; Absent respiratory distress Cardiovascular Cardiovascular exam: Present regular rate and normal rhythm Abdominal Exam Abdominal exam: Present soft; Absent distention, tenderness or guarding Extremities Exam Extremities exam: Present normal inspection; Absent edema or joint swelling Back Exam Back exam: Present normal inspection; Absent tenderness, CVA tenderness (R) or CVA tenderness (L) Neurological Exam Neurological exam: Present alert, oriented X3 and reflexes normal; Absent motor sensory deficit Psychiatric Psychiatric exam: Present normal affect and normal mood Skin Skin exam: Present warm, dry and normal color Lymphatic Lymphatic Findings: no adenopathy Medical Decision Making Medical Records Medical records reviewed: Yes I reviewed the patient's medical records. Jerrell Inquiry Pt receiving controlled substance: No Jerrell was queried for this patient: No Vital Signs: 11/27/23 01:55 11/27/23 02:55 11/27/23 03:15 Temperature 98.2 F Temperature Source Oral Pulse Rate 90 91 H Pulse Rate [Left] 89 Respiratory Rate 18 20 20 Blood Pressure 141/110 H 150/94 H Blood Pressure [Right Arm] 151/91 H Blood Pressure Mean [Right Arm] 111 Blood Pressure Source Automatic Cuff Automatic Cuff Blood Pressure Source [Right Arm] Automatic Cuff Blood Pressure Position Sitting Sitting Blood Pressure Position [Right Arm] Sitting 02 Sat by Pulse Oximetry 97 97 95 Oxygen Delivery Method Room Air Room Air Room Air 11/27/23 03:30 11/27/23 04:00 Temperature Temperature Source Pulse Rate 89 87 Pulse Rate [Left] Respiratory Rate 20 20 Blood Pressure 161/91 H 162/87 H Blood Pressure [Right Arm] Blood Pressure Mean [Right Arm] Blood Pressure Source Automatic Cuff Automatic Cuff Blood Pressure Source [Right Arm] Blood Pressure Position Supine Sitting Blood Pressure Position [Right Arm] 02 Sat by Pulse Oximetry 95 95 Oxygen Delivery Method Room Air Room Air Lab Data Lab results reviewed: Yes I reviewed the patient's lab results. Lab Results 11/27/23 02:30: WBC 8.2, RBC 3.86 L, Hgb 11.7 L, Hct 36.7 L, MCV 95.2, MCH 30.2, MCHC 31.7 L, RDW 13.4, Plt Count 435 H, MPV 8.3, Neut % (Auto) 59.1, Lymph % (Auto) 31.5, [place] % (Auto) 6.2, Eos % (Auto) 2.3, Baso % (Auto) 0.9, Neut # (Auto) 4.8, Lymph # (Auto) 2.6, [place] # (Auto) 0.5, Eos # (Auto) 0.2, Baso # (Auto) 0.1, Sodium 136, Potassium 4.3, Chloride 99, Carbon Dioxide 27, Anion Gap 14.3, BUN 20 H, Creatinine 0.90 D, Estimated Creat Clear 115, Estimated GFR 65, Est GFR ( Amer) 78 D, Glucose 115 H D, Calcium 9.6, Magnesium 1.3 L, Total Bilirubin 0.6, AST 27, ALT 19, Alkaline Phosphatase 129 H, Total Protein 7.1, Albumin 4.2, Globulin 2.9, Albumin/Globulin Ratio 1.4 11/27/23 02:30 11/27/23 02:30 Orders (Tests/Meds): ED MEDICATIONS Discontinued Medications Generic Name Dose Route Start Last Admin Trade Name Freq PRN Reason Stop Dose Admin Acetaminophen 1,000 mg 11/27/23 02:18 11/27/23 02:48 Acetaminophen 500mg Tab PO 11/27/23 02:19 1,000 mg ONCE ONE Administration Cyclobenzaprine HCl 10 mg 11/27/23 02:18 11/27/23 02:49 Cyclobenzaprine 10mg Tablet PO 11/27/23 02:19 10 mg ONCE ONE Administration Lactated Ringer's 1,000 mls @ 999 mls/hr 11/27/23 02:30 11/27/23 02:50 Lactated Ringer's 1000 Ml Bag IV 11/27/23 03:30 999 mls/hr .Q1H1M SHARON Administration Magnesium Sulfate 2 gm in 50 mls @ 50 mls/hr 11/27/23 03:09 11/27/23 03:25 Magnesium Sulfate 2gm/50ml Premix IV 11/27/23 04:08 50 mls/hr ONCE ONE Administration Magnesium Sulfate 2 gm in 50 mls @ 50 mls/hr 11/27/23 03:11 11/27/23 04:11 Magnesium Sulfate 2gm/50ml Premix IV 11/27/23 04:10 50 mls/hr ONCE ONE Administration Ondansetron HCl 4 mg 11/27/23 02:18 11/27/23 02:50 Ondansetron 4mg/2ml Vial IV 11/27/23 02:19 4 mg ONCE ONE Administration ORDERS Category Date Time Status CBC w/Auto Diff [Complete Blood Count Auto Diff] Stat Lab 11/27/23 02:30 Completed CMP [Comprehensive Metabolic Panel] Stat Lab 11/27/23 02:30 Completed Magnesium Stat Lab 11/27/23 02:30 Completed Medical Decision Narrative: 58-year-old female with history as documented above presents with a couple of days of left leg symptoms. History was obtained interactive discussion with patient, chart review. On arrival, patient is [afebrile, hemodynamically stable, satting appropriately, alert, oriented x4, GCS 15], moving all extremities spontaneously. Full physical exam performed and significant for normal neurovascular exam of the lower extremities, no significant spinal/tenderness or abdominal tenderness Differential includes but is not limited to muscle spasm dehydration, electrolyte derangement, nerve impingement, spinal cord pathology. Patient was given 1 L IV fluid bolus 4 mg IV Zofran, 4 g IV magnesium, 10 mg p.o. Flexeril, 1 g p.o. Tylenol as well as for symptomatic management and correction of underlying abnormalities. Workup initiated including CBC CMP mag. On re-evaluation, patient [remains afebrile, HD stable.] She reports symptomatic resolution. Laboratory workup independently interpreted by me and significant for hypomagnesia with magnesium 1.3 which was repleted IV. No other significant laboratory abnormalities.. Given patient history, exam and workup, patient's presentation most likely represents muscle spasm associated with hypomagnesemia. These findings were indicated with patient. She was discharged in stable condition with return precautions and instructions regarding rehydration. She was discharged with prescription for Flexeril. Recommend she follow-up with PCP.. Procedures Risk/Benefits of Procedure(s) Were Explained: Yes Critical Care Critical Care Time Critical Care Time: No
[2023-11-27 02:43] LABS: Basophils # 0.1 K/mm3 (0-0.2); Basophils % 0.9 % (0.1-2.0); Eosinophils # 0.2 K/mm3 (0.0-0.4); Eosinophils % 2.3 % (0.1-12.0); Hematocrit 36.7 % (37.0-47.0); Hemoglobin 11.7 g/dL (12.2-16.2); Lymphocytes # 2.6 K/mm3 (0.7-4.5); Lymphocytes % 31.5 % (10-50); Mean Corpuscular HGB Conc 31.7 g/dL (31.8-35.4); Mean Corpuscular Hemoglobin 30.2 pg (27.0-31.2); Mean Corpuscular Volume 95.2 fl (81-99); Mean Platelet Volume 8.3 fl (7.4-10.4); Monocytes # 0.5 K/mm3 (0.1-1.0); Monocytes % 6.2 % (1.7-9.3); Neutrophils # 4.8 K/mm3 (1.8-7.8); Neutrophils % 59.1 % (37.0-80.0); Platelet Count 435 K/mm3 (142-424); Red Blood Count 3.86 M/mm3 (4.20-5.40); Red Cell Distribution Width 13.4 % (11.5-17.5); White Blood Count 8.2 K/mm3 (4.8-10.8)
[2023-11-27] MEDS: ACETAMINOPHEN 500MG TAB 1000 MG PO (02:48)
[2023-11-27] MEDS: CYCLOBENZAPRINE 10MG TABLET 10 MG PO (02:49)
[2023-11-27] MEDS: ONDANSETRON 4MG/2ML VIAL 4 MG IV (02:50)
[2023-11-27] MEDS: LACTATED RINGERS 1000ML 1,000 ML 999 ML IV (02:50)
[2023-11-27 02:51] LABS: Alanine Aminotransferase 19 U/L (12-78); Albumin Level 4.2 g/dl (3.5-5.0); Albumin/Globulin Ratio 1.4 (1.1-1.8); Alkaline Phosphatase 129 U/L (38-126); Anion Gap 14.3 mEq/L (5-15); Aspartate Amino Transferase 27 U/L (14-36); Bilirubin,Total 0.6 mg/dl (0.2-1.3); Blood Urea Nitrogen 20 mg/dl (7-17); Calcium 9.6 mg/dl (8.4-10.2); Carbon Dioxide 27 mmol/L (22.0-30.0); Chloride 99 mmol/L (98-107); Creatinine Clearance Estimated 115 mL/min (50-200); Estimated Glomerular Filt Rate 65 ml/min (>60); GFR (African American) 78 ML/MIN (>60); Globulin 2.9 g/dL (1.3-3.2); Glucose 115 mg/dl (74-100); Magnesium 1.3 mg/dl (1.6-2.3); Potassium 4.3 mmoL/L (3.5-5.1); Sodium 136 mmol/L (136-145); Total Protein,Serum 7.1 g/dl (6.3-8.2)
[2023-11-27] MEDS: MAGNESIUM SULFATE IN WATER 2 GM/50 ML PIGGYBACK IV ×2 (03:25→04:11)
== END 2023-11-27 05:21 | disposition home or self-care (01) ==
PROVIDERS: Emergency Provider Emergency Medicine; PCP Physician Assistant
DX: E83.42 Hypomagnesemia (principal); M62.831 Muscle spasm of calf; E11.9 Type 2 diabetes mellitus without complications; K21.9 Gastro-esophageal reflux disease without esophagitis; I10 Essential (primary) hypertension; E78.5 Hyperlipidemia, unspecified; Z79.4 Long term (current) use of insulin; Z79.84 Long term (current) use of oral hypoglycemic drugs; Z79.85 Long-term (current) use of injectable non-insulin antidiabetic drugs
CPT/HCPCS: 80053; 83735; 85025; 96365; 96375; 99284; J2405; J3475; J7120

== ENCOUNTER 2023-12-11 09:22 | Day surgery (SDC) | payer OTHER, SELFPAY ==
[2023-12-11 09:41] VITALS: BP 122/77; PULSE 84; RESP 18; TEMP 36.6; O2SAT 98; BMI 42.2
[2023-12-11 09:49] VITALS: BP 134/84; PULSE 78; RESP 18; O2SAT 98
[2023-12-11 09:50] VITALS: BP 134/84; PULSE 78; RESP 18; O2SAT 98
--- NOTE | 2023-12-11 09:53 | EXP.PAIN.PRO ---
Procedure Date: 12/11/23 Time: 09:40 Anesthesiologist:: Eric Underwood CRNA Complications:: None Pre-procedure Diagnosis:: Degenerative disc lumbar spine multilevels. Lumbar radiculopathy. Chronic pain syndrome. Post-procedure Diagnosis:: Same. Indications for Procedure:: Patient is a very pleasant 58-year-old female comes to clinic today for intrathecal pain pump interrogation and refill. Patient is currently being managed with morphine sulfate 5 mg/mL at a rate of 0.396 mg/day. She is doing very well with her current settings. She does report some increased tenderness of her right low lumbar spine area over the last 30 to 45 days. She does not have any increased tenderness around the pump area. Patient does have some point tenderness over the right sacroiliac joint. 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 Patient sees her PCP tomorrow. She is not requesting an increase in the pump rate today. Procedure Details:: Details of the procedure explained to the patient. The patient taken procedure and placed in the sitting position. The area of the pump is cleansed using chlorhexidine's cleansing solution. The pump was interrogated. The pump was accessed with ease using a 22-gauge inch and half needle. 9 mL of solution was withdrawn discarded appropriate. The pump was then filled 20 cc of solution containing morphine sulfate 5 mg/mL. The rate will continue at 0.3960 mg/day. Patient tolerated procedure without difficulty. There were no complications. Plan and Disposition:: Patient was discharged without incident.
[2023-12-11 10:08] VITALS: BP 122/80; PULSE 81; RESP 18; O2SAT 99
== END 2023-12-11 10:10 | disposition home or self-care (01) ==
PROVIDERS: PCP Physician Assistant; Visit Provider Nurse Anesthetist, Certified Registered
DX: M54.16 Radiculopathy, lumbar region (principal); M51.36 Other intervertebral disc degeneration, lumbar region; G89.4 Chronic pain syndrome
CPT/HCPCS: 95991

== ENCOUNTER 2023-12-12 10:42 | Outpatient (CLI) | payer OTHER, SELFPAY | END 2023-12-12 23:59 | disposition home or self-care (01) | LOC: LAB.DROPOF 12-13 10:43 | PROVIDERS: PCP Physician Assistant; Visit Provider Physician Assistant | DX: N39.0 Urinary tract infection, site not specified (principal) | CPT/HCPCS: 87086 ==

== ENCOUNTER 2023-12-17 08:59 | Outpatient (POV) | payer OTHER, SELFPAY ==
[2023-12-17 09:05] VITALS: BP 148/98; PULSE 81; RESP 16; O2SAT 99; BMI 40.9
--- NOTE | 2023-12-17 09:10 | P.PCN_ITS ---
Procedure Date: 12/17/23 Time: 09:11 Anesthesiologist:: Angela Krause APRN Complications:: None Pre-procedure Diagnosis:: Degenerative disc disease of lumbar spine with lumbar radiculopathy symptoms, chronic pain syndrome Post-procedure Diagnosis:: same Indications for Procedure:: Patient is a pleasant 58-year-old female who presents today for intrathecal adjustment and reprogram. Today she rates her pain a 5 out of 10. She does state that she has been doing more moving at her house with packing boxes. She states that she feels like this has irritated some of her overall back pain. She is requesting an increase on her intrathecal pump. Today she is managed with morphine 5 mg/mL with a daily dose of 0.396 mg/day. She denies any side effects to this medication. Her Jerrell has been reviewed and is appropriate. Physical Exam: General: Alert and oriented x3, no acute distress, pleasant and cooperative Lungs: Respirations even and unlabored, symmetrical chest expansion Eyes: PERRL Musculoskeletal: Flexion and extension of lumbar [spine] somewhat guarded secondary to pain, [antalgic gait noted] Neurological: Speech clear, no gross sensory deficit Procedure Details:: Informed consent was obtained and the risk and benefits of the procedure were explained to the patient. Patient was taken to the procedure room where noninvasive monitoring was placed including noninvasive blood pressure cuff and pulse oximeter. Patient's pump was interrogated and was reprogrammed to morphine 0.514 mg/day. The patient tolerated the procedure well with no complications. Plan and Disposition:: Patient tolerated her intrathecal increase with no complications and was discharged neurologically intact. Patient will return to clinic on or before 1 month for reevaluation of symptoms and plan of care. Patient has been instructed to contact the clinic with any concerns before the next appointment. Dr. Adams has reviewed this note and agrees with this plan of care. This note was dictated using voice recognition software and make contain errors or omissions. -- It Is medically necessary for this patient to continue to have their intrathecal pump refilled at regular intervals. This patient had an intrathecal pain pump implanted after meeting criteria of chronic intractable pain for greater than 3 months and failing conservative treatments. Patient has committed and been compliant to the treatment plan and all planned follow up care. Since implantation of the intrathecal pain pump, the patient has had decreased pain and been more functional. Oral medications have been reduced including intake of oral opioids. Patient continues to do well with intrathecal therapy with decrease in pain symptoms and increase in functional status. Stopping intrathecal medications can lead to life threatening withdrawal, seizures, cardiac arrest, severe pain, and possible . Pumps that are not refilled at regular intervals can be damages and cause and need for replacement. We continu ally titrate dose and concentration to optimize pain relief and function. We are limited in concentration for certain drugs to safely deliver medications through the pump and stay within the recommendations from the Polyanalgesic Consensus Committee Guidelines. Depending on dose and concentration these pumps may need to be refilled sooner than 3 months as we titrate.
== END 2023-12-17 23:59 | disposition home or self-care (01) ==
PROVIDERS: PCP Physician Assistant; Visit Provider Nurse Practitioner Family
DX: G89.4 Chronic pain syndrome (principal); M51.36 Other intervertebral disc degeneration, lumbar region
CPT/HCPCS: 62368; 99213; G0463

== ENCOUNTER 2023-12-17 13:48 | Outpatient (CLI) | payer OTHER, SELFPAY | END 2023-12-17 23:59 | disposition home or self-care (01) | LOC: LAB.DROPOF 13:48 | PROVIDERS: PCP Physician Assistant; Visit Provider Physician Assistant | DX: N39.0 Urinary tract infection, site not specified (principal) | CPT/HCPCS: 87086 ==

== ENCOUNTER 2023-12-27 06:11 | Outpatient (CLI) | payer OTHER, SELFPAY ==
--- NOTE | 2023-12-27 06:31 | CT_ITS ---
FINAL REPORT TECHNIQUE: Thin section axial images were obtained from the lung bases to the pubic symphysis without IV contrast. Coronal and sagittal reconstruction images were obtained from the axial data. Exam was performed using dose reduction technique. CLINICAL HISTORY: right flank pain COMPARISON: 08/03/2022 FINDINGS: There are no renal or ureteral stones. There is no hydronephrosis or perinephric stranding. The gallbladder is present. The patient has undergone a prior splenectomy, and there are multiple splenules in the left upper quadrant and the right paracolic gutter, also likely splenules. The right adrenal nodule seen on the prior CT of 2022 remains stable. The remaining unenhanced solid abdominal organs are unremarkable. There is no evidence of small bowel obstruction. The appendix is normal. GI tract is without acute abnormality. There is moderate retained stool in the colon. The uterus is absent. There is no lymphadenopathy or ascites. No acute osseous abnormality is identified. IMPRESSION: No renal or ureteral stones. No hydronephrosis. Left adrenal nodule, stable since the prior CT. Multiple are again identified in the abdomen, stable since the prior CT. Reviewed, Interpreted and Dictated by Meggan Espinoza MD Transcribed by Saniay Munoz Authenticated and [facility]
== END 2023-12-27 23:59 | disposition home or self-care (01) ==
PROVIDERS: PCP Physician Assistant; Visit Provider Physician Assistant
DX: R10.9 Unspecified abdominal pain (principal)
CPT/HCPCS: 74176

== ENCOUNTER 2024-03-26 14:20 | Outpatient (POV) | payer OTHER, SELFPAY ==
[2024-03-26 14:41] VITALS: BP 158/95; PULSE 89; RESP 16; O2SAT 99; BMI 40.4
--- NOTE | 2024-03-26 14:44 | P.PCN_ITS ---
Procedure Date: 03/26/24 Time: 14:44 Anesthesiologist:: Angela Krause APRN Complications:: None Pre-procedure Diagnosis:: Degenerative disc disease of lumbar spine with lumbar radiculopathy symptoms Post-procedure Diagnosis:: Same Indications for Procedure:: Patient is a pleasant 58-year-old female who presents today for adjustment and reprogram. She rates her pain today overall 0 out of 10 in her back however does state that she has been having more issues with her right hip giving out. She states it just locks up randomly and that it has been happening a little bit more frequently. Patient also states she has been having trouble with her bolus device. Patient states that it just seems to stall out and take longer to find the device before delivering the bolus. She is currently managed with morphine 5 mg/mL with a daily dose of morphine 0.514 mg/day. She denies any side effects from this medication. She does also state that her next pump refill is on the and that she needs to move this that her mother has an appointment on that same date. Her Jerrell has been reviewed and is appropriate. Physical Exam: General: Alert and oriented x3, no acute distress, pleasant and cooperative Lungs: Respirations even and unlabored, symmetrical chest expansion Eyes: PERRL Musculoskeletal: Flexion and extension of lumbar [spine] somewhat guarded secondary to pain, [antalgic gait noted] Neurological: Speech clear, no gross sensory deficit Procedure Details:: Informed consent was obtained and the risk and benefits of the procedure were explained to the patient. Patient was taken to the procedure room where noninvasive monitoring was placed including noninvasive blood pressure cuff and pulse oximeter. Patient's pump was interrogated and was reprogrammed to morphine 0.566 mg/day. The patient tolerated the procedure well with no complications. Plan and Disposition:: Patient tolerated her intrathecal increase with no complications and was discharged neurologically intact. I did discuss with the patient due to the current intrathecal pump company no longer being in service we cannot do anything about the PTC device. I did discuss with her that the neck step would be to have her pump replaced with a [employer] device. Patient states she would like to hold off on this at this time. I did also discuss with the patient in future she may benefit from a intra-articular hip injection. We will follow-up with this at future visits. Patient will return to clinic on or before her next intrathecal refill date. We will see the patient back in the clinic at the next intrathecal refill. Patient has been instructed to contact the clinic with any concerns before the next appointment. Dr. Adams has reviewed this note and agrees with this plan of care. This note was dictated using voice recognition software and make contain errors or omissions. -- It Is medically necessary for this patient to continue to have their intrathecal pump refilled at regular intervals. This patient had an intrathecal pain pump implanted after meeting criteria of chronic intractable pain for greater than 3 months and failing conservative treatments. Patient has committed and been compliant to the treatment plan and all planned follow up care. Since implantation of the intrathecal pain pump, the patient has had decreased pain and been more functional. Oral medications have been reduced including intake of oral opioids. Patient continues to do well with intrathecal therapy with decrease in pain symptoms and increase in functional status. Stopping intrathecal medications can lead to life threatening withdrawal, seizures, cardiac arrest, severe pain, and possible . Pumps that are not refilled at regular intervals can be damages and cause and need for replacement. We continually titrate dose and concentration to optimize pain relief and function. We are limited in concentration for certain drugs to safely deliver medications through the pump and stay within the recommendations from the Polyanalges[employer] Consensus Committee Guidelines. Depending on dose and concentration these pumps may need to be refilled sooner than 3 months as we titrate.
== END 2024-03-26 23:59 | disposition home or self-care (01) ==
PROVIDERS: PCP Student in an Organized Health Care Education/Training Program; Visit Provider Nurse Practitioner Family
DX: M51.16 Intervertebral disc disorders with radiculopathy, lumbar region (principal)
CPT/HCPCS: 62368; 99212; G0463

== ENCOUNTER 2024-03-31 10:34 | Outpatient (CLI) | payer OTHER, SELFPAY ==
[2024-03-31 18:12] LABS: Basophils # 0.1 K/mm3 (0-0.2); Basophils % 1.1 % (0.1-2.0); Eosinophils # 0.4 K/mm3 (0.0-0.4); Hematocrit 39.4 % (37.0-47.0); Hemoglobin 12.8 g/dL (12.2-16.2); Lymphocytes # 2.4 K/mm3 (0.7-4.5); Lymphocytes % 36.7 % (10-50); Mean Corpuscular HGB Conc 32.5 g/dL (31.8-35.4); Mean Corpuscular Hemoglobin 30.8 pg (27.0-31.2); Mean Corpuscular Volume 94.8 fl (81-99); Mean Platelet Volume 9.3 fl (7.4-10.4); Monocytes # 0.5 K/mm3 (0.1-1.0); Monocytes % 7.9 % (1.7-9.3); Neutrophils # 3.2 K/mm3 (1.8-7.8); Neutrophils % 48.3 % (37.0-80.0); Platelet Count 430 K/mm3 (142-424); Red Blood Count 4.16 M/mm3 (4.20-5.40); Red Cell Distribution Width 12.8 % (11.5-17.5); White Blood Count 6.6 K/mm3 (4.8-10.8)
[2024-03-31 19:22] LABS: Alanine Aminotransferase 22 U/L (12-78); Albumin Level 3.9 g/dl (3.5-5.0); Albumin/Globulin Ratio 1.6 (1.1-1.8); Alkaline Phosphatase 121 U/L (38-126); Aspartate Amino Transferase 26 U/L (14-36); Bilirubin,Total 0.4 mg/dl (0.2-1.3); Blood Urea Nitrogen 23 mg/dl (7-17); Calcium 9.9 mg/dl (8.4-10.2); Carbon Dioxide 31 mmol/L (22.0-30.0); Chloride 99 mmol/L (98-107); Chol/HDL Ratio 2.4 (1-3.5); Cholesterol 124 mg/dl (140-200); Estimated Glomerular Filt Rate 87 ml/min (>60); GFR (African American) 105 ML/MIN (>60); Globulin 2.5 g/dL (1.3-3.2); Glucose 290 mg/dl (74-100); HDL Cholesterol 51 mg/dl (40-60); Magnesium 1.1 mg/dl (1.6-2.3); Sodium 138 mmol/L (136-145); Total Protein,Serum 6.4 g/dl (6.3-8.2); Triglycerides 93 mg/dl (30-150); VLDL Cholesterol 19 mg/dL (0-40)
[2024-03-31 19:33] LABS: Hemoglobin A1C 12.6 % (4.0-6.0)
[2024-03-31 19:39] LABS: 25-OH Vitamin D, Total 25.1 ng/mL (30-100); Direct LDL Cholesterol 58.13 mg/dL (100-129)
[2024-03-31 19:51] LABS: Thyroid Stimulating Hormone 1.49 uIU/mL (0.465-4.68)
== END 2024-03-31 23:59 | disposition home or self-care (01) ==
LOC: LAB.DROPOF 04-01 10:34
PROVIDERS: PCP Student in an Organized Health Care Education/Training Program; Visit Provider Student in an Organized Health Care Education/Training Program
DX: E83.42 Hypomagnesemia (principal); E11.69 Type 2 diabetes mellitus with other specified complication; E66.9 Obesity, unspecified; Z68.41 Body mass index [BMI] 40.0-44.9, adult; E04.9 Nontoxic goiter, unspecified; Z79.84 Long term (current) use of oral hypoglycemic drugs; Z79.85 Long-term (current) use of injectable non-insulin antidiabetic drugs
CPT/HCPCS: 80050; 80053; 80061; 82306; 83036; 83735; 84443; 85025

== ENCOUNTER 2024-04-08 14:01 | Outpatient (CLI) | payer OTHER, SELFPAY ==
[2024-04-08 16:17] LABS: Microalbumin/Creatinine Ratio 6.7
[2024-04-08 16:33] LABS: Magnesium 0.9 mg/dl (1.6-2.3)
[2024-04-08 16:46] LABS: Creatinine,Urine Random 140 mg/dL (Not Estab.)
[2024-04-10 14:17] LABS: Peripheral Smear Review Scanned Result
== END 2024-04-08 23:59 | disposition home or self-care (01) ==
LOC: LAB 14:03
PROVIDERS: PCP Student in an Organized Health Care Education/Training Program; Visit Provider Student in an Organized Health Care Education/Training Program
DX: E11.69 Type 2 diabetes mellitus with other specified complication (principal); D75.839 Thrombocytosis, unspecified; E83.42 Hypomagnesemia
CPT/HCPCS: 36415; 82043; 82570; 83735

== ENCOUNTER 2024-04-08 17:23 | Emergency (ER) | payer OTHER, SELFPAY ==
[2024-04-08] VITALS (9 sets, daily range): BP systolic 116–168; BP diastolic 76–94; PULSE 81–94; RESP 18; TEMP 36.8; O2SAT 95–98; BMI 42.2
--- NOTE | 2024-04-08 17:35 | PC.NURSE ---
dr lowe at bedside
--- NOTE | 2024-04-08 17:41 | HMH.EDGENADL ---
Discharge Plan Disposition Patient Disposition: Home, Self-Care Condition: Good Prescriptions Prescriptions: No Action (DME) insulin pump cartridge Cartridge See Rx Instructions .ROUTE .MEDSUPPLY Qty: 10 0RF Rx Instructions: As directed atorvastatin 10 mg tablet 10 mg PO DIRECTED Patient Comments: TAKE 1 TABLET BY MOUTH ONCE DAILY FOR CHOLESTEROL gabapentin 400 mg capsule 400 mg PO TID Qty: 90 2RF montelukast 10 mg tablet 10 mg PO DAILY magnesium chloride 64 mg tablet,delayed release (DR/EC) 64 mg PO DAILY Qty: 30 0RF semaglutide 2 mg/dose (8 mg/3 mL) pen injector 2 mg SQ WEEKLY Qty: 3 0RF cholecalciferol (vitamin D3) 50 mcg (2,000 unit) capsule 50 mcg PO DAILY Qty: 90 0RF celecoxib 50 mg capsule See Rx Instructions .ROUTE .COMPLEX Qty: 60 0RF Dose Instruction: Take 1 capsule by mouth twice daily Rx Instructions: Take 1 capsule by mouth twice daily (DME) Dexcom G6 Sensor Device See Rx Instructions .ROUTE .COMPLEX Qty: 3 12RF Dose Instruction: USE DIRECTED TO TEST BLOOD SUGAR LEVEL Rx Instructions: USE DIRECTED TO TEST BLOOD SUGAR LEVEL metformin 1,000 mg tablet See Rx Instructions .ROUTE .COMPLEX Qty: 180 0RF Dose Instruction: TAKE 1 TABLET BY MOUTH TWICE DAILY FOR DIABETES Rx Instructions: TAKE 1 TABLET BY MOUTH TWICE DAILY FOR DIABETES benazepril-hydrochlorothiazide 20-25 mg tablet See Rx Instructions .ROUTE .COMPLEX Qty: 180 0RF Dose Instruction: Take 1 tablet by mouth twice daily for 90 days Rx Instructions: Take 1 tablet by mouth twice daily for 90 days potassium chloride 20 mEq tablet,ER particles/crystals See Rx Instructions .ROUTE .COMPLEX Qty: 90 0RF Dose Instruction: TAKE 1 BY MOUTH ONCE DAILY Rx Instructions: TAKE 1 BY MOUTH ONCE DAILY insulin lispro 100 unit/mL solution See Rx Instructions .ROUTE .COMPLEX Qty: 10 0RF Dose Instruction: INJECT 100 UNITS SUBCUTANEOUSLY DIRECTED PER OMNIPOD, MAX DAILY DOSE OF 36 UNITS Rx Instructions: INJECT 100 UNITS SUBCUTANEOUSLY DIRECTED PER OMNIPOD, MAX DAILY DOSE OF 36 UNITS (DME) Dexcom G6 Transmitter Device See Rx Instructions .ROUTE .COMPLEX Qty: 5 3RF Dose Instruction: USE DIRECTED TO TEST BLOOD GLUCOSE LEVEL Rx Instructions: USE DIRECTED TO TEST BLOOD GLUCOSE LEVEL (DME) Omnipod Dash Pods (Gen 4) Cartridge See Rx Instructions .ROUTE .COMPLEX Qty: 30 0RF Dose Instruction: USE DIRECTED FOR DIABETES CHANGE EVERY 3 DAYS Rx Instructions: USE DIRECTED FOR DIABETES CHANGE EVERY 3 DAYS (DME) pen needle, diabetic 1 EACH needle See Rx Instructions .Route .MEDSUPPLY Rx Instructions: As directed (DME) insulin syringe-needle U-100 1 EACH syringe See Rx Instructions .Route .COMPLEX Rx Instructions: USE 1 SYRINGE THREE TIMES DAILY (DME) lancets 1 EACH misc See Rx Instructions .Route .COMPLEX Rx Instructions: USE 1 TO CHECK GLUCOSE TWICE DAILY (DME) subcutaneous insulin pump 1 EACH misc See Rx Instructions .Route DAILY Rx Instructions: As directed (DME) Dexcom G6 [employer] Misc See Rx Instructions .ROUTE .COMPLEX Rx Instructions: USE DIRECTED TO TEST BLOOD GLUCOSE LEVEL cyclobenzaprine 5 mg tablet 5 mg PO TID PRN (Reason: muscle spasm) Qty: 30 0RF (DME) blood sugar diagnostic 1 EACH strip See Rx Instructions .Route .MEDSUPPLY Rx Instructions: Test sugar three daily (DME) lancets 1 EACH misc See Rx Instructions .Route .MEDSUPPLY Rx Instructions: Test sugar three daily amantadine HCl 100 mg tablet 100 mg PO DAILY bisoprolol fumarate 10 mg tablet 10 mg PO DAILY Patient Comments: TAKE 1 TABLET BY MOUTH ONCE DAILY famotidine 20 mg tablet 40 mg PO DAILY Patient Comments: TAKE 2 TABLETS BY MOUTH ONCE DAILY glimepiride 4 mg tablet 4 mg PO DAILY Patient Comments: TAKE 1 TABLET BY MOUTH TWICE DAILY lansoprazole 30 mg capsule,delayed release(DR/EC) 30 mg PO DAILY Patient Comments: TAKE 1 CAPSULE BY MOUTH ONCE DAILY Referrals Follow up/Referrals: Evie Wakefield PA [Primary Care Provider] - See instructions Activity Restrictions/Add. Instructions Additional Instructions/Restrictions: You were evaluated in the emergency department today. Please follow-up closely with your primary care provider for reassessment of your magnesium. Continue taking your supplements at home. Return to the emergency department for new or worsening symptoms. Clinical Impressions Clinical Impression: Hypomagnesemia, Chest pain Stand Alone Forms Stand Alone Forms: Work/School Release Instructions Patient Instructions: DI for Atypical Chest Pain, DI for Chest Pain, DI for Hypomagnesemia Print Language Print Language: Vietnamese Discharge ED Provider: Angela Locke General Adult HPI General Chief complaint: Recheck/Abnormal Lab/Rx Stated complaint: Abnormal Lab Time Seen by Provider: 04/08/24 17:29 Mode of Arrival: Ambulatory Limitations: No Limitations Description of Symptoms (Recalled from ER Triage Doc. by RN): pt at pcp for routine labs, reports fatigue. called by md to come to ed for low mag level History of Present Illness HPI narrative: This patient is a 58-year-old female with a history of diabetes, hypertension, hyperlipidemia, diabetic neuropathy, chronic hypomagnesemia, and anxiety presenting to the emergency department for evaluation with concern for abnormal labs. Patient notes that she has had issues with her magnesium in the past and has had to come to the ED for muscle cramping and magnesium infusion in the past. She notes that she saw her primary care provider for some fatigue and muscle cramps and had labs drawn today. They called her with magnesium less than 1 and told her to come to the ED. She notes she has been feeling a little bit fatigued and has had some cramps, but nothing severe. She notes she is otherwise been in her usual state of health. She does recall having a brief episode of chest pressure yesterday, but she states this was resolved and she is felt fine today. Related Data Home Medications ?Medication ?Instructions ?Recorded ?Confirmed pen needle, diabetic 29 gauge x 11/25/19 03/31/24 1 blood sugar diagnostic 08/13/20 03/31/24 lancets 30 gauge 08/13/20 03/31/24 insulin syringe-needle U-100 1 mL 05/20/21 03/31/24 31 gauge x 15/64 lancets 33 gauge 05/20/21 03/31/24 subcutaneous insulin pump 08/11/21 03/31/24 blood-glucose meter,continuous 12/04/22 03/31/24 ([employer] G6 [employer]) amantadine HCl 100 mg tablet 100 mg PO DAILY 11/26/23 03/31/24 bisoprolol fumarate 10 mg tablet 10 mg PO DAILY 11/26/23 03/31/24 famotidine 20 mg tablet 40 mg PO DAILY 11/26/23 03/31/24 glimepiride 4 mg tablet 4 mg PO DAILY 11/26/23 03/31/24 lansoprazole 30 mg capsule,delayed 30 mg PO DAILY 11/26/23 03/31/24 release atorvastatin 10 mg tablet 10 mg PO DIRECTED 12/12/23 03/31/24 montelukast 10 mg tablet 10 mg PO DAILY 03/31/24 03/31/24 Previous Rx's ?Medication ?Instructions ?Recorded insulin pump cartridge #10 ea 08/08/21 cyclobenzaprine 5 mg tablet 5 mg PO TID PRN muscle spasm #30 11/27/23 tabs gabapentin 400 mg capsule 400 mg PO TID #90 caps 12/12/23 celecoxib 50 mg capsule See Rx Instructions .Route 12/29/23 .COMPLEX #60 caps blood-glucose sensor (Dexcom G6 #3 ea 12/31/23 Sensor device) metformin 1,000 mg tablet See Rx Instructions .Route 02/13/24 .COMPLEX #180 tabs benazepril 20 See Rx Instructions .Route 03/03/24 mg-hydrochlorothiazide 25 mg tablet .COMPLEX #180 tabs insulin lispro 100 unit/mL See Rx Instructions .Route 03/03/24 subcutaneous solution .COMPLEX #10 mL potassium chloride 20 mEq See Rx Instructions .Route 03/03/24 tablet,extended release(part/cryst) .COMPLEX #90 tabs cholecalciferol (vitamin D3) 50 50 mcg PO DAILY #90 caps 04/01/24 mcg (2,000 unit) capsule magnesium chloride 64 mg 64 mg PO DAILY #30 tabs 04/01/24 (magnesium chloride) tablet,delayed release semaglutide 2 mg/dose (8 mg/3 mL) 2 mg (0.75 mL) SQ WEEKLY #3 mL 04/01/24 subcutaneous pen injector blood-glucose transmitter (Dexcom #5 ea 04/07/24 G6 Transmitter device) insulin pump cart,cont inf,BT #30 ea 04/08/24 (Omnipod Dash Pods (Gen 4) subcutaneous cartridge) Allergies Allergy/AdvReac Type Severity Reaction Status Date / Time propoxyphene [PROPOXYPHENE] Allergy Unknown Verified 03/31/24 08:41 [facility] Disclaimer: The information contained in this section may have been updated after the patient was seen, as this information can be updated by other users. Medical History Palpitations Retention cyst of nasal cavity Multinodular goiter Goiter H. pylori infection Anxiety Diabetic retinopathy Edema Urinary tract infection History of COVID-19 History of gastroesophageal reflux (GERD) Hemorrhoid Hypertension Hyperlipidemia Heart murmur Edema History of anemia Carpal tunnel syndrome, bilateral Hypertension Diabetes Allergic rhinitis Diastolic dysfunction Michele's palsy Positive colorectal cancer screening using Cologuard test Intra-abdominal lymphadenopathy Elevated lipase Leukocytosis Surgical History History of colonoscopy History of esophagogastroduodenoscopy (EGD) H/O splenectomy History of carpal tunnel surgery Hx of removal of cyst History of partial hysterectomy Family History Sister Thyroid disorder Social History Smoking Status: Never smoker second hand exposure: Yes alcohol intake: never substance use type: denies use current occupational status: other Travel in the last 8 weeks: None housing: house number of children: 2 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 current occupational exposures/hazards: No caffeine: Yes Other Medical History Have you received the Flu Vaccine for this season: Yes Have you received the Pneumonia Vaccine: No ROS Obtained: Yes All systems reviewed & no additional complaints except as documented Physical Exam General General appearance: alert and in no apparent distress Head Head exam: atraumatic and normocephalic Eye Eye exam: Present normal appearance, PERRL and EOMI ENT ENT exam: Present normal exam, normal oropharynx, mucous membranes moist and normal external ear exam Neck Neck exam: Present normal inspection, full ROM and trachea midline; Absent tenderness Chest Chest inspection: Present normal inspection and symmetric chest wall rise; Absent tenderness Respiratory Respiratory exam: Present normal lung sounds bilaterally; Absent respiratory distress, wheezes, stridor or accessory muscle use Cardiovascular Cardiovascular exam: Present regular rate and normal rhythm Abdominal Exam Abdominal exam: Present soft; Absent distention, tenderness or guarding Extremities Exam Extremities exam: Present normal inspection, full ROM and normal capillary refill; Absent tenderness or edema Back Exam Back exam: Present normal inspection and full ROM; Absent tenderness Neurological Exam Neurological exam: Present alert, oriented X3, CN II-XII intact and normal gait; Absent motor sensory deficit Psychiatric Psychiatric exam: Present normal affect and normal mood Skin Skin exam: Present warm and dry Medical Decision Making Medical Records Medical records reviewed: Yes I reviewed the patient's medical records. Screening: Per USPSTF and CDC recommendations, given the prevalence of disease in our region, it is our hospital?s policy to screen for HIV and viral Hepatitis for all patients aged 18 and over and those with ongoing risk factors. Jerrell Inquiry Pt receiving controlled substance: No Vital Signs: 04/08/24 17:24 04/08/24 17:33 04/08/24 18:00 Temperature 98.3 F Temperature Source Oral Pulse Rate 93 H 84 Pulse Rate [Radial] 94 H Respiratory Rate 18 Blood Pressure 158/88 H 123/80 Blood Pressure [Right Arm] 168/94 H Blood Pressure Mean 94 Blood Pressure Mean [Right Arm] 118 Blood Pressure Source Blood Pressure Source [Right Arm] Automatic Cuff Blood Pressure Position [Right Arm] Sitting 02 Sat by Pulse Oximetry 97 98 96 Oxygen Delivery Method Room Air Room Air Room Air 04/08/24 18:20 04/08/24 18:40 04/08/24 19:00 Temperature Temperature Source Pulse Rate 89 82 83 Pulse Rate [Radial] Respiratory Rate Blood Pressure 116/78 123/77 123/77 Blood Pressure [Right Arm] Blood Pressure Mean 87 94 90 Blood Pressure Mean [Right Arm] Blood Pressure Source Blood Pressure Source [Right Arm] Blood Pressure Position [Right Arm] 02 Sat by Pulse Oximetry 95 95 95 Oxygen Delivery Method Room Air Room Air Room Air 04/08/24 19:20 04/08/24 20:00 04/08/24 20:25 Temperature 98.3 F Temperature Source Oral Pulse Rate 81 83 Pulse Rate [Radial] Respiratory Rate 18 Blood Pressure 135/85 125/76 Blood Pressure [Right Arm] Blood Pressure Mean Blood Pressure Mean [Right Arm] Blood Pressure Source Automatic Cuff Blood Pressure Source [Right Arm] Blood Pressure Position [Right Arm] 02 Sat by Pulse Oximetry 96 97 Oxygen Delivery Method Room Air Room Air Lab Data Lab results reviewed: Yes I reviewed the patient's lab results. Lab Results 04/08/24 17:30: WBC 8.3, RBC 4.31, Hgb 13.0, Hct 39.2, MCV 90.9, MCH 30.2, MCHC 33.2, RDW 13.0, Plt Count 425 H, MPV 8.5, Neut % (Auto) 45.7, Lymph % (Auto) 41.5, [place] % (Auto) 6.2, Eos % (Auto) 5.7, Baso % (Auto) 1.0, Neut # (Auto) 3.8, Lymph # (Auto) 3.4, [place] # (Auto) 0.5, Eos # (Auto) 0.5 H, Baso # (Auto) 0.1, Sodium 139, Potassium 3.7, Chloride 96 L, Carbon Dioxide 29, Anion Gap 17.7 H, BUN 25 H, Creatinine 0.90, Estimated Creat Clear 55, Estimated GFR 65, Est GFR ( Amer) 78, Glucose 268 H, Calcium 8.8, Phosphorus 4.2, Magnesium 0.9 L, Total Bilirubin 0.5, AST 27, ALT 24, Alkaline Phosphatase 115, Troponin I < 0.01, Total Protein 7.1, Albumin 4.2, Globulin 2.9, Albumin/Globulin Ratio 1.4, HIV 1&2 Antibody Rapid Nonreactive 04/08/24 19:48: Troponin I < 0.01 04/08/24 17:30 04/08/24 17:30 Orders (Tests/Meds): ED MEDICATIONS Discontinued Medications Generic Name Dose Route Start Last Admin Trade Name Freq PRN Reason Stop Dose Admin Magnesium Sulfate 2 gm in 50 mls @ 50 mls/hr 04/08/24 17:57 04/08/24 18:03 Magnesium Sulfate 2gm/50ml Premix IV 04/08/24 18:56 50 mls/hr ONCE ONE Administration Magnesium Sulfate 2 gm in 50 mls @ 50 mls/hr 04/08/24 17:58 04/08/24 18:58 Magnesium Sulfate 2gm/50ml Premix IV 04/08/24 18:57 50 mls/hr ONCE ONE Administration ORDERS Category Date Time Status Complete Blood Count Auto Diff Stat Lab 04/08/24 17:30 Completed Comprehensive Metabolic Panel Stat Lab 04/08/24 17:30 Completed HIV (1&2) Antibody Rapid Stat Lab 04/08/24 17:30 Completed Hep C Ab with Reflex to RNA Stat Lab 04/08/24 17:36 Received MAG [Magnesium] Stat Lab 04/08/24 17:30 Completed PHOS [Phosphorous] Stat Lab 04/08/24 17:30 Completed Trop I [Troponin I] Stat Lab 04/08/24 17:30 Completed Troponin I Q3H Lab 04/08/24 19:48 Completed ECG Data Tracing #1: I reviewed this ECG and interpreted as documented below: Normal sinus rhythm with a ventricular rate of 87 bpm. Mild intraventricular conduction delay. No acute ST changes concerning for ischemia. ECG initial impression date: 04/08/24 ECG initial impression time: 17:42 Tracing #2: I reviewed this ECG and interpreted as documented below: Normal sinus rhythm with a ventricular rate of 80 bpm, moderate intraventricular conduction delay. ECG initial impression date: 04/08/24 ECG initial impression time: 19:27 HEART Score History (anamnesis): Slightly suspicious ECG: Normal Age: 45-65 years Risk factors: 3 or more risk factors Troponin: </= normal limit HEART Score: 3 Medical Decision Narrative: In summary, this patient is a 58-year-old female presenting to the Emergency Department for evaluation of low magnesium level on outpatient lab. Differential diagnoses considered include but are not limited to hypomagnesemia, hypokalemia, hypophosphatemia, dehydration. Ruling out the most morbid conditions drove assessment. It should be noted patient's history includes diabetes, hypertension, hyperlipidemia, chronic hypomagnesemia which may or may not be at goal therapy. This complicates all aspects of care by increasing patient's risk for morbidity. I reviewed patient's past medical records and noted previous evaluations in the past for hypomagnesemia as well as her prior lab evaluation. On exam, the patient is lying in bed in no acute distress with reassuring vital signs on cardiac telemetry. EKG is obtained and reassuring. Workup included CBC, CMP, magnesium, phosphorus, EKG. Labs were obtained that demonstrated hypomagnesemia with a magnesium of 0.9. No other obvious electrolyte derangements. 4 g of IV magnesium were ordered for infusion. I also sent troponins given the patient complaining of some chest pain yesterday and now has some left arm pain. Initial troponin negative. At 1800, patient was placed in ED observation status pending magnesium replacement and serial troponins to determine whether or not the patient would be appropriate for discharge versus admission. The patient was provided serial reevaluations and cardiac monitoring while awaiting ultimate disposition. Troponins negative x 2. Magnesium was replaced and patient continues to have reassuring vital signs on cardiac telemetry. Repeat EKG was obtained and is still reassuring with no significant changes. Patient states she is feeling fine and is ready to go home. Advised her that often we admit people for monitoring with hypomagnesemia, but she states that she is feeling fine and would like to go. Given her magnesium is chronically low and she has close follow-up with PCP and is on oral magnesium at home, I do feel that patient directed discharge is appropriate. She is given strict return precautions and was discharged after all questions were answered with instructions to follow-up very closely with primary care for recheck of her magnesium. Critical Care Critical Care Time Critical Care Time: No
--- NOTE | 2024-04-08 17:41 | ECG_ITS ---
APPROVED REPORT Exam: Resting ECG HR:87 bpm ECG Measurements Heart Rate 87 AXES AZ 169 P -16 QRSd 114 QRS 32 QT 377 T 46 QTc 421 Conclusion SINUS RHYTHM MODERATE INTRAVENTRICULAR CONDUCTION DELAY [110+ ms QRS DURATION] BORDERLINE ECG Electronically signed by : RUDY ANTONIO, 04/08/2024 22:53:12
[2024-04-08 17:48] LABS: Alanine Aminotransferase 24 U/L (12-78); Albumin Level 4.2 g/dl (3.5-5.0); Albumin/Globulin Ratio 1.4 (1.1-1.8); Alkaline Phosphatase 115 U/L (38-126); Anion Gap 17.7 mEq/L (5-15); Aspartate Amino Transferase 27 U/L (14-36); Bilirubin,Total 0.5 mg/dl (0.2-1.3); Blood Urea Nitrogen 25 mg/dl (7-17); Calcium 8.8 mg/dl (8.4-10.2); Carbon Dioxide 29 mmol/L (22.0-30.0); Chloride 96 mmol/L (98-107); Creatinine Clearance Estimated 55 mL/min (50-200); Estimated Glomerular Filt Rate 65 ml/min (>60); GFR (African American) 78 ML/MIN (>60); Globulin 2.9 g/dL (1.3-3.2); Glucose 268 mg/dl (74-100); Phosphorous 4.2 mg/dl (2.5-4.5); Potassium 3.7 mmoL/L (3.5-5.1); Sodium 139 mmol/L (136-145); Total Protein,Serum 7.1 g/dl (6.3-8.2)
[2024-04-08 17:50] LABS: Basophils # 0.1 K/mm3 (0-0.2); Eosinophils # 0.5 K/mm3 (0.0-0.4); Eosinophils % 5.7 % (0.1-12.0); Hematocrit 39.2 % (37.0-47.0); Lymphocytes # 3.4 K/mm3 (0.7-4.5); Lymphocytes % 41.5 % (10-50); Mean Corpuscular HGB Conc 33.2 g/dL (31.8-35.4); Mean Corpuscular Hemoglobin 30.2 pg (27.0-31.2); Mean Corpuscular Volume 90.9 fl (81-99); Mean Platelet Volume 8.5 fl (7.4-10.4); Monocytes # 0.5 K/mm3 (0.1-1.0); Monocytes % 6.2 % (1.7-9.3); Neutrophils # 3.8 K/mm3 (1.8-7.8); Neutrophils % 45.7 % (37.0-80.0); Platelet Count 425 K/mm3 (142-424); Red Blood Count 4.31 M/mm3 (4.20-5.40); White Blood Count 8.3 K/mm3 (4.8-10.8)
[2024-04-08 17:56] LABS: Magnesium 0.9 mg/dl (1.6-2.3)
[2024-04-08] MEDS: MAGNESIUM SULFATE IN WATER 2 GM/50 ML PIGGYBACK IV ×2 (18:03→18:58)
--- NOTE | 2024-04-08 18:22 | PC.NURSE ---
rounded on pt, no needs at this time. call light within reach
[2024-04-08 18:36] LABS: HIV (1&2) Antibody Rapid NONREACTIVE (NONREACTIVE)
--- NOTE | 2024-04-08 19:25 | ECG_ITS ---
APPROVED REPORT Exam: Resting ECG HR:80 bpm ECG Measurements Heart Rate 80 AXES DC 180 P -9 QRSd 113 QRS 55 QT 391 T 60 QTc 427 Conclusion SINUS RHYTHM MODERATE INTRAVENTRICULAR CONDUCTION DELAY [110+ ms QRS DURATION] BORDERLINE ECG Electronically signed by : RUDY ANTONIO, 04/08/2024 22:52:31
[2024-04-08 19:49] LABS: Troponin I < 0.01 ng/ml (0.00-0.034)
[2024-04-08 20:18] LABS: Troponin I < 0.01 ng/ml (0.00-0.034)
[2024-04-10 06:14] LABS: HCV Ab Non Reactive (Non Reactive)
== END 2024-04-08 20:34 | disposition home or self-care (01) ==
PROVIDERS: Emergency Provider Emergency Medicine; PCP Student in an Organized Health Care Education/Training Program
DX: R53.83 Other fatigue (principal); E83.42 Hypomagnesemia; R79.9 Abnormal finding of blood chemistry, unspecified; R25.2 Cramp and spasm; R07.9 Chest pain, unspecified
CPT/HCPCS: 80053; 83735; 84100; 84484; 85025; 86803; 87389; 93005; 96365; 96366; 99283; J3475

== ENCOUNTER 2024-04-09 13:03 | Outpatient (CLI) | payer OTHER, SELFPAY | END 2024-04-09 23:59 | disposition home or self-care (01) | LOC: LAB 13:04 | PROVIDERS: PCP Student in an Organized Health Care Education/Training Program; Visit Provider Student in an Organized Health Care Education/Training Program | DX: Z02.9 Encounter for administrative examinations, unspecified (principal) ==

== ENCOUNTER 2024-04-11 13:37 | Outpatient (CLI) | payer OTHER, SELFPAY ==
[2024-04-12 08:36] LABS: Magnesium, Urine 24 Hr 125.4 mg/24 hr (12.0-293.0)
== END 2024-04-11 23:59 | disposition home or self-care (01) ==
LOC: LAB 13:37
PROVIDERS: PCP Student in an Organized Health Care Education/Training Program; Visit Provider Student in an Organized Health Care Education/Training Program
DX: E83.42 Hypomagnesemia (principal)
CPT/HCPCS: 83735

== ENCOUNTER 2024-04-14 15:38 | Outpatient (CLI) | payer OTHER, SELFPAY ==
--- NOTE | 2024-04-14 15:39 | MM_ITS ---
PROCEDURE INFORMATION: Exam: MG Bilateral Screening 3D Mammography Exam date and time: 04/14/2024 3:44 PM Age: 58 years old Clinical indication: Screening examination. TECHNIQUE: Imaging protocol: Bilateral Screening tomosynthesis and 2D mammography including computer-aided detection (CAD) when performed. COMPARISON: 1. MG MM DIG SCREENING MAMM BI W/CAD 05/24/2022 10:42 AM 2. MG MM DIG SCREENING MAMM BI W/CAD 11/30/2020 9:49 AM FINDINGS: MAMMOGRAPHY: Breast composition: There are scattered areas of fibroglandular density. Mass: None. Architectural distortion: None. Calcifications: No suspicious calcifications. Asymmetric density: None. Skin thickening: None. Axillary adenopathy: None. IMPRESSION: No mammographic evidence of malignancy. Annual screening is recommended unless otherwise clinically indicated. ASSESSMENT: BI-RADS Category 1: Negative.
== END 2024-04-14 23:59 | disposition home or self-care (01) ==
LOC: RAD 15:39
PROVIDERS: PCP Student in an Organized Health Care Education/Training Program; Visit Provider Student in an Organized Health Care Education/Training Program
DX: Z12.31 Encounter for screening mammogram for malignant neoplasm of breast (principal)
CPT/HCPCS: 77063; 77067

== ENCOUNTER 2024-04-15 09:18 | Day surgery (SDC) | payer OTHER, SELFPAY ==
[2024-04-15 09:48] VITALS: BP 125/74; PULSE 83; RESP 16; TEMP 36.4; O2SAT 97; BMI 42.2
[2024-04-15 10:00] VITALS: BP 136/90; PULSE 83; RESP 19; O2SAT 97
[2024-04-15 10:01] VITALS: BP 136/90; PULSE 83; RESP 19; O2SAT 97
[2024-04-15 10:18] VITALS: BP 131/75; PULSE 65; RESP 16; O2SAT 97
--- NOTE | 2024-04-15 11:29 | EXP.PAIN.PRO ---
Procedure Date: 04/15/24 Time: 10:15 Anesthesiologist:: Eric Underwood CRNA Complications:: None Pre-procedure Diagnosis:: Degenerative disc lumbar spine multilevels. Lumbar radiculopathy. Lumbar postlaminectomy syndrome. Post-procedure Diagnosis:: Same. Indications for Procedure:: Patient is a very pleasant 58-year-old female who comes our clinic today for intrathecal pain pump interrogation and refill. Patient currently being managed with morphine sulfate 5 mg/mL at a rate of 0.5660 mg/day. She is doing very well with her current settings. She is not reporting side effects or complications. She is not requesting any changes. Patient is awake alert [place] x 3. No acute distress. Flexion-extension lumbar spine somewhat guarded secondary to pain. Deep tendon reflexes upper and lower extremities normal. Motor strength upper and lower extremities normal. There is no gross sensory deficit. Gait is normal. Procedure Details:: Details of the procedure explained to the patient. The patient taken procedure and placed in sitting position. They over the pumps cleansed using chlorhexidine as a cleansing solution. The pump was interrogated. The pump was accessed with ease using a 22-gauge inch and half needle. 5 mL solution was withdrawn discarded appropriate. The pump was then filled with 20 cc of solution containing morphine sulfate 5 mg/mL. Patient tolerated procedure without difficulty. No complications. Plan and Disposition:: Patient was discharged without incident.
== END 2024-04-15 10:18 | disposition home or self-care (01) ==
LOC: SC.PAINP 09:19
PROVIDERS: PCP Student in an Organized Health Care Education/Training Program; Visit Provider Nurse Anesthetist, Certified Registered
DX: M51.16 Intervertebral disc disorders with radiculopathy, lumbar region (principal); M96.1 Postlaminectomy syndrome, not elsewhere classified
CPT/HCPCS: 95991

== ENCOUNTER 2024-04-21 13:41 | Outpatient (CLI) | payer OTHER, SELFPAY ==
[2024-04-21 15:32] LABS: Magnesium 1.2 mg/dl (1.6-2.3)
== END 2024-04-21 23:59 | disposition home or self-care (01) ==
LOC: LAB 13:41
PROVIDERS: PCP Student in an Organized Health Care Education/Training Program; Visit Provider Student in an Organized Health Care Education/Training Program
DX: E83.42 Hypomagnesemia (principal)
CPT/HCPCS: 36415; 83735

== ENCOUNTER 2024-04-28 10:32 | Outpatient (CLI) | payer OTHER, SELFPAY ==
[2024-04-28 19:08] LABS: Magnesium 1.4 mg/dl (1.6-2.3)
== END 2024-04-28 23:59 | disposition home or self-care (01) ==
LOC: LAB.DROPOF 05-01 10:33
PROVIDERS: PCP Student in an Organized Health Care Education/Training Program; Visit Provider Student in an Organized Health Care Education/Training Program
DX: R79.0 Abnormal level of blood mineral (principal)
CPT/HCPCS: 83735

== ENCOUNTER 2024-05-29 14:39 | Outpatient (CLI) | payer OTHER, SELFPAY ==
[2024-05-30 09:10] LABS: Magnesium, Urine 3.5 mg/dL (Not Estab.)
== END 2024-05-29 23:59 | disposition home or self-care (01) ==
LOC: LAB 14:39
PROVIDERS: PCP Student in an Organized Health Care Education/Training Program; Visit Provider Student in an Organized Health Care Education/Training Program
DX: E83.42 Hypomagnesemia (principal)
CPT/HCPCS: 83735

== ENCOUNTER 2024-07-07 13:13 | Outpatient (CLI) | payer OTHER, SELFPAY ==
--- NOTE | 2024-07-07 13:20 | US_ITS ---
FINAL REPORT TECHNIQUE: Real-time grayscale and color ultrasound of the thyroid was performed. CLINICAL HISTORY: hx thyromegley COMPARISON: 06/25/2023 FINDINGS: The thyroid gland measures 59 x 27 x 20 mm on the right and 58 x 21 x 23 mm on the left. The isthmus measures 7 mm. The parenchyma is unremarkable . Nodules: There are nodules in the right lobe of the thyroid which are predominantly cystic measuring up to 4 mm, TR 1. Ovoid nodule posterior to the right lobe of the thyroid measuring up to 27 x 14 mm. It is difficult to determine if this is intra or extracapsular. On some images it appears separate and on other it is indistinguishable. It is isoechoic, solid and consistent with a TR 3. It appears enlarged since the prior exam. IMPRESSION: 27 mm TR 3 ovoid nodule as above. Recommend biopsy per TI-RADS criteria. Reviewed, Interpreted and Dictated by Lexa Keith MD Transcribed by Bethanie Vivas Authenticated and . [facility]
== END 2024-07-07 23:59 | disposition home or self-care (01) ==
LOC: RAD 13:14
PROVIDERS: PCP Nurse Practitioner Family; Visit Provider Nurse Practitioner
DX: E04.2 Nontoxic multinodular goiter (principal)
CPT/HCPCS: 76536

== ENCOUNTER 2024-07-08 10:49 | Outpatient (CLI) | payer OTHER, SELFPAY ==
[2024-07-08 17:56] LABS: Basophils % 0.7 % (0.1-2.0); Eosinophils # 0.3 K/mm3 (0.0-0.4); Hematocrit 40.6 % (37.0-47.0); Hemoglobin 13.2 g/dL (12.2-16.2); Lymphocytes # 2.4 K/mm3 (0.7-4.5); Lymphocytes % 39.5 % (10-50); Mean Corpuscular HGB Conc 32.5 g/dL (31.8-35.4); Mean Corpuscular Hemoglobin 28.9 pg (27.0-31.2); Monocytes # 0.6 K/mm3 (0.1-1.0); Monocytes % 9.9 % (1.7-9.3); Neutrophils # 2.7 K/mm3 (1.8-7.8); Neutrophils % 44.7 % (37.0-80.0); Platelet Count 421 K/mm3 (142-424); Red Blood Count 4.56 M/mm3 (4.20-5.40)
[2024-07-08 18:32] LABS: Hemoglobin A1C 11.1 % (4.0-6.0)
[2024-07-08 18:38] LABS: Alanine Aminotransferase 16 U/L (12-78); Albumin Level 4.2 g/dl (3.5-5.0); Albumin/Globulin Ratio 1.8 (1.1-1.8); Alkaline Phosphatase 99 U/L (38-126); Aspartate Amino Transferase 24 U/L (14-36); Bilirubin,Total 0.3 mg/dl (0.2-1.3); Blood Urea Nitrogen 20 mg/dl (7-17); Calcium 9.6 mg/dl (8.4-10.2); Carbon Dioxide 33 mmol/L (22.0-30.0); Chloride 96 mmol/L (98-107); Chol/HDL Ratio 2.7 (1-3.5); Cholesterol 120 mg/dl (140-200); Estimated Glomerular Filt Rate 87 ml/min (>60); GFR (African American) 105 ML/MIN (>60); Globulin 2.4 g/dL (1.3-3.2); Glucose 208 mg/dl (74-100); HDL Cholesterol 44 mg/dl (40-60); Sodium 141 mmol/L (136-145); Total Protein,Serum 6.6 g/dl (6.3-8.2); Triglycerides 109 mg/dl (30-150); VLDL Cholesterol 22 mg/dL (0-40)
[2024-07-08 18:39] LABS: Anion Gap 15.6 mEq/L (5-15); Potassium 3.6 mmoL/L (3.5-5.1)
[2024-07-08 18:48] LABS: Direct LDL Cholesterol 60.62 mg/dL (100-129)
[2024-07-08 19:09] LABS: Thyroid Stimulating Hormone 1.08 uIU/mL (0.465-4.68)
[2024-07-08 20:42] LABS: HIV Combo NEGATIVE (Negative)
[2024-07-08 20:50] LABS: Hepatitis C Ab Qual. W/ RFX NEGATIVE (Negative)
== END 2024-07-08 23:59 | disposition home or self-care (01) ==
LOC: LAB.DROPOF 07-09 10:49
PROVIDERS: PCP Nurse Practitioner Family; Visit Provider Nurse Practitioner Family
DX: E11.69 Type 2 diabetes mellitus with other specified complication (principal); I10 Essential (primary) hypertension; E66.812 Obesity, class 2; Z68.39 Body mass index [BMI] 39.0-39.9, adult; Z11.59 Encounter for screening for other viral diseases; Z11.4 Encounter for screening for human immunodeficiency virus [HIV]
CPT/HCPCS: 80053; 80061; 82306; 83036; 84443; 85025; 86803; 87389

== ENCOUNTER 2024-08-05 07:58 | Day surgery (SDC) | payer OTHER, SELFPAY ==
[2024-08-05 08:12] VITALS: BP 153/88; PULSE 88; RESP 16; TEMP 36.4; O2SAT 96; BMI 40.4
[2024-08-05 08:52] VITALS: BP 158/97; PULSE 85; RESP 18; O2SAT 95
[2024-08-05 08:56] VITALS: BP 158/97; PULSE 85; RESP 18; O2SAT 95
[2024-08-05 09:02] VITALS: BP 124/91; PULSE 89; RESP 16; O2SAT 97
--- NOTE | 2024-08-05 09:02 | EXP.PAIN.PRO ---
Procedure Date: 08/05/24 Time: 09:00 Anesthesiologist:: Eric Underwood CRNA Complications:: None Pre-procedure Diagnosis:: Degenerative disc lumbar spine multilevels. Lumbar radiculopathy. Lumbar postlaminectomy syndrome. Post-procedure Diagnosis:: Same. Indications for Procedure:: Patient is a very pleasant 59-year-old female who comes our clinic today for intrathecal pain pump interrogation and refill. She is currently being managed with morphine sulfate 5 mg/mL at a rate of 0.5660 mg/day. She is doing very well through her current settings. She is not reporting side effects or complications. She is not requesting any changes. Patient is awake alert [place] x 3. In no acute distress. Flexion-extension lumbar spine somewhat guarded secondary to pain. Deep tendon reflexes upper lower extremities normal. Motor strength upper and lower extremities normal. There is no gross sensory deficit. Gait is normal. Patient rates her pain 0/10. Procedure Details:: Details of the procedure explained to the patient. The patient taken procedure room placed in the sitting position. They over the pumps cleaned using chlorhexidine as a cleansing solution. The pump was interrogated. The pump was accessed with ease using a 22-gauge inch and half needle. 5.5 mL of solution was withdrawn discarded appropriately. The pump was then filled with 20 cc of solution containing morphine sulfate 5 mg/mL. No change in intrathecal pump rate. Patient tolerated procedure without difficulty. No complications. Plan and Disposition:: Patient was discharged without incident.
== END 2024-08-05 09:02 | disposition home or self-care (01) ==
LOC: SC.PAIN 07:59
PROVIDERS: PCP Nurse Practitioner Family; Visit Provider Nurse Anesthetist, Certified Registered
DX: M51.16 Intervertebral disc disorders with radiculopathy, lumbar region (principal); M96.1 Postlaminectomy syndrome, not elsewhere classified
CPT/HCPCS: 95991

== ENCOUNTER 2024-08-11 07:34 | Outpatient (CLI) | payer OTHER, SELFPAY ==
--- NOTE | 2024-08-11 07:35 | US_ITS ---
FINAL REPORT CLINICAL HISTORY: .rt thyroid fna== marquis barboza FINDINGS: Ultrasound guided thyroid biopsy. HISTORY: Right thyroid nodule. Attending radiologist: Dr. Jin Physician [employer] Salesperson: Marquis Puente PA-C PROCEDURE: After informed consent was obtained and a time-out was performed, the patient was prepped and draped in usual sterile fashion over the right neck. Utilizing local anesthesia and sterile technique with a 25-gauge needle, access to lesion was obtained. A total of 5 passes were made under direct ultrasound guidance. The patient received no conscious sedation. The patient tolerated procedure well and left the department in good condition. IMPRESSION: Status post ultrasound guided biopsy of thyroid without immediate complication. Films reviewed , interpreted and dictated by Dr. Jin. Transcribed by Marquis Puente PA-C. Reviewed, Interpreted and Dictated by Ledy Jin MD Transcribed by OLGA Pritchard Authenticated and [facility]
== END 2024-08-11 23:59 | disposition home or self-care (01) ==
LOC: RAD 07:35
PROVIDERS: PCP Nurse Practitioner Family; Visit Provider Nurse Practitioner
DX: E04.1 Nontoxic single thyroid nodule (principal)
CPT/HCPCS: 10005; 76536

== ENCOUNTER 2024-08-13 08:28 | Outpatient (POV) | payer OTHER, SELFPAY ==
--- NOTE | 2024-08-13 09:16 | A.OFFVIS_ITS ---
[facility] Disclaimer: The information contained in this section may have been updated after the patient was seen, as this information can be updated by other users. Medical History (Updated 08/13/24 @ 08:58 by Angela Krause APRN) Thyroid nodule Thyromegaly Palpitations Retention cyst of nasal cavity Multinodular goiter Goiter H. pylori infection Anxiety Diabetic retinopathy Edema Urinary tract infection History of COVID-19 History of gastroesophageal reflux (GERD) Hemorrhoid Hypertension Hyperlipidemia Heart murmur Edema History of anemia Carpal tunnel syndrome, bilateral Hypertension Diabetes Allergic rhinitis Diastolic dysfunction Michele's palsy Positive colorectal cancer screening using Cologuard test Intra-abdominal lymphadenopathy Elevated lipase Leukocytosis Surgical History History of colonoscopy History of esophagogastroduodenoscopy (EGD) H/O splenectomy History of carpal tunnel surgery Hx of removal of cyst History of partial hysterectomy Family History Sister Thyroid disorder Social History Smoking Status: Never smoker second hand exposure: Yes alcohol intake: never substance use type: denies use current occupational status: other Travel in the last 8 weeks: None housing: house number of children: 2 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 She rates her pain today a 2 out of 10 currently however does state that as the day goes on it will get progressively worse. She states that she has not had any updated falls or injuries however feels like it is definitely worsened over the last year. She states she is experiencing much more popping and cracking in her neck and feels like she has very limited movement turning [id number] or up and down. Patient does state that she has some numbness around her shoulder blade however denies any numbness and tingling down into her arms at this time.Patient did have imaging last year and did just recently have her thyroid biopsied from a nodule that was found on that advanced imaging. She states she just had this Sunday and does not know the results. Patient is currently managed with a intrathecal pain pump of morphine 5 mg/mL with a daily dose of 0.566 mg/day. Her Jerrell has been reviewed and is appropriate. Review of Systems: General: No recent weight changes, no fever, no sleep disturbances Respiratory: No cough, no shortness of air, no recurring pulmonary infections Cardiovascular/peripheral vascular: No chest pain, no palpitations, no edema, no shortness of breath Gastrointestinal: No new onset incontinence, normal bowel movements reported Genitourinary: No new onset incontinence Musculoskeletal: Neck pain Psychiatric: [Normal mood/affect] Neurological: [Denies weakness in extremities], [denies balance issues] Pain at rest (0-10 scale): 2 Objective Objective:: Physical Exam: General: Alert and oriented x3, no acute distress, pleasant and cooperative Lungs: Respirations even and unlabored, symmetrical chest expansion Eyes: PERRL Musculoskeletal: Flexion and extension of cervical [spine] somewhat guarded secondary to pain, [antalgic gait noted] positive Kemps test Neurological: Speech clear, no gross sensory deficit Has patient had previous pain injection?: No Conservative treatment options previously tried: Home exercise plan Length of treatment: Longer than 12 weeks Meds Home Medications and Allergies Home Medications ?Medication ?Instructions ?Recorded ?Confirmed ?Type pen needle, diabetic 29 gauge x 11/25/19 08/05/24 History 1/2 insulin syringe-needle U-100 1 mL 05/20/21 08/05/24 History 31 gauge x 15/64 insulin pump cartridge #10 ea 08/08/21 08/05/24 Rx blood-glucose meter,continuous 12/04/22 08/05/24 History (Dexcom G6 Specimen Technician) amantadine HCl 100 mg tablet 100 mg PO DAILY 11/26/23 08/05/24 History bisoprolol fumarate 10 mg tablet 10 mg PO DAILY 11/26/23 08/05/24 History famotidine 20 mg tablet 40 mg PO DAILY 11/26/23 08/05/24 History lansoprazole 30 mg capsule,delayed 30 mg PO DAILY 11/26/23 08/05/24 History release atorvastatin 10 mg tablet 10 mg PO DIRECTED 12/12/23 08/05/24 History gabapentin 400 mg capsule 400 mg PO TID #90 caps 12/12/23 08/05/24 Rx blood-glucose sensor (Dexcom G6 #3 ea 12/31/23 08/05/24 Rx Sensor device) metformin 1,000 mg tablet See Rx Instructions .Route 02/13/24 08/05/24 Rx .COMPLEX #180 tabs insulin lispro 100 unit/mL See Rx Instructions .Route 03/03/24 08/05/24 Rx subcutaneous solution .COMPLEX #10 mL semaglutide 2 mg/dose (8 mg/3 mL) 2 mg (0.75 mL) SQ WEEKLY #3 mL 04/01/24 08/05/24 Rx subcutaneous pen injector blood-glucose transmitter (Dexcom #5 ea 04/07/24 08/05/24 Rx G6 Transmitter device) insulin pump cart,cont inf,BT #30 ea 04/08/24 08/05/24 Rx (Omnipod Dash Pods (Gen 4) subcutaneous cartridge) magnesium chloride 64 mg 64 mg PO BID #60 tabs 04/30/24 08/05/24 Rx (magnesium chloride) tablet,delayed release benazepril 20 See Rx Instructions .Route 06/06/24 08/05/24 Rx mg-hydrochlorothiazide 25 mg tablet .COMPLEX #180 tabs cholecalciferol (vitamin D3) 50 50 mcg PO DAILY #90 caps 06/06/24 08/05/24 Rx mcg (2,000 unit) capsule empagliflozin 10 mg tablet 10 mg PO DAILY #30 tabs 06/06/24 08/05/24 Rx (Jardiance) montelukast 10 mg tablet 10 mg PO DAILY #90 tabs 06/06/24 08/05/24 Rx potassium chloride 20 mEq See Rx Instructions .Route 06/06/24 08/05/24 Rx tablet,extended release(part/cryst) .COMPLEX #90 tabs New Prescriptions to Start Prescriptions: Allergies Allergy/AdvReac Type Severity Reaction Status Date / Time propoxyphene (PROPOXYPHENE) Allergy Unknown Verified 07/23/24 10:37 Assessment and Plan *Assessment and plan (1) Neck pain: Status: Acute Category: Medical Code(s): M54.2 - Cervicalgia Plan I did discuss with Hollie several options that we can do to see about improvement of her overall symptoms. Patient does have significant pain with limited range of motion that may improve with cervical facet joint injections. I did also discuss with her that I will order updated x-ray and MRI without contrast of her cervical spine to see progression over the last year. Patient was also counseled that we can change her intrathecal dosing to flex dosing to see if it provides additional improvement into her neck. Patient does state that she would like to wait on the injection and the pump changes at this time. Patient will return to clinic in 1 month following her imaging. Patient agrees with this plan of care. Patient has been instructed to contact the clinic with any concerns before the next appointment. Dr. Adams has reviewed this note and agrees with this plan of care. This note was dictated using voice recognition software and make contain errors or omissions. All injections are used with Lidocaine, Bupivacaine and Depo Medrol. Occasionally urine drug screen is needed to verify patient's compliance with our office pain contract. This is ordered based off specific treatments related to chronic pain with the potential to abuse certain medications.
[2024-08-13 09:42] VITALS: BP 140/88; PULSE 86; RESP 16; O2SAT 97; BMI 40.4
== END 2024-08-13 23:59 | disposition home or self-care (01) ==
PROVIDERS: PCP Nurse Practitioner Family; Visit Provider Nurse Practitioner Family
DX: M54.2 Cervicalgia (principal); Z79.899 Other long term (current) drug therapy
CPT/HCPCS: 99212; G0463

== ENCOUNTER 2024-09-19 14:43 | Outpatient (POV) | payer OTHER, SELFPAY ==
[2024-09-19 14:53] VITALS: BP 142/107; PULSE 82; RESP 16; O2SAT 100; BMI 40.4
--- NOTE | 2024-09-19 16:07 | EXP.PAIN.SOA ---
[facility] Disclaimer: The information contained in this section may have been updated after the patient was seen, as this information can be updated by other users. Medical History Difficulty swallowing Shortness of breath Thyroid nodule Thyromegaly Palpitations Retention cyst of nasal cavity Multinodular goiter Goiter H. pylori infection Anxiety Diabetic retinopathy Edema Urinary tract infection History of COVID-19 History of gastroesophageal reflux (GERD) Hemorrhoid Hypertension Hyperlipidemia Heart murmur Edema History of anemia Carpal tunnel syndrome, bilateral Hypertension Diabetes Allergic rhinitis Diastolic dysfunction Michele's palsy Positive colorectal cancer screening using Cologuard test Intra-abdominal lymphadenopathy Elevated lipase Leukocytosis Surgical History History of colonoscopy History of esophagogastroduodenoscopy (EGD) H/O splenectomy History of carpal tunnel surgery Hx of removal of cyst History of partial hysterectomy Family History Sister Thyroid disorder Social History Smoking Status: Never smoker second hand exposure: Yes alcohol intake: never substance use type: denies use current occupational status: other Travel in the last 8 weeks: None housing: house number of children: 2 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 Patient rates her pain today at a 5 out of 10 and denies any changes to her neck pain. Patient does state that from her last visit around 2 to 3 weeks ago she ended up falling and landing on her left side. She states that she did not hit her head but at that same time she ended up having vision changes in the left eye. Patient states that she can see bright lights and see objects in the peripheral area however looking straight forward she does not have vision in this eye. Patient does state that she did contact her eye doctor and they could only get her in on Sunday. She states the only other option was to come that same day and she does not drive. Patient does have a intrathecal pain pump of morphine 5 mg/mL with a daily dose of 0.566 mg/day. She denies any side effects from this medication or needing any additional adjustments to the pump. Patient does state that her neck pain is still worse with certain movements such as turning her head [id number] or looking up and down. Patient still denies any radiating symptoms into her upper arms as was stated at her last appointment. Patient has continued conservative therapy with no additional improvement. Her Jerrell has been reviewed and is appropriate. Review of Systems: General: No recent weight changes, no fever, no sleep disturbances Respiratory: No cough, no shortness of air, no recurring pulmonary infections Cardiovascular/peripheral vascular: No chest pain, no palpitations, no edema, no shortness of breath Gastrointestinal: No new onset incontinence, normal bowel movements reported Genitourinary: No new onset incontinence Musculoskeletal: Neck pain Psychiatric: [Normal mood/affect] Neurological: [Denies weakness in extremities], [denies balance issues] Pain at rest (0-10 scale): 5 Objective Objective:: Physical Exam: General: Alert and oriented x3, no acute distress, pleasant and cooperative Lungs: Respirations even and unlabored, symmetrical chest expansion Eyes: PERRL Musculoskeletal: Flexion and extension of cervical [spine] somewhat guarded secondary to pain, [antalgic gait noted] positive Kemps test Neurological: Speech clear, no gross sensory deficit Has patient had previous pain injection?: No Conservative treatment options previously tried: Home exercise plan Length of treatment: Longer than 12 weeks Meds Home Medications and Allergies Home Medications ?Medication ?Instructions ?Recorded ?Confirmed ?Type pen needle, diabetic 29 gauge x 11/25/19 09/19/24 History 1/2 insulin syringe-needle U-100 1 mL 05/20/21 09/19/24 History 31 gauge x 15/64 insulin pump cartridge #10 ea 08/08/21 09/19/24 Rx blood-glucose meter,continuous 12/04/22 09/19/24 History (Fandium G6 Integrity Analyst) amantadine HCl 100 mg tablet 100 mg PO DAILY 11/26/23 09/19/24 History bisoprolol fumarate 10 mg tablet 10 mg PO DAILY 11/26/23 09/19/24 History lansoprazole 30 mg capsule,delayed 30 mg PO DAILY 11/26/23 09/19/24 History release gabapentin 400 mg capsule 400 mg PO TID #90 caps 12/12/23 09/19/24 Rx blood-glucose sensor (Dexcom G6 #3 ea 12/31/23 09/19/24 Rx Sensor device) metformin 1,000 mg tablet See Rx Instructions .Route 02/13/24 09/19/24 Rx .COMPLEX #180 tabs insulin lispro 100 unit/mL See Rx Instructions .Route 03/03/24 09/19/24 Rx subcutaneous solution .COMPLEX #10 mL semaglutide 2 mg/dose (8 mg/3 mL) 2 mg (0.75 mL) SQ WEEKLY #3 mL 04/01/24 09/19/24 Rx subcutaneous pen injector blood-glucose transmitter (Dexcom #5 ea 04/07/24 09/19/24 Rx G6 Transmitter device) insulin pump cart,cont inf,BT #30 ea 04/08/24 09/19/24 Rx (Omnipod Dash Pods (Gen 4) subcutaneous cartridge) empagliflozin 10 mg tablet 10 mg PO DAILY #30 tabs 06/06/24 09/19/24 Rx (Jardiance) atorvastatin 10 mg tablet 10 mg PO DIRECTED #90 tabs 08/26/24 09/19/24 Rx benazepril 20 See Rx Instructions .Route 08/26/24 09/19/24 Rx mg-hydrochlorothiazide 25 mg tablet .COMPLEX #180 tabs cholecalciferol (vitamin D3) 50 50 mcg PO DAILY #90 caps 08/26/24 09/19/24 Rx mcg (2,000 unit) capsule famotidine 20 mg tablet 40 mg (2 x 20 mg) PO DAILY #90 tabs 08/26/24 09/19/24 Rx magnesium chloride 64 mg 64 mg PO BID #60 tabs 08/26/24 09/19/24 Rx (magnesium chloride) tablet,delayed release montelukast 10 mg tablet 10 mg PO DAILY #90 tabs 08/26/24 09/19/24 Rx potassium chloride 20 mEq See Rx Instructions .Route 08/26/24 09/19/24 Rx tablet,extended release(part/cryst) .COMPLEX #90 tabs New Prescriptions to Start Prescriptions: Allergies Allergy/AdvReac Type Severity Reaction Status Date / Time propoxyphene (PROPOXYPHENE) Allergy Unknown Verified 08/27/24 13:42 Assessment and Plan *Assessment and plan (1) Neck pain: Status: Acute Category: Medical Code(s): M54.2 - Cervicalgia Plan FINDINGS: Axial CT images of the cervical spine were obtained without contrast. Sagittal and coronal reformatted images were also obtained. This study was performed with techniques to keep radiation doses as low as reasonably achievable (ALARA). Individualized dose reduction techniques using automated exposure control or adjustment of mA and/or kV according to the patient's size were employed. There is no evidence of fracture or dislocation. The bony alignment is normal. There is moderate degenerative disc disease along with multiple calcifications involving the posterior longitudinal ligament most prominent in the lower cervical and upper thoracic region. There is a 10 mm chronic appearing calcification just anterior to the dens. C2-3: Calcification of the posterior longitudinal ligament at the C2 level. C3-4: Disc osteophyte complex is present with right facet osteoarthropathy. No canal or neural foraminal narrowing is present at this level. C4-5: Disc osteophyte complex is present along with bilateral facet osteoarthropathy and mild right neural foraminal narrowing. C5-6: Disc osteophyte complex is present without evidence of canal or neural foraminal narrowing. C6-7: Disc osteophyte complex with mild bilateral neural foraminal narrowing. There is a left paracentral protrusion which produces cord contouring, and there is moderate canal stenosis with an AP canal diameter of 6 mm. C7-T1: Disc osteophyte complex with calcification of the posterior longitudinal ligament. There is mild canal stenosis with an AP canal diameter of 8 mm, as well as mild right neural foraminal narrowing. There is thyromegaly, with the right lobe larger than the left, of uncertain significance but may represent a multinodular goiter. There is also a retention cyst or polyp in the right sphenoid sinus with mild mucosal thickening throughout the paranasal sinuses. IMPRESSION: Multilevel degenerative changes present with multiple areas of calcification of the posterior longitudinal ligament, most prominent in the lower cervical and upper thoracic spine. There is moderate canal stenosis at the C6-7 level, with mild canal stenosis at the C7-T1 level. Thyromegaly is present with the right lobe larger than the left, which may represent multinodular goiter. Reviewed, Interpreted and Dictated by Hebert Cruz III, MD Transcribed by Saniya Munoz Authenticated and [facility] I did review over with the patient the reason for the denial and specifically I did state that the records did not show whether the neck pain traveled into the arms. I did discuss with the patient and reviewed over the previous note that did in fact states there was no radicular symptoms and that it was just staying at the neck. Patient continues to have significant pain in her neck with certain positions and did have limited range of motion with a positive Kemps test. We will resubmit to insurance for the first diagnostic cervical medial branch block and if she does get significant relief would be planning to do additional blocks with the plan to progress forward to a RFA at a later date if it was appropriate. Patient has tried and failed conservative therapies including oral medications such as gabapentin, Tylenol, multiple muscle relaxers. She is also continued heat and ice along with topicals with no additional relief. Patient has been doing at home exercising and stretching for longer than 12 weeks with no additional improvement. Patient does not have any radicular symptoms into her upper extremities. We will resubmit for the first diagnostic cervical medial branch block bilaterally C5-C6 and C6-C7 under fluoroscopy. Patient does have a previous CT from 2022 that did show multilevel cervical osteophytes that does make this injection very appropriate for her symptoms. I did also discuss with the patient to please keep us posted related to her vision and her follow-up with her eye doctor. Patient agrees with this plan of care. Patient has been instructed to contact the clinic with any concerns before the next appointment. Dr. Adams has reviewed this note and agrees with this plan of care. This note was dictated using voice recognition software and make contain errors or omissions. All injections are used with Lidocaine, Bupivacaine and Depo Medrol. Occasionally urine drug screen is needed to verify patient's compliance with our office pain contract. This is ordered based off specific treatments related to chronic pain with the potential to abuse certain medications.
== END 2024-09-19 23:59 | disposition home or self-care (01) ==
LOC: SC.PAIN 14:44
PROVIDERS: PCP Nurse Practitioner Family; Visit Provider Nurse Practitioner Family
DX: M54.2 Cervicalgia (principal); Z79.899 Other long term (current) drug therapy
CPT/HCPCS: 99212; G0463

== ENCOUNTER 2024-10-28 07:59 | Day surgery (SDC) | payer OTHER, SELFPAY ==
[2024-10-28 08:12] VITALS: BP 130/84; PULSE 76; RESP 16; TEMP 36.4; O2SAT 97; BMI 37.1
[2024-10-28] MEDS: LIDOCAINE 1% 5ML PF VIAL 5 ML (08:28)
[2024-10-28] MEDS: BUPIVACAINE 0.25% 10ML INJ 25 MG IJ (08:28)
--- NOTE | 2024-10-28 08:28 | P.PCN_ITS ---
Procedure Date: 10/28/24 Time: 08:15 Anesthesiologist:: Eric Underwood CRNA Complications:: None Pre-procedure Diagnosis:: Degenerative disc cervical spine multilevels. Cervical radiculopathy. Cervical spondylosis. Multilevel cervical facet arthropathy. Degenerative disc lumbar spine multilevels. Lumbar radiculopathy. Lumbar postlaminectomy syndrome. Post-procedure Diagnosis:: Same. Indications for Procedure:: Patient is a very pleasant 59-year-old female who comes our clinic today for ROUND ONE bilateral cervical medial branch blocks/facet injections at the C5-6, C6-7 level. Patient describes posterior cervical neck pain as constant, dull, aching. Patient reports difficulty with cervical flexion, extension, left and right rotation. Patient currently is being managed in our clinic with intrathecal morphine sulfate pain pump. No complications regarding the pump therapy. She rates her pain today 7/10 cervical spine. Procedure Details:: Informed consent was obtained and the risk and benefits of the procedure was explained to the patient. Patient was taken to the procedure room where noninvasive monitors were placed, including noninvasive blood pressure cuff as well as pulse oximeter. The area over the posterior cervical spine was cleansed using chlorhexidine as a cleansing solution. I anesthetized the skin and subcutaneous tissues with 1% Lidocaine. I placed 25 -gauge spinal needles into the facet joint/ medial branches of C5-6, C6-7 bilaterally. Needle placement was confirmed with fluoroscopy. After confirmation of needle placement, each site was injected with 1 mL of 1% lidocaine and 0.25 % Marcaine and 10 mg of Depo- Medrol. A total of 20 mg of depo medrol was used for bilateral medial branch blocks of C5-6, C6-7 bilaterally. Patient tolerated the procedure without difficulty. There were no complications. Plan and Disposition:: Patient was discharged without incident.
[2024-10-28 08:29] VITALS: BP 130/84; PULSE 76; RESP 18; O2SAT 97
[2024-10-28] MEDS: DEXAMETHASONE 10MG/ML 1ML VIAL 10 MG (08:29)
[2024-10-28] MEDS: IOPAMIDOL-200 (41%);10ML VIAL 10 ML IV (08:30)
[2024-10-28 08:31] VITALS: BP 130/84; PULSE 76; RESP 18; O2SAT 97
[2024-10-28 08:40] VITALS: BP 140/79; PULSE 74; RESP 16; O2SAT 98
== END 2024-10-28 08:40 | disposition home or self-care (01) ==
PROVIDERS: PCP Nurse Practitioner Family; Visit Provider Nurse Anesthetist, Certified Registered
DX: M47.812 Spondylosis without myelopathy or radiculopathy, cervical region (principal); M50.30 Other cervical disc degeneration, unspecified cervical region; M51.369 Other intervertebral disc degeneration, lumbar region without mention of lumbar back pain or lower extremity pain
CPT/HCPCS: 64490; 64491; J1100; Q9966

== ENCOUNTER 2024-11-04 08:13 | Day surgery (SDC) | payer OTHER, SELFPAY ==
[2024-11-04 08:23] VITALS: BP 133/88; PULSE 75; RESP 16; TEMP 36.4; O2SAT 97; BMI 39.3
[2024-11-04 08:28] VITALS: BP 147/89; PULSE 77; RESP 18; O2SAT 97
--- NOTE | 2024-11-04 08:34 | EXP.PAIN.PRO ---
Procedure Date: 11/04/24 Time: 08:15 Anesthesiologist:: Eric Underwood CRNA Complications:: None Pre-procedure Diagnosis:: Degenerative disc lumbar spine multilevels for lumbar radiculopathy. Lumbar postlaminectomy syndrome. Post-procedure Diagnosis:: Same. Indications for Procedure:: Patient is a very pleasant 59-year-old female who comes our clinic today for intrathecal pain pump interrogation refill. Patient currently being managed with morphine sulfate 5 mg/mL at a rate of 0.566 mg/day. She is doing very well with her current settings. She is not reporting side effects or complications. She is not requesting changes. Patient is awake alert [place] x 3. No acute distress. Flexion-extension lumbar spine somewhat guarded secondary to pain. Deep tendon reflexes upper lower extremities normal. Motor strength upper lower extremities normal. There is no gross sensory deficit. Gait is normal. Patient reporting pain over the lateral border of the right iliac crest. Upon examination she has extreme point tenderness over the right lateral border of the iliac crest. I discussed trigger point injection in this area. She wishes to proceed. She refers to the pain as constant, dull, sharp, stabbing. She reports difficulty with ambulation at times due to the pain. She rates her pain 8/10 in this area. Procedure Details:: Details of the procedure explained to the patient. The patient taken procedure and placed in the sitting position. They over the pumps cleansed using chlorhexidine as a cleansing solution. The pump was interrogated. Pump was accessed with ease using a 22-gauge inch and half needle. 8 mL of solution was withdrawn discarded appropriate. The pump was then filled with 20 cc of solution containing morphine sulfate 5 mg/mL. The pump will continue at 0.566 mg today. Patient tolerated procedure without difficulty. No complications. Plan and Disposition:: Patient will return to clinic after preauthorization for the right lateral iliac crest trigger point injection of cortisone local anesthetic. She was discharged without incident.
[2024-11-04 08:41] VITALS: BP 119/79; PULSE 76; RESP 16; O2SAT 97
== END 2024-11-04 08:41 | disposition home or self-care (01) ==
PROVIDERS: PCP Nurse Practitioner Family; Visit Provider Nurse Anesthetist, Certified Registered
DX: M51.16 Intervertebral disc disorders with radiculopathy, lumbar region (principal); M96.1 Postlaminectomy syndrome, not elsewhere classified
CPT/HCPCS: 95991; 99212; G0463

== ENCOUNTER 2024-11-27 09:28 | Outpatient (POV) | payer OTHER, SELFPAY ==
--- OUTSIDE RECORDS SUMMARY | 2024-10-27 10:00 | XMS_ITS | Encounter Summary ---
Author Organization [facility] Address [address] [place] [address] Care Team Providers Care Agricultural Production Engineer Name Role Phone Rashid Aranda MD Primary Care Provider + [phone] Reason for Referral * Consultation (Routine) - Authorized Specialty Diagnoses / Procedures Referred By Terry carvalho Referred To Contact Diagnoses Type 2 diabetes mellitus with hyperglycemia, with long-term current use of insulin (CMS/HCC) Slime Allison APRN [address] [address] Phone: tel: fax: Referral ID Status Reason Start Date Expiration Date V isits Requested Visits Authorized [id number] Authorized 10/27/2024 04/28/2026 1 1 Reason for Visit * Reason Comments Diabetes * Consultation (Routine) - Closed Specialty Diagnoses / Procedures Referred By Terry carvalho Referred To Contact Diagnoses Type 2 diabetes mellitus with hyperglycemia, with long-term current use of insulin (CMS/HCC) Slime Allison APRN Phone: tel: fax: Referral ID Status Reason Start Date Expiration Date Visits Re quested Visits Authorized [id number] Closed 07/28/2024 01/27/2026 1 1 Encounter Details Date Type Department Care Team (Late st Contact Info) Description 10/27/2024 10:00 AM EDT Office Visit [facility] [address] [place] [address] Slime Allison, ICE GUARD SKATING RINK [address] [facility] Juan Carlos [address] [place] [address] Type 2 diabetes mellitus with hyperglycemia, with long-term current use of insulin (CMS/HCC) (Primary Dx); Severe obesity (BMI 35.0-39.9) with comorbidity (CMS/HCC); Hyperlipidemia, unspecified hyperlipidemia type Social History Tobacco Use Types Packs/Day Years Used Date Smoking Tobacco: Never Smokeless Tobacco: Never Tobacco Cessation:Counseling Given: Not Answered Alcohol Use Standard Drinks/Week Comments Never 0 (1 standard drink = 0.6 oz pur e alcohol) Comments Unknown Sex and Gender Information Value Date Recorded Sex Assigned at Not on file Legal Sex Female 8:20 PM EDT Gender Identity Not on file Sexual Orientation Not on file documented as of this encounter Last Filed Vital Signs Vital Sign Reading Time Taken Comments Blood Pressure 119/77 10/27/2024 9:01 AM EDT Pulse 75 10/27/2024 9:01 AM EDT Temperature - - Respiratory Rate - - Oxygen Saturation - - Inhaled Oxygen Concentration - - Weight 98.3 kg (216 lb 11.4 oz) 10/27/2024 9:01 AM EDT Height - - Body Mass Index 38.39 07/28/2024 8:12 AM EST documented in this encounter Miscellaneous Notes * Progress Notes - Slime Allison, LURDES - 10/27/2024 10:00 AM EDT Images from the original note were not included. Subjective Hollie Olson is a 59 y.o. female who presents for a follow up evaluation of Diabetes Mellitis Type 2. Patient was diagnosed 10 years ago. Current symptoms/problems include hyperglycemia. Past medical history includes GERD, hyperlipidemia. Diabetes Last visit on 07/28/2024 with A1c of 10.2%. Inquiring today about restarting insulin pump therapy. Feels that basal insulin is not working well. A1c: 10.0% reports 2 weeks with primary care provider Last labs: 03/2024 History of DKA: Denies Recent illness/steroid use: Denies. Current treatment includes oral agents, insulin pump, and GLP1 Metformin 1000 mg two times daily Jardiance 10 mg daily - denies SE Ozempic 1 mg weekly - denies SE Lantus 36 units every evening Failed medications: Glimepiride- on insulin; Omnipod dash- started basal insulin Compliance at present is estimated to be good. Known diabetic complications: retinopathy and peripheral neuropathy - Cr. 0.9, eGFR 65 (03/2024) reviewed in office via patient portal Cardiovascular risk factors: diabetes mellitus, dyslipidemia, and obesity (BMI >= 30 kg/m2) On CARLOS or ARB: Yes on benazepril-hydrochlorothiazide On Statin: Yes Current diet: well balanced and on average, 2 meals per day Current exercise: yard work limited at times due back pain CGM data review: Dates: 10/14/2024-10/27/2024 Data: Average glucose 258 Time in Range: 4%, high 50%, very high 46% Interpretation: Overall hyperglycemia with minimal time in range. Lows: Denies. Date of Last Eye Exam: Due; followed by retina specialist Date of Last Foot Exam: denies sores/wounds; declines foot exam today What type of sensor do you have?: Dexcom G6 When was your last flu shot?: Fall 2023 The following portions of the chart were reviewed this encounter and updated as appropriate: Tobacco Allergies Meds Problems Med Hx Surg Hx Fam Hx Review of Systems Constitutional: Negative. HENT: Negative. Eyes: Negative. Respiratory: Negative. Cardiovascular: Negative. Gastrointestinal: Negative. Endocrine: See HPI Genitourinary: Negative. Musculoskeletal: Negative. Skin: Negative. Neurological: Negative. Psychiatric/Behavioral: Negative. Objective Physical Exam Vitals reviewed. Constitutional: Appearance: Normal appearance. She is obese. HENT: Head: Normocephalic and atraumatic. Eyes: Extraocular Movements: Extraocular movements intact. Pupils: Pupils are equal, round, and reactive to light. Cardiovascular: Rate and Rhythm: Normal rate. Pulmonary: Effort: Pulmonary effort is normal. Abdominal: General: Abdomen is flat. Musculoskeletal: General: Normal range of motion. Cervical back: Normal range of motion and neck supple. Skin: General: Skin is warm and dry. Neurological: General: No focal deficit present. Mental Status: She is alert and oriented to person, place, and time. Psychiatric: Mood and Affect: Mood normal. Behavior: Behavior normal. Thought Content: Thought content normal. Judgment: Judgment normal. Lab Review POCT Hemoglobin A1C (%) Date Value 07/28/2024 10.2 04/22/2024 12.0 Assessment/Plan Diabetes Mellitis Type 2, is uncontrolled. A1c 10.0% per patient report. Start Omnipod 5 compatible with FreeStyle Hunter 2+ as patient does not have compatible phone. Kit and FreeStyle Hnuter 2+ supplies sent to [facility] pharmacy. Continue Lantus 36 units at bedtime. Titrate by 2 units every 3 days until fasting blood glucose isconsistently less than 150. Continue Metformin 1000 mg two times daily Continue Jardiance 10 mg daily. Continue Ozempic 1 mg weekly. Continue using CGM to test BG 4+ times daily for MDI Labs - urine microalbumin due Encouraged yearly eye exam Encouraged daily foot care Discussed importance of lifestyle interventions for glycemic control (diet, exercise, weight reduction). Follow up: 3 months Hyperlipidemia - lipid panel reviewed - Continue on statin,pt reports compliance and no myalgias - Will continue to monitor cholesterol levels - Encouraged healthy lifestyle modifications->diet and exercise. Obesity - Body mass index is 38.39 kg/m??. - contributing to insulin resistance - 7 lb weight loss since previous visit The patient received dietary education because they have an above normal BMI., The patient receiveda feeding regime because they have an above normal BMI., The patient received exercise education because they have an above normal BMI., and Pharmacotherapy was ordered because the patient hasan above normal BMI. The following Diabetes education was reviewed: [x]SBGM to evaluate dose needs [x]Insulin coverage with carbohydrate intake [x]Site rotation [x] Exercise impact on glucose levels [x]Driving safety related to diabetes []Sick day management []Ketone testing []Over treatment of hypoglycemia [x] Hypoglycemia management [x]Call-in line use [x]Insulin pump pros and cons [x]Sensor home use [x]Pump class offerings []Melvi phenomena []Somogyi effect [] Alcohol related to diabetes []Benefits of written records []Pre-meal Bolusing [x]Daily foot care [x] Healthy diet and regular exercise [x]Long-term complications related to poor diabetes management [] Injection timing related to changes in activity/exercise Time spent with patient does not include time spent interpreting CGM. I personally spent a total of 20 minutes on this encounter. This time includes face to face with patient, counseling and discussion and/or coordination of care. Electronically signed by: Slime Allison APRN [facility] [address] [facility] [address] [place]. [address] PHONE [phone] FAX: [phone] documented in this encounter Plan of Treatment Upcoming Encounters Date Type Department Care Team (Late st Contact Info) Description 02/02/2025 8:00 AM EDT Office Visit [facility] Endocrinology [address] [place] [address] Slime Allison APRN [address] [facility] Juan Carlos [address] [place] [address] Scheduled Referrals Name Type Priority Associated Diagnoses Orde r Schedule Follow Up [facility] Outpatient Referral Routine Type 2 diabetes mellitus with hyperglycemia, with long-term current use of insulin ([facility]/HCC) Expected: 01/27/2025, Expires: 11/27/2025 documented as of this encounter Visit Diagnoses Diagnosis Type 2 diabetes mellitus with hyperglycemia, with long-term current use of insulin (CMS/HCC)- Primary Severe obesity (BMI 35.0-39.9) with comorbidity (CMS/[facility]) Hyperlipidemia, unspecified hyperlipidemia type documented in this encounter Additional Health Concerns Assessment Noted Time A Body Mass Index follow-up plan has been documented for the patient 10/27/2024 10:25 AM EDT documented as of this encounter Care Teams Agricultural Production Engineer Relationship Specialty Start Date End Date Rashid Aranda MD [address] [place] [address] PCP - General 10/22/20 documented as of this encounter
--- OUTSIDE RECORDS SUMMARY | 2024-11-25 09:30 | XMS_ITS | Encounter Summary ---
Author Organization [facility] Address [address] [place] [address] Care Team Providers Care Service Parts Coordinator Name Role Phone Rashid Aranda MD Primary Care Provider + [phone] Marguerite Zhong Unavailable [phone] Reason for Visit * Reason Comments OmniPod 5 start from MDI * Consultation (Routine) - Closed Specialty Diagnoses / Procedures Referred By Contac t Referred To Contact Endocrinology Diagnoses Type 2 diabetes mellitus with hyperglycemia, with long-term current use of insulin ([facility]) Slime Allison, GROUND CREW SUPERVISOR [address] [place] [address] Phone: tel: fax: [facility] Education [address] [place] [address] Phone: tel: fax: Referral ID Status Reason Start Date Expiration Date Visits Re quested Visits Authorized [id number] Closed 11/10/2024 05/12/2026 1 1 Encounter Details Date Type Department Care Team (Late st Contact Info) Description 11/25/2024 9:30 AM EDT Education [facility] Diabetes Education [address] [place] [address] Marguerite Zhong [address] [facility] [address] [place] [address] Type 2 diabetes mellitus with hyperglycemia, with long-term current use of insulin ([facility]) (Primary Dx); Encounter for fitting or adjustment of insulin pump Social History Tobacco Use Types Packs/Day Years Used Date Smoking Tobacco: Never Smokeless Tobacco: Never Alcohol Use Standard Drinks/Week Comments Never 0 (1 standard drink = 0.6 oz pur e alcohol) Comments Unknown Sex and Gender Information Value Date Recorded Sex Assigned at Not on file Legal Sex Female 8:20 PM EDT Gender Identity Not on file Sexual Orientation Not on file documented as of this encounter Miscellaneous Notes * Progress Notes - Marguerite Zhong R - 11/25/2024 9:30 AM EDT Pt seen in the education center today for initiation of her OmniPod 5 . Per Dexcom pt's blood glucose at start of appt was 200mg/dL. vPt switching to Libre2 plus today . Discussed and taught the basic features of the Omnipod security systems installer, SMARTAdjust technology, and pod. Patient's start-up wizard was completed. Patient was able to return demonstration using their PDM and filling/starting a pod. Pt administered glargine 36units last night at 7 pm. Pt placed inexercise mode for 7 hrs . Discussed times when exercise mode can be used. Discussed Automated, Automated limited and manual mode. Stressed that patient will no longer take basal injection of Lantus, as she will be getting basal rate through Lispro insulin in pod. Discussed having long acting insulin as back up incase of pod failure and if she needed to go back on injections. Discussed how insulinin pod will only give approx. 3 hours of coverage, so must have backup plan in the event the pod fails. Encouraged to pre dose insulin 10-15 before meal. Reports she currently does not bolus for her mealmeal. Created custom foods for her to use Small, Large, pretzels- snack and fruit with portions sheeats. Discussed DKA prevention and provided handout. Recommended Pt have a pump kit to keep with her, to included: ketostix; quick acting glucose; snack with protein and complex carbs; extra pods; insulin; providers information; extra sensor and ice pack for PDM and supplies. Pt verbalized understanding. Reminded pt to contact her provider for pod refills. Starter kit comes with 10 pods and pt placed pod on today and has 9 pods remaining. Please see training checklist for complete list of items discussed and taught today. Patient was given my contact information for any questions or concerns. Patient was also advised they can call [employer] customer support with any questions or concerns and call her provider for any questions or concerns. Pt given elementary educator number, fabrication operator providers number and the education center . Thank you for this referral. documented in this encounter Plan of Treatment Upcoming Encounters Date Type Department Care Team (Late st Contact Info) Description 02/02/2025 8:00 AM EDT Office Visit [facility] Endocrinology [address] [place] [address] Slime Allison, GROUND CREW SUPERVISOR [address] [phone] documented as of this encounter Visit Diagnoses Diagnosis Type 2 diabetes mellitus with hyperglycemia, with long-term current use of insulin ([facility])- Primary Encounter for fitting or adjustment of insulin pump Fitting and adjustment of insulin pump documented in this encounter Additional Health Concerns Assessment Noted Time A Body Mass Index follow-up plan has been documented for the patient 10/27/2024 10:25 AM EDT documented as of this encounter Care Teams Service Parts Coordinator Relationship Specialty Start Date End Date Rashid Aranda MD [address] [place] [address] PCP - General 10/22/20 Marguerite Zhong [address] [place] [phone] Registered Nurse 11/25/24 documented as of this encounter
--- OUTSIDE RECORDS SUMMARY | 2024-11-27 09:34 | XMS_ITS | Encounter Summary ---
Author Organization Healthcare Address [address] [place] [address] Care Team Providers Care Self Pay Collector Name Role Phone Rashid Aranda MD Primary Care Provider + [phone] Marguerite Zhong Unavailable [phone] Encounter Details Date Type Department Care Team (Late st Contact Info) Description 11/10/2024 [facility] [address] [place] [address] Slime Allison P, DEVELOPMENTAL MATHEMATICS INSTRUCTOR 2[address] [facility] [address] [place] [address] Social History Tobacco Use Types Packs/Day Years [...] as of this encounter Miscellaneous Notes * Telephone Encounter - Emely Choudhary PA - 11/11/2024 4:54 PM EDT Pt scheduled by Marguerite Zhong * Telephone Encounter - ANASTASIA YOUNG - 11/11/2024 2:40 PM EDT Pt calling to reschedule her pump training. She states she is not getting to her phone in time to answer. Maybe try her twice in a row, to give her time to get to her phone. Thank you! * Telephone Encounter - Bethanie Taylor - 11/11/2024 1:53 PM EDT Returned patient's call. No answer, no vm set up. * Telephone Encounter - Fay Aguilar - 11/11/2024 1:36 PM EDT Status Update Call #1 1st call regarding the status of the initial request. Best contact number: [phone] (home) Optimal time of day to reach caller: ANYTIME Additional comments/information from caller: None Note: Please do not reply to this message. Follow-up communication and further actions as a result of this message need to be communicated with the patient directly, if the patient is not active onMyChart. If the patient is active on MyChart, they will receive notification of the communication/outcome via MyChart. * Telephone Encounter - Brenna Rodriguez - 11/10/2024 12:51 PM EDT Patient Phone Message Reason for Call: Pt is asking to r/s her pump training appt 11-25-24 Best contact number and optimal time of day to reach caller: [phone] Note: Please do not reply to this message. Follow-up communication and further actions as a result of this message need to be communicated with the patient directly, if the patient is not active onMyChart. If the patient is active on MyChart, they will receive notification of the communication/outcome via MyChart. documented in this encounter Plan of Treatment Upcoming Encounters Date Type Department Care Team (Late st Contact Info) Description 02/02/2025 8:00 AM EDT [facility] [address] [place] [address] Slime Allison, DEVELOPMENTAL MATHEMATICS INSTRUCTOR 219 [facility] [address] [place] [address] documented as of this encounter Visit Diagnoses Not on filedocumented in this encounter Additional Health Concerns Assessment Noted Time A Body Mass Index follow-up plan has been documented for the patient 10/27/2024 10:25 AM EDT documented as of this encounter Care Teams Self Pay Collector Relationship Specialty Start Date End Date Rashid Aranda MD [address] [place] [address] PCP - General 10/22/20 Marguerite Zhong [address] [place] [address] Registered Nurse 11/25/24 documented as of this encounter
--- OUTSIDE RECORDS SUMMARY | 2024-11-27 09:34 | XMS_ITS | Encounter Summary ---
Author Organization Healthcare Address [address] [place] [address] Care Team Providers Care Security Compliance Specialist Name Role Phone Rashid Aranda MD Primary Care Provider + [phone] Marguerite Zhong Unavailable [phone] Encounter Details Date Type Department Care Team (Latest Contact Info) Description 11/25/2024 Travel Social History Tobacco Use Types Packs/Day Years [...] on file documented as of this encounter Plan of Treatment Upcoming Encounters Date Type Department Care Team (Late st Contact Info) Description 02/02/2025 8:00 AM EDT Office Visit [facility] Endocrinology [address] [place] [address] Slime Allison, SALES OPERATIONS COORDINATOR 2[address] [facility] 125 [place] [address] documented as of this encounter Visit Diagnoses Not on filedocumented in this encounter Additional Health Concerns Assessment Noted Time A Body Mass Index follow-up plan has been documented for the patient 10/27/2024 10:25 AM EDT documented as of this encounter Care Teams Security Compliance Specialist Relationship Specialty Start Date End Date Rashid Aranda MD [address] [place], [place] [id number] PCP - General 10/22/20 Marguerite Zhong [address] [address] Registered Nurse 11/25/24 documented as of this encounter
--- OUTSIDE RECORDS SUMMARY | 2024-11-27 09:34 | XMS_ITS | Encounter Summary ---
Author Organization Healthcare Address [address] [place] [address] Care Team Providers Care Shaper Machine Hand Name Role Phone Rashid Aranda MD Primary Care Provider + [phone] Reason for Referral * Consultation (Routine) - Closed Specialty Diagnoses / Procedures Referred By Terry t Referred To Contact Endocrinology Diagnoses Type 2 diabetes mellitus with hyperglycemia, with long-term current use of insulin (CMS/HCC) Slime Allison APRN [address] [address] Phone: tel: fax: [facility] [address] [place] [address] Phone: tel: fax: Referral ID Status Reason Start Date Expiration Date Visits Re quested Visits Authorized [id number] Closed 11/10/2024 05/12/2026 1 1 Encounter Details Date Type Department Care Team (Late st Contact Info) Description 11/10/2024 Orders Only [facility] [address] [place] [address] [facility] [address] [place] [address] Type 2 diabetes mellitus with hyperglycemia, with long-term current use of insulin (CMS/HCC) (Primary Dx) Social History Tobacco Use Types Packs/Day Years [...] Description 02/02/2025 8:00 AM EDT Office Visit [facility] Endocrinology [address] [place] [address] Slime Allison, SENIOR NET WEB DEVELOPER [address] [place] [address] Scheduled Referrals Name Type Priority Associated Diagnoses Order Schedule Ambulatory Referral to [facility] Insulin Pump Education Outpatient Referral Routine Type 2 diabetes mellitus with hyperglycemia, with long-term current use of insulin (CMS/HCC) 1 Occurrences starting 11/10/2024 until 05/14/2026 documented as of this encounter Visit Diagnoses Diagnosis Type 2 diabetes mellitus with hyperglycemia, with long-term current use of insulin (CMS/HCC)- Primary documented in this encounter Additional Health Concerns Assessment Noted Time A Body Mass Index follow-up plan has been documented for the patient 10/27/2024 10:25 AM EDT documented as of this encounter Care Teams Shaper Machine Hand Relationship Specialty Start Date End Date Rashid Aranda MD [address] [place] [address] PCP - General 10/22/20 documented as of this encounter
--- OUTSIDE RECORDS SUMMARY | 2024-11-27 09:34 | XMS_ITS ---
Author Organization [facility] Address [address] [place] [address] Care Team Providers Care Ent Physician Name Role Phone Rashid Aranda MD Primary Care Provider + [phone] Marguerite Zhong Unavailable [phone] [facility] - Technology Status:Active (Active) Start date:11/25/2024 Enrollment date:11/25/2024 Enrollment reason:Referred by provider Overview Pt is currently using Lantus - states she will add if high Case Team Name Relationship Phone Marguerite Zhong(Responsible Staff) Registered Nurse [phone] Continued Care and Services Coordination
--- OUTSIDE RECORDS SUMMARY | 2024-11-27 09:34 | XMS_ITS | Clinical Summary ---
Author Organization [facility] Address [address] [place] [address] Care Team Providers Care Aerial Gunner Name Role Phone Rashid Aranda MD Primary Care Provider + [phone] Marguerite Zhong Unavailable [phone] Allergies Active Allergy Reactions Criticality Noted Date Comments Propoxyphene Unknown - Patient st ates they do not know rxn details Low 01/15/2020 Medications potassium chloride CR (Klor-Con M20) 20 MEQ ER tablet Take 1 tablet (20 mEq) by mouth 1 (one) time each day. 1 Active atorvastatin (Lipitor) 10 MG tablet Take 1 tablet (10 mg) by mouth 1 (one) time each day. 1 Active montelukast (Singulair) 10 MG tablet Take 1 tablet (10 mg) by mouth every night. 4 Active bisoprolol (Zebeta) 10 MG tablet Take 1 tablet (10 mg) by mouth 1 (one) time each day. 4 Active famotidine (Pepcid) 20 MG tablet Take 1 tablet (20 mg) by mouth 2 (two) times a day. 4 Active lansoprazole (Prevacid) [address] capsule Take 1 capsule (30 mg) by mouth 1 (one) time each day. 4 Active benazepril-hydr oCHLOROthiazide (Lotensin HCT) 20-25 MG tablet Take 1 tablet by mouth 2 (two) times a day. 1 Active gabapentin (Neurontin) 400 MG capsule Take 1 capsule (400 mg) by mouth 3 (three) times a day. Active Mag64 64 MG EC tablet Take 1 tablet (64 mg) by mouth 2 (two) times a day. 4 Active Vitamin D3 50 MCG (2000 UT) tablet Take 1 tablet (2,000 Units) by mouth 1 (one) time each day. 4 Active pen needle, diabetic 31G X 5 MM misc Use to inject insulin once daily 100 each 1 5 Active metFORMIN (Glucophage) 1000 MG tablet Take 1 tablet (1,000 mg) by mouth 2 (two) times a day with meals. 180 tablet 5 08/04/19 26 Active Continuous Glucose Sensor (FreeStyle Hunter 2 Plus Sensor) misc 1 sensor every 14 days. 6 each 5 10/28/19 26 Active insulin glargine (Lantus SoloStar, Basaglar) 100 UNIT/ML injection pen Inject 36 units at bedtime. Titrate as directed. MDD: 50 units 15 mL 5 Active Semaglutide, 1 MG/DOSE, (Ozempic, 1 MG/DOSE,) 4 MG/3ML solution pen-injector Inject 1 mg under the skin 1 time per week. 3 mL 5 10/28/19 26 Active empagliflozin (Jardiance) 10 MG Take 1 tablet by mouth daily. 30 tablet 5 10/28/19 26 Active Insulin Lispro (Admelog, HumaLOG) 100 UNIT/ML injection vial Use in insulin pump TDD max: 50 units 15 mL 5 Active acetone, urine, test strip 1 strip as needed for high blood sugar. 50 each 1 5 12/26/19 25 Active Dasiglucagon HCl (Zegalogue) 0.6 MG/0.6ML solution auto-injector Inject 0.6 mL under the skin 1 time as needed (For severe hypoglycemic event) for up to 1 dose. 0.6 mL 1 5 Active glucose blood test strip 1 each by Other route 1 time as needed (For severe high or low glucose, when automated pump/ sensor fails) for up to 1 dose. 1 each 5 Active Active Problems Problem Noted Date Diagnosed Date Severe obesity (BMI 35.0-39.9) with comorbidity 08/04/2024 Type 2 diabetes mellitus wit h hyperglycemia, with long-term current use of insulin 08/04/2024 Class III obesity with body mass index (BMI) of 40.0 or higher 04/22/2024 Hyperlipidemia 04/22/2024 Gastroesophageal reflux 04/22/2024 Hypertension 01/15/2020 Encounters Date Type Department Care Team Description 11/25/2024 9:30 AM EDT Education [facility] Diabetes Education [address] [place] [address] Marguerite Zhong Type 2 diabetes mellitus with hyperglycemia, with long-term current use of insulin ([facility]) (Primary Dx); Encounter for fitting or adjustment of insulin pump 11/25/2024 Travel 11/10/2024 Orders Only [facility] Diabetes Education [address] [place] [address] Type 2 diabetes mellitus with hyperglycemia, with long-term current use of insulin (CMS/HCC) (Primary Dx) 11/10/2024 Telephone [facility] Endocrinology [address] [place] [address] Slime Allison APRN 11/10/2024 Telephone [facility] Endocrinology [address] [place] [address] Slime Allison APRN OP5 training 10/27/2024 10:00 AM EDT Office Visit [facility] Endocrinology [address] [place] [address] Slime Allison, LURDES Type 2 diabetes mellitus with hyperglycemia, with long-term current use of insulin (CMS/HCC) (Primary Dx); Severe obesity (BMI 35.0-39.9) with comorbidity (CMS/HCC); Hyperlipidemia, unspecified hyperlipidemia type 10/27/2024 Travel 09/12/2024 Telephone [facility] Endocrinology [address] [place] [address] Slime Allison, LURDES Prior-authorization/in surance Verification from Last 3 Months Social History Tobacco Use Types Packs/Day Years [...] on file Sexual Orientation Not on file Last Filed Vital Signs Vital Sign Reading Time Taken Comments Blood Pressure 119/77 10/27/2024 9:01 AM EDT Pulse 75 10/27/2024 9:01 AM EDT Temperature 36.8 C (98.3 F) 09/01/2020 10:27 AM EDT Respiratory Rate - - Oxygen Saturation - - Inhaled Oxygen Concentration - - Weight 98.3 kg (216 lb 11.4 oz) 10/27/2024 9:01 AM EDT Height 160 cm (5' 3 ) 07/28/2024 8:12 AM EST Body Mass Index 38.39 07/28/2024 8:12 AM EST Plan of Treatment Upcoming Encounters Date Type Department Care Team (Late st Contact Info) Description 02/02/2025 8:00 AM EDT [facility] Endocrinology [address] [place] [address] Slime Allison APRN [address] [place] [address] Health Maintenance Due Date Last Done Comments [facility]-Depression Screening 1965 [facility]-HIV Screening 1965 [facility]-Hepatitis C Screening 1965 [facility]-/Child/Adol SDOH Screenings 1967 Diabetes: Dental Exam 1977 [facility]- SDOH Screenings 1985 [facility]-Adult SDOH Screenings 1985 [facility]-Pneumococcal Vaccine: 50+ Years (1 of 2 - PCV) 1986 [facility]-Pap Smear 04/12/1998 04/12/1995, 04/12/1995 [facility]-Cervical Cancer Screening 04/12/2000 [facility]-HPV/Cotest 04/12/2000 04/12/1995, 04/12/1995 CT Colonography 2012 Colonoscopy 2012 FIT 2012 FOBT 2012 Sigmoidoscopy 2012 [facility]-Hepatitis B Vaccines (2 of 3 - 19+ 3-dose series) 02/21/2013 01/24/2013 [facility]-Breast Cancer Screening 2017 [facility]-DTaP,Tdap,and Td Vaccines (2 - Td or Tdap) 10/30/2022 10/30/2012 [id number]-51 Vaccine ( season) 2024 04/04/2023, 08/10/2021, 09/22/2020, Additional history exists [facility]-Diabetes: Hemoglobin A1C 10/27/2024 07/28/2024, 04/22/2024 FIT-DNA 10/01/2026 10/02/2023 [facility]-Colorectal Cancer Screening 10/01/2026 [facility]-Zoster Vaccines Completed 08/15/2023, [facility]-Influenza Vaccine Completed 03/17/2024 , 04/04/2023, 02/17/2022, Additional history exists [facility]-Obesity Intervention Completed 025, 10/27/2024, 10/27/2024, Additional history exists HPV Vaccines Aged Out No longer eligi ble based on patient's age to complete this topic [facility]-HIB Vaccines Aged Out No longer e ligible based on patient's age to complete this topic [facility]-Hepatitis A Vaccines Aged Out No longer eligible based on patient's age to complete this topic [facility]-IPV Vaccines Aged Out No longer e ligible based on patient's age to complete this topic [facility]-Rotavirus Vaccines Aged Out No lo nger eligible based on patient's age to complete this topic Procedures Procedure Name Priority Date/Time Associated Diagnosis Comments POCT GLYCOSYLATED HEMOGLOBIN (HGB A1C) Routine 07/28/2024 8:47 AM EST Type 2 diabetes mellitus with hyperglycemia, with long-term current use of insulin (CMS/HCC) CYTO DATA CONVERSION Routine 04/12/1995 12:00 AM EST from Last 3 Months or Most Recently Relevant to Health Maintenance Results * POCT glycosylated hemoglobin (Hb A1C) (07/28/2024 8:47 AM EST) POCT Hemoglobin A1C 10.2 <5.7% Non-Diabet ic % [facility] Kit Lot Number [id number] [facility] Kit Expiration Date 06/2026 [facility] Blood Venous blood specimen / Unknown 07/28/2024 8:47 AM EST us Slime Allison SENIOR MOBILE APPLICATION DEVELOPER POINT OF CARE TEST ENTER /EDIT ORDERABLES Final Result [facility] [address] [place] [address] * Cytology (04/12/1995 12:00 AM EST) Breast fine needle aspirate specimen (specimen) 04/12/1995 04/12/1995 Narrative [facility] - 04/16/1995 12:00 AM EST [facility] MR #: [id number] [facility] [address] [place] [address] 1965 (Age: 29) FW Collect Date: 04/12/1995 00:00 Receipt Date: 04/12/1995 00:00 Page 1 DEPARTMENT OF PATHOLOGY AND LABORATORY MEDICINE CYTOPATHOLOGY REPORT Email: [email or web address] [phone] * Converted Case * This report may not match the original report format ATTENDING MD/Practitioner: Dariel Flower Jr., Service: CDL FLATBED TRUCK DRIVER Location: Reported: 04/16/1995 00:00 Collected: 04/12/1995 00:00 DIAGNOSIS FNA, LEFT BREAST: NO EVIDENCE OF MALIGNANCY. SMALL COHESIVE GROUPS OF BENIGN DUCTAL EPITHELIAL CELLS AND ADIPOSE TISSUE. Electronically Signed Out By Niki Sandra MD Janice Sutton MD PROCEDURES/ADDENDA GROSS DESCRIPTION: Needle rinse fluid and 9 slides. CLINICAL INFORMATION: CLINICAL DIAGNOSIS 2X2cm firm movable nodule at 6:00 FNA X2 BY JAW/KJA SPECIMEN DESCRIPTION: A: FNA BREAST, NOS, L.BREAST ICD: F: {Not Entered} SNOMED CODES: 1; S19340 P1149 [id number] A resident has participated in this service. A pathologist has performed and is responsible for the reported pathologic evaluation. us Historical Provider MD LAB PATHOLOGY ORDERABLES Final Result [facility] from Last 3 Months or Most Recently Relevant to Health Maintenance Insurance [employer] [facility] MEDICAID Care Teams Aerial Gunner Relationship Specialty Start Date End Date Rashid Aranda MD [address] [place] [address] PCP - General 10/22/20 Marguerite Zhong [address] [address] Registered Nurse 11/25/24
--- OUTSIDE RECORDS SUMMARY | 2024-11-27 09:34 | XMS_ITS | Encounter Summary ---
Author Organization Healthcare Address [address] [place] [address] Care Team Providers Care Golf Course Patroller Name Role Phone Rashid Aranda MD Primary Care Provider + [phone] Encounter Details Date Type Department Care Team (Latest Contact Info) Description 10/27/2024 Travel Social History Tobacco Use Types Packs/Day [...] Description 02/02/2025 8:00 AM EDT Office Visit [facility] Endocrinology [address] [place] [address] Slime Allison, LABEL SEWER 2[address] [facility] [address] [place] [address] documented as of this encounter Visit Diagnoses Not on filedocumented in this encounter Additional Health Concerns Assessment Noted Time A Body Mass Index follow-up plan has been documented for the patient 10/27/2024 10:25 AM EDT documented as of this encounter Care Teams Golf Course Patroller Relationship Specialty Start Date End Date Rashid Aranda MD [address] [place] [address] PCP - General 10/22/20 documented as of this encounter
--- OUTSIDE RECORDS SUMMARY | 2024-11-27 09:34 | XMS_ITS | Encounter Summary ---
Author Organization Healthcare Address [address] [place] [address] Care Team Providers Care Rv Mechanic Name Role Phone Rashid Aranda MD Primary Care Provider + [phone] Marguerite Zhong Unavailable [phone] Reason for Visit * Reason Onset Date Comments OP5 training 11/10/2024 Encounter Details Date Type Department Care Team (Late st Contact Info) Description 11/10/2024 Telephone [facility] Endocrinology [address] [place] [address] Slime Allison, GRAIN TRIMMER 2[address] [facility] [address] [place] [address] OP5 training Social History Tobacco Use Types Packs/Day Years [...] encounter Miscellaneous Notes * Telephone Encounter - Nagi Robert RD - 11/10/2024 2:21 PM EDT Referral placed. * Telephone Encounter - ANASTASIA YOUNG - 11/10/2024 10:22 AM EDT Pt requesting appt for op5 training. documented in this encounter Plan of Treatment Upcoming Encounters Date Type Department Care Team (Late st Contact Info) Description 02/02/2025 8:00 AM EDT Office Visit [facility] Endocrinology [address] [place] [address] Slime Allison, GRAIN TRIMMER 2[address] [facility] [address] [place] [address] documented as of this encounter Visit Diagnoses Not on filedocumented in this encounter Additional Health Concerns Assessment Noted Time A Body Mass Index follow-up plan has been documented for the patient 10/27/2024 10:25 AM EDT documented as of this encounter Care Teams Rv Mechanic Relationship Specialty Start Date End Date Rashid Aranda MD [address] [place] [address] PCP - General 10/22/20 Marguerite Zhong [address] [address] Registered Nurse 11/25/24 documented as of this encounter
--- NOTE | 2024-11-27 09:45 | EXP.PAIN.SOA ---
[facility] Disclaimer: The information contained in this section may have been updated after the patient was seen, as this information can be updated by other users. Medical History Difficulty swallowing Shortness of breath Thyroid nodule Thyromegaly Palpitations Retention cyst of nasal cavity Multinodular goiter Goiter H. pylori infection Anxiety Diabetic retinopathy Edema GALI FEET Urinary tract infection History of COVID-19 History of gastroesophageal reflux (GERD) Hemorrhoid Hypertension Hyperlipidemia Heart murmur Edema History of anemia Carpal tunnel syndrome, bilateral Hypertension Diabetes Allergic rhinitis Diastolic dysfunction Michele's palsy Positive colorectal cancer screening using Cologuard test Intra-abdominal lymphadenopathy Elevated lipase Leukocytosis Surgical History History of colonoscopy History of esophagogastroduodenoscopy (EGD) H/O splenectomy History of carpal tunnel surgery Hx of removal of cyst History of partial hysterectomy Family History Sister Thyroid disorder Social History Smoking Status: Never smoker second hand exposure: Yes alcohol intake: never substance use type: denies use current occupational status: other Travel in the last 8 weeks?: None housing: house number of children: 2 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 Today she rates her pain a 2 out of 10 but does state the pain will go to at least a 5 out of 10 with increased activity. Patient denies any new falls or injuries. She does state that that injection gave 100% relief lasting 3 hours. Patient felt like she was able to move around easier in her neck with decreased pain and felt much more functional. She does feel like after the numbing medication wore off she was right back to her baseline. Patient does state the chronic neck pain is very bothersome and does interfere with her ability perform activities of daily living such as cooking and cleaning. Patient is interested in proceeding forward with additional injections for this pain. Patient does also make mention that she was having trouble with her hip the other day and they do believe it is tendinitis and that she is having an injection coming up for this in December. She denies any other changes.. Patient denies any new trauma or injury. She is currently managed with intrathecal morphine 5 mg/mL with a daily dose of 0.566 mg/day. She denies any side effects. Her Jerrell has been reviewed and is appropriate. Review of Systems: General: No recent weight changes, no fever, no sleep disturbances Respiratory: No cough, no shortness of air, no recurring pulmonary infections Cardiovascular/peripheral vascular: No chest pain, no palpitations, no edema, no shortness of breath Gastrointestinal: No new onset incontinence, normal bowel movements reported Genitourinary: No new onset incontinence Musculoskeletal: Neck pain Psychiatric: [Normal mood/affect] Neurological: [Denies weakness in extremities], [denies balance issues] Pain at rest (0-10 scale): 5 Objective Objective:: Physical Exam: General: Alert and oriented x3, no acute distress, pleasant and cooperative Lungs: Respirations even and unlabored, symmetrical chest expansion Eyes: PERRL Musculoskeletal: Flexion and extension of cervical [spine] somewhat guarded secondary to pain, [antalgic gait noted] positive Kemps test Neurological: Speech clear, no gross sensory deficit Has patient had previous pain injection?: Yes Percent improvement in pain since last injection: 100% for 3 hours Conservative treatment options previously tried: Home exercise plan Length of treatment: Longer than 12 weeks Meds Home Medications and Allergies Home Medications ?Medication ?Instructions ?Recorded ?Confirmed ?Type pen needle, diabetic 29 gauge x 11/25/19 11/04/24 History 1/2 insulin syringe-needle U-100 1 mL 05/20/21 11/04/24 History 31 gauge x 15/64 blood-glucose,scouring train operator,cont 12/04/22 11/04/24 History (Dexcom G6 Lan Administrator) amantadine HCl 100 mg tablet 100 mg PO DAILY 11/26/23 11/04/24 History lansoprazole 30 mg capsule,delayed 30 mg PO DAILY 11/26/23 11/04/24 History release blood-glucose sensor (Dexcom G6 #3 ea 12/31/23 11/04/24 Rx Sensor device) metformin 1,000 mg tablet See Rx Instructions .Route 02/13/24 11/04/24 Rx .COMPLEX #180 tabs blood-glucose transmitter (Dexcom #5 ea 04/07/24 11/04/24 Rx G6 Transmitter device) empagliflozin 10 mg tablet 10 mg PO DAILY #30 tabs 06/06/24 11/04/24 Rx (Jardiance) benazepril 20 See Rx Instructions .Route 08/26/24 11/04/24 Rx mg-hydrochlorothiazide 25 mg tablet .COMPLEX #180 tabs magnesium chloride 64 mg 64 mg PO BID #60 tabs 08/26/24 11/04/24 Rx (magnesium chloride) tablet,delayed release montelukast 10 mg tablet 10 mg PO DAILY #90 tabs 08/26/24 11/04/24 Rx potassium chloride 20 mEq See Rx Instructions .Route 08/26/24 11/04/24 Rx tablet,extended release(part/cryst) .COMPLEX #90 tabs insulin glargine 100 unit/mL (3 30 unit SQ DAILY 10/07/24 11/04/24 History mL) subcutaneous pen (Lantus Solostar U-100 Insulin) semaglutide 1 mg/dose (4 mg/3 mL) 1 mg SQ WEEKLY 10/07/24 11/04/24 History subcutaneous pen injector (Ozempic) famotidine 20 mg tablet See Rx Instructions .Route 10/17/24 11/04/24 Rx .COMPLEX #90 tabs atorvastatin 10 mg tablet See Rx Instructions .Route 11/18/24 Rx .COMPLEX #90 tabs cholecalciferol (vitamin D3) 50 See Rx Instructions .Route 11/19/24 Rx mcg (2,000 unit) capsule (Vitamin .COMPLEX #90 caps D3) bisoprolol fumarate 10 mg tablet 10 mg PO DAILY #90 tabs 11/26/24 Rx New Prescriptions to Start Prescriptions: Allergies Allergy/AdvReac Type Severity Reaction Status Date / Time propoxyphene (PROPOXYPHENE) Allergy Unknown Verified 10/07/24 08:19 Assessment and Plan *Assessment and plan (1) Facet arthropathy, cervical: Status: Acute Category: Medical Code(s): M47.812 - Spondylosis without myelopathy or radiculopathy, cervical region (2) Neck pain: Status: Acute Category: Medical Code(s): M54.2 - Cervicalgia Plan Patient has had a very successful cervical medial branch block that did provide 100% relief lasting 3 hours while it was on. She did have improved function with 0 out of 10 pain. Patient is starting to experience worsening pain in her neck with difficulty making movements such as looking up and down and turning [id number]. Patient did have limited range of motion of her cervical spine with a positive Kemps test. I did discuss with the patient that I do believe she would benefit from repeat cervical medial branch block. Risk and benefits were discussed with patient and she would like to proceed forward with that plan of care. Patient has tried and failed conservative therapy including oral medications, heat and ice, topicals, at home stretching exercise for longer than 12 weeks as well as physical therapy. Patient will be scheduled for her second cervical medial branch block bilaterally C5-C6 and C6-C7 under fluoroscopy. Patient is not on any blood thinners. If she does have significant relief we will plan on proceeding forward with the RFA at a later date. Patient agrees with this plan of care. Patient has been instructed to contact the clinic with any concerns before the next appointment. Dr. Adams has reviewed this note and agrees with this plan of care. This note was dictated using voice recognition software and make contain errors or omissions. All injections are used with Lidocaine, Bupivacaine and dexamethasone. Occasionally urine drug screen is needed to verify patient's compliance with our office pain contract. This is ordered based off specific treatments related to chronic pain with the potential to abuse certain medications.
[2024-11-27 11:19] VITALS: BP 131/84; PULSE 87; RESP 18; O2SAT 97; BMI 39.3
== END 2024-11-27 23:59 | disposition home or self-care (01) ==
LOC: SC.PAIN 09:30
PROVIDERS: PCP Nurse Practitioner Family; Visit Provider Nurse Practitioner Family
DX: M47.812 Spondylosis without myelopathy or radiculopathy, cervical region (principal); Z79.891 Long term (current) use of opiate analgesic
CPT/HCPCS: 99212; G0463

== ENCOUNTER 2024-12-30 08:03 | Day surgery (SDC) | payer OTHER, SELFPAY ==
[2024-12-30 08:18] VITALS: BP 139/87; PULSE 81; RESP 18; O2SAT 98; BMI 39.4
[2024-12-30] MEDS: LIDOCAINE 1% 5ML PF VIAL 5 ML (08:23)
[2024-12-30] MEDS: BUPIVACAINE 0.25% 10ML INJ 25 MG IJ (08:23)
[2024-12-30 08:24] VITALS: BP 154/99; PULSE 78; RESP 18; O2SAT 98
[2024-12-30 08:25] VITALS: BP 154/99; PULSE 78; RESP 18; O2SAT 98
--- NOTE | 2024-12-30 08:28 | EXP.PAIN.PRO ---
Procedure Date: 12/30/24 Time: 08:15 Anesthesiologist:: Eric Underwood CRNA Complications:: None Pre-procedure Diagnosis:: Degenerative disc cervical spine multilevels. Cervical radiculopathy. Cervical spondylosis. Multilevel cervical facet arthropathy. Post-procedure Diagnosis:: Same. Indications for Procedure:: Patient is a very pleasant 59-year-old female comes to our clinic today for diagnostic round 2 of cervical medial branch blocks/facet injections at the bilateral C5-6, C6-7 level of local anesthetic. Patient describes cervical neck pain as constant, dull, aching. She reports difficulty with cervical flexion, extension, left and right rotation. She reports significant improvement terms of her overall symptoms with her first round of medial branch blocks/facet injections at the same level. Procedure Details:: Informed consent was obtained and the risk and benefits of the procedure was explained to the patient. Patient was taken to the procedure room where noninvasive monitors were placed, including noninvasive blood pressure cuff as well as pulse oximeter. The area over the posterior cervical spine was cleansed using chlorhexidine as a cleansing solution. I anesthetized the skin and subcutaneous tissues with 1% Lidocaine. I placed 25 -gauge spinal needles into the facet joint/ medial branches of C5-6, C6-7 bilaterally. Needle placement was confirmed with fluoroscopy. After confirmation of needle placement, each site was injected with 1 mL of 1% lidocaine. Patient tolerated the procedure without difficulty. There were no complications. Patient was discharged without incident. Plan and Disposition:: Patient was discharged without incident.
[2024-12-30 08:40] VITALS: BP 120/85; PULSE 84; RESP 18; O2SAT 100
[2024-12-30] MEDS: IOPAMIDOL-200 (41%);10ML VIAL 3 ML IV (08:53)
== END 2024-12-30 08:40 | disposition home or self-care (01) ==
PROVIDERS: PCP Nurse Practitioner Family; Visit Provider Nurse Anesthetist, Certified Registered
DX: M50.123 Cervical disc disorder at C6-C7 level with radiculopathy (principal); M47.22 Other spondylosis with radiculopathy, cervical region; F41.9 Anxiety disorder, unspecified; G51.0 Bell's palsy; E11.319 Type 2 diabetes mellitus with unspecified diabetic retinopathy without macular edema; E78.5 Hyperlipidemia, unspecified; I10 Essential (primary) hypertension; Z88.8 Allergy status to other drugs, medicaments and biological substances; Z79.84 Long term (current) use of oral hypoglycemic drugs; Z79.4 Long term (current) use of insulin; Z79.899 Other long term (current) drug therapy
CPT/HCPCS: 64490; 64491; J0665; J2003; Q9966

== ENCOUNTER 2025-01-14 08:47 | Outpatient (POV) | payer OTHER, SELFPAY ==
--- OUTSIDE RECORDS SUMMARY | 2024-11-25 09:30 | XMS_ITS | Encounter Summary ---
Author Organization Healthcare Address [address] [place] [address] Care Team Providers Care Health Care Analyst Name Role Phone Rashid Aranda MD Primary Care Provider + [phone] Marguerite Zhong Unavailable [phone] Reason for Visit * Reason Comments OmniPod 5 start from MDI * Consultation (Routine) - Closed Specialty Diagnoses / Procedures Referred By Contac t Referred To Contact Endocrinology Diagnoses Type 2 diabetes mellitus with hyperglycemia, with long-term current use of insulin ([facility]) Slime Allison, LAWN SPECIALIST [address] [place] [address] Phone: tel: fax: [facility] Diabetes Education [address] [place] [address] Phone: tel: fax: Referral ID Status Reason Start Date Expiration Date Visits Re quested Visits Authorized [id number] Closed 11/10/2024 05/12/2026 1 1 Encounter Details Date Type Department Care Team (Late st Contact Info) Description 11/25/2024 9:30 AM EDT Education [facility] Diabetes Education [address] [place] [address] Marguerite Zhong [address] [facility] [address] [place] [address] Type 2 diabetes mellitus with hyperglycemia, with long-term current use of insulin ([facility]) (Primary Dx); Encounter for fitting [...] taught the basic features of the Omnipod fire control system installer, SMARTAdjust technology, and pod. Patient's start-up [...] Patient was also advised they can call [employer] customer support with any questions or concerns and call her provider for any questions or concerns. Pt given special education paraeducator number, supervisor inspection providers number and the education center . Thank you for this referral. documented in this encounter Plan of Treatment Upcoming Encounters Date Type Department Care Team (Late st Contact Info) Description 02/02/2025 8:00 AM EDT Office Visit [facility] Endocrinology [address] [place] [address] Slime Allison, LAWN SPECIALIST [address] [phone] documented as of this encounter Visit Diagnoses Diagnosis Type 2 diabetes mellitus with hyperglycemia, with long-term current use of insulin ([facility])- Primary Encounter for fitting or adjustment of insulin pump Fitting and adjustment of insulin pump documented in this encounter Additional Health Concerns Assessment Noted Time A Body Mass Index follow-up plan has been documented for the patient 10/27/2024 10:25 AM EDT documented as of this encounter Care Teams Health Care Analyst Relationship Specialty Start Date End Date Rashid Aranda MD [address] [place] [address] PCP - General 10/22/20 Marguerite Zhong [address] [place] [phone] Registered Nurse 11/25/24 documented as of this encounter
--- OUTSIDE RECORDS SUMMARY | 2025-01-14 08:55 | XMS_ITS | Encounter Summary ---
Author Organization Healthcare Address [address] [place] [address] Care Team Providers Care Magneto Electrician Name Role Phone Rashid Aranda MD Primary Care Provider + [phone] Marguerite Zhong Unavailable [phone] Reason for Visit * Reason Onset Date Comments OP5 training 11/10/2024 Encounter Details Date Type Department Care Team (Late st Contact Info) Description 11/10/2024 Telephone [facility] Endocrinology [address] [place] [address] Slime Allison P, WEIGH BOX TENDER 2[address] [facility] Juan Carlos [address] [place] [address] OP5 training Social History Tobacco [...] Description 02/02/2025 8:00 AM EDT Office Visit [facility] Endocrinology [address] [place] [id number] Slime Allison, WEIGH BOX TENDER 2195 [facility] [address] [place] [address] documented as of this encounter Visit Diagnoses Not on filedocumented in this encounter Additional Health Concerns Assessment Noted Time A Body Mass Index follow-up plan has been documented for the patient 10/27/2024 10:25 AM EDT documented as of this encounter Care Teams Magneto Electrician Relationship Specialty Start Date End Date Rashid Aranda MD [address] [place] [address] PCP - General 10/22/20 Marguerite Zhong [address] [address] Registered Nurse 11/25/24 documented as of this encounter
--- OUTSIDE RECORDS SUMMARY | 2025-01-14 08:55 | XMS_ITS | Encounter Summary ---
Author Organization Healthcare Address [address] [place] [address] Care Team Providers Care Burr Sander Name Role Phone Rashid Aranda MD Primary Care Provider + [phone] Marguerite Zhong Unavailable [phone] Reason for Visit * Reason Comments Med Refill Encounter Details Date Type Department Care Team (Late st Contact Info) Description 12/16/[address] [facility] Endocrinology [address] [place] [address] Slime Allison P, CRAWLER DRAGLINE OPERATOR 2195 [facility] [address] [place] [address] Social History Tobacco Use Types [...] encounter Miscellaneous Notes * Telephone Encounter - Celia Soni - 12/16/2024 2:46 PM EDT Refill request does not meet protocol. Sending to clinic for review. Additional info: Medication not on protocol. documented in this encounter Plan of Treatment Upcoming Encounters Date Type Department Care Team (Late st Contact Info) Description 02/02/2025 8:00 AM EDT Office Visit [facility] Endocrinology [address] [place] [phone] Slime Allison, CRAWLER DRAGLINE OPERATOR [address] [place] [address] documented as of this encounter Visit Diagnoses Not on filedocumented in this encounter Additional Health Concerns Assessment Noted Time A Body Mass Index follow-up plan has been documented for the patient 10/27/2024 10:25 AM EDT documented as of this encounter Care Teams Burr Sander Relationship Specialty Start Date End Date Rashid Aranda MD [address] [place] [address] PCP - General 10/22/20 Marguerite Zhong [address] [place] [address] Registered Nurse 11/25/24 documented as of this encounter
--- OUTSIDE RECORDS SUMMARY | 2025-01-14 08:55 | XMS_ITS | Encounter Summary ---
Author Organization Healthcare Address [address] [place] [address] Care Team Providers Care Milling Machinist Name Role Phone Rashid Aranda MD Primary Care Provider + [phone] Marguerite Zhong Unavailable [phone] Encounter Details Date Type Department Care Team (Late st Contact Info) Description [facility]/10[facility] [address] [place] [address] Slime Allison P, WEIGHER AND CRUSHER 2[address] [facility] Juan Carlos [address] [place] [address] Social History Tobacco Use Types [...] of the initial request. Best contact number: [phone] (home) Optimal time of day to reach [...] optimal time of day to reach caller: [phone] Note: Please do not reply to this [...] 02/02/2025 8:00 AM EDT [facility] [address] [place] [phone] Slime Allison, WEIGHER AND CRUSHER 219 [facility] [address] [place] [address] documented as of this encounter Visit Diagnoses Not on filedocumented in this encounter Additional Health Concerns Assessment Noted Time A Body Mass Index follow-up plan has been documented for the patient 10/27/2024 10:25 AM EDT documented as of this encounter Care Teams Milling Machinist Relationship Specialty Start Date End Date Rashid Aranda MD [address] [place] [address] PCP - General 10/22/20 Marguerite Zhong [address] [place] [address] Registered Nurse 11/25/24 documented as of this encounter
--- OUTSIDE RECORDS SUMMARY | 2025-01-14 08:55 | XMS_ITS | Encounter Summary ---
Author Organization Healthcare Address [address] [place] [address] Care Team Providers Care Dynamometer Tester Engine Name Role Phone Rashid Aranda MD Primary Care Provider + [phone] Marguerite Zhong Unavailable [phone] Reason for Visit * Reason Onset Date Comments Med Refill 12/01/2024 Encounter Details Date Type Department Care Team (Late st Contact Info) Description 12/01/2024 Refill [facility] Endocrinology [address] [place] [address] Bethanie Taylor Social History Tobacco Use Types Packs/Day Years [...] Description 02/02/2025 8:00 AM EDT Office [facility] Endocrinology [address] [place] [address] Slime Allison, MIXER OPERATOR VACUUM PAN SALT [address] [place] [address] documented as of this encounter Visit Diagnoses Not on filedocumented in this encounter Additional Health Concerns Assessment Noted Time A Body Mass Index follow-up plan has been documented for the patient 10/27/2024 10:25 AM EDT documented as of this encounter Care Teams Dynamometer Tester Engine Relationship Specialty Start Date End Date Rashid Aranda MD [address] [place] [address] PCP - General 10/22/20 Marguerite Zhong [address] [address] Registered Nurse 11/25/24 documented as of this encounter
--- OUTSIDE RECORDS SUMMARY | 2025-01-14 08:55 | XMS_ITS | Encounter Summary ---
Author Organization Healthcare Address [address] [place] [address] Care Team Providers Care Perinatal Instructor Name Role Phone Rashid Aranda MD Primary Care Provider + [phone] Marguerite Zhong Unavailable [phone] Encounter Details Date Type Department Care Team (Late st Contact Info) Description 12/16/2024 Orders Only [facility] Endocrinology [address] [place] [address] Slime Allison, MASTER CHEF [address] [address] Social History Tobacco Use Types Packs/Day [...] Description 02/02/2025 8:00 AM EDT Office Visit [facility] Endocrinology [address] [place] [address] Slime Allison, MASTER CHEF 5 [facility] [address] [place] [address] documented as of this encounter Visit Diagnoses Not on filedocumented in this encounter Additional Health Concerns Assessment Noted Time A Body Mass Index follow-up plan has been documented for the patient 10/27/2024 10:25 AM EDT documented as of this encounter Care Teams Perinatal Instructor Relationship Specialty Start Date End Date Rashid Aranda MD [address] [place], [place] [id number] PCP - General 10/22/20 Marguerite Zhong [address] [place] [address] [address] [place] [phone] Registered Nurse 11/25/24 documented as of this encounter
--- OUTSIDE RECORDS SUMMARY | 2025-01-14 08:55 | XMS_ITS | Encounter Summary ---
Author Organization Healthcare Address [address] [place] [address] Care Team Providers Care J2Ee Software Engineer Name Role Phone Rashid Aranda MD Primary Care Provider + [phone] Marguerite Zhong Unavailable [phone] Reason for Visit * Reason Onset Date Comments Prior-authorization/insurance Verification 12/01 Encounter Details Date Type Department Care Team (Late st Contact Info) Description 12/01/2024 Telephone [facility] Endocrinology [address] [place] [address] Slime Allison, BLOCK OPERATOR 2195 [facility] Juan Carlos [address] [place] [address] Prior-authorization/in surance Verification Social History Tobacco Use Types Packs/Day Years [...] encounter Miscellaneous Notes * Telephone Encounter - Rashid Orozco, PharmD - 12/02/2024 9:29 AM EDT PA request has been approved and pharmacy notified (Filling pharmacy will be notified by phone, fax, or submitted prescription) Authorized Medication: Baqsimi Name of Insurance Approving PA: [facility] PA Number: [id number] PA Effective Dates: 12/02/24 - 12/02/25 Additional Info: [id number] * Telephone Encounter - Bethanie Taylor - 12/01/2024 3:03 PM EDT Prescription sent for Baqsimi. PA sent. Thank you. * Telephone Encounter - Frida Nagy - 12/01/2024 9:56 AM EDT Images from the original note were not included. Prior authorization requested for Zegalogue 0.6MG/0.6ML Auto-injectors. Ordered by Slime Allison. documented in this encounter Plan of Treatment Upcoming Encounters Date Type Department Care Team (Late st Contact Info) Description 02/02/2025 8:00 AM EDT Office Visit [facility] Endocrinology [address] [place] [address] Slime Allison, LURDES [address] [address] documented as of this encounter Visit Diagnoses Not on filedocumented in this encounter Additional Health Concerns Assessment Noted Time A Body Mass Index follow-up plan has been documented for the patient 10/27/2024 10:25 AM EDT documented as of this encounter Care Teams J2Ee Software Engineer Relationship Specialty Start Date End Date Rashid Aranda MD [address], [place] [id number] PCP - General 10/22/20 Marguerite Zhong 2195 [facility] [address] [place] [address] Registered Nurse 11/25/24 documented as of this encounter
--- OUTSIDE RECORDS SUMMARY | 2025-01-14 08:55 | XMS_ITS | Clinical Summary ---
Author Organization [facility] Address [address] [place] [address] Care Team Providers Care Word Processing Specialist Name Role Phone Rashid Aranda MD Primary Care Provider + [phone] Marguerite Zhong Unavailable [phone] Allergies Active Allergy Reactions Criticality Noted Date Comments Propoxyphene Unknown - Patient st ates they do not know rxn details Low 01/15/2020 Medications potassium chloride CR (Klor-Con M20) 20 MEQ ER tablet Take 1 tablet (20 mEq) by mouth 1 (one) time each day. 09/02/19 Active atorvastatin (Lipitor) 10 MG tablet Take 1 tablet (10 mg) by mouth 1 (one) time each day. 09/02/19 21 Active montelukast (Singulair) 10 MG tablet Take 1 tablet (10 mg) by mouth every night. 03/31/20 24 Active bisoprolol (Zebeta) 10 MG tablet Take 1 tablet (10 mg) by mouth 1 (one) time each day. 11/26/19 24 Active famotidine (Pepcid) 20 MG tablet Take 1 tablet (20 mg) by mouth 2 (two) times a day. 11/26/19 24 Active lansoprazole (Prevacid) [address] capsule Take 1 capsule (30 mg) by mouth 1 (one) time each day. 11/26/19 24 Active benazepril-hyd roCHLOROthiazi de (Lotensin HCT) 20-25 MG tablet Take 1 tablet by mouth 2 (two) times a day. 09/02/19 21 Active gabapentin (Neurontin) 400 MG capsule Take 1 capsule (400 mg) by mouth 3 (three) times a day. Active Mag64 64 MG EC tablet Take 1 tablet (64 mg) by mouth 2 (two) times a day. 04/02/20 Active Vitamin D3 50 MCG (2000 UT) tablet Take 1 tablet (2,000 Units) by mouth 1 (one) time each day. 04/02/20 Active pen needle, diabetic 31G X 5 MM misc Use to inject insulin once daily 100 each 07/31/19 Active metFORMIN (Glucophage) 1000 MG tablet Take 1 tablet (1,000 mg) by mouth 2 (two) times a day with meals. 180 tablet 08/04/19 Active Continuous Glucose Sensor (FreeStyle Hunter 2 Plus Sensor) misc 1 sensor every 14 days. 6 each 10/28/19 Active insulin glargine (Lantus SoloStar, Basaglar) 100 UNIT/ML injection pen Inject 36 units at bedtime. Titrate as directed. MDD: 50 units 15 mL 10/28/19 Active Semaglutide, 1 MG/DOSE, (Ozempic, 1 MG/DOSE,) 4 MG/3ML solution pen-injector Inject 1 mg under the skin 1 time per week. 3 mL 10/28/19 Active empagliflozin (Jardiance) 10 MG Take 1 tablet by mouth daily. 30 tablet 10/28/19 Active Insulin Lispro (Admelog, HumaLOG) 100 UNIT/ML injection vial Use in insulin pump TDD max: 50 units 15 mL 11/26/19 Active glucose blood test strip 1 each by Other route 1 time as needed (For severe high or low glucose, when automated pump/ sensor fails) for up to 1 dose. 1 each 11/26/19 Active glucagon (Baqsimi Two Pack) 3 MG/DOSE powder Nasal Powder Administer 3 mg into a single nostril for hypoglycemia; if no response, may repeat in 15 minutes using a new intranasal device 1 each 12/02/19 25 Active Insulin Disposable Pump (Omnipod 5 Libre2 Plus G6 Pods) misc 1 Device every 3 days. 10 each 12/17/19 25 026 Active Insulin Disposable Pump (Omnipod 5 Libre2 Plus G6) kit 1 kit 1 time for 1 dose. 1 kit 10/28/19 25 025 Discontinued acetone, urine, test strip 1 strip as needed for high blood sugar. 50 each 1 11/26/19 25 025 Insulin Disposable Pump (Omnipod 5 Libre2 Plus G6) kit USE DIRECTED 1 kit 12/17/19 25 025 Discontinued(Re order) Active Problems Problem Noted Date Diagnosed Date Severe obesity (BMI 35.0-39.9) with comorbidity 08/04/2024 Type 2 diabetes mellitus wit h hyperglycemia, with long-term current use of insulin 08/04/2024 Class III obesity with body mass index (BMI) of 40.0 or higher 04/22/2024 Hyperlipidemia 04/22/2024 Gastroesophageal reflux 04/22/2024 Hypertension 01/15/2020 Encounters Date Type Department Care Team Description 12/16/2024 Orders Only [facility] Endocrinology [address] [place] [address] Slime Allison, TANK TESTER 12/16/2024 Refill [facility] Endocrinology [address] [place] [address] Slime Allison, TANK TESTER 12/01/2024 Refill [facility] Endocrinology [address] [place] [address] Bethanie Taylor 12/01/2024 Telephone [facility] Endocrinology [address] [place] [address] Slime Allison, TANK TESTER Prior-authorization/in surance Verification 11/25/2024 9:30 AM EDT Education [facility] Diabetes Education [address] [place] [address] Marguerite Zhong Type 2 diabetes mellitus with hyperglycemia, with long-term current use of insulin ([facility]) (Primary Dx); Encounter for fitting or adjustment of insulin pump 11/25/2024 Travel 11/10/2024 Orders Only [facility] Diabetes Education [address] [place] [address] Nagi Robert, [place] Type 2 diabetes mellitus with hyperglycemia, with long-term current use of insulin ([facility]) (Primary Dx) 11/10/2024 Telephone [facility] Endocrinology [address] [place] [address] Slime Allison, LURDES 11/10/2024 Telephone [facility] Endocrinology [address] [place] [address] Slime Allison, TANK TESTER OP5 training 10/27/2024 10:00 AM EDT Office Visit [facility] Endocrinology [address] [place] [address] Slime Allison, TANK TESTER Type 2 diabetes mellitus with hyperglycemia, with long-term current use of insulin ([facility]) (Primary Dx); Severe obesity (BMI 35.0-39.9) with comorbidity ([facility]); Hyperlipidemia, unspecified hyperlipidemia type 10/27/2024 Travel from Last 3 Months Social History Tobacco [...] 02/02/2025 8:00 AM EDT Office Visit Zack Oconnelltable [facility] Endocrinology [address] [place] [address] Slime Allison, TANK TESTER [address] [place] [address] Health Maintenance Due Date Last Done Comments [...] (2 - Td or Tdap) 10/30/2022 10/30/2012 [id number] Vaccine ( season) 2024 04/04/2023, 08/10/2021, 09/22/2020, Additional history exists [facility]-Diabetes: Hemoglobin A1C 10/27/2024 07/28/2024, 04/22/2024 [facility]-Influenza Vaccine (#1) 02/09/202503/17, 04/04/2023, 02/17/2022, Additional history exists FIT-DNA 10/01/2026 10/02/2023 [facility]-Colorectal Cancer Screening 10/01/2026 [facility]-Zoster Vaccines Completed 08/15/2023, [facility]-Obesity Intervention Completed 025, 10/27/2024, 10/27/2024, Additional [...] hyperglycemia, with long-term current use of insulin ([facility]) CYTO DATA CONVERSION Routine 04/12/1995 12:00 AM EST from Last 3 Months or Most Recently Relevant to Health Maintenance Results * POCT glycosylated hemoglobin (Hb A1C) (07/28/2024 8:47 AM EST) POCT Hemoglobin A1C 10.2 <5.7% Non-Diabet ic % [facility] Kit Lot Number [id number] [facility] Kit Expiration Date 06/2026 [email or web address] Blood Venous blood specimen / Unknown 07/28/2024 8:47 AM EST us Slime Allison TANK TESTER POINT OF CARE TEST ENTER /EDIT ORDERABLES Final Result [facility] [address] [place] [id number] * Cytology (04/12/1995 12:00 AM EST) Breast fine needle aspirate specimen (specimen) 04/12/1995 04/12/1995 Narrative [facility] - 04/16/1995 12:00 AM EST [facility] MR #: [id number] [facility] [address] [place], [place] [address] 1965 (Age: 29) FW Collect Date: 04/12/1995 00:00 Receipt Date: 04/12/1995 00:00 Page 1 DEPARTMENT OF PATHOLOGY AND LABORATORY MEDICINE CYTOPATHOLOGY REPORT Email: [email or web address] [phone] * Converted Case * This report may not match the original report format ATTENDING MD/Practitioner: Dariel Flower Jr., Service: JOURNALISM TEACHER Location: Reported: 04/16/1995 00:00 Collected: 04/12/1995 00:00 DIAGNOSIS FNA, LEFT BREAST: NO EVIDENCE OF MALIGNANCY. SMALL COHESIVE GROUPS OF BENIGN DUCTAL EPITHELIAL CELLS AND ADIPOSE TISSUE. Electronically Signed Out By Niki Sandra MD Janice Sutton MD PROCEDURES/ADDENDA GROSS DESCRIPTION: Needle rinse fluid and 9 slides. CLINICAL INFORMATION: CLINICAL DIAGNOSIS 2X2cm firm movable nodule at 6:00 FNA X2 BY JAW/ELIU SPECIMEN DESCRIPTION: A: FNA BREAST, NOS, L.BREAST ICD: F: {Not Entered} SNOMED CODES: 1; [id number] A resident has participated in this service. A pathologist has performed and is responsible for the reported pathologic evaluation. us Historical Provider LAB PATHOLOGY ORDERABLES Final Result [facility] from Last 3 Months or Most Recently Relevant to Health Maintenance Insurance [employer] [facility] MEDICAID Care Teams Word Processing Specialist Relationship Specialty Start Date End Date Rashid Aranda MD [address] [place] [address] PCP - General 10/22/20 Marguerite Zhong [address] [address] Registered Nurse 11/25/24
--- OUTSIDE RECORDS SUMMARY | 2025-01-14 08:55 | XMS_ITS ---
Author Organization [facility] Address [address] [place] [address] Care Team Providers Care Molasses Preparer Name Role Phone Rashid Aranda MD Primary Care Provider + [phone] Marguerite Zhong Unavailable [phone] [facility] - Technology Status:Active (Active) Start date:11/25/2024 Enrollment date:11/25/2024 Enrollment reason:Referred by provider Overview Pt is currently using Lantus - states she will add if high Case Team Name Relationship Phone Marguerite Zhong(Responsible Staff) Registered Nurse [phone] Continued Care and Services Coordination
--- OUTSIDE RECORDS SUMMARY | 2025-01-14 08:55 | XMS_ITS | Encounter Summary ---
Author Organization [facility] Address [address] [place] [address] Care Team Providers Care Silk Hanger Name Role Phone Rashid Aranda MD Primary Care Provider + [phone] Marguerite Zhong Unavailable [phone] Encounter Details Date Type Department Care [...] Description 02/02/2025 8:00 AM EDT Office Visit [facility] Endocrinology [address] [place] [address] Slime Allison, TECHNICAL MANAGER [employer] [address] [facility] [address] [place] [address] documented as of this encounter Visit Diagnoses Not on filedocumented in this encounter Additional Health Concerns Assessment Noted Time A Body Mass Index follow-up plan has been documented for the patient 10/27/2024 10:25 AM EDT documented as of this encounter Care Teams Silk Hanger Relationship Specialty Start Date End Date Rashid Aranda MD [address] [place], [place] [id number] PCP - General 10/22/20 Marguerite Zhong [address] [address] Registered Nurse 11/25/24 documented as of this encounter
[2025-01-14 09:23] VITALS: BP 122/81; PULSE 73; RESP 14; O2SAT 98; BMI 39.4
--- NOTE | 2025-01-14 09:32 | EXP.PAIN.PRO ---
Procedure Date: 01/14/25 Time: 09:32 Anesthesiologist:: Angela Krause APRN Complications:: None Pre-procedure Diagnosis:: Degenerative disc disease of cervical and lumbar spine with cervical and lumbar radiculopathy symptoms, chronic pain syndrome Post-procedure Diagnosis:: Same Indications for Procedure:: Patient is a pleasant 59-year-old female who presents today for follow-up of her second cervical medial branch block. Today she states that it did no improvement and actually cause significant pain for 2 days. Patient denies any specific fall or injury from her last visit. She states that this 1 was nothing like the first 1 that did provide significant improvement. Patient does state that her pain in her neck is basically maintaining the same. Patient is worried that there could be something more going on causing the significant disability. Patient continues to have increased headaches. Patient had been previously tried for some advanced imaging however she was denied due to not having tried injections prior. Patient does have an intrathecal pump in place with morphine 5 mg/mL with a daily dose of 0.566 mg/day. She denies any side effects. Her Jerrell has been reviewed and is appropriate. Physical Exam: General: Alert and oriented x3, no acute distress, pleasant and cooperative Lungs: Respirations even and unlabored, symmetrical chest expansion Eyes: PERRL Musculoskeletal: Flexion and extension of cervical [spine] somewhat guarded secondary to pain, [antalgic gait noted] Neurological: Speech clear, no gross sensory deficit Procedure Details:: Informed consent was obtained and the risk and benefits of the procedure were explained to the patient. Patient did have noninvasive monitoring was placed including noninvasive blood pressure cuff and pulse oximeter. Patient's pump was interrogated and was reprogrammed to morphine 0.622 6 mg/day. The patient tolerated the procedure well with no complications. Plan and Disposition:: Due to the patient's worsening pain and not having significant relief with her second medial branch block I am resubmitting for the MRI without contrast of her cervical spine. Patient did have limited range of motion during today's visit. Patient tolerated her pump increase with no complications and was discharged neurologically intact. Patient will return to clinic in 1 month to review over her advanced imaging findings. We will see the patient back in the clinic at the next intrathecal refill. Patient has been instructed to contact the clinic with any concerns before the next appointment. Dr. Adams has reviewed this note and agrees with this plan of care. This note was dictated using voice recognition software and make contain errors or omissions. -- It Is medically necessary for this patient to continue to have their intrathecal pump refilled at regular intervals. This patient had an intrathecal pain pump implanted after meeting criteria of chronic intractable pain for greater than 3 months and failing conservative treatments. Patient has committed and been compliant to the treatment plan and all planned follow up care. Since implantation of the intrathecal pain pump, the patient has had decreased pain and been more functional. Oral medications have been reduced including intake of oral opioids. Patient continues to do well with intrathecal therapy with decrease in pain symptoms and increase in functional status. Stopping intrathecal medications can lead to life threatening withdrawal, seizures, cardiac arrest, severe pain, and possible . Pumps that are not refilled at regular intervals can be damages and cause and need for replacement. We continually titrate dose and concentration to optimize pain relief and function. We are limited in concentration for certain drugs to safely deliver medications through the pump and stay within the recommendations from the Polyanalgesic Consensus Committee Guidelines. Depending on dose and concentration these pumps may need to be refilled sooner than 3 months as we titrate. A UDS is needed to verify patient's compliance with our office pain contract. This is ordered based off specific treatments related to chronic pain with the potential to abuse certain medications.
== END 2025-01-14 23:59 | disposition home or self-care (01) ==
PROVIDERS: PCP Nurse Practitioner Family; Visit Provider Nurse Practitioner Family
DX: M50.121 Cervical disc disorder at C4-C5 level with radiculopathy (principal); M51.16 Intervertebral disc disorders with radiculopathy, lumbar region; G89.4 Chronic pain syndrome
CPT/HCPCS: 62368; 99213; G0463

== ENCOUNTER 2025-02-13 08:54 | Outpatient (CLI) | payer OTHER, SELFPAY ==
--- OUTSIDE RECORDS SUMMARY | 2025-02-02 08:00 | XMS_ITS | Encounter Summary ---
Author Organization [facility] Address [address] [place] [address] Care Team Providers Care Hearing Healthcare Practitioner Name Role Phone Rashid Aranda MD Primary Care Provider + [phone] Marguerite Zhong Unavailable [phone] Reason for Referral * Consultation (Routine) - Authorized Specialty Diagnoses / Procedures Referred By Terry carvalho Referred To Contact Diagnoses Type 2 diabetes mellitus with hyperglycemia, with long-term current use of insulin (CMS/HCC) Slime Allison APRN [address] [address] Phone: tel: fax: Referral ID Status Reason Start Date Expiration Date V isits Requested Visits Authorized [id number] Authorized 02/02/2025 08/04/2026 1 1 Reason for Visit * Reason Comments Diabetes * Consultation (Routine) - Closed Specialty Diagnoses / Procedures Referred By Terry carvalho Referred To Contact Diagnoses Type 2 diabetes mellitus with hyperglycemia, with long-term current use of insulin ([facility]) Slime Allison APRN [address] [address] Phone: tel: fax: Referral ID Status Reason Start Date Expiration Date Visits Re quested Visits Authorized [id number] Closed 10/27/2024 04/28/2026 1 1 Encounter Details Date Type Department Care Team (Late st Contact Info) Description 02/02/2025 8:00 AM EDT Office Visit [facility] [address] [place] [address] Slime Allison, LURDES [address] [place] [address] Type 2 diabetes mellitus with hyperglycemia, with long-term current use of insulin ([facility]) (Primary Dx) Social History Tobacco Use Types [...] Sign Reading Time Taken Comments Blood Pressure 131/89 02/02/2025 7:47 AM EDT Pulse 80 02/02/2025 7:47 AM EDT Temperature - - Respiratory Rate - - Oxygen Saturation - - Inhaled Oxygen Concentration - - Weight 95.5 kg (210 lb 8.6 oz) 02/02/2025 7:47 A M EDT Height 160 cm (5' 3 ) 02/02/2025 7:47 AM EDT Body Mass Index 37.3 02/02/2025 7:47 AM EDT documented in this encounter Miscellaneous Notes * Progress Notes - Slime Allison, LURDES - 02/02/2025 8:00 AM EDT Subjective Hollie Olson is a 59 y.o. female who presents for a follow up evaluation of Diabetes Mellitis Type 2. Patient was diagnosed approximately 2013. Current symptoms/problems include hyperglycemia. Past Medical History[1] Diabetes Last visit on 10/27/2024. Omnipod 5 initiated on 11/25/2024. Took OP5 off Sunday for planned MRI. Hasbeen doing insulin injections. POCT Hemoglobin A1C (%) Date Value 02/02/2025 9.8 07/28/2024 10.2 Current treatment includes oral agents, insulin pump, and GLP1 OP5 Metformin 1000 mg two times daily Jardiance 10 mg daily - denies SE Ozempic 1 mg weekly - denies SE Lantus - unsure of what dose she is taking, will pull a small amount and inject Lispro - unsure of what dose she is taking, will pull a small amount and inject Insulin Instructions Pump Settings Insulin Lispro 100 UNIT/ML injection vial (Admelog, HumaLOG) Last edited by Slime Allison APRN on 02/02/2025 at 8:34 AM Correct above : 180 Max Basal: 3 units Basal Rate Total Basal Dose: 12 units/day Time units/hr 12:00 AM 0.5 Blood Glucose Target Time mg/dL 12:00 AM 150 Sensitivity Factor Time mg/dL/unit 12:00 AM 71 Carb Ratio Time g/unit 12:00 AM 20 Average TDD: 50-60 units Failed medications: Glimepiride- on insulin; Omnipod dash- started basal insulin Compliance at present is estimated to be fair. Known diabetic complications: retinopathy and peripheral neuropathy Cardiovascular risk factors: diabetes mellitus, dyslipidemia, and obesity (BMI >= 30 kg/m2) On CARLOS or ARB: Yes On Statin: Yes Current diet: well balanced and on average, 2 meals per day Current exercise: yard work - limited at times due to back pain CGM data review: Auth0 and [employer] Reviewed recent data from PDM, average blood glucose 160-200, on average 50% in target range. Lows: Reports one episode of blood glucose 68 while sleeping. History of DKA: Denies. Recent illness/steroid use: Denies. Date of Last Eye Exam: due Date of Last Foot Exam: due When was your last flu shot?: fall 2023 When did you have labs last?: 07/2024 - denies sores/wounds; declines foot exam today Lab Review - labs reviewed from 03/2024, see media tab No results found for: CREATININE , EGFR , TSH , FREET4 , LDLCALC , TRIG , HDL , ALBCREA , AST , ALT , ALKPHOS No results found for: CPEPTIDE , MMG95PX , ZNT8A , NTIB The following portions of the chart were reviewed this encounter and updated as appropriate: Tobacco Allergies Meds Problems Med Hx Surg Hx Fam Hx Review of Systems Constitutional: Negative. HENT: Negative. Eyes: Negative. Respiratory: Negative. Cardiovascular: Negative. Gastrointestinal: Negative. Endocrine: See HPI Genitourinary: Negative. Musculoskeletal: Positive for back pain and neck pain. Skin: Negative. Neurological: Negative. Psychiatric/Behavioral: Negative. Objective [...] Content: Thought content normal. Judgment: Judgment normal. Assessment/Plan Hollie was seen today for diabetes. Diagnoses and all orders for this visit: Type 2 diabetes mellitus with hyperglycemia, with long-term current use of insulin ([facility]) - POCT glycosylated hemoglobin (Hb A1C) - Follow Up [facility]; Future - Insulin Lispro (Admelog, HumaLOG) 100 UNIT/ML injection vial; Use in insulin pump TDD max: 80 units - Continuous Glucose Sensor (FreeStyle Hunter 2 Plus Sensor) misc; 1 sensor every 14 days. - Insulin Disposable Pump (Omnipod 5 Libre2 Plus G6 Pods) misc; 1 Device continuously. Change every2 days. - Semaglutide, 1 MG/DOSE, (Ozempic, 1 MG/DOSE,) 4 MG/3ML solution pen-injector; Inject 1 mg under the skin 1 time per week. - empagliflozin (Jardiance) 10 MG; Take 1 tablet by mouth daily. Other orders - Follow Up [facility] Diabetes Mellitis Type 2, is uncontrolled. Unable to make significant changes to diabetes regimen with limited to no blood glucose data to review today. Advised to restart pump in automated mode. If giving insulin injections recommend to give Lantus 25 units at bedtime and lispro 1:20 CHO ratioplus 1:50>150 correction. Resume using CGM to test BG 4+ times daily to adjust insulin doses for MDI or use with hybrid closed loop insulin pump system. Sample FreeStyle Hunter 2+ given in office today. Advised to call hunter for additional replacements. Labs up to date Encouraged yearly eye exam Encouraged daily foot care Discussed importance of lifestyle interventions for glycemic control (diet, exercise, weight reduction) Follow up: 3 months Hyperlipidemia - Stable - lipid panel noted - Continue on statin,pt reports compliance and no myalgias - Will continue to monitor cholesterol levels - Encouraged healthy lifestyle modifications->diet and exercise. Obesity - Body mass index is 37.3 kg/m??. - contributing to insulin resistance - The patient received dietary education because they [...] pump pros and cons [x]Sensor home use []Pump class offerings []Melvi phenomena []Somogyi effect [] Alcohol related to diabetes [x]Benefits of written records [x]Pre-meal Bolusing [x]Daily foot care [x] Healthy diet and regular exercise [x]Long-term complications related to poor diabetes management [] Injection timing related to changes in activity/exercise I personally spent a total of 30 minutes on this encounter. This time includes face to face with patient, counseling and discussion and/or coordination of care. Electronically signed by: Slime Allison APRN [facility] [address] [place] [address] [address] [place]. [address] PHONE [phone] FAX: [phone] [1] Past Medical History: Diagnosis Date Personal history of other diseases of the circulatory system History of cardiac murmur Personal history of other diseases of the digestive system History of gastroesophageal reflux (GERD) Personal history of other endocrine, nutritional and metabolic disease History of hyperlipidemia Personal history of other mental and behavioral disorders History of depression documented in this encounter Plan of Treatment Upcoming Encounters Date Type Department Care Team (Late st Contact Info) Description 05/14/2025 8:40 AM EST [facility] [address] [place] [address] Slime Allison, LURDES [address] [place] [address] Scheduled Referrals Name Type Priority Associated Diagnoses Orde r Schedule Follow Up [facility] Outpatient Referral Routine Type 2 diabetes mellitus with hyperglycemia, with long-term current use of insulin (CMS/HCC) Expected: 05/05/2025, Expires: 08/06/2026 documented as of this encounter Procedures Procedure Name Priority Date/Time Associated Diagnosis Comments POCT GLYCOSYLATED HEMOGLOBIN (HGB A1C) Routine 02/02/2025 8:26 AM EDT Type 2 diabetes mellitus with hyperglycemia, with long-term current use of insulin ([facility]) documented in this encounter Results * (ABNORMAL) POCT glycosylated hemoglobin (Hb A1C) (02/02/2025 8:26 AM EDT) POCT Hemoglobin A1C 9.8 <5.7% Non-Diabe tic % [facility] Kit Lot Number [id number] [facility] Kit Expiration Date 12/08/2026 [facility] Blood Venous blood specimen / Unknown 02/02/2025 8:26 AM EDT us Slime Allison CONFIGURATION ENGINEER POINT OF CARE TEST ENTER /EDIT ORDERABLES Final Result [facility] [address] [place] [address] documented in this encounter Visit Diagnoses Diagnosis Type 2 diabetes mellitus with hyperglycemia, with long-term current use of insulin ([facility])- Primary documented in this encounter Additional Health Concerns Assessment Noted Time A Body Mass Index follow-up plan has been documented for the patient 02/02/2025 8:46 AM EDT documented as of this encounter Care Teams Hearing Healthcare Practitioner Relationship Specialty Start Date End Date Rashid Aranda MD [address] [place] [address] PCP - General 10/22/20 Marguerite Zhong [address] [place] [address] Registered Nurse 11/25/24 documented as of this encounter
--- NOTE | 2025-02-13 08:57 | MR_ITS ---
FINAL REPORT TECHNIQUE: Multiplanar and multisequence imaging of the cervical spine was obtained. CLINICAL HISTORY: CHRONIC NECK PAIN COMPARISON: None FINDINGS: Alignment is normal. Vertebral body height is preserved. Signal intensity within the substance of the spinal cord is normal. No acute bone marrow edema. No acute paraspinal abnormality. C2/3: No focal disc herniation, central canal stenosis, or neural foraminal narrowing. C3/4: No focal disc herniation, central canal stenosis, or neural foraminal narrowing. C4/5: An annular bulge is present with endplate degenerative changes and facet osteoarthropathy. There is mild right neural foraminal narrowing, without evidence of canal stenosis. C5/6: An annular bulge is present with endplate degenerative changes and facet osteoarthropathy. There is mild right greater than left neural foraminal narrowing, without evidence of canal stenosis. C6/7: An annular bulge is present with endplate degenerative changes and facet osteoarthropathy. There is moderate canal stenosis, without evidence of neural foraminal narrowing. C7/T1: There is a central disc protrusion superimposed on an annular bulge with endplate degenerative changes and facet osteoarthropathy. There is mild to moderate canal stenosis, without evidence of neural foraminal narrowing. IMPRESSION: Multilevel cervical degenerative changes are present, most pronounced at the C6-7 and C7-T1 levels. Reviewed, Interpreted and Dictated by Meggan Espinoza MD Transcribed by Saniya Munoz Authenticated and . [facility]
--- OUTSIDE RECORDS SUMMARY | 2025-02-13 08:57 | XMS_ITS | Encounter Summary ---
Author Organization Healthcare Address [address] [place] [address] Care Team Providers Care Pillowcase Maker Name Role Phone Rashid Aranda MD Primary Care Provider + [phone] Marguerite Zhong Unavailable [phone] Encounter Details Date Type Department Care Team (Latest Contact Info) Description 02/02/2025 Travel Social History Tobacco Use Types Packs/Day [...] Description 05/14/2025 8:40 AM EST Office Visit [facility] Endocrinology [address] [place] [address] Slime Allison, SUPERVISOR POST WAVE [address] [place] [address] documented as of this encounter Visit Diagnoses Not on filedocumented in this encounter Additional Health Concerns Assessment Noted Time A Body Mass Index follow-up plan has been documented for the patient 02/02/2025 8:46 AM EDT documented as of this encounter Care Teams Pillowcase Maker Relationship Specialty Start Date End Date Rashid Aranda MD [address] [place], [place] [id number] PCP - General 10/22/20 Marguerite Zhong [address] [address] Registered Nurse 11/25/24 documented as of this encounter
--- OUTSIDE RECORDS SUMMARY | 2025-02-13 08:57 | XMS_ITS | Clinical Summary ---
Author Organization [facility] Address [address] [place] [address] Care Team Providers Care Oracle Ebs Consultant Name Role Phone Rashid Aranda MD Primary Care Provider + [phone] Marguerite Zhong Unavailable [phone] Allergies Active Allergy Reactions Criticality Noted [...] times a day with meals. 180 tablet 3 5 08/04/19 26 Active insulin glargine (Lantus SoloStar, Basaglar) 100 UNIT/ML injection pen Inject 36 units at bedtime. Titrate as directed. MDD: 50 units 15 mL 3 5 Active glucose blood test strip 1 each by Other route 1 time as needed (For severe high or low glucose, when automated pump/ sensor fails) for up to 1 dose. 1 each 5 Active glucagon (Baqsimi Two Pack) 3 MG/DOSE powder Nasal Powder Administer 3 mg into a single nostril for hypoglycemia; if no response, may repeat in 15 minutes using a new intranasal device 1 each 1 5 Active Continuous Glucose Transmitter (Dexcom G6 transmitter) misc use as directed 5 Active Insulin Lispro (Admelog, HumaLOG) 100 UNIT/ML injection vialIndications :Type 2 diabetes mellitus with hyperglycemia, with long-term current use of insulin ([facility]) Use in insulin pump TDD max: 80 units 30 mL 5 Active Continuous Glucose Sensor (FreeStyle Hunter 2 Plus Sensor) miscIndications :Type 2 diabetes mellitus with hyperglycemia, with long-term current use of insulin (CMS/HCC) 1 sensor every 14 days. 2 each 5 02/03/20 26 Active Insulin Disposable Pump (Omnipod 5 Libre2 Plus G6 Pods) miscIndications :Type 2 diabetes mellitus with hyperglycemia, with long-term current use of insulin (CMS/HCC) 1 Device continuously. Change every 2 days. 15 each 5 02/03/20 26 Active Semaglutide, 1 MG/DOSE, (Ozempic, 1 MG/DOSE,) 4 MG/3ML solution pen-injectorInd ications:Type 2 diabetes mellitus with hyperglycemia, with long-term current use of insulin ([facility]) Inject 1 mg under the skin 1 time per week. 3 mL 5 5 02/03/20 26 Active empagliflozin (Jardiance) 10 MGIndications:T ype 2 diabetes mellitus with hyperglycemia, with long-term current use of insulin ([facility]) Take 1 tablet by mouth daily. 30 tablet 11 5 02/03/20 26 Active Continuous Glucose Sensor (FreeStyle Hunter 2 Plus Sensor) misc 1 sensor every 14 days. 6 each 3 5 02/03/20 25 Discontin ued(Reord er) Semaglutide, 1 MG/DOSE, (Ozempic, 1 MG/DOSE,) 4 MG/3ML solution pen-injector Inject 1 mg under the skin 1 time per week. 3 mL 5 5 02/03/20 25 Discontin ued(Reord er) empagliflozin (Jardiance) 10 MG Take 1 tablet by mouth daily. 30 tablet 5 5 02/03/20 25 Discontin ued(Reord er) Insulin Lispro (Admelog, HumaLOG) 100 UNIT/ML injection vial Use in insulin pump TDD max: 50 units 15 mL 3 5 02/03/20 25 Discontin ued(Reord er) Insulin Disposable Pump (Omnipod 5 Libre2 Plus G6 Pods) misc 1 Device every 3 days. 10 each 5 5 02/03/20 25 Discontin ued(Reord er) Active Problems Problem Noted Date Diagnosed Date Severe obesity (BMI 35.0-39.9) with comorbidity 08/04/2024 Type 2 diabetes mellitus wit h hyperglycemia, with long-term current use of insulin 08/04/2024 Class III obesity with body mass index (BMI) of 40.0 or higher 04/22/2024 Hyperlipidemia 04/22/2024 Gastroesophageal reflux 04/22/2024 Hypertension 01/15/2020 Encounters Date Type Department Care Team Description 02/06/2025 [facility] [place] [address] Slime Allison APRN Type 2 diabetes mellitus with hyperglycemia, with long-term current use of insulin ([facility]) 02/02/2025 8:00 AM EDT Office Visit [facility] Endocrinology [address] [place] [address] Slime Allison, LURDES Type 2 diabetes mellitus with hyperglycemia, with long-term current use of insulin ([facility]) (Primary Dx) 02/02/2025 Travel 12/16/2024 Orders Only [facility] Endocrinology [address] [place] [address] Slime Allison, LURDES 12/16/2024 Refill [facility] Endocr[facility] [address] [place] [address] Slime Allison, CASH POSTING REPRESENTATIVE 12/01/2024 Refill [facility] Endocrinology [address] [place] [address] Bethanie Taylor 12/01/2024 Telephone [facility] Endocr[facility]ology [address] [place] [address] Slime Allison, LURDES Prior-authorization/i nsurance Verification 11/25/2024 9:30 AM EDT Education [facility] [address] [place] [address] Marguerite Zhong Type 2 diabetes mellitus with hyperglycemia, with long-term current use of insulin ([facility]) (Primary Dx); Encounter for fitting or adjustment of insulin pump 11/25/2024 Travel from Last 3 Months Social History [...] Pulse 80 02/02/2025 7:47 AM EDT Temperature 36.8 C (98.3 F) 09/01/2020 10:27 AM EDT Respiratory Rate - - Oxygen Saturation - - Inhaled Oxygen Concentration - - Weight 95.5 kg (210 lb 8.6 oz) 02/02/2025 7:47 A M EDT Height 160 cm (5' 3 ) 02/02/2025 7:47 AM EDT Body Mass Index 37.3 02/02/2025 7:47 AM EDT Plan of Treatment Upcoming Encounters Date Type Department Care Team (Late st Contact Info) Description 05/14/2025 8:40 AM EST [facility] [address] [place] [address] Slime Allison, CASH POSTING REPRESENTATIVE [address] [place] [address] Health Maintenance Due Date Last [...] (2 - Td or Tdap) 10/30/2022 10/30/2012 [id number] Vaccine (5 - season) 2025 04/04/2023, 08/10/2021, 09/22/2020, Additional history exists [facility]-Influenza Vaccine (#1) 02/09/202503/17, 04/04/2023, 02/17/2022, Additional history exists [facility]-Diabetes: Hemoglobin A1C 05/04/2025, 07/28/2024, 04/22/2024 FIT-DNA 10/01/2026 10/02/2023 [facility]-Colorectal Cancer Screening 10/01/2026 [facility]-Zoster Vaccines Completed 08/15/2023, [facility]-Obesity Intervention Completed 025, 02/02/2025, 02/02/2025, Additional history exists HPV Vaccines Aged Out [...] hyperglycemia, with long-term current use of insulin ([facility]) CYTO DATA CONVERSION Routine 04/12/1995 12:00 AM EST from Last 3 Months or Most Recently Relevant to Health Maintenance Results * (ABNORMAL) POCT glycosylated hemoglobin (Hb A1C) (02/02/2025 8:26 AM EDT) POCT Hemoglobin A1C 9.8 <5.7% Non-Diabe tic % [facility] Kit Lot Number [id number] [facility] Kit Expiration Date 12/08/2026 HEALTHCARE [facility] Blood Venous blood specimen / Unknown 02/02/2025 8:26 AM EDT Slime Camerons CASH POSTING REPRESENTATIVE POINT OF CARE TEST ENTER /EDIT ORDERABLES Final Result Performing Organization Address City/State/RUST Co de Phone Number HEALTHCARE LAB [address] [place] [address] * Cytology (04/12/1995 12:00 AM EST) Breast fine needle aspirate specimen (specimen) 04/12/1995 04/12/1995 Narrative SUNQUEST - 04/16/1995 12:00 AM EST [facility] MR #: [id number] [facility] [address] [place] [id number] (Age: 29) FW Collect Date: 04/12/1995 00:00 Receipt Date: 04/12/1995 00:00 Page 1 DEPARTMENT OF PATHOLOGY AND LABORATORY MEDICINE CYTOPATHOLOGY REPORT Email: [email or web address] [phone] * Converted Case * This report may not match the original report format ATTENDING MD/Practitioner: Dariel Flower Jr., Service: ROAD PASSENGER FIRER Location: Reported: 04/16/1995 00:00 Collected: 04/12/1995 00:00 DIAGNOSIS FNA, LEFT BREAST: NO EVIDENCE OF MALIGNANCY. SMALL COHESIVE GROUPS OF BENIGN DUCTAL EPITHELIAL CELLS AND ADIPOSE TISSUE. Electronically Signed Out By Niki Sandra MD Janice Sutton MD PROCEDURES/ADDENDA GROSS DESCRIPTION: Needle rinse fluid and 9 slides. CLINICAL INFORMATION: CLINICAL DIAGNOSIS 2X2cm firm movable nodule at 6:00 FNA X2 BY SARAH/ELIU SPECIMEN DESCRIPTION: A: FNA BREAST, NOS, L.BREAST ICD: F: {Not Entered} SNOMED CODES: 1; [id number] P1149 [id number] A resident has participated in this service. A pathologist has performed and is responsible for the reported pathologic evaluation. Historical Provider LAB PATHOLOGY ORDERABLES Fin al Result SUNQUEST from Last 3 Months or Most Recently Relevant to Health Maintenance Insurance [employer] [facility] MEDICAID Care Teams Oracle Ebs Consultant Relationship Specialty Start Date End Date Rashid Aranda MD [address] [place] [address] PCP - General 10/22/20 Marguerite Zhong [address] [facility] [address] [place] [address] Registered Nurse 11/25/24
--- OUTSIDE RECORDS SUMMARY | 2025-02-13 08:57 | XMS_ITS | Encounter Summary ---
Author Organization Healthcare Address [address] [place] [address] Care Team Providers Care Wafer Polisher Name Role Phone Rashid Aranda MD Primary Care Provider + [phone] Marguerite Zhong Unavailable [phone] Encounter Details Date Type Department Care Team (Late st Contact Info) Description 12/16/2024 Orders Only [facility] Endocrinology [address] [place] [address] Slime Allison, LITHOGRAPHIC PLATE MAKER [address] [address] Social History Tobacco Use Types [...] Description 05/14/2025 8:40 AM EST [facility] [address] [place] [address] Slime Allison, LITHOGRAPHIC PLATE MAKER [address] [address] documented as of this encounter Visit Diagnoses Not on filedocumented in this encounter Additional Health Concerns Assessment Noted Time A Body Mass Index follow-up plan has been documented for the patient 10/27/2024 10:25 AM EDT documented as of this encounter Care Teams Wafer Polisher Relationship Specialty Start Date End Date Rashid Aranda MD [address] [place] [id number] PCP - General 10/22/20 Marguerite Zhong [address] [phone] Registered Nurse 11/25/24 documented as of this encounter
--- OUTSIDE RECORDS SUMMARY | 2025-02-13 08:57 | XMS_ITS | Encounter Summary ---
Author Organization Healthcare Address [address] [place] [address] Care Team Providers Care Program Mgr Name Role Phone Rashid rAanda MD Primary Care Provider + [phone] Marguerite Zhong Unavailable [phone] Reason for Visit * Reason Onset Date Comments Med Refill 02/06/2025 Encounter Details Date Type Department Care Team (Late st Contact Info) Description 02/06/2025 Refill [facility] Endocrinology [address] [place] [address] Slime Allison, CEMENTER [address] [facility] [address] [place] [address] Type 2 diabetes mellitus with hyperglycemia, with long-term current use of insulin ([facility]) Social History Tobacco Use Types Packs/Day Years [...] * Telephone Encounter - Celia Soni - 02/06/2025 2:04 PM EDT 1 medication(s) has been denied per protocol due to: Refill requested too soon documented in this encounter Plan of Treatment Upcoming Encounters Date Type Department Care Team (Late st Contact Info) Description 05/14/2025 8:40 AM EST [facility] [address] [place] [address] Slime Allison, CEMENTER [address] [facility] [address] [place] [address] documented as of this encounter Visit Diagnoses Diagnosis Type 2 diabetes mellitus with hyperglycemia, with long-term current use of insulin ([facility]) documented in this encounter Additional Health Concerns Assessment Noted Time A Body Mass Index follow-up plan has been documented for the patient 02/02/2025 8:46 AM EDT documented as of this encounter Care Teams Program Mgr Relationship Specialty Start Date End Date Rashid Aranda MD [address] [place] [address] PCP - General 10/22/20 Marguerite Zhong [address] [facility] [address] [place] [address] Registered Nurse 11/25/24 documented as of this encounter
--- OUTSIDE RECORDS SUMMARY | 2025-02-13 08:57 | XMS_ITS | Encounter Summary ---
Author Organization Healthcare Address [address] [place] [address] Care Team Providers Care Healthcare Applications Analyst Name Role Phone Rashid Aranda MD Primary Care Provider + [phone] Marguerite Zhong Unavailable [phone] Reason for Visit * Reason Comments Med Refill Encounter Details Date Type Department Care Team (Late st Contact Info) Description 12/16/2024 Refill [facility] Endocrinology [address] [place] [address] Slime Allison P, AIRCRAFT LAYOUT WORKER [address] [facility] [address] [place] [address] Social History Tobacco Use Types [...] 05/14/2025 8:40 AM EST Office Visit [facility] Endocrinology [address] [place] [address] Slime Allison, AIRCRAFT LAYOUT WORKER [address] [place] [address] documented as of this encounter Visit Diagnoses Not on filedocumented in this encounter Additional Health Concerns Assessment Noted Time A Body Mass Index follow-up plan has been documented for the patient 10/27/2024 10:25 AM EDT documented as of this encounter Care Teams Healthcare Applications Analyst Relationship Specialty Start Date End Date Rashid Aranda MD [address] [place] [address] PCP - General 10/22/20 Marguerite Zhong [address] [address] Registered Nurse 11/25/24 documented as of this encounter
--- OUTSIDE RECORDS SUMMARY | 2025-02-13 08:57 | XMS_ITS ---
Author Organization [facility] Address [address] [place] [address] Care Team Providers Care Carrot Harvester Name Role Phone Rashid Aranda MD Primary Care Provider + [phone] Marguerite Zhong Unavailable [phone] [facility] - Technology Status:Active (Active) Start date:11/25/2024 Enrollment date:11/25/2024 Enrollment reason:Referred by provider Overview Pt is currently using Lantus - states she will add if high Case Team Name Relationship Phone Marguerite Zhong(Responsible Staff) Registered Nurse [phone] Continued Care and Services Coordination
== END 2025-02-13 23:59 | disposition home or self-care (01) ==
LOC: RAD 08:55
PROVIDERS: PCP Nurse Practitioner Family; Visit Provider Nurse Practitioner Family
DX: M47.812 Spondylosis without myelopathy or radiculopathy, cervical region (principal); M47.813 Spondylosis without myelopathy or radiculopathy, cervicothoracic region
CPT/HCPCS: 72141

== ENCOUNTER 2025-04-01 10:45 | Outpatient (CLI) | payer OTHER, SELFPAY ==
--- OUTSIDE RECORDS SUMMARY | 2025-02-02 08:00 | XMS_ITS | Encounter Summary ---
Author Organization [facility] Address [address] [place] [address] Care Team Providers Care Rubber Roller Grinder Name Role Phone Rashid Aranda MD Primary Care Provider + [phone] Marguerite hZong Unavailable [phone] Reason for Referral * Consultation (Routine) - Authorized Specialty Diagnoses / Procedures Referred By Terry carvalho Referred To Contact Diagnoses Type 2 diabetes mellitus with hyperglycemia, with long-term current use of insulin Slime Allison APRN [address] [address] Phone: tel: fax: Referral ID Status Reason Start Date Expiration Date V isits Requested Visits Authorized [id number] Authorized 02/02/2025 08/04/2026 1 1 Reason for Visit * Reason Comments Diabetes * Consultation (Routine) - Closed Specialty Diagnoses / Procedures Referred By Terry carvalho Referred To Contact Diagnoses Type 2 diabetes mellitus with hyperglycemia, with long-term current use of insulin Slime Allison APRN [address] [address] Phone: tel: fax: Referral ID Status Reason Start Date Expiration Date Visits Re quested Visits Authorized [id number] Closed 10/27/2024 04/28/2026 1 1 Encounter Details Date Type Department Care Team (Late st Contact Info) Description 02/02/2025 8:00 AM EDT Office Visit [facility] Endocrinology [address] [place] [address] Slime Allison, NURSE [address] [place] [address] Type 2 diabetes mellitus with hyperglycemia, with long-term current use of insulin ([facility]) (Primary Dx) Social History Tobacco Use Types [...] due to back pain CGM data review: OmniPod and [employer]ovo 2 plus Reviewed recent data from [facility], average blood [...] ALKPHOS No results found for: CPEPTIDE , GIT31SR , ZNT8A , NTIB The following portions [...] hyperglycemia, with long-term current use of insulin ([facility]) - POCT glycosylated hemoglobin (Hb A1C) - Follow Up [facility]; Future - Insulin Lispro (Admelog, HumaLOG) 100 [...] mouth daily. Other orders - Follow Up [facility] Diabetes Mellitis Type 2, is uncontrolled. Unable [...] care. Electronically signed by: Slime Allison APRN [address] [place]. [address] PHONE [phone] FAX: [phone] [1] Past Medical History: Diagnosis Date Personal [...] Care Team (Late st Contact Info) Description 07/09/2025 8:20 AM EST Office Visit [facility] End[facility] [address] [place] [address] Slime Allison APRN [address] [place] [address] Scheduled Referrals Name Type Priority Associated Diagnoses Orde r Schedule Follow Up [facility] Outpatient Referral Routine Type 2 diabetes mellitus with hyperglycemia, with long-term current use of insulin ([facility]) Expected: 05/05/2025, Expires: 08/06/2026 documented as of this encounter Procedures Procedure Name Priority Date/Time Associated Diagnosis Comments POCT GLYCOSYLATED HEMOGLOBIN (HGB A1C) Routine 02/02/2025 8:26 AM EDT Type 2 diabetes mellitus with hyperglycemia, with long-term current use of insulin ([facility]) documented in this encounter Results * (ABNORMAL) POCT glycosylated hemoglobin (Hb A1C) (02/02/2025 8:26 AM EDT) POCT Hemoglobin A1C 9.8 <5.7% Non-Diabe tic % [facility] Kit Lot Number [id number] [facility] Kit Expiration Date 12/08/2026 [facility] Blood Venous blood specimen / Unknown 02/02/2025 8:26 AM EDT us Slime Allison NURSE POINT OF CARE TEST ENTER /EDIT ORDERABLES Final Result [facility] [address] [place] [address] documented in this encounter Visit Diagnoses Diagnosis Type 2 diabetes mellitus with hyperglycemia, with long-term current use of insulin- Primary documented in this encounter Additional Health Concerns Assessment Noted Time A Body Mass Index follow-up plan has been documented for the patient 02/02/2025 8:46 AM EDT documented as of this encounter Care Teams Rubber Roller Grinder Relationship Specialty Start Date End Date Rashid Aranda MD [address] [place], [place] [id number] PCP - General 10/22/20 Marguerite Zhong [address] [place] [address] Registered Nurse 11/25/24 documented as of this encounter
--- OUTSIDE RECORDS SUMMARY | 2025-04-01 11:04 | XMS_ITS | Encounter Summary ---
Author Organization Healthcare Address [address] [place] [address] Care Team Providers Care Track Moving Machine Operator Name Role Phone Rashid Aranda MD Primary Care Provider + [phone] Marguerite Zhong Unavailable [phone] Encounter Details Date Type Department Care [...] Description 07/09/2025 8:20 AM EST Office Visit [facility] Endocrinology [address] [place] [address] Slime Allison, TECHNICAL TRAINING COORDINATOR [address] [place] [address] documented as of this encounter Visit Diagnoses Not on filedocumented in this encounter Additional Health Concerns Assessment Noted Time A Body Mass Index follow-up plan has been documented for the patient 02/02/2025 8:46 AM EDT documented as of this encounter Care Teams Track Moving Machine Operator Relationship Specialty Start Date End Date Rashid Aranda MD [address] [place] [address] PCP - General 10/22/20 Marguerite Zhong [address] [address] Registered Nurse 11/25/24 documented as of this encounter
--- OUTSIDE RECORDS SUMMARY | 2025-04-01 11:04 | XMS_ITS | Patient Health Record ---
Author Organization [facility] Address [address] [place] [id number] Care Team Providers Care Work Manager Name Role Phone Terry Broderick Primary Care Provider Reason For Referral No Information Medications Medication SIG (Take, Route, Frequency, Duration) Notes Start Date End Date Status Glimepiride 4 MG 1 tab(s) orally twic e daily; Duration: 90 Active Janumet XR 50-1000 MG 1 tablet orally tw ice daily; Duration: 90 Active Famotidine 40 MG 1 tab(s) orally once a day (at bedtime); Duration: 90 Active Naproxen 500 MG 1 tab(s) orally 2 ti mes a day Active Farxiga 10 MG 1 tab(s) orally once a day; Duration: 90 Active Benazepril-hydroCHLOROthiaz don 20-25 MG 1 tab(s) orally bid; Duration: 90 Active Verapamil HCl ER 180 MG 1 cap(s) orally twice daily Active Problems Problem Type SNOMED Code ICD Code Onset Dates Problem Status W/U Status Risk Notes Problem Essential hypertension (70554170) Essential hypertension (I10) Active confirmed Problem Gastroesophageal reflux disease without esophagitis (084585296) Gastroesophageal reflux disease without esophagitis (K21.9) Active confirmed Problem Type II diabetes mellitus without complication (777176730) Type 2 diabetes mellitus without complication, without long-term current use of insulin (E11.9) Active confirmed Problem Hearing loss (42658168) Congenital hearing loss of both ears (H91.93) Active confirmed Plan Of Treatment No Information Insurance Providers Payer Name Payer Address Payer Phone Subscriber Number Group Number Insured Name Patient Relationship to Insured Coverage Start Date Coverage End Date [facility] [address] [place] [phone] [id number] MARY ROBERTS Self - patient is the insured Medical (General) History Medical History History ICD Code HTN Type 2 Diabetes Seasonal Allergies Arthritis Depression Congenital hearing deficit Surgical History Surgery Date(Month/Year) Partial Hysterectomy at 40 years old Cyst Remvoed on Tailbone x2 Spleen Removed at 9 years old Hospitalization History Reason Date(Month/Year) Partial Hysterectomy at [facility]
--- OUTSIDE RECORDS SUMMARY | 2025-04-01 11:04 | XMS_ITS | Encounter Summary ---
Author Organization Healthcare Address [address] [place] [address] Care Team Providers Care Center Maker Hand Name Role Phone Rashid Aranda MD Primary Care Provider + [phone] Marguerite Zhong Unavailable [phone] Reason for Visit * Reason Onset Date Comments Med Refill 02/06/2025 Encounter Details Date Type Department Care Team (Late st Contact Info) Description 02/06/2025 Refill [facility] Endocrinology [address] [place] [address] Slime Allison, FUNERAL HOME MAKEUP ARTIST [address] [facility] [address] [place] [address] Type 2 diabetes mellitus with hyperglycemia, with long-term current use of insulin ([facility]) Social History Tobacco Use Types Packs/Day Years [...] 07/09/2025 8:20 AM EST [facility] [address] [place] [address] Slime Allison, FUNERAL HOME MAKEUP ARTIST [address] [place] [address] documented as of this encounter Visit Diagnoses Diagnosis Type 2 diabetes mellitus with hyperglycemia, with long-term current use of insulin documented in this encounter Additional Health Concerns Assessment Noted Time A Body Mass Index follow-up plan has been documented for the patient 02/02/2025 8:46 AM EDT documented as of this encounter Care Teams Center Maker Hand Relationship Specialty Start Date End Date Rashid Aranda MD [address] [place] [address] PCP - General 10/22/20 Marguerite Zhong [address] [place] [address] Registered Nurse 11/25/24 documented as of this encounter
--- OUTSIDE RECORDS SUMMARY | 2025-04-01 11:05 | XMS_ITS ---
Author Organization [facility] Address [address] [place] [address] Care Team Providers Care Oil Well Gun Perforator Operator Name Role Phone Rashid Aranda MD Primary Care Provider + [phone] Marguerite Zhong Unavailable [phone] [facility] - Technology Status:Active (Active) Start date:11/25/2024 Enrollment date:11/25/2024 Enrollment reason:Referred by provider Overview Pt is currently using Lantus - states she will add if high Case Team Name Relationship Phone Marguerite Zhong(Responsible Staff) Registered Nurse [phone] Continued Care and Services Coordination
--- OUTSIDE RECORDS SUMMARY | 2025-04-01 11:05 | XMS_ITS | Clinical Summary ---
Author Organization [facility] Address [address] [place] [address] Care Team Providers Care Harbor Engineer Name Role Phone Rashdi Aranda MD Primary Care Provider + [phone] Marguerite Zhong Unavailable [phone] Allergies Active Allergy Reactions Criticality Noted [...] 1 (one) time each day. 4 Active benazepril-hydro CHLOROthiazide (Lotensin HCT) 20-25 MG tablet Take 1 [...] Active Continuous Glucose Transmitter (Dexcom G6 transmitter) [facility] use as directed 5 Active Insulin Lispro (Admelog, HumaLOG) 100 UNIT/ML injection vialIndications: Type 2 diabetes mellitus with hyperglycemia, with long-term current use of insulin Use in insulin pump TDD max: 80 units 30 mL 5 Active Continuous Glucose Sensor (FreeStyle Hunter 2 Plus Sensor) miscIndications: Type 2 diabetes mellitus with hyperglycemia, with long-term current use of insulin 1 sensor every 14 days. 2 each 5 02/03/20 26 Active Insulin Disposable Pump (Omnipod 5 Libre2 Plus G6 Pods) miscIndications: Type 2 diabetes mellitus with hyperglycemia, with long-term current use of insulin 1 Device continuously. Change every 2 days. 15 each 5 02/03/20 26 Active Semaglutide, 1 MG/DOSE, (Ozempic, 1 MG/DOSE,) 4 MG/3ML solution pen-injectorIndi cations:Type 2 diabetes mellitus with hyperglycemia, with long-term current use of insulin Inject 1 mg under the skin 1 time per week. 3 mL 5 5 02/03/20 Active empagliflozin (Jardiance) 10 MGIndications:Ty pe 2 diabetes mellitus with hyperglycemia, with long-term current use of insulin Take 1 tablet by mouth daily. 30 tablet 11 5 02/03/20 Active Active Problems Problem Noted Date Diagnosed Date Severe obesity (BMI 35.0-39.9) with comorbidity 08/04/2024 Type 2 diabetes mellitus wit h hyperglycemia, with long-term current use of insulin 08/04/2024 Class III obesity with body mass index (BMI) of 40.0 or higher 04/22/2024 Hyperlipidemia 04/22/2024 Gastroesophageal reflux 04/22/2024 Hypertension 01/15/2020 Encounters Date Type Department Care Team Description 02/06/2025 Refill [facility] Endocrinology [address] [place] [address] Slime Allison APRN Type 2 diabetes mellitus with hyperglycemia, with long-term current use of insulin ([facility]) 02/02/2025 8:00 AM EDT Office Visit [facility] Endocrinology [address] [place] [address] Slime Allison APRN Type 2 diabetes mellitus with hyperglycemia, with long-term current use of insulin ([facility]) (Primary Dx) 02/02/2025 Travel from Last 3 Months Social History [...] Description 07/09/2025 8:20 AM EST Office Visit [facility] Endocrinology [address] [place] [address] Slime Allison, GROCERY MANAGER [address] [place] [address] Health Maintenance Due Date Last Done Comments [facility]-Depression Screening 1965 [facility]-HIV Screening 1965 [facility]-Hepatitis C Screening 1965 [facility]-Infant/Child/Adol SDOH Screenings 1965 Diabetes: Dental Exam 1977 [...] (2 - Td or Tdap) 10/30/2022 10/30/2012 [id number] Vaccine ( season) 2025 04/04/2023, 08/10/2021, 09/22/2020, Additional history [...] hyperglycemia, with long-term current use of insulin ([facility]) CYTO DATA CONVERSION Routine 04/12/1995 12:00 AM EST from Last 3 Months or Most Recently Relevant to Health Maintenance Results * (ABNORMAL) POCT glycosylated hemoglobin (Hb A1C) (02/02/2025 8:26 AM EDT) POCT Hemoglobin A1C 9.8 <5.7% Non-Diabe tic % [facility] Kit Lot Number [id number] [facility] Kit Expiration Date 12/08/2026 [facility] Blood Venous blood specimen / Unknown 02/02/2025 8:26 AM EDT us Slime Allison GROCERY MANAGER POINT OF CARE TEST ENTER /EDIT ORDERABLES Final Result [facility] [address] [place] [address] * Cytology (04/12/1995 12:00 AM EST) Breast fine needle aspirate specimen (specimen) 04/12/1995 04/12/1995 Narrative [facility] - 04/16/1995 12:00 AM EST [facility] MR #: [id number] [facility] [address] [place], [place] [address] 1965 (Age: 29) FW Collect Date: 04/12/1995 00:00 Receipt Date: 04/12/1995 00:00 Page 1 DEPARTMENT OF PATHOLOGY AND LABORATORY MEDICINE CYTOPATHOLOGY REPORT Email: [email or web address] * Converted Case * This report may not match the original report format ATTENDING MD/Practitioner: Dariel Flower Jr., Service: BALLET TEACHER Location: Reported: 04/16/1995 00:00 Collected: 04/12/1995 [...] ICD: F: {Not Entered} SNOMED CODES: 1; [id number] [id number] A resident has participated in this service. A pathologist has performed and is responsible for the reported pathologic evaluation. Historical Provider LAB PATHOLOGY ORDERABLES Fin al Result [facility] from Last 3 Months or Most Recently Relevant to Health Maintenance Insurance [employer] [facility] MEDICAID Care Teams Harbor Engineer Relationship Specialty Start Date End Date Rashid Aranda MD [address] [facility] [place] [address] PCP - General 10/22/20 Marguerite Zhong [address] [facility] [address] [place] [address] Registered Nurse 11/25/24
[2025-04-01 14:22] LABS: Hemoglobin A1C 8.9 % (4.0-6.0)
== END 2025-04-01 23:59 | disposition home or self-care (01) ==
LOC: LAB 10:46
PROVIDERS: PCP Nurse Practitioner Family; Visit Provider Student in an Organized Health Care Education/Training Program
DX: E11.9 Type 2 diabetes mellitus without complications (principal)
CPT/HCPCS: 36415; 83036